=== PATIENT | female | born 2005 | race Caucasian/White ===

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

== ENCOUNTER 2023-05-18 21:26 | Emergency (ER) | payer MEDICAID, SELFPAY ==
[2023-05-18 21:27] VITALS: BP 134/110; PULSE 95; RESP 15; TEMP 36.6; O2SAT 97; BMI 48.1
--- NOTE | 2023-05-18 22:07 | EX.ED.VIS.EY ---
HPI History of Present Illness Chief Complaint: Eye Problem Narrative Narrative: 18-year-old female who denies significant past medical history states that she was playing with her friends dog who has a very long nails, sustained a scratch to her right eye yesterday evening, over 24 hours ago. She is now having problems opening her right eye secondary to pain. She denies loss of vision but states when she does open her eye, her vision is mildly blurred. She does not wear contact lenses or corrective lenses. She states that she thought it was just a superficial scratch, but it is worsened over time. She had to stay up until 9:00 this morning, 12 hours ago. She states that bright lights hurt her eye, and she has to force her eyelid open. [facility] Medical History Chronic pain Home Medications acetaminophen 500 mg tablet 1,000 mg PO Q6H PRN Pain 12/23/21 [History Last Taken Unknown] naproxen 500 mg tablet (Naprosyn) 500 mg PO BID pain 12/23/21 [History Last Taken Unknown] erythromycin 5 mg/gram (0.5 %) eye ointment 1 applic RIGHT EYE Q6H #3.5 grams 05/18/23 [Rx Last Taken Unknown] Allergy/AdvReac Type Severity Reaction Status Date / Time acetaminophen [From [place]] AdvReac Nausea/Vom/ Verified 05/18/23 21:30 Diarrhea hydrocodone [From [place]] AdvReac Nausea/Vom/ Verified 05/18/23 21:30 Diarrhea Social History Smoking Status: Current every day smoker tobacco type: cigarettes alcohol intake: current substance use type: marijuana ROS ROS ED ROS Narrative Constitutional: No fever, no chills. HEENT: No sore throat. No neck pain. No loss of vision. No rhinorrhea. Right eye pain, photophobia right eye. Cardiovascular: No chest pain. No palpitations. No pedal edema. Respiratory: No cough, no shortness of breath. Abdominal: No abdominal pain. No nausea. No vomiting. Genitourinary: No dysuria. No hematuria. Musculoskeletal: No myalgias. No arthralgias. Neurologic: Right-sided headaches. No dizziness. No lightheadedness. Skin: No rash. No change in color. Psychiatric: No depression. No anxiety. EXAM Physical Exam Narrative Exam Narrative: Afebrile. Vital signs noted. HEENT: Normocephalic. Atraumatic. PERRL, EOMI. Neck soft and supple. No point tenderness or step off. Patient having difficulty opening right eye. Extraocular muscles intact on right with mild conjunctival injection, no noted exudate. Cardiovascular: Regular rate and rhythm. No murmurs, rubs, or gallops appreciated. Respiratory: No tachypnea. Lungs clear to auscultation bilaterally. Gastrointestinal: Abdomen soft, nontender, with normoactive bowel sounds. No rebound or guarding. Neurological: Awake. Alert. Nonfocal, nonlateralizing. Skin: No rash. Normal color. No pallor. Musculoskeletal: No pedal edema. Full range of motion extremities. Const Vital Signs: 05/18/23 21:27 Temperature 97.8 F Temperature Source Temporal Pulse Rate 95 Respiratory Rate 15 Blood Pressure 134/110 H Blood Pressure Mean 118 Pulse Ox 97 Oxygen Delivery Method Room Air MDM MDM MDM Narrative Medical decision making narrative: Suspicion is for corneal ulceration versus deep laceration. However, upon initial examination her pupil appears round on the right, but examination is limited. Tetracaine will be instilled in the right eye as well as fluorescein to get a better examination. After tetracaine, she was able to open her right eye independently. It was stained with fluorescein. There is evidence of a corneal abrasion in the mid pupil/center. There is no streaming of fluorescein noted. Visual acuity obtained and noted per chart. Patient states she cannot use eyedrops so she was given erythromycin ophthalmic ointment. I did discuss the patient with Dr. Oneill with ophthalmology. Although this could be more of a corneal ulcer, as the patient is intolerant to eyedrops, he states that erythromycin would be acceptable to put in her right eye 4 times a day, and follow-up with ophthalmology on Saturday. She can use cool compresses and take [id number] nonsteroidal anti-inflammatories for analgesia. I feel she can be discharged safely home with follow-up. Return instructions to the emergency department were reviewed. Disposition is discharged home in stable condition. History & Record Review Discussion w/independent historian: Patient Additional record(s) reviewed:: Prior ED visit (Noncontributory to current chief complaint) Discharge Plan Triage Chief Complaint: Eye Problem ED Provider: Nolberto Mccormick Dx/Rx/DC Orders Clinical Impression: Corneal abrasion, right, Acute right eye pain Instructions: ED Corneal Abrasion, ED Corneal Ulcer Prescriptions: New erythromycin 5 mg/gram (0.5 %) ointment 1 applic RIGHT EYE Q6H Qty: 3.5 0RF No Action acetaminophen [Tylenol Ex Str Arthritis Pain] 500 mg Tablet 1,000 mg PO Q6H PRN (Reason: Pain) naproxen [Naprosyn] 500 mg Tablet 500 mg PO BID Primary Care Provider: Care Physician,No Primary Referrals: Parmjit Oneill MD [Med Staff - Active Staff] - 05/20/23 Care Physician,No Primary [Primary Care Provider] - Activity Restrictions/Additional Instructions: Call Dr. Oneill's office on Saturday morning to be seen later that day. You may use cool compresses. Use the erythromycin ointment 4 times a day to your right eye. [id number] analgesics as needed for pain. Disposition Disposition: Home, Self Care Discharge Date/Time: 05/18/23 23:32
[2023-05-18] MEDS: Erythromycin Ophthalmic (NSY) 1 GM OPTH.TUBE 1 APPLIC RIGHT EYE (23:27)
[2023-05-18] MEDS: Tetracaine 0.5% Ophthalmic Bottle 1 DRP OPHTHALMIC (23:27)
[2023-05-18] MEDS: Fluorescein 1 MG STRIP 1 STRIP OPHTHALMIC (23:28)
[2023-05-18 23:31] VITALS: PULSE 95; RESP 15; O2SAT 97
== END 2023-05-18 23:32 | disposition home or self-care (01) ==
PROVIDERS: Emergency Provider Emergency Medicine; Visit Provider Emergency Medicine
DX: S05.01XA Injury of conjunctiva and corneal abrasion without foreign body, right eye, initial encounter (principal); H57.11 Ocular pain, right eye; F17.210 Nicotine dependence, cigarettes, uncomplicated; F12.90 Cannabis use, unspecified, uncomplicated; X58.XXXA Exposure to other specified factors, initial encounter
CPT/HCPCS: 99283

== ENCOUNTER 2023-06-12 21:29 | Emergency (ER) | payer MEDICAID, SELFPAY ==
[2023-06-12 21:30] VITALS: BP 131/73; PULSE 117; RESP 15; TEMP 36.7; O2SAT 95; BMI 46.4
--- NOTE | 2023-06-12 21:51 | EX.ED.DYSGE1 ---
HPI History of Present Illness Chief Complaint: Other, Pain/Inj Detail of Chief Complaint: Dental pain Informant: patient Onset/Context/Timing Onset: Weeks Context: Gradual Onset Current Severity: Severe Maximum Severity: Severe Narrative Narrative: Patient presents secondary to left-sided dental pain. She states her tooth broke off about 5 weeks ago. 3 weeks ago she started getting increased pain. She was placed on a week of Levaquin with no improvement in her symptoms. She was then placed on amoxicillin and is currently on day 7. She continues to note no significant improvement in her symptoms. She has been taking Tylenol and ibuprofen as well as Aleve [id number]. She states she knows she is taking too much of it. She was able to schedule a dentist appointment but it is more than 1 month out. [facility] Medical History Chronic pain Home Medications acetaminophen 500 mg tablet 1,000 mg PO Q6H PRN Pain 12/23/21 [History Last Taken Unknown] naproxen 500 mg tablet (Naprosyn) 500 mg PO BID pain 12/23/21 [History Last Taken Unknown] erythromycin 5 mg/gram (0.5 %) eye ointment 1 applic RIGHT EYE Q6H #3.5 grams 05/18/23 [Rx Last Taken Unknown] clindamycin HCl 150 mg capsule 300 mg (2 x 150 mg) PO 4X/DAY #80 CAPSULES 06/12/23 [Rx Last Taken Unknown] naproxen 500 mg tablet (Naprosyn) 500 mg PO BID PRN pain #20 tabs 06/12/23 [Rx Last Taken Unknown] ondansetron 4 mg disintegrating tablet 4 mg PO Q8H PRN PRN Nausea #10 tabs 06/12/23 [Rx Last Taken Unknown] oxycodone-acetaminophen 5 mg-325 mg tablet (Percocet) 1 tab PO Q6H PRN pain 3 days #12 tabs 06/12/23 [Rx Last Taken Unknown] Allergy/AdvReac Type Severity Reaction Status Date / Time acetaminophen [From [place]] AdvReac Nausea/Vom/ Verified 06/12/23 21:36 Diarrhea hydrocodone [From [place]] AdvReac Nausea/Vom/ Verified 06/12/23 21:36 Diarrhea Social History Smoking Status: Current every day smoker tobacco type: cigarettes alcohol intake: current substance use type: marijuana ROS ROS ED Constitutional Constitutional ED: Denies chills or fever(s) Eyes Eyes: Denies change in vision or discharge from eye(s) ENT ENT ED: Reports other Details: Left-sided dental pain ; Denies discharge from eye(s), rhinorrhea or sore throat Cardiovascular Cardiovascular: Denies chest pain or palpitations Respiratory/Chest Respiratory/Chest: Denies cough or dyspnea Gastrointestinal Gastrointestinal: Reports nausea and vomiting; Denies abdominal pain Genitourinary Genitourinary ED: Denies dysuria Musculoskeletal Musculoskeletal: Denies back pain or extremity pain Integumentary Denies Abrasions or rash Neurologic Neurologic: Denies headache(s) or weakness Psychiatric Psychiatric: Denies anxiety or depression Allergic/Immunologic Allergic/Immunologic ED: Denies lip swelling or urticaria EXAM Physical Exam Const Vital Signs: 06/12/23 21:30 Temperature 98.1 F Temperature Source Temporal Pulse Rate 117 H Respiratory Rate 15 Blood Pressure 131/73 H Blood Pressure Mean 92 Pulse Ox 95 Oxygen Delivery Method Room Air Positive well nourished and well developed General Appearance ED: well developed HEENT Reports normocephalic and head/scalp atraumatic HEENT Narrative: Left mandibular second premolar is broken with minimal surrounding gum edema. No trismus. No evidence of Reymundo's angina. Patient speaks with a strong voice and is tolerating secretions well. Eyes PERRL and EOMs intact bilaterally Neck supple Chest Wall inspection of chest normal and palpation of chest normal Resp normal respiratory effort and clear to auscultation bilaterally Cardio regular rate and regular rhythm GI normal to inspection, nondistended, normoactive bowel sounds Palpation: soft Back/Spine no CVA tenderness Extremity normal to inspection Neuro oriented x3 and no sensory deficits noted Sensorium / Orientation: alert Motor Exam: strength 5/5 throughout Psych mental status grossly normal Skin no rashes or lesions noted MDM MDM MDM Narrative Medical decision making narrative: Patient will have her antibiotic switched to clindamycin. I did do an [facility] report prescriptions. She will be given oxycodone. I will also write her prescription for naproxen and Tylenol. She will take this as directed with not taking any additional [id number] medication to ensure she is taking an adequate amount. A dental referral list has been given. Return instructions were provided. At this time I see no evidence of deep abscess or severe infection that require imaging studies. Discharge Plan Triage Chief Complaint: Other, Pain/Inj ED Provider: Yolie Dewitt Dx/Rx/DC Orders Clinical Impression: Dental infection Instructions: ED Dental Abscess Prescriptions: New naproxen [Naprosyn] 500 mg tablet 500 mg PO BID PRN (Reason: pain) Qty: 20 0RF clindamycin HCl 150 mg capsule 300 mg PO 4X/DAY Qty: 80 0RF ondansetron 4 mg tablet,disintegrating 4 mg PO Q8H PRN PRN (Reason: Nausea) Qty: 10 0RF oxycodone-acetaminophen [Percocet] 5-325 mg tablet 1 tab PO Q6H PRN (Reason: pain) 3 Days Qty: 12 0RF No Action acetaminophen [Tylenol Ex Str Arthritis Pain] 500 mg Tablet 1,000 mg PO Q6H PRN (Reason: Pain) naproxen [Naprosyn] 500 mg Tablet 500 mg PO BID erythromycin 5 mg/gram (0.5 %) ointment 1 applic RIGHT EYE Q6H Qty: 3.5 0RF Primary Care Provider: Care Physician,No Primary Referrals: Care Physician,No Primary [Primary Care Provider] - Activity Restrictions/Additional Instructions: Dental referral list provided. Disposition Disposition: Home, Self Care
[2023-06-12] MEDS: Ondansetron ODT 4 MG Tablet PO (21:56)
[2023-06-12] MEDS: oxyCODONE 5 MG Tablet PO (21:56)
[2023-06-12] MEDS: Clindamycin HCl 150 MG Capsule 300 MG PO (21:56)
== END 2023-06-12 22:55 | disposition home or self-care (01) ==
PROVIDERS: Emergency Provider Emergency Medicine; Visit Provider Emergency Medicine
DX: K04.7 Periapical abscess without sinus (principal); F17.210 Nicotine dependence, cigarettes, uncomplicated
CPT/HCPCS: 99283

== ENCOUNTER 2024-01-17 14:33 | Emergency (ER) | payer MEDICAID, SELFPAY ==
[2024-01-17 14:34] VITALS: BP 154/103; PULSE 106; RESP 18; TEMP 36.6; O2SAT 97; BMI 48.6
--- NOTE | 2024-01-17 15:58 | EKG12_ITS ---
Test Reason : Blood Pressure : / mmHG Vent. Rate : 084 BPM Atrial Rate : 084 BPM P-R Int : 106 ms QRS Dur : 092 ms QT Int : 342 ms P-R-T Axes : 068 021 031 degrees QTc Int : 404 ms Sinus rhythm with sinus arrhythmia with short OK Otherwise normal ECG Confirmed by Arden Angulo ([id number]), editorial writer KARLY OLIVA ([id number]) on 01/20/2024 9:56:20 AM Referred By: Confirmed By:Arden Angulo
[2024-01-17 16:06] LABS: Absolute Lymphocyte Count 2.74 X10^3/uL (0.83-4.51); Absolute Neutrophil Count 6.8 X10^3/uL (2.0-7.7); Basophil# 0.05 X10^3/uL; Basophil% 0.5 % (0-1); Eosinophil# 0.27 X10^3/uL; Eosinophils% 2.5 % (0-5); Hematocrit 42.1 % (37-47); Hemoglobin 13.1 g/dL (12.0-15.0); Lymphocyte # 2.74 X10^3/ul (0.83-4.51); Lymphocyte % 25.7 % (19-41); Mean Corp Hgb Conc 31.1 g/dL (32-36); Mean Corpuscular Hgb 25.7 pg (27.0-32.0); Mean Corpuscular Volume 82.5 fL (81-99); Mean Platelet Vol. 9.9 fl (6.2-12.0); Monocyte# 0.75 X10^3/uL; NRBC Flagged by Analyzer 0 % (0-5); Neutrophil % 63.9 % (47-70); Platelet Count 374 K/mm3 (150-450); RBC Distribution Width CV 13.7 % (11.6-14.6); RBC Distribution Width SD 40.8 fl (35.1-43.9); White Blood Count 10.7 K/mm3 (4.4-11.0)
[2024-01-17 16:22] LABS: Internal QC Validated? YES +Cl - CLEAR BKGD; Pregnancy, Serum, hCG Quali. NEGATIVE Negative
[2024-01-17 16:25] LABS: Alcohol, Blood (Medical)-Serum < 3.0 mg/dL
[2024-01-17 16:28] LABS: ALB/GLOB Ratio 0.9 RATIO (0.9-2.4); AST(SGOT) 14 U/L (15-37); Alanine Aminotransfer ALT/SGPT 22 U/L (13-56); Albumin, Serum 3.6 g/dL (3.2-5.0); Alkaline Phosphatase 87 U/L (45-117); Anion Gap 4 (5-15); BUN 16 mg/dL (7-18); BUN/Creat Ratio 23.3 RATIO (10-20); Calcium,Total 9.7 mg/dL (8.5-10.1); Chloride 109 mmol/L (98-107); Creatinine, Serum 0.69 mg/dL (0.55-1.02); EST Glomerular Filtration Rate 115 mL/min (>60); Est Glom Filt Rate - Afr Amer 139 mL/min (>60); Estimated Creatinine Clearance 160.81 ml/min; Globulin 3.9 g/dL (2.2-4.2); Glucose 97 mg/dL (74-106); Potassium 3.5 mmol/L (3.5-5.1); Protein, Total 7.5 g/dL (6.4-8.2); Sodium Level 141 mmol/L (136-145)
[2024-01-17 16:38] VITALS: RESP 18
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
--- NOTE | 2024-01-17 16:50 | RAD_ITS ---
INDICATION: concern for FB- razor blade EXAMINATION/TECHNIQUE: X-RAY - XR Abdomen 1 View COMPARISON: None FINDINGS: AREAS OF INTEREST: 1. No radiopaque foreign bodies identified within the visualized lower chest abdomen and pelvis. REMAINING EXAMINATION: BOWEL GAS PATTERN: Non-obstructive. No bowel or stomach distention. FREE AIR: Not assessed on a single supine view. ORGANOMEGALY: Not seen. CALCIFICATIONS: No abnormal calcifications observed. LOWER CHEST: No acute pathology. BONES AND SOFT TISSUES: No acute pathology. RAD/Abdomen Single View (Portable) IMPRESSION: 1. Non-obstructive bowel gas pattern. 2. No radiopaque foreign bodies identified. Electronically Signed: Yan Romero MD at 18:34 EST ,
--- NOTE | 2024-01-17 16:50 | RAD_ITS ---
INDICATION: concern for FB- razor blade EXAMINATION/TECHNIQUE: X-RAY - XR Chest 1 View COMPARISON: 06/23/2016 FINDINGS: LIFE-SUPPORT AND LINES: 1. None. 2. No foreign bodies identified visualized neck chest and upper abdomen. HEART AND VESSELS: The cardiac silhouette, pulmonary vasculature have normal appearance. No evidence of congestive failure. LUNGS AND PLEURAL SPACES: Lungs are clear. No focal infiltrate, consolidation or effusions. No evidence of pneumothorax. No pulmonary mass is noted. MEDIASTINUM AND HILAR REGIONS: No masses adenopathy noted. No areas of calcification. Visualized upper airway is normal in position. BONY ELEMENTS: No acute bony changes noted. RAD/Chest 1 View (Portable) IMPRESSION: 1. No evidence of acute cardiopulmonary process 2. No foreign bodies identified. Electronically Signed: Yan Romero MD at 18:32 EST ,
[2024-01-17 17:12] LABS: Amphetamine Urine VISTA NEGATIVE (<1000 ng/mL); Barbiturate Urine VISTA NEGATIVE (< 200 ng/mL); Benzodiazepine Urine VISTA NEGATIVE (< 200 ng/mL); Cocaine Urine VISTA NEGATIVE (< 300 ng/mL); Ecstacy Urine VISTA NEGATIVE (< 500 ng/mL); Methadone Urine VISTA NEGATIVE (< 300 ng/mL); PCP Urine VISTA NEGATIVE (< 25 ng/mL); THC Urine VISTA POSITIVE (< 50 ng/mL); Vista UDS pH Range 5
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
--- OUTSIDE RECORDS SUMMARY | 2024-01-17 17:29 | XMS RPT_ITS | CCD ---
Author Name Unknown Address [address] [place] [address] Organization [facility] Care Team Providers Care Mall Plant Caretaker Name Role Phone Chelly Cantu MD Primary Care Provider [phone] RAHEL BAIRES MD Attending Unavailable PHYSICIAN, NONE Primary Care Unavailable UCRTIS BRIGHT MD Attending Unavailable PHYSICIAN, NONE Primary Care Unavailable PHYSICIAN, NONE Primary Care Unavailable SINDY NOLEN PA-C Attending Unavailable Chelly Cantu MD Primary Care Provider CHELLY CANTU Primary Care Unavailable CHELLY CANTU Primary Care Unavailable MARGAUX RAMOS Attending Unavailable CHELLY CANTU Primary Care Unavailable CARMEL RODRIGUEZ Attending Unavailable AMISHA CHELLY Primary Care Unavailable BECKY LEONG Attending Unavailable Allergies Allergy Classification Reported Allergen(s) Allergy Type Date of Onset Reaction(s) Facility (2 sources) HYDROcodone; Translations: [HYDROCODONE] Drug Allergy 07-24-2023 Anaphylaxis [facility] Medications Current Medications Medication Drug Class(es) Dates Sig (Normalized) Sig (Original) amoxicillin 875 mg oral tablet (2 sources) Penicillin-class Antibacterial Start: 02-19-2023 End: 03-01-2023 take 1 tablet by mouth twice daily amoxicillin (AMOXIL) 875 mg tablet Indications: Dental infection Take 1 tablet by mouth twice daily for 10 days. 20 tablet 0 02/19/2023 03/01/2023 Active Completed/Discontinued Medications Medication Drug Class(es) Dates Sig (Normalized) Sig (Original) acetaminophen 500 mg oral tablet (2 sources) Start: 12-23-2021 acetaminophen (TYLENOL) 500 mg tablet Take by mouth. 0 12/23/2021 Active Problems Active Problems Problem Classification Problem Date Documented Date Episodic/Chronic Attention-deficit, conduct, and disruptive behavior disorders (3 sources) Attention deficit hyperactivity disorder; Translations: [Attention-deficit hyperactivity disorder, unspecified type] Onset: 01-16-2011 01-16-2011 Chronic Disorders of teeth and jaw (4 sources) Toothache; Translations: [Other specified disorders of teeth and supporting structures] Onset: 02-19-2023 Episodic Intestinal infection (1 source) Viral intestinal infection, unspecified; Translations: [Viral gastroenteritis] Onset: 11-29-2023 Episodic Other infections; including parasitic (1 source) Infestation by Sarcoptes scabiei margaret hominis; Translations: [Scabies] Episodic Past or Other Problems Problem Classification Problem Date Documented Da te Episodic/Chronic Genitourinary symptoms and ill-defined conditions (2 sources) Dysuria; Translations: [Dysuria] Onset: 07-24-2023 07-24-2023 Episodic Other nutritional; endocrine; and metabolic disorders (3 sources) Childhood obesity; Translations: [Body mass index (BMI) pediatric, greater than or equal to 95th percentile for age] Onset: 07-05-2015 07-05-2015 Episodic Urinary tract infections (2 sources) Acute cystitis; Translations: [Acute cystitis with hematuria] Onset: 07-24-2023 07-24-2023 Episodic Results Test Name Value Interpretation Reference Range Facil ity Vital Signs Date Time Vital Sign Value Performing Clinician Laverne porras 07-24-2023 10:42-0400 Body temperature 98.01 [degF] Margaux Ramos DO Work Phone: [facility] 07-24-2023 10:42-0400 Diastolic blood pressure 82 mm[Hg] Margaux Ramos DO Work Phone: [facility] 07-24-2023 10:42-0400 Heart rate 92 /min Margaux Ramos DO Work Phone: [facility] 07-24-2023 10:42-0400 Respiratory rate 18 /min Margaux Ramos DO Work Phone: [facility] 07-24-2023 10:42-0400 SaO2% (BldA) [Mass fraction] 98 % Margaux Ramos DO Work Phone: [facility] 07-24-2023 10:42-0400 Systolic blood pressure 125 mm[Hg] Margaux Ramos DO Work Phone: [facility] 02-19-2023 19:25-0400 Body temperature 97.59 [degF] Becky Leong MD Work Phone: [facility] 02-19-2023 19:25-0400 Diastolic blood pressure 85 mm[Hg] Becky Leong MD Work Phone: [facility] 02-19-2023 19:25-0400 Heart rate 102 /min Becky Leong MD Work Phone: [facility] 02-19-2023 19:25-0400 Respiratory rate 20 /min Becky Leong MD Work Phone: [facility] 02-19-2023 19:25-0400 SaO2% (BldA) [Mass fraction] 97 % Becky Leong MD Work Phone: [facility] 02-19-2023 19:25-0400 Systolic blood pressure 140 mm[Hg] Becky Leong MD Work Phone: [facility] 09-01-2022 12:45-0400 Body weight 131.54 kg Margaux Ramos DO Work Phone: [facility] 09-01-2022 12:45-0400 Diastolic blood pressure 101 mm[Hg] Margaux Ramos DO Work Phone: [facility] 09-01-2022 12:45-0400 Heart rate 86 /min Margaux Ramos DO Work Phone: [facility] 09-01-2022 12:45-0400 SaO2% (BldA) [Mass fraction] 97 % Margaux Ramos DO Work Phone: [facility] 09-01-2022 12:45-0400 Systolic blood pressure 185 mm[Hg] Margaux Richard DO Work Phone: [facility] Encounters Encounter Date Encounter Type Care Provider Facility Start: 11-29-2023 End: 11-29-2023 ambulatory CHELLY CANTU Facility:[id number] Start: 11-13-2023 End: 11-13-2023 ambulatory CHELLY CANTU Facility:[id number] Start: 07-24-2023 End: 07-24-2023 ambulatory CHELLY CANTU Facility:[id number] Start: 07-24-2023 End: 07-24-2023 Patient encounter procedure Margaux Annamaria Ramos DO Work Phone: [facility] Procedures Date Procedure Procedure Detail Performing Clinician Start: 07-24-2023 Urnls dip stick/tabl et rgnt auto w/o microscopy Margaux Annamaria Ramos DO Work Phone: Plan of Treatment Date Care Activity Detail Author Start: 06-28-2025 Urine microalbumin profile DTA P,TDAP,TD (7 - Td or Tdap) [facility] Start: 08-02-2023 Influenza vaccination INFLUENZA (#1) [facility] Start: 12-02-2022 [facility] Start: 08-02-2022 Influenza vaccination INFLUENZA (#1) [facility] Start: 12-02-2021 DEPRESSION ASSESSMENT [facility] Start: 2021 CHLAMYDIA SCREENING (18-24) CHLAMYDIA SCREENING (18-24) [facility] Start: 2021 GC (GONORRHEA) SCREE DAVID (18-24) GC (GONORRHEA) SCREENING (18-24) [facility] Start: 2021 HEPATITIS C SCREENING HEPATITIS C SC REENING [facility] Start: 2021 HIV SCREENING HIV SCREENING [facility] Start: 2019 MENINGOCOCCAL B: Con finger buffs assembler based on risk (1 of 2 - Patient Seeks Protection) MENINGOCOCCAL B: Consider based on risk (1 of 2 - Patient Seeks Protection) [facility] Start: 2017 PEDS TO ADULT TRANSI TION ANNUAL ASSESSMENT PEDS TO ADULT TRANSITION ANNUAL ASSESSMENT [facility] Start: 2015 PEDS TO ADULT TRANSI TION INITIAL DISCUSSION PEDS TO ADULT TRANSITION INITIAL DISCUSSION [facility] Start: 2014 HPV VACCINE (1 - 2-d ose series) HPV VACCINE (1 - 2-dose series) [facility] Start: 2013 MENINGOCOCCAL B: Con finger buffs assembler based on risk (1 of 2 - Risk Bexsero 2-dose series) MENINGOCOCCAL B: Consider based on risk (1 of 2 - Risk Bexsero 2-dose series) [facility] Start: 2012 HPV VACCINE (1 - 2-d ose series) HPV VACCINE (1 - 2-dose series) [facility] Start: 2009 PNEUMOCOCCAL (1 - PCV) PNEUMOCOCCAL (1 - PCV) [facility] Start: 2003 COVID-19 VACCINE (#1) COVID-19 VACCI NE (#1) [facility] Immunizations Immunization Date Immunization Notes Care Provider Fa cili 06-28-2015 meningococcal polysaccharide (groups A, C, Y and W-135) diphtheria toxoid conjugate vaccine (MCV4P) Margaux Ramos DO Work Phone: [facility] 06-28-2015 tetanus toxoid, redu shree diphtheria toxoid, and acellular pertussis vaccine, adsorbed Margaux Ramos DO Work Phone: [facility] 12-08-2012 influenza virus vacc ine, live, attenuated, for intranasal use Margaux Ramos DO Work Phone: [facility] 10-05-2008 diphtheria, tetanus toxoids and acellular pertussis vaccine Margaux Richard DO Work Phone: [facility] Work Phone: 10-05-2008 measles, mumps and rubella virus vaccine Margaux Ramos DO Work Phone: [facility] Work Phone: 10-05-2008 poliovirus vaccine, inactivated Margaux Ramos DO Work Phone: [facility] Work Phone: 10-05-2008 varicella virus vaccine Margaux Richard DO Work Phone: [facility] Work Phone: 07-24-2006 diphtheria, tetanus toxoids and acellular pertussis vaccine Margaux Ramos DO Work Phone: [facility] Work Phone: 07-24-2006 pneumococcal conjuga te vaccine, 7 valent Margaux Ramos DO Work Phone: [facility] Work Phone: 07-24-2006 poliovirus vaccine, inactivated Margaux Ramos DO Work Phone: [facility] Work Phone: 09-13-2004 influenza virus vacc ine, whole virus Margaux Ramos DO Work Phone: [facility] 09-01-2004 influenza virus vacc ine, unspecified formulation Margaux Ramos DO Work Phone: [facility] Work Phone: 03-13-2004 DTaP-hepatitis B and poliovirus vaccine Margaux Ramos DO Work Phone: [facility] Work Phone: 03-13-2004 haemophilus influenz ae type b vaccine, HbOC conjugate Margaux Ramos DO Work Phone: [facility] Work Phone: 03-13-2004 measles, mumps and rubella virus vaccine Margaux Ramos DO Work Phone: [facility] Work Phone: 2003 diphtheria, tetanus toxoids and acellular pertussis vaccine Margaux Ramos DO Work Phone: [facility] Work Phone: 2003 haemophilus influenz ae type b vaccine, HbOC conjugate Margaux Ramos DO Work Phone: [facility] Work Phone: 2003 pneumococcal conjuga te vaccine, 7 valent Margaux Ramos DO Work Phone: [facility] Work Phone: 2003 poliovirus vaccine, inactivated Margaux Ramos DO Work Phone: [facility] Work Phone: 2003 diphtheria, tetanus toxoids and acellular pertussis vaccine Margaux Ramos DO Work Phone: [facility] Work Phone: 2003 haemophilus influenz ae type b vaccine, HbOC conjugate Margaux Ramos DO Work Phone: [facility] Work Phone: 2003 pneumococcal conjuga te vaccine, 7 valent Margaux Ramos DO Work Phone: [facility] Work Phone: 2003 poliovirus vaccine, inactivated Margaux Ramos DO Work Phone: [facility] Work Phone: 2003 hepatitis B vaccine, pediatric or pediatric/adolescent dosage Margaux Ramos DO Work Phone: [facility] Work Phone: 2003 hepatitis B vaccine, pediatric or pediatric/adolescent dosage Margaux Ramos DO Work Phone: [facility] Work Phone: Payers Date Payer Category Payer Unknown [id number] 2003 Medicaid [id number] 1972 Unknown [id number] 1972 Unknown [id number] 1972 Unknown [id number] Social History Date Type Detail Facility Start: 09-01-2022 Tobacco smoking stat us NHIS Smokes tobacco daily [facility] History of tobacco use Cigarette Smoker C [facility] Start: 09-01-2022 Tobacco use and exposure Smoke less tobacco non-user [facility] Start: 09-01-2022 Alcohol intake Current non-dr rn radiology of alcohol (finding) [facility] Start: 2003 Sex Assigned At Not on file C [facility] Start: 08-22-2022 End: 09-01-2022 Exposure to SARS-CoV-2 (event) Not sure [facility] Start: 02-19-2023 End: 07-24-2023 Alcohol intake Current drinker of alcohol (finding) [facility] Start: 11-09-2020 End: 07-24-2023 History of Social function [facility] Start: 11-09-2020 End: 07-24-2023 Tobacco use panel [facility] Adult Depression Scr eening Assessment 0 [facility] Clinical Notes 09-01-2022 to 11-29-2023 Margaux Ramos DO - 07/24/2023 11:47 AM EDTPatient InstructionsPrachrissie Leong MD - 02/19/2023 7:28 PM EDTLdiane Ramos DO - 09/01/2022 1:12 PM EDT Note Date & Type Note Facility 11-29-2023 Note HNO ID: [id number] Author: Carmel Rodriguez APRN.[employer] Service: ? Author Type: Nurse Practitioner Type: Progress Notes Filed: 11/29/2023 5:42 PM Note Text: Raven Dewey is a 18 year old female who presents with Abdominal Pain (Diarrhea, nausea all x 3 days) Onset: 3 days How many loose stools today: 4 How many loose stools yesterday: 5, 3 diarrhea episodes the day before yesterday Blood in stool: No Black stool: No Nausea: Yes Vomiting: Yes How many times today: 3 How many times yesterday: 0 and 0 the day before yesterday Abdominal pain: Yes Location: Epigastric Radiation: Radiates Describe the pain (sharp, dull, achy, crampy): Cramping taking fluids well: Yes Urine output good: Yes Ill contacts: Yes Travel outside the country: No Well water: No Cough / cold symptoms: No Runny nose: No Sore throat : No Cough: No PAST MEDICAL HISTORY Diagnosis Date ADHD (attention deficit hyperactivity disorder) Exercise-induced asthma NEGATIVE MEDICAL HISTORY 11/03/09 normal color vision RSV (acute bronchiolitis due to respiratory syncytial virus) as a baby ACTIVE PROBLEM LIST Adhd (Attention Deficit Hyperactivity Disorder) Body Mass Index Equal to Or Greater Than 95th Percentile for Age in Pediatric Patient Current Outpatient Medications Medication Sig Dispense Refill MELATONIN ORAL Take by mouth once daily. acetaminophen (TYLENOL) 500 mg tablet Take by mouth. naproxen (NAPROSYN) 500 mg tablet Take by mouth. No current facility-administered medications for this visit. Social History Tobacco Use Smoking status: Every Day Packs/day: .25 Types: Cigarettes Passive exposure: Current Smokeless tobacco: Never Vaping Use Vaping Use: current everyday user Substances: Nicotine, THC, Flavoring Devices: Disposable, Pre-filled pod Substance Use Topics Alcohol use: Yes Alcohol/week: 1.0 standard drink of alcohol Types: 1 Shots of liquor per week Drug use: Yes Types: Marijuana Alcohol Use: Approximately 0.6 oz/week [which includes 1 Shots of liquor per week] Tobacco Use: 0.25 packs/day Types: Cigarettes FAMILY HISTORY Problem Relation Age of Onset None Other other (sids [Other]) Sister Review of Systems Constitutional: Positive for chills and malaise/fatigue. Negative for fever and weight loss. Respiratory: Negative for shortness of breath. Cardiovascular: Negative for chest pain. Gastrointestinal: Positive for abdominal pain, diarrhea and vomiting. Negative for blood in stool, constipation, heartburn, melena and nausea. Genitourinary: Negative for dysuria, flank pain, frequency, hematuria and urgency. Musculoskeletal: Negative for back pain. Neurological: Negative for dizziness and headaches. BP 121/78 Pulse 80 Temp 97.4 Resp 20 Wt 273 lb 6.4 oz (124.0kg) SpO2 97% LMP 10/28/2023 Physical Exam Vitals and nursing note reviewed. Constitutional: Appearance: Normal appearance. HENT: Head: Normocephalic and atraumatic. Mouth/Throat: Mouth: Mucous membranes are moist. Pharynx: Oropharynx is clear. Eyes: Conjunctiva/sclera: Conjunctivae normal. Cardiovascular: Rate and Rhythm: Normal rate and regular rhythm. Pulses: Normal pulses. Heart sounds: Normal heart sounds. Pulmonary: Effort: Pulmonary effort is normal. Breath sounds: Normal breath sounds. Abdominal: General: Abdomen is flat. Bowel sounds are normal. Tenderness: There is abdominal tenderness in the epigastric area. There is no right CVA tenderness, left CVA tenderness, guarding or rebound. Negative signs include Harris's sign, Rovsing's sign, McBurney's sign, psoas sign and obturator sign. Hernia: No hernia is present. Musculoskeletal: General: Normal range of motion. Cervical back: Neck supple. Skin: General: Skin is warm and dry. Capillary Refill: Capillary refill takes less than 2 seconds. Coloration: Skin is not jaundiced. Neurological: General: No focal deficit present. Mental Status: She is alert. Mental status is at baseline. Psychiatric: Mood and Affect: Mood normal. Behavior: Behavior normal. ASSESSMENT/PLAN: 1. Viral gastroenteritis - ICD9: 008.8, ICD10: A08.4 - ONDANSETRON 4 MG DISINTEGRATING TABLET - OMEPRAZOLE 20 MG CAPSULE,DELAYED RELEASE - signs and symptoms consistent with viral gastroenteritis. No evidence of acute abdomen pain or evidence of dehydration. Treatment is supportive measures and hydration. Patient is advised to return to clinic or present to ED if symptoms change, worsen, or do not begin to improve within 24-48 hours. Otherwise follow with PCP in 2-5 days. Carmel Rodriguez APRN.[facility] 11-13-2023 Note HNO ID: [id number] Author: Margaux Ramos, DO Service: ? Author Type: Physician Type: Progress Notes Filed: 11/13/2023 4:14 PM Note Text: Raven Dewey is a 18 year old FEMALE who presents with Sinus Problem (Congestion //Started 2 days ago /), Abdominal Pain (Started 2 days ago //Middle ABD area /), and Jaw pain (Left side /Started off and on for the past 3 months /) HPI PAST MEDICAL HISTORY Diagnosis Date ADHD (attention deficit hyperactivity disorder) Exercise-induced asthma NEGATIVE MEDICAL HISTORY 11/03/09 normal color vision RSV (acute bronchiolitis due to respiratory syncytial virus) as a baby ACTIVE PROBLEM LIST Adhd (Attention Deficit Hyperactivity Disorder) Body Mass Index Equal to Or Greater Than 95th Percentile for Age in Pediatric Patient Current Outpatient Medications Medication Sig Dispense Refill XULANE 150-35 mcg/24 hr patch APPLY PATCH TO SKIN FOR 3 WEEKS AND CHANGE PATCH WEEKLY MELATONIN ORAL Take by mouth once daily. amoxicillin (AMOXIL) 875 mg tablet Take 1 tablet by mouth two times a day for 10 days. 20 tablet 0 oxyCODONE-acetaminophen (PERCOCET) 5-325 mg tablet Take 1 tablet by mouth every 8 hours as needed for pain for up to 5 days. 15 tablet 0 acetaminophen (TYLENOL) 500 mg tablet Take by mouth. (Patient not taking: Reported on 11/13/2023) naproxen (NAPROSYN) 500 mg tablet Take by mouth. (Patient not taking: Reported on 11/13/2023) No current facility-administered medications for this visit. Social History Tobacco Use Smoking status: Every Day Packs/day: .25 Types: Cigarettes Passive exposure: Current Smokeless tobacco: Never Vaping Use Vaping Use: current everyday user Substances: Nicotine, THC, Flavoring Devices: Disposable, Pre-filled pod Substance Use Topics Alcohol use: Yes Alcohol/week: 1.0 standard drink of alcohol Types: 1 Shots of liquor per week Drug use: Yes Types: Marijuana Alcohol Use: Approximately 0.6 oz/week [which includes 1 Shots of liquor per week] Tobacco Use: 0.25 packs/day Types: Cigarettes FAMILY HISTORY Problem Relation Age of Onset None Other other (sids [Other]) Sister Review of Systems Constitutional: Positive for malaise/fatigue. HENT: Positive for congestion, sinus pain and sore throat. Mouth pain All other systems reviewed and are negative. BP 126/84 Pulse 75 Temp (Src) 97.8 (Temporal) Resp 18 Wt 261 lb (118.4kg) SpO2 100% LMP 10/28/2023 Physical Exam Vitals and nursing note reviewed. Constitutional: Appearance: Normal appearance. HENT: Head: Normocephalic. Right Ear: Tympanic membrane normal. Left Ear: Tympanic membrane normal. Nose: Congestion and rhinorrhea present. Mouth/Throat: Pharynx: Posterior oropharyngeal erythema present. Comments: Patient has multiple fractured and carious teeth no doubt they do hurt. It appears that tooth #7 9 and 11 are fractured and carious. Eyes: Extraocular Movements: Extraocular movements intact. Pupils: Pupils are equal, round, and reactive to light. Cardiovascular: Rate and Rhythm: Normal rate and regular rhythm. Pulses: Normal pulses. Heart sounds: Normal heart sounds. Pulmonary: Effort: Pulmonary effort is normal. Breath sounds: Normal breath sounds. Lymphadenopathy: Cervical: Cervical adenopathy present. Skin: General: Skin is warm. Capillary Refill: Capillary refill takes 2 to 3 seconds. Neurological: General: No focal deficit present. Mental Status: She is alert. Psychiatric: Comments: Patient was extremely dramatic. Asked the nurse if she could sit on the floor because her back hurt too badly. Was crying and could hardly talk every time she tried to tell me about how bad her teeth hurt. But if I got her distracted she stopped crying immediately. Patient was really disingenuous. ASSESSMENT/PLAN: 1. Odontalgia - ICD9: 525.9, ICD10: K08.89 - AMOXICILLIN 875 MG TABLET - OXYCODONE-ACETAMINOPHEN 5 MG-325 MG TABLET Margaux Ramos [facility] 11-13-2023 Note HNO ID: [id number] Author: Tabitha Huerta LPN Service: ? Author Type: LICENSED NURSE Type: Progress Notes Filed: 11/13/2023 4:14 PM Note Text: Patient requested to sit on the floor due to back pain. This nurse offered patient a different chair or to sit on the bed patient refused. Tabitha Huerta WEDGER [facility] 07-24-2023 Note HNO ID: [id number] Author: Margaux Ramos DO Service: ? Author Type: Physician Type: Progress Notes Filed: 07/24/2023 11:49 AM Note Text: Raven Dewey is a 18 year old FEMALE who presents with UTI (Pain with urination, discomfort x 10 days) HPI PAST MEDICAL HISTORY Diagnosis Date ADHD (attention deficit hyperactivity disorder) Exercise-induced asthma NEGATIVE MEDICAL HISTORY 11/03/09 normal color vision RSV (acute bronchiolitis due to respiratory syncytial virus) as a baby ACTIVE PROBLEM LIST Adhd (Attention Deficit Hyperactivity Disorder) Body Mass Index Equal to Or Greater Than 95th Percentile for Age in Pediatric Patient Current Outpatient Medications Medication Sig Dispense Refill acetaminophen (TYLENOL) 500 mg tablet Take by mouth. naproxen (NAPROSYN) 500 mg tablet Take by mouth. nitrofurantoin monohydrate and macrocrystal (MACROBID) 100 mg capsule Take 1 capsule by mouth twice daily for 7 days. 14 capsule 0 phenazopyridine (PYRIDIUM) 200 mg tablet Take 1 tablet by mouth three times daily as needed for pain for up to 2 days. 6 tablet 0 fluconazole (DIFLUCAN) 150 mg tablet Take 1 pill on days 1, 4 and 7. Take with food. 3 tablet 0 No current facility-administered medications for this visit. Social History Tobacco Use Smoking status: Every Day Types: Cigarettes Smokeless tobacco: Never Vaping Use Vaping Use: Former Substance Use Topics Alcohol use: Yes Drug use: Yes Types: Marijuana Alcohol Use: Yes Tobacco Use: Types: Cigarettes FAMILY HISTORY Problem Relation Age of Onset None Other other (sids [Other]) Sister Review of Systems Genitourinary: Positive for dysuria, frequency, hematuria and urgency. All other systems reviewed and are negative. BP 125/82 Pulse 92 Temp 98 Resp 18 SpO2 98% Physical Exam Vitals and nursing note reviewed. Constitutional: Appearance: Normal appearance. HENT: Head: Normocephalic. Cardiovascular: Rate and Rhythm: Regular rhythm. Pulses: Normal pulses. Heart sounds: Normal heart sounds. Pulmonary: Breath sounds: Normal breath sounds. Abdominal: Tenderness: There is abdominal tenderness. Skin: General: Skin is warm. Capillary Refill: Capillary refill takes 2 to 3 seconds. Neurological: General: No focal deficit present. Mental Status: She is alert. Psychiatric: Mood and Affect: Mood normal. ASSESSMENT/PLAN: 1. Acute cystitis with hematuria - ICD9: 595.0, ICD10: N30.01 (primary diagnosis) - NITROFURANTOIN MONOHYDRATE AND MACROCRYSTAL 100 MG ORAL CAP - PHENAZOPYRIDINE 200 MG TABLET - FLUCONAZOLE 150 MG TABLET 2. Dysuria - ICD9: 788.1, ICD10: R30.0 - URINALYSIS, DIPSTICK ONLY Margaux Burger [facility] 07-24-2023 History of Presen t illness Narrative Raven Dewey is a 18 year old FEMALE who presents with UTI (Pain with urination, discomfort x 10 days) HPI PAST MEDICAL HISTORY Diagnosis Date ADHD (attention deficit hyperactivity disorder) Exercise-induced asthma NEGATIVE MEDICAL HISTORY 11/03/09 normal color vision RSV (acute bronchiolitis due to respiratory syncytial virus) as a baby ACTIVE PROBLEM LIST Adhd (Attention Deficit Hyperactivity Disorder) Body Mass Index Equal to Or Greater Than 95th Percentile for Age in Pediatric Patient Current Outpatient Medications Medication Sig Dispense Refill acetaminophen (TYLENOL) 500 mg tablet Take by mouth. naproxen (NAPROSYN) 500 mg tablet Take by mouth. nitrofurantoin monohydrate and macrocrystal (MACROBID) 100 mg capsule Take 1 capsule by mouth twice daily for 7 days. 14 capsule 0 phenazopyridine (PYRIDIUM) 200 mg tablet Take 1 tablet by mouth three times daily as needed for pain for up to 2 days. 6 tablet 0 fluconazole (DIFLUCAN) 150 mg tablet Take 1 pill on days 1, 4 and 7. Take with food. 3 tablet 0 No current facility-administered medications for this visit. Social History Tobacco Use Smoking status: Every Day Types: Cigarettes Smokeless tobacco: Never Vaping Use Vaping Use: Former Substance Use Topics Alcohol use: Yes Drug use: Yes Types: Marijuana Alcohol Use: Yes Tobacco Use: Types: Cigarettes FAMILY HISTORY Problem Relation Age of Onset None Other other (sids [Other]) Sister Review of Systems Genitourinary: Positive for dysuria, frequency, hematuria and urgency. All other systems reviewed and are negative. BP 125/82 Pulse 92 Temp 98 Resp 18 SpO2 98% Physical Exam Vitals and nursing note reviewed. Constitutional: Appearance: Normal appearance. HENT: Head: Normocephalic. Cardiovascular: Rate and Rhythm: Regular rhythm. Pulses: Normal pulses. Heart sounds: Normal heart sounds. Pulmonary: Breath sounds: Normal breath sounds. Abdominal: Tenderness: There is abdominal tenderness. Skin: General: Skin is warm. Capillary Refill: Capillary refill takes 2 to 3 seconds. Neurological: General: No focal deficit present. Mental Status: She is alert. Psychiatric: Mood and Affect: Mood normal. ASSESSMENT/PLAN: 1. Acute cystitis with hematuria - ICD9: 595.0, ICD10: N30.01 (primary diagnosis) - NITROFURANTOIN MONOHYDRATE & MACROCRYSTAL 100 MG ORAL CAP - PHENAZOPYRIDINE 200 MG TABLET - FLUCONAZOLE 150 MG TABLET 2. Dysuria - ICD9: 788.1, ICD10: R30.0 - URINALYSIS, DIPSTICK ONLY Margaux Ramos documented in this encounter [facility] 02-19-2023 Note HNO ID: [id number] Author: Becky Leong MD Service: ? Author Type: Physician Type: Progress Notes Filed: 02/19/2023 7:35 PM Note Text: Raven Dewey is a 18 year old FEMALE who presents with Headache (Jaw pain, dizzy x 1 week) 18 years old female who asked the longstanding dental problem There is a decayed tooth on the right lower jaw last molar But recently she cracked another tooth on the same right lower jaw Now her right lower jaw is painful No facial swelling She could not get into her dentist yet PAST MEDICAL HISTORY Diagnosis Date ADHD (attention deficit hyperactivity disorder) Exercise-induced asthma NEGATIVE MEDICAL HISTORY 11/03/09 normal color vision RSV (acute bronchiolitis due to respiratory syncytial virus) as a baby ACTIVE PROBLEM LIST Adhd (Attention Deficit Hyperactivity Disorder) Body Mass Index Equal to Or Greater Than 95th Percentile for Age in Pediatric Patient Current Outpatient Medications Medication Sig Dispense Refill acetaminophen (TYLENOL) 500 mg tablet Take by mouth. naproxen (NAPROSYN) 500 mg tablet Take by mouth. clotrimazole (LOTRIMIN, CLOTRIM) 1 % cream 1 application twice daily to facial lesions. Use 3 days past resolution of rash. 45 g 0 albuterol HFA (PROAIR HFA) 90 mcg/actuation inhaler Inhale 2 Puffs as instructed every 6 hours as needed. 1 Inhaler 0 Ethinyl Estradiol-Norelgestrom (XULANE) 150-35 mcg/24 hr Apply 1 Patch as directed once each week. 3 Patch 3 VALERIAN ROOT ORAL Take by mouth. No current facility-administered medications for this visit. Social History Tobacco Use Smoking status: Every Day Types: Cigarettes Smokeless tobacco: Never Vaping Use Vaping Use: current everyday user Substance Use Topics Alcohol use: Yes Drug use: Yes Types: Marijuana Alcohol Use: Yes Tobacco Use: Types: Cigarettes FAMILY HISTORY Problem Relation Age of Onset None Other other (sids [Other]) Sister Review of Systems HENT: Dental pain All other systems reviewed and are negative. BP 140/85 Pulse 102 Temp 97.6 Resp 20 SpO2 97% LMP 02/12/2023 Physical Exam Vitals reviewed. Constitutional: Appearance: Normal appearance. HENT: Mouth/Throat: Mouth: Mucous membranes are moist. Pharynx: Oropharynx is clear. Comments: There is obvious decayed tooth of last molar on the right lower jaw and 1 partially broken premolar of the right lower jaw as well. Mild swelling and tenderness and redness of the gum. No abscess was seen Cardiovascular: Rate and Rhythm: Normal rate and regular rhythm. Heart sounds: Normal heart sounds. Pulmonary: Effort: Pulmonary effort is normal. Breath sounds: Normal breath sounds. Neurological: Mental Status: She is alert. ASSESSMENT/PLAN: 1. Dental infection - ICD9: 522.4, ICD10: K04.7 - AMOXICILLIN 875 MG TABLET Mouth wash, See Dentist LILY for further treatment Explained details OTC pain meds as needed Becky Leong MD [facility] 02-19-2023 Instructions Becky Leong MD - 02/19/2023 7:34 PM EDT Mouth wash, See Dentist LILY for further treatment Explained details OTC pain meds as needed documented in this encounter [facility] 02-19-2023 History of Presen t illness Narrative Raven Dewey is a 18 year old FEMALE who presents with Headache (Jaw pain, dizzy x 1 week) 18 years old female who asked the longstanding dental problem There is a decayed tooth on the right lower jaw last molar But recently she cracked another tooth on the same right lower jaw Now her right lower jaw is painful No facial swelling She could not get into her dentist yet PAST MEDICAL HISTORY Diagnosis Date ADHD (attention deficit hyperactivity disorder) Exercise-induced asthma NEGATIVE MEDICAL HISTORY 11/03/09 normal color vision RSV (acute bronchiolitis due to respiratory syncytial virus) as a baby ACTIVE PROBLEM LIST Adhd (Attention Deficit Hyperactivity Disorder) Body Mass Index Equal to Or Greater Than 95th Percentile for Age in Pediatric Patient Current Outpatient Medications Medication Sig Dispense Refill acetaminophen (TYLENOL) 500 mg tablet Take by mouth. naproxen (NAPROSYN) 500 mg tablet Take by mouth. clotrimazole (LOTRIMIN, CLOTRIM) 1 % cream 1 application twice daily to facial lesions. Use 3 days past resolution of rash. 45 g 0 albuterol HFA (PROAIR HFA) 90 mcg/actuation inhaler Inhale 2 Puffs as instructed every 6 hours as needed. 1 Inhaler 0 Ethinyl Estradiol-Norelgestrom (XULANE) 150-35 mcg/24 hr Apply 1 Patch as directed once each week. 3 Patch 3 VALERIAN ROOT ORAL Take by mouth. No current facility-administered medications for this visit. Social History Tobacco Use Smoking status: Every Day Types: Cigarettes Smokeless tobacco: Never Vaping Use Vaping Use: current everyday user Substance Use Topics Alcohol use: Yes Drug use: Yes Types: Marijuana Alcohol Use: Yes Tobacco Use: Types: Cigarettes FAMILY HISTORY Problem Relation Age of Onset None Other other (sids [Other]) Sister Review of Systems HENT: Dental pain All other systems reviewed and are negative. BP 140/85 Pulse 102 Temp 97.6 Resp 20 SpO2 97% LMP 02/12/2023 Physical Exam Vitals reviewed. Constitutional: Appearance: Normal appearance. HENT: Mouth/Throat: Mouth: Mucous membranes are moist. Pharynx: Oropharynx is clear. Comments: There is obvious decayed tooth of last molar on the right lower jaw and 1 partially broken premolar of the right lower jaw as well. Mild swelling and tenderness and redness of the gum. No abscess was seen Cardiovascular: Rate and Rhythm: Normal rate and regular rhythm. Heart sounds: Normal heart sounds. Pulmonary: Effort: Pulmonary effort is normal. Breath sounds: Normal breath sounds. Neurological: Mental Status: She is alert. ASSESSMENT/PLAN: 1. Dental infection - ICD9: 522.4, ICD10: K04.7 - AMOXICILLIN 875 MG TABLET Mouth wash, See Dentist LILY for further treatment Explained details OTC pain meds as needed Becky Leong MD documented in this encounter [facility] 09-01-2022 History of Presen t illness Narrative Raven Dewey is a 17 year old FEMALE who presents with Rash (Itchy rash--2 months right side jaw pain, bad tooth) HPI PAST MEDICAL HISTORY Diagnosis Date ADHD (attention deficit hyperactivity disorder) Exercise-induced asthma NEGATIVE MEDICAL HISTORY 11/03/09 normal color vision RSV (acute bronchiolitis due to respiratory syncytial virus) as a baby ACTIVE PROBLEM LIST Adhd (Attention Deficit Hyperactivity Disorder) Body Mass Index Equal to Or Greater Than 95th Percentile for Age in Pediatric Patient Current Outpatient Medications Medication Sig Dispense Refill amoxicillin (AMOXIL) 875 mg tablet Take 1 tablet by mouth twice daily for 10 days. 20 tablet 0 naproxen (NAPROSYN) 500 mg tablet Take 1 tablet by mouth twice daily with meals for 10 days. FOR PAIN. TAKE WITH FOOD. 20 tablet 0 loratadine (CLARITIN) 10 mg tablet Take 1 tablet by mouth once daily for 10 days. 10 tablet 0 dexAMETHasone (DECADRON) 4 mg tablet Take 1 tablet by mouth once daily. 4 tablet 0 permethrin (ELIMITE) 5 % cream Apply to affected area one time only for 1 dose. Repeat in 7 days. Leave on for 8-12 hours. 60 g 1 clotrimazole (LOTRIMIN, CLOTRIM) 1 % cream 1 application twice daily to facial lesions. Use 3 days past resolution of rash. 45 g 0 guaiFENesin (MUCINEX) 600 mg 12 hr tablet Take 2 tablets by mouth twice daily. (Patient not taking: No sig reported) 30 tablet 0 albuterol HFA (PROAIR HFA) 90 mcg/actuation inhaler Inhale 2 Puffs as instructed every 6 hours as needed. 1 Inhaler 0 benzonatate (TESSALON PERLE) 100 mg capsule Take 2 capsules by mouth three times daily as needed. (Patient not taking: No sig reported) 30 capsule 0 Ethinyl Estradiol-Norelgestrom (XULANE) 150-35 mcg/24 hr Apply 1 Patch as directed once each week. 3 Patch 3 VALERIAN ROOT ORAL Take by mouth. No current facility-administered medications for this visit. Social History Tobacco Use Smoking status: Every Day Types: Cigarettes Smokeless tobacco: Never Substance Use Topics Alcohol use: No Drug use: No Alcohol Use: No Tobacco Use: Types: Cigarettes FAMILY HISTORY Problem Relation Age of Onset None Other other (sids [Other]) Sister Review of Systems HENT: Tooth pain tooth #31 and 30 Skin: Positive for itching and rash. Patient's family all have scabies she is here for treatment. BP 185/101 Pulse 86 Wt 290 lb (131.5kg) SpO2 97% LMP 03/16/2019 Physical Exam Vitals and nursing note reviewed. Constitutional: Appearance: Normal appearance. HENT: Head: Normocephalic. Mouth/Throat: Comments: Tooth #30 and 31 are infected and painful Skin: Capillary Refill: Capillary refill takes less than 2 seconds. Findings: Lesion and rash present. Comments: Diffuse scabiform rashes noted. Neurological: General: No focal deficit present. Mental Status: She is alert. Psychiatric: Mood and Affect: Mood normal. ASSESSMENT/PLAN: 1. Odontalgia - ICD9: 525.9, ICD10: K08.89 (primary diagnosis) - AMOXICILLIN 875 MG TABLET - NAPROXEN 500 MG TABLET 2. Scabies - ICD9: 133.0, ICD10: B86 - Apply Elimite neck down after shower over night. Wash off in a.m. Repeat in 1 week times one. - Itching and bumps may continue for some weeks even though the mite has been removed. Patient can use to itchy areas. - Wash all clothes and put shoes and items that can not be washed in a sealed bag for 3 days. - Follow up with PCP if no improvement in 3-4 weeks after treatment. - LORATADINE 10 MG TABLET - DEXAMETHASONE 4 MG TABLET - PERMETHRIN 5 % TOPICAL CREAM Margaux Ramos documented in this encounter [facility] Dental infection- Primary Acute apical periodontitis of pulpal origin [facility] Diagnosis Acute cystitis with hematuria- Primary Acute cystitis Dysuria documented in this encounter [facility] Summary Purpose Family History No Family History Records FoundNo Family History Records FoundNo Family History Records FoundNo Family History Records Found Advance Directives No Advanced Directives Records FoundNo Advanced Directives Records FoundNo Advanced Directives Records FoundNo Advanced Directives Records Found Additional Source Comments INFORMATION SOURCE (unrecogn ized section and content) DATE CREATED AUTHOR AUTHOR'S ORGANIZ ATION 06/24/2020 [facility] DATE CREATED AUTHOR AUTHOR'S ORGANIZ ATION 06/18/2023 [facility] ([place]) DATE CREATED AUTHOR AUTHOR'S ORGANIZ ATION 12/01/2023 [facility] Source Comments (unrecognize d section and content) In the event this informatio n is protected by the Federal Confidentiality of Alcohol and Drug Abuse Patient Records regulations: The Federal rules restrict any use of the information to criminally investigate or prosecute any alcohol or drug abuse patient.[facility] the event this information is protected by the Federal Confidentiality of Alcohol and Drug Abuse Patient Records regulations: The Federal rules restrict any use of the information to criminally investigate or prosecute any alcohol or drug abuse patient.[facility] the event this information is protected by the Federal Confidentiality of Alcohol and Drug Abuse Patient Records regulations: The Federal rules restrict any use of the information to criminally investigate or prosecute any alcohol or drug abuse patient.[facility] Reason for Visit (unrecogniz ed section and content) Reason Comments Headache Jaw pain, dizzy x 1 week Reason Comments UTI Pain with urination, discomfort x 10 days Care Teams (unrecognized sec tion and content) [employer] Caretaker Relationship Specialty Start Date End Date Chelly Cantu MD [address] [place] [address] PCP - General Pediatrics 09/20/19 [employer] Relationship Specialty Start Date End Date Chelly Cantu MD [address] [place] [address] PCP - General Pediatrics 09/20/19 FOR RECORDS PERTAINING TO PATIENTS WHO ARE OR HAVE BEEN ENROLLED IN A CHEMICAL DEPENDENCY/SUBSTANCEABUSE PROGRAM, SOME INFORMATION MAY BE OMITTED. This clinical summary was aggregated from multiple sources. Caution should be exercised in using it in the provision of clinical care. This summary normalizes information from multiple sources, and as a consequence, information in this document may materially change the coding, format and clinical context of patient data. In addition, data may be omitted in some cases. CLINICAL DECISIONS SHOULD BE BASED ON THE PRIMARY CLINICAL RECORDS. [employer] provides no warranty or guarantee of the accuracy or completeness of information in this document.
--- NOTE | 2024-01-17 19:02 | CM.ED ---
Social Work Pt accepted to [facility] by Dr. Brown. Pt can arrive at 8am or later due to staffing. [place] slip made out to [facility] and faxed. Nursing notified. Shira Wakefield TOOL COORDINATOR, PC SUPPORT SPECIALIST
[2024-01-17] MEDS: Acetaminophen 500 MG Tablet 1000 MG PO (19:09)
[2024-01-17] MEDS: Ondansetron ODT 4 MG Tablet PO (19:09)
[2024-01-17 23:00] VITALS: BP 128/74; PULSE 78; RESP 16; O2SAT 98
[2024-01-18] VITALS (8 sets, daily range): BP systolic 127–128; BP diastolic 68–78; PULSE 75–81; RESP 16–18; TEMP 36.2; O2SAT 98–99
--- NOTE | 2024-01-18 07:16 | ED.RN ---
ATTEMPTED TO CALL REPORT X2. NO ANSWER AT FACILITY.
== END 2024-01-18 08:15 ==
PROVIDERS: Emergency Provider Emergency Medicine; Visit Provider Emergency Medicine
DX: R45.851 Suicidal ideations (principal); F41.9 Anxiety disorder, unspecified; F17.210 Nicotine dependence, cigarettes, uncomplicated; F32.A Depression, unspecified; E66.9 Obesity, unspecified
CPT/HCPCS: 71045; 74018; 80053; 80307; 80320; 84703; 85025; 93005; 99284; G0480

== ENCOUNTER 2025-05-19 03:03 | Emergency (ER) | payer MEDICAID, SELFPAY ==
[2025-05-19 03:04] VITALS: BP 127/79; PULSE 77; RESP 16; TEMP 36.9; O2SAT 100; BMI 59.2
--- NOTE | 2025-05-19 03:44 | RAD_ITS ---
PROCEDURE: FOOT MIN 3 VIEWS 05/19/2025 REASON FOR EXAM: INJURY/PAIN TECHNIQUE: FOOT MIN 3 VIEWS COMPARISON: None. FINDINGS: Soft tissue edema and swelling. Normal talus, calcaneus, and tarsal bones. Normal visualized subtalar, talonavicular, calcaneocuboid, tarsal and tarsometatarsal articulations. Normal metatarsi. Normal metatarsophalangeal joint of the great toe. Normal tibial and fibular sesamoid bones. Normal interphalangeal joint of the great toe. Normal phalanges of the great toe. Normal second through fifth metatarsophalangeal joints. Normal interphalangeal joints of the lesser toes. Normal phalanges of the lesser toes. RAD/Foot min 3 Views IMPRESSION: Soft tissue edema and swelling. Reading [facility]
[2025-05-19] MEDS: Ibuprofen 600 MG Tablet PO (03:53)
--- NOTE | 2025-05-19 04:05 | RAD_ITS ---
PROCEDURE: ANKLE MIN 3 VIEWS 05/19/2025 REASON FOR EXAM: INJURY/PAIN TECHNIQUE: ANKLE MIN 3 VIEWS COMPARISON: None. FINDINGS: Normal visualized distal tibia and medial malleolus. Normal visualized distal fibula and lateral malleolus. Normal tibiotalar articulation and ankle mortise. Normal visualized talus. Normal visualized calcaneus. The visualized subtalar, talonavicular, calcaneocuboid and tarsal articulations are normal. RAD/Ankle min 3 Views IMPRESSION: No evidence for acute abnormality. Reading [facility]
--- OUTSIDE RECORDS SUMMARY | 2025-05-19 04:22 | XMS RPT_ITS | CCD ---
Author Organization [facility] Care Team Providers Care Bricklayer Name Role Phone Karly Cantu MD Primary Care Provider SEJIMBO KARLY Primary Care Unavailable AMISHA, KARLY Primary Care Unavailable MARGAUX MARTINS Attending Unavailable SEIFRIED, KARLY Primary Care Unavailable CARMEL RODRIGUEZ Attending Unavailable SEIFRIED, KARLY Primary Care Unavailable BECKY BURCIAGA Attending Unavailable Karly Cantu MD Primary Care Provider PHYSICIAN, NONE Primary Care Physician Unavailab Vanessa Sena Attending Unavailable Care Physician, No Primary Primary Care Unava ilable DR ELIZABETH STOKES DO Attending Unavailable PHYSICIAN, NONE Primary Care Unavailable VLADIMIR VORA MD Attending Unavailable PHYSICIAN, NONE Primary Care Unavailable JERAMY BECKHAM MD Attending Unavailable PHYSICIAN, NONE Primary Care Unavailable DIVYA PAK, DR ELIZABETH Woodard Attending Unavailable PHYSICIAN, NONE Primary Care Unavailable DR ELIZABETH STOKES DO Attending Unavailable PHYSICIAN, NONE Primary Care Unavailable Unavailable Primary Care Provider UnavailMEJIA Rizvi Attending Unavailable SEIFRIED, KARLY Primary Care Unavailable [facility] Primary Care Provider IVAN BLANC Referring Unavailable KENYETTA VELARDE Attending Unavailable IVAN BLANC Attending Unavailable BAM LOZADA Attending Unavailable LEOLA SINGH Attending Unavailable SARAH BRAR Attending Unavailable KYLE CARR Attending Unavailable KYLE CARR Referring Unavailable Unavailable Primary Care Provider UnavailTEDDY Silva Attending Unavailable Allergies Allergy Classification Reported Allergen(s) Allergy Type Date of Onset Reaction(s) Facility (4 sources) Acetaminophen Drug Allergy 2 Nausea/Vom/Diar [facility] (20 sources) HYDROcodone; Translations: [HYDROCODONE] Drug Allergy 2 Anaphylaxis [facility] (1 source) Acetaminophen Drug Allergy 4 [facility] (1 source) HYDROcodone Drug Allergy 4 [facility] (4 sources) Acetaminophen Drug Allergy 2 [facility] Medications Current Medications Medication Drug Class(es) Dates Sig (Normalized) Sig (Original) ARIPiprazole 20 mg oral tablet (16 sources) Atypical Antipsychotic take 5 tablets by mouth once daily ARIPiprazole (Abilify) 20 MG tablet Take 100 mg by mouth daily. Active benzonatate 200 mg oral capsule (6 sources) Non-narcotic Antitussive Start: 09-01-2024 End: 09-08-2024 take 1 capsule by mouth three times daily as needed for cough benzonatate (Tessalon) 200 MG capsule Take 1 capsule (200 mg) by mouth 3 times daily as needed for cough for up to 7 days. Do not crush or chew. 20 capsule 09/01/2024 09/08/2024 Active Start: 12-24-2019 End: 02-19-2023 take 2 capsules by mouth every eight hours as needed benzonatate (TESSALON PERLE) 100 mg capsule Take 2 capsules by mouth three times daily as needed. 30 capsule 0 12/24/2019 02/19/2023 Discontinued Comment on above: Take 2 capsules by m outh three times daily as needed. busPIRone hydrochloride 10 mg oral tablet (16 sources) take 1 tablet by mouth three times daily busPIRone (Buspar) 10 MG tablet Take 10 mg by mouth 3 times daily. Active dicyclomine hydrochloride 20 mg oral tablet (4 sources) Anticholinergic Start: 02-13-20 End: 02-23-20 take 1 tablet by mouth twice daily dicyclomine (Bentyl) 20 MG tablet Take 1 tablet (20 mg) by mouth 2 times daily for 10 days. 20 tablet 02/12/2025 02/22/2025 Active Start: 02-12-2025 End: 02-12-2025 take 10 mg by mouth once 10 mg, Oral, Once, On Sat at 0935, For 1 dose docusate sodium 100 mg oral capsule (2 sources) Start: 02-12-2025 End: 03-14-2025 take 1 capsule by mouth every twelve hours docusate sodium (Colace) 100 MG capsule Take 1 capsule (100 mg) by mouth every 12 hours. 60 capsule 02/12/2025 03/14/2025 Active fluconazole 150 mg oral tablet (1 source) Azole Antifungal Start: 07-24-2023 End: 07-26-2023 fluconazole (DIFLUCAN) 150 mg tablet Indications: Acute cystitis with hematuria Take 1 pill on days 1, 4 and 7. Take with food. 3 tablet 0 07/24/2023 07/26/2023 Active Comment on above: Take 1 pill on days 1, 4 and 7. Take with food. ibuprofen 800 mg oral tablet (4 sources) Nonsteroidal Anti-inflammatory Drug Start: 09-01-2024 End: 09-08-2024 take 1 tablet by mouth three times daily ibuprofen 800 MG tablet Take 1 tablet (800 mg) by mouth 3 times daily for 7 days. 21 tablet 09/01/2024 09/08/2024 Active lamoTRIgine 150 mg oral tablet (16 sources) Mood Stabilizer, Anti-epileptic Agent lamoTRIgine (LaMICtal) 150 MG tablet Take by mouth. Active loratadine 10 mg oral tablet (1 source) Start: 09-01-2022 End: 09-11-2022 take 1 tablet by mouth once daily loratadine (CLARITIN) 10 mg tablet Indications: Scabies Take 1 tablet by mouth once daily for 10 days. 10 tablet 0 09/01/2022 09/11/2022 Active Comment on above: Take 1 tablet by geo th once daily for 10 days. Melatonin (2 sources) MELATONIN ORAL Take by mouth once daily. Active MELATONIN ORAL T fred by mouth once daily. 0 Active Comment on above: Take by mouth once d aily. naproxen 500 mg oral tablet (11 sources) Nonsteroidal Anti-inflammatory Drug Start: 022 End: naproxen (NAPROSYN) 500 mg tablet Take by mouth. 12/23/2021 Active Comment on above: Take 1 tablet by geo th twice daily with meals for 10 days. FOR PAIN. TAKE WITH FOOD. Take by mouth. nitrofurantoin, macrocrystals 25 mg / nitrofurantoin, monohydrate 75 mg oral capsule (1 source) Nitrofuran Antibacterial Start: 023 End: take 1 capsule by mouth twice daily nitrofurantoin monohydrate and macrocrystal (MACROBID) 100 mg capsule Indications: Acute cystitis with hematuria Take 1 capsule by mouth twice daily for 7 days. 14 capsule 0 07/24/2023 07/31/2023 Active Comment on above: Take [address] [facility] twice daily for 7 days. omeprazole 20 mg delayed release oral capsule (14 sources) Proton Pump Inhibitor Start: take 1 capsule by mouth once daily omeprazole (PRILOSEC) 20 mg capsule Indications: Viral gastroenteritis Take 1 capsule by mouth once daily. 30 capsule 11/29/2023 Active Comment on above: Take 1 capsule by [facility] once daily. ondansetron 4 mg disintegrating oral tablet (8 sources) Serotonin-3 Receptor Antagonist Start: End: take 1 tablet by mouth every eight hours as needed for nausea and vomiting ondansetron ODT (Zofran-ODT) 4 MG disintegrating tablet Take 1 tablet (4 mg) by mouth every 8 hours as needed for nausea or vomiting for up to 7 days. 20 tablet 02/12/2025 02/19/2025 Active Start: 02-12-2025 End: 02-12-2025 4 mg, IntraVENous, Once, On Sat02/12/25 at 0935, For 1 dose Start: 02-10-2025 End: 02-10-2025 4 mg, IntraVENous, Once, On Sat02/10/25 at 0025, For 1 dose Start: 06-12-2023 End: 01-17-2024 take 4 mg by mouth every eight hours as needed Ondansetron Discontinued 4 MG PO EVERY 8 HOURS NEEDED June 11, 2023 11:00pm January 17, 2024 2:48pm permethrin 50 mg/ml topical cream (1 source) Pyrethroid Start: 09-01-2022 End: 09-01-2022 permethrin (ELIMITE) 5 % cream Indications: Scabies Apply to affected area one time only for 1 dose. Repeat in 7 days. Leave on for 8-12 hours. 60 g 1 09/01/2022 09/01/2022 Active Comment on above: Apply to affected ar ea one time only for 1 dose. Repeat in 7 days. Leave on for 8-12 hours. phenazopyridine hydrochloride 200 mg oral tablet (1 source) Start: 07-24-2023 End: 07-26-2023 take 1 tablet by mouth three times daily as needed for pain phenazopyridine (PYRIDIUM) 200 mg tablet Indications: Acute cystitis with hematuria Take 1 tablet by mouth three times daily as needed for pain for up to 2 days. 6 tablet 0 07/24/2023 07/26/2023 Active Comment on above: Take 1 tablet by [facility] three times daily as needed for pain for up to 2 days. prazosin 5 mg oral capsule (16 sources) alpha-Adrenergic Víctor take 1 capsule by mouth once daily prazosin (Minipress) 5 MG capsule Take 5 mg by mouth Nightly. Active propranolol hydrochloride 10 mg oral tablet (6 sources) beta-Adrenergic Víctor take 1 tablet by mouth once daily propranolol (Inderal) 10 MG tablet Take 10 mg by mouth daily. Active traZODone hydrochloride 50 mg oral tablet (6 sources) Serotonin Reuptake Inhibitor take 1 tablet by mouth once daily traZODone (Desyrel) 50 MG tablet Take 50 mg by mouth Nightly. Active Completed/Discontinued Medications Medication Drug Class(es) Dates Sig (Normalized) Sig (Original) acetaminophen 500 mg oral tablet (10 sources) Start: 08-31-2024 End: 08-31-2024 1,000 mg, Oral, Once, On 08/31/24 at 2330, For 1 dose, Maximum dose of acetaminophen is 4000 mg from all sources in 24 hours. Start: 12-23-2021 acetaminophen (TYLENOL) 500 mg tablet Take by mouth. 12/23/2021 Active Start: 12-23-2021 End: 01-17-2024 Acetaminophen (Tylenol Ex [facility] Arthritis Pain) 500 mg Tablet Discontinued 1000 MG PO EVERY 6 HOURS December 23, 2021 12:00am January 17, 2024 2:48pm Comment on above: Take by mouth. acetaminophen 325 mg / oxyCODONE hydrochloride 5 mg oral tablet (2 sources) Opioid Agonist Start: 023 End: 024 take 1 tablet by mouth every six hours Oxycodone-Acetamino phen (Percocet) 5-325 mg tablet Discontinued 1 TABLET PO EVERY 6 HOURS 12 3 June 12, 2023 January 17, 2024 2:48pm [id number] 200 actuat albuterol 0.09 mg/actuat metered dose inhaler (3 sources) beta2-Adrenergic Agonist Start: End: take 2 puff(s) by inhalation every six hours as needed albuterol HFA (PROAIR HFA) 90 mcg/actuation inhaler Inhale 2 Puffs as instructed every 6 hours as needed. 1 Inhaler 0 12/24/2019 07/24/2023 Discontinued Comment on above: Inhale 2 Puffs as in structed every 6 hours as needed. amoxicillin 500 mg oral capsule (8 sources) Penicillin-class Antibacterial Start: End: take 1000 mg by mouth once 1,000 mg, Oral, Once, On Sat10/20/24 at 1520, For 1 dose, Suspected Indication (Select all that apply): Head and Neck Infection Start: 10-20-2024 End: 10-27-2024 take 2 capsules by mouth twice daily amoxicillin (Amoxil) 500 MG capsule Take 2 capsules (1,000 mg) by mouth 2 times daily for 7 days. 28 capsule 10/20/2024 10/27/2024 Active Start: 02-19-2023 End: 03-01-2023 take 1 tablet by mouth twice daily amoxicillin (AMOXIL) 875 mg tablet Indications: Dental infection Take 1 tablet by mouth twice daily for 10 days. 20 tablet 0 02/19/2023 03/01/2023 Active Start: 09-01-2022 End: 09-11-2022 take 1 tablet by mouth twice daily amoxicillin (AMOXIL) 875 mg tablet Indications: Odontalgia Take 1 tablet by mouth twice daily for 10 days. 20 tablet 0 09/01/2022 09/11/2022 Active Comment on above: Take 1 tablet by geo twice daily for 10 days. cetirizine hydrochloride 10 mg oral tablet (1 source) Histamine-1 Receptor Antagonist Start: 2019 End: 2021 take 1 tablet by mouth once daily cetirizine (ZYRTEC) 10 mg tablet TAKE 1 TABLET BY MOUTH EVERY DAY 30 tablet 0 01/14/2020 09/01/2022 Discontinued (Course of therapy completed) Comment on above: TAKE 1 TABLET BY GEO TH EVERY DAY clindamycin 150 mg oral capsule (2 sources) Lincosamide Antibacterial Start: 2022 End: 2023 take 300 mg by mouth four times daily Clindamycin Hcl Discontinued 300 MG PO 4 TIMES DAILY 80 June 11, 2023 11:00pm January 17, 2024 2:48pm clotrimazole 10 mg/ml topical cream (3 sources) Azole Antifungal Start: 2019 End: 2022 clotrimazole (LOTRIMIN, CLOTRIM) 1 % cream Indications: Tinea faciale 1 application twice daily to facial lesions. Use 3 days past resolution of rash. 45 g 0 02/17/2020 07/24/2023 Discontinued Comment on above: 1 application twice daily to facial lesions. Use 3 days past resolution of rash. dexamethasone 4 mg oral tablet (2 sources) Corticosteroid Start: 2021 End: 2022 take 1 tablet by mouth once daily dexAMETHasone (DECADRON) 4 mg tablet Indications: Scabies Take 1 tablet by mouth once daily. 4 tablet 0 09/01/2022 02/19/2023 Discontinued Comment on above: Take 1 tablet by geo once daily. erythromycin 0.005 mg/mg ophthalmic ointment (3 sources) Macrolide, Macrolide Antimicrobial Start: 2022 End: 2023 Erythromycin Discontinued 1 APPLIC RIGHT EYE EVERY 6 HOURS 3.5 May 17, 2023 11:00pm January 17, 2024 2:48pm 168 hr ethinyl estradiol 0.32971 mg/hr / norelgestromin 0.87662 mg/hr transdermal system (3 sources) Progestin, Estrogen Start: 2018 End: 2022 apply 1 dose transdermal route every week Ethinyl Estradiol-Norelgest rom (XULANE) 150-35 mcg/24 hr Apply 1 Patch as directed once each week. 3 Patch 3 05/15/2019 07/24/2023 Discontinued Comment on above: Apply 1 Patch as dir ected once each week. 12 hr guaiFENesin 600 mg extended release oral tablet (2 sources) Start: 2019 End: 2022 take 2 tablets by mouth twice daily guaiFENesin (MUCINEX) 600 mg 12 hr tablet Indications: Pneumonia of right lower lobe due to infectious organism Take 2 tablets by mouth twice daily. 30 tablet 0 01/08/2020 02/19/2023 Discontinued Comment on above: Take [address] [facility] twice daily. iopamidol (Isovue-370) 76 % injection 75 mL (4 sources) Start: 2024 End: 2024 take 75 mL intravenously once as needed 75 mL, IntraVENous, IMG once PRN, contrast, Starting on Sat02/12/25 at 0948, For 1 dose Start: 02-10-2025 End: 02-10-2025 take 75 mL intravenously once as needed 75 mL, IntraVENous, IMG once PRN, contrast, Starting on Sat02/10/25 at 0216, For 1 dose 1 ml ketorolac tromethamine 30 mg/ml cartridge (4 sources) Nonsteroidal Anti-inflammatory Drug, Cyclooxygenase Inhibitor Start: 02-10-2025 End: 02-10-2025 30 mg, IntraVENous, Once, On Sat02/10/25 at 0025, For 1 dose Start: 10-20-2024 End: 10-20-2024 inject 30 mg by intramuscular injection once 30 mg, IntraMUSCular, Once, On Sat10/20/24 at 1520, For 1 dose 50 ml sodium chloride 9 mg/m l injection (2 sources) Start: 02-10-2025 End: 02-10-2025 1,000 mL, IntraVENous, at 1, 000 mL/hr, Administer over 1 Hours, Once, On Sat02/10/25 at 0025, For 1 dose valerian root extract (3 sources) End: 07-24-2023 VALERIAN ROOT ORAL Take by m outh. 0 07/24/2023 Discontinued VALERIAN ROOT OR AL Take by mouth. 0 Active Comment on above: Take by mouth. Problems Active Problems Problem Classification Problem Date Documented Da te Episodic/Chronic Attention-deficit, conduct, and disruptive behavior disorders (5 sources) Attention deficit hyperactivity disorder; Translations: [Attention-deficit hyperactivity disorder, unspecified type] Onset: 01-16-2011 01-16-2011 Chronic Disorders of teeth and jaw (12 sources) Toothache; Translations: [Other specified disorders of teeth and supporting structures] Onset: 02-19-2023 Episodic Headache; including migraine (1 source) Headache; including migraine; Translations: [Nonintractable headache, unspecified chronicity pattern, unspecified headache type] Onset: 01-28-2025 Immunizations and screening for infectious disease (1 source) Exposure to sexually transmissible disorder; Translations: [Contact with and (suspected) exposure to infections with a predominantly sexual mode of transmission] Episodic Intestinal infection (1 source) Viral intestinal infection, unspecified; Translations: [Viral gastroenteritis] Onset: 11-29-2023 Episodic Menstrual disorders (4 sources) Irregular periods; Translations: [Irregular menstruation, unspecified] Onset: 03-15-2025 03-15-2025 Chronic Mood disorders (2 sources) Depressive disorder; Translations: [Depression with suicidal ideation] 01-17-2024 Chronic Nausea and vomiting (5 sources) Nausea; Translations: [Nausea, vomiting and diarrhea] Onset: 01-28-2025 02-10-2025 Episodic Open wounds of extremities (4 sources) Laceration of foot with foreign body; Translations: [Laceration with foreign body, unspecified foot, initial encounter] 06-23-2015 Episodic Other connective tissue disease (1 source) Pain in right lower leg; Translations: [Right calf pain] Onset: 03-22-2025 Episodic Other ear and sense organ disorders (4 sources) Otitis externa; Translations: [Unspecified otitis externa, right ear] 07-15-2018 Chronic Other eye disorders (3 sources) Pain in eye; Translations: [Ocular pain, right eye] 05-18-2023 Episodic Other gastrointestinal disorders (2 sources) Bowel spasm; Translations: [Irritable bowel syndrome without diarrhea] 02-12-2025 Chronic Other gastrointestinal disorders (2 sources) Irritable bowel syndrome without diarrhea; Translations: [Irritable bowel syndrome, unspecified] Onset: 02-12-2025 Chronic Other gastrointestinal disorders (2 sources) Diarrhea, unspecified; Translations: [Diarrhea, unspecified] Onset: 02-10-2025 Episodic Other infections; including parasitic (1 source) Infestation by Sarcoptes scabiei manuel hominis; Translations: [Scabies] Episodic Other nutritional; endocrine; and metabolic disorders (1 source) Morbid (severe) obesity due to excess calories; Translations: [Morbid obesity (HCC)] Onset: 03-22-2025 Chronic Residual codes; unclassified (1 source) High risk heterosexual behavior; Translations: [High risk heterosexual behavior] Episodic Sprains and strains (4 sources) Strain of flexor muscle of hip; Translations: [Strain of muscle, fascia and tendon of left hip, initial encounter] 12-24-2021 Episodic Superficial injury; contusion (3 sources) Abrasion of cornea of right eye; Translations: [Injury of conjunctiva and corneal abrasion without foreign body, right eye, initial encounter] 05-18-2023 Episodic Past or Other Problems Problem Classification Problem Date Documented Da te Episodic/Chronic Genitourinary symptoms and ill-defined conditions (2 sources) Dysuria; Translations: [Dysuria] Onset: 07-24-2023 07-24-2023 Episodic Open wounds of head; neck; and trunk (4 sources) Laceration of vagina; Translations: [Laceration without foreign body of vagina and vulva, initial encounter] Onset: 11-05-2024 11-05-2024 Episodic Other nutritional; endocrine; and metabolic disorders (5 sources) Childhood obesity; Translations: [Body mass index (BMI) pediatric, greater than or equal to 95th percentile for age] Onset: 07-05-2015 07-05-2015 Episodic Other upper respiratory infections (4 sources) Viral upper respiratory tract infection; Translations: [Acute upper respiratory infection, unspecified] Onset: 08-31-2024 09-01-2024 Episodic Otitis media and related conditions (4 sources) Acute suppurative otitis media without spontaneous rupture of ear drum; Translations: [Acute suppurative otitis media without spontaneous rupture of ear drum, left ear] Onset: 10-20-2024 10-20-2024 Episodic Suicide and intentional self-inflicted injury (1 source) Suicidal ideations; Translations: [Suicidal ideations] Onset: 01-24-2024 Episodic Urinary tract infections (2 sources) Acute cystitis; Translations: [Acute cystitis with hematuria] Onset: 07-24-2023 07-24-2023 Episodic Results Test Name Value Interpretation Reference Range Facility [facility] 05-10-2025 [facility] Telephone ([facility]) SABINO DEWEY ([id number]) 1 F Date Time Provider Department 05/10/25 ASH AL During your visit today, we recorded the following information about you: Chioma Weaver 05/10/2025 10:32 AM Signed No Show Documentation Sabino Dewey no showed for an appointment on 05/07/2025 with Ash Al APRN.CNP at 1:20 pm. She was scheduled for establishing care and physical. I called and left message on patients voicemail regarding her missed appointment. Resources discussed/offered to patient: N/A No show determined to be fault of patient: Yes This is the patients first no show in the last 12 months. Patient was rescheduled for N/A. Letter mailed : Yes Is this the Third or Fourth No Show? No Chioma Weaver May 10, 2025 10:30 AM Allergies As of Date: 05/10/2025 Noted Allergy Reaction HYDROCODONE 07/24/2023 10 - Anaphylaxis Date Reviewed: 03/22/2025 Reviewed by: Vanessa Stacy, DEJA - Fully Assessed Reason for Visit: Missed Appointment [1304] Cmt: 05/07/2025 at 1:20 pm for establishing care and physical 1ST NO SHOW Prescriptions as of 05/10/2025 - omeprazole (PRILOSEC) 20 mg capsule Take 1 capsule by mouth once daily. - MELATONIN ORAL Take by mouth once daily. - acetaminophen (TYLENOL) 500 mg tablet Take by mouth. - naproxen (NAPROSYN) 500 mg tablet Take by mouth. Problem List As Of Date 05/10/2025 Noted Resolved ADHD (attention deficit hyperactivity disorder)*01/16/2011 Body mass index equal to or greater than 95th p*07/05/2015 Letter Text Encounter Status:Closed by CHIOMA WEAVER on 05/10/25 [facility] ED NOTEon 03-22-2025 ED NOTE HNO ID: [id number] Author: ISADORA MADDOX, DEJA Service: Nursing Author Type: Registered Nurse Type: ED Notes Filed: 03/22/2025 02:56 Note Text: US notified Normal [facility] ED NOTE HNO ID: [id number] Author: YUSEF ABURTO, DEJA Service: ? Author Type: Registered Nurse Type: ED Notes Filed: 03/22/2025 02:21 Note Text: Bed: 26-ED Expected date: Expected time: Means of arrival: Comments: Triage Normal [facility] ED PROV NOTEon 03-22-2025 ED PROV NOTE HNO ID: [id number] Author: TEDDY GALLARDO MD Service: Hospital Medicine Author Type: Resident Type: ED Provider Notes Filed: 04/19/2025 04:46 Note Text: Attestation signed by Teddy Gallardo MD at 04/19/2025 4:46 AM Attending Note I evaluated the patient and personally participated in the farfan components. I supervised the resident and was present for farfan portions of any procedures. I agree with the resident's findings and plan as documented and have discussed the case and management of the patient's care with the resident. Signature: Teddy Gallardo MD ED Provider Note Patient Name: Sabino Dewey : 2005 SERVICE DATE: 03/22/25 History Patient presents with: Leg Pain: Right lower extremity pain stated was laying in bed and crossed legs and got instant pain,09/10, states has had cramps in legs before HPI Sabino Dewey is a 20 year old female with PMHx: Tobacco use Morbid obesity Muscle cramps Who presents to the [facility] ED on March 22, 2025 for evaluation of right calf pain. Right calf pain: Patient states their symptoms first began @ ~ 0130 after crossing her legs in bed. Symptoms: Sharp, stabbing pain localized to the right gastroc, medial aspect > lateral Intermittent, occurring in bursts every 2-3 minutes 8-10/10 Exacerbated by plantar/dorsiflexion and weight bearing Improved with rest Of note, patient reports a history of leg cramps, and notes this feels very similar, but pain usually subsides within 30 minutes. Admits she drinks no more than 1 cup of water per day. Denies OCP use. Denies recent injury or trauma. PAST MEDICAL HISTORY Diagnosis Date - ADHD (attention deficit hyperactivity disorder) - Exercise-induced asthma - NEGATIVE MEDICAL HISTORY 11/03/09 normal color vision - RSV (acute bronchiolitis due to respiratory syncytial virus) as a baby PAST SURGICAL HISTORY Procedure Laterality Date - NONE FAMILY HISTORY Problem Relation Age of Onset - None Other - other (sids [Other]) Sister Social History Tobacco Use - Smoking status: Every Day Current packs/day: 0.25 Types: Cigarettes Passive exposure: Current - Smokeless tobacco: Never Vaping Use - Vaping status: current everyday user - Substances: Nicotine, THC, Flavoring - Devices: Disposable, Pre-filled pod Substance and Sexual Activity - Alcohol use: Yes Alcohol/week: 1.0 standard drink of alcohol Types: 1 Shots of liquor per week - Drug use: Yes Types: Marijuana - Sexual activity: Yes Comment: patch ALLERGIES Allergen Reactions - Hydrocodone Anaphylaxis Review of Systems Constitutional: Negative for chills, fatigue and fever. Respiratory: Negative for cough, chest tightness and shortness of breath. Cardiovascular: Negative for chest pain and palpitations. Gastrointestinal: Negative for abdominal pain. Musculoskeletal: Positive for myalgias. Negative for arthralgias. Skin: Negative for rash and wound. Neurological: Negative for weakness. Psychiatric/Behavioral: The patient is nervous/anxious. Physical Exam Vitals [03/22/25 0208] BP Pulse Temp Temp src Resp SpO2 Weight Height 127/79 73 36.5 ?C (97.7 ?F) Oral 18 100 % (!) 142.9 kg (315 lb) 1.575 m (5' 2) Physical Exam Constitutional: General: She is not in acute distress. Appearance: She is obese. She is not ill-appearing. HENT: Head: Normocephalic and atraumatic. Eyes: General: No scleral icterus. Extraocular Movements: Extraocular movements intact. Cardiovascular: Rate and Rhythm: Normal rate and regular rhythm. Pulses: Normal pulses. Heart sounds: Normal heart sounds. No murmur heard. Pulmonary: Effort: Pulmonary effort is normal. No respiratory distress. Breath sounds: Normal breath sounds. No wheezing. Musculoskeletal: General: Tenderness present. No swelling or deformity. Right lower leg: No edema. Left lower leg: No edema. Comments: Severe tenderness to minimal palpation/pressure, right medial calf > lateral. 2+ DP/PT pulses. Skin: General: Skin is warm and dry. Capillary Refill: Capillary refill takes less than 2 seconds. Coloration: Skin is not jaundiced. Findings: No erythema. Neurological: General: No focal deficit present. Mental Status: She is alert and oriented to person, place, and time. Sensory: No sensory deficit. Motor: No weakness. Psychiatric: Mood and Affect: Mood normal. Behavior: Behavior normal. Thought Content: Thought content normal. Judgment: Judgment normal. Diagnostic Testing ED Labs Ordered and Reviewed - No data to display Procedures ED Course / Clinical Impression Clinical Impressions as of 03/22/25 0305 Right calf pain Morbid obesity (HCC) MDM / Disposition / Plan Sabino Dewey is a 20 year old female w (more content not included)... Normal [facility] US DVT LOWER RTon 03-22-2025 US DVT LOWER RT * * *Final Report* * * DATE OF EXAM: Mar 22 2025 3:50AM [facility]7 - US DVT LOWER RT / PROCEDURE REASON: Leg pain or tenderness * * * * Physician Interpretation * * * * EXAMINATION: RIGHT LOWER EXTREMITY DEEP VENOUS ULTRASOUND WITH DOPPLER IMAGING CLINICAL HISTORY: Leg pain tenderness TECHNIQUE: Grayscale with compression maneuvers, color Doppler and spectral Doppler imaging of the right proximal deep veins was performed. Grayscale with compression maneuvers of the peroneal and posterior tibial veins was performed. The right great and small saphenous veins were evaluated at their insertion to the deep system. The contralateral common femoral vein was imaged for comparison. Images were obtained and stored in a permanent archive. MQ: [email or web address] COMPARISON: None RESULT: RIGHT LOWER EXTREMITY PROXIMAL DEEP VEINS Distal External Iliac, Common Femoral and proximal Profunda Veins: Compression: Normal Doppler: Normal, spontaneous respirophasic flow. Normal response to augmentation. Femoral vein: Compression: Normal Doppler: Normal, spontaneous flow. Normal response to augmentation. Popliteal vein: Compression: Normal Doppler: Normal, spontaneous flow. Normal response to augmentation. CALF DEEP VEINS Peroneal veins: Normal compression. Posterior tibial veins: Normal compression. Gastrocnemius and Soleal veins: Not imaged. SUPERFICIAL VEINS Great saphenous: Patent and compressible at insertion into common femoral vein; not otherwise assessed. Small Saphenous: Patent and compressible in the proximal calf, not otherwise assessed. LEFT LOWER EXTREMITY (FOR COMPARISON) Common Femoral Vein: Compression: Normal Doppler: Normal, spontaneous respirophasic flow. Normal response to augmentation. IMPRESSION: Negative study for proximal DVT in the right lower extremity. Negative study for calf DVT in the right lower extremity. Negative study for superficial thrombophlebitis in the imaged segments of the right lower extremity. Mold Bunch Trimmer: JAVIER Transcribe Date/Time: Mar 22 2025 4:02A Dictated by : FABIANO ROMANO MD This examination was interpreted and the report reviewed and electronically signed by: FABIANO ROMANO MD on Mar 22 2025 4:02AM EST [id number] Normal [facility] Office Visiton 03-15-2025 Follow-up visit [id number] Nieves Dewey 2005 F Date Provider Department Center 03/15/2025 [id number] VELARDE [facility] Offi Family History Family Status - Relation Status Age at Father Alive Mother Alive Level of Service:67606 [place] INITIAL PREVENTIVE MEDICINE NEW PT AGE 18-39YRS (25) Reason for Visit and Comments: New Patient [542] - Annual exam Normal [facility] Progress Noteon 03-15-2025 Progress Note Sabino Dewey 03/15/2027 20 y.o. Primary Care Physician: [facility] Chief Complaint Patient presents with New Patient Annual exam HPI : Sabino Dewey is a 20 y.o. female here for annual exam Gynecologic History: Patient's last menstrual period was 01/29/2025 (exact date). She was diagnosed with PCOS in 2023 due to irregular menses. She was then placed on CHELI. She describes her menses as short and light lasting about 2 days. She discontinued OCPs and prefers to avoid them for now. LMP 01/29/25 Sexually Active: Yes STD History: Yes trichomonas, CT Reversible Control: No HPV vaccination completed: Yes PAP: n/a OB History Para Term AB Living 1 0 0 0 1 0 SAB IAB Ectopic Multiple Live Births 1 0 0 0 0 # Outcome Date GA Lbr Matthew/2nd Weight Sex Type Anes PTL Lv 1 SAB Past Medical History: Diagnosis Date Night terrors History reviewed. No pertinent surgical history. No family history on file. Social History Socioeconomic History Marital status: Single Spouse name: Not on file Number of children: Not on file Years of education: Not on file Highest education level: Not on file Occupational History Not on file Tobacco Use Smoking status: Every Day Current packs/day: 0.50 Types: Cigarettes Smokeless tobacco: Never Vaping Use Vaping status: Every Day Substance and Sexual Activity Alcohol use: Yes Comment: occasional Drug use: Yes Types: Marijuana Sexual activity: Yes Partners: Male control/protection: None Other Topics Concern Not on file Social History Narrative Not on file Social Drivers of Health Financial Resource Strain: Not on file Food Insecurity: Not on file Transportation Needs: Not on file Physical Activity: Not on file Stress: Not on file Social Connections: Not on file Intimate Partner Violence: Not on file Housing Stability: Not on file MEDICATIONS: Current Outpatient Medications Medication Sig Dispense Refill ARIPiprazole (Abilify) 20 MG tablet Take 100 mg by mouth daily. busPIRone (Buspar) 10 MG tablet Take 10 mg by mouth 3 times daily. lamoTRIgine (LaMICtal) 150 MG tablet Take by mouth. omeprazole (PriLOSEC) [address] capsule Take 20 mg by mouth daily. prazosin (Minipress) 5 MG capsule Take 5 mg by mouth Nightly. propranolol (Inderal) 10 MG tablet Take 10 mg by mouth daily. traZODone (Desyrel) 50 MG tablet Take 50 mg by mouth Nightly. No current facility-administered medications for this visit. ALLERGIES: Allergies as of 03/15/2025 - Reviewed 03/15/2025 Allergen Reaction Noted Hydrocodone Anaphylaxis 07/24/2023 Acetaminophen 12/23/2021 REVIEW OF SYSTEMS: CONSTIUTIONAL: No fever, chills or malaise; No weight change or fatigue CV: No Chest Pain with Exertion, Palpitations, Syncope, Edema, Arrhythmia RESPIRATORY: No SOB, Pneumoniae,Cough, BREAST: No breast abnormalities or lumps GI: No Indigestion, Heartburn, Nausea, vomiting, Diarrhea, Constipation,Bloating or Bowel Changes; No Bloody Stools or melena : No Dysuria, Hematuria or Nocturia. No Urinary Incontinence or Vaginal Discharge,vaginal bleeding, or dysparuenia. NEURO: No CVA, Migraines, Epilepsy, Seizure Hx, or Limb Weakness DERM: No Rash, Itching, Hives, Mole Changes or Cancer PSYCH: No Depression, Homicidal thoughts,suicidal thoughts, or anxiety MUSCULOSKELETAL: No Arthralgia, Arthritis,Gout,Osteoporosis or Rheumatism HEME and LYMPH :No Lymphoma, Von Willebrand's, Hemophillia or Bleeding History PHYSICAL EXAM: Vitals: 03/15/25 0941 BP: 126/84 Pulse: 87 Weight: (!) 315 lb (143 kg) Height: 5' 2 (1.575 m) Body mass index is 57.61 kg/m?. HEAD OF MARKETING EXAM: Breasts: no masses no skin changes, no nipple retraction or discharge. EXTERNAL GENITALIA: normal female structures VAGINA: normal ruggae, no lesions, normal discharge CERVIX: no lesions, no cervical motion tenderness, normal appearance. VAGINA VAULT: normal. Minimal relaxation UTERUS: normal mobility, nontender, normal size, shape and consistency. ADNEXA: normal, non tender no masses URETHRA: normal. nontender BLADDER: non tender. ANUS/PERINEUM: no hemorrhoids, masses or warts noted. GENERAL EXAM CONSTITUTIONAL: Well developed, well nourished, well groomed. no acute distress NECK: no thyromegaly, supple. CARDIOVASCULAR: normal rate and rhythm, no edema RESPIRATORY: Normal effort, normal lung sounds ABDOMEN:soft, non-tender, non-distended, no hepatospleenomegaly SKIN: intact, dry NEUROLOGICAL: no gross motor or sensory deficits noted. . MUSCULOSKETAL: normal gait, no cyanosis. PSYCHIATRIC Normal mood and affect, A&O x3. ASSESSMENT/PLAN: There are no diagnoses linked to this encounter. No follow-ups on file. control and barrier recommendations discussed. STD counseling and prevention reviewed. Gardisil counseling completed for all patien (more content not included)... Normal [facility] CBC W Auto Differential pane l (Bld)on 02-12-2025 Basophils (Bld) [#/Vol] 0.1 10*3/uL 0.0 - 0.2 10*3/uL [facility] Basophils/100 WBC (Bld) 0.4 % 0.0 - 2.0 % [facility] Eosinophils (Bld) [#/Vol] 0.5 10*3/uL 0.0 - 0.5 10*3/uL [facility] Eosinophils/100 WBC (Bld) 4.6 % 0.0 - 6.0 % [facility] Erythrocyte distribution width (RBC) [Ratio] 13.5 % 11.5 - 15.0 % [facility] Hematocrit (Bld) [Volume fraction] 39.8 % 35.0 - 47.0 % [facility] Hemoglobin (Bld) [Mass/Vol] 13 g/dL 11.7 - 16.0 g/dL [facility] Immature granulocytes (Bld) [#/Vol] 0 10*3/uL NINF - 0.1 10*3/uL [facility] Immature granulocytes/100 WBC (Bld) 0.4 % 0.0 - 2.0 % [facility] Interpretation and review of laboratory results Abnormal [facility] Lymphocytes (Bld) [#/Vol] 3.7 10*3/uL 1.0 - 4.3 10*3/uL [facility] Lymphocytes/100 WBC (Bld) 32.7 % 15.0 - 45.0 % [facility] MCH (RBC) [Entitic mass] 26.3 pg 26.0 - 34.0 pg [facility] MCHC (RBC) [Mass/Vol] 32.7 % 30.5 - 36.0 % [facility] MCV (RBC) [Entitic vol] 80.6 fL 77.0 - 99.0 fL [facility] Monocytes (Bld) [#/Vol] 0.9 10*3/uL 0.0 - 0.9 10*3/uL [facility] Monocytes/100 WBC (Bld) 7.9 % 5.0 - 13.0 % [facility] Neutrophils (Bld) [#/Vol] 6.1 10*3/uL 1.8 - 7.5 10*3/uL [facility] Neutrophils/100 WBC (Bld) 54 % 38.0 - 82.0 % [facility] Nucleated RBC/100 WBC (Bld) [Ratio] 0 % [facility] Platelet mean volume (Bld) [Entitic vol] 9 fL 9.0 - 12.7 fL [facility] Comment on above: MPV is a calculated measurement using platelet volume ratio Platelets (Bld) [#/Vol] 335 10*3/uL 140 - 440 10*3/uL [facility] RBC (Bld) [#/Vol] 4.94 10*6/uL 3.80 - 5.20 10*6/uL [facility] WBC (Bld) [#/Vol] 11.2 10*3/uL High 3.6 - 10.7 10*3/uL [facility] CBC WITH AUTO DIFFERENTIALon 02-12-2025 Basophils (Bld) [#/Vol] 0.1 10*3/uL Normal 0.0-0.2 [facility] Comment on above: Performed By: #### L [id number] ####Medical Technician: RYAN ALVA ([id number])[facility] ([facility])[address] [place] [address] Basophils/100 WBC (Bld) 0.4 % Normal 0.0-2.0 [facility] Comment on above: Performed By: #### L [id number] ####Medical Technician: RYAN ALVA ([id number])[facility] [employer] (RLAB)[address] [place] [address] Eosinophils (Bld) [#/Vol] 0.5 10*3/uL Normal 0.0-0.5 [facility] Comment on above: Performed By: #### L [id number] ####Medical Technician: RYAN ALVA ([id number])[facility] (SWRLAB)[address] [place] [address] [place] Eosinophils/100 WBC (Bld) 4.6 % Normal 0.0-6.0 [facility] Comment on above: Performed By: #### L [id number] ####Medical Technician: RYAN ALVA ([id number])[facility]ENTER[facility]ie [facility] (SWRLAB)[address] [place] [address] Erythrocyte distribution width (RBC) [Ratio] 13.5 % Normal 11.5-15.0 [facility] Comment on above: Performed By: #### L [id number] ####Medical Technician: RYAN ALVA ([id number])[facility]ENTERShellie [facility] (SWRLAB)[address] [place] [address] Hematocrit (Bld) [Volume fraction] 39.8 % Normal 35.0-47.0 [facility] Comment on above: Performed By: #### L [id number] ####Medical Technician: RYAN ALVA ([id number])[facility]ENTERShellie [facility] (SWRLAB)[address] [place] [address] Hemoglobin (Bld) [Mass/Vol] 13.0 g/dL Normal 11.7-16.0 [facility] Comment on above: Performed By: #### L [id number] ####Medical Technician: RYAN ALVA ([id number])[facility]ENTERShellie [facility] (SWRLAB)[address] [place] [address] IMMATURE GRANS % 0.4 % Normal 0.0-2.0 [facility] Comment on above: Performed By: #### L [id number] ####Medical Technician: RYAN ALVA ([id number])[facility]ENTERShellie [facility] (SWRLAB)[address] [place] [address] IMMATURE GRANS ABSOLUTE 0.0 10*3/uL Normal <0.1 [facility] Comment on above: Performed By: #### L [id number] ####Medical Technician: RYAN ALVA ([id number])[facility]ENTERShellie [facility] (SWRLAB)[address] [place] [address] Lymphocytes (Bld) [#/Vol] 3.7 10*3/uL Normal 1.0-4.3 [facility] Comment on above: Performed By: #### L [id number] ####Medical Technician: YRAN ALVA ([id number])[facility]ENTERShellie [facility] (SWRLAB)[address] [place] [address] Lymphocytes/100 WBC (Bld) 32.7 % Normal 15.0-45.0 [facility] Comment on above: Performed By: #### L [id number] ####Medical Technician: RYAN ALVA ([id number])[facility]ENTERShellie [facility] (SWRLAB)[address] [place] [address] MCH (RBC) [Entitic mass] 26.3 pg Normal 26.0-34.0 [facility] Comment on above: Performed By: #### L [id number] ####Medical Technician: RYAN ALVA ([id number])[facility]ENTERShellie [facility] (SWRLAB)[address] [place] [address] MCHC 32.7 % Normal 30.5-36.0 [facility] Comment on above: Performed By: #### L [id number] ####Medical Technician: RYAN ALVA ([id number])[facility]ENTERShellie [facility] (SWRLAB)[address] [place] [address] MCV (RBC) [Entitic vol] 80.6 fL Normal 77.0-99.0 [facility] Comment on above: Performed By: #### L [id number] ####Medical Technician: RYAN ALVA ([id number])[facility]ENTERShellie [facility] (SWRLAB)[address] [place] [address] Monocytes (Bld) [#/Vol] 0.9 10*3/uL Normal 0.0-0.9 [facility] Comment on above: Performed By: #### L [id number] ####Medical Technician: RYAN ALVA ([id number])[facility] (SWRLAB)[address] [place] [address] [place] Monocytes/100 WBC (Bld) 7.9 % Normal 5.0-13.0 [facility] Comment on above: Performed By: #### L [id number] ####Medical Technician: RYAN ALVA ([id number])[facility]ENTERShellie [facility] (SWRLAB)[address] [place] [address] [place] NEUTROPHILS ABSOLUTE 6.1 10*3/uL Normal 1.8-7.5 [facility] Comment on above: Performed By: #### L [id number] ####Medical Technician: RYAN ALVA ([id number])[facility]ENTERhSellie [facility]ITTMAN (SWRLAB)[address] [place] [address] [place] Neutrophils/100 WBC (Bld) 54.0 % Normal 38.0-82.0 [facility] Comment on above: Performed By: #### L [id number] ####Medical Technician: RYAN ALVA ([id number])[facility]ENTERShellie [facility] (SWRLAB)[address] [place] [address] [place] NRBC 0.0 /100 WBCs Normal 0.0-2.0 [facility] Comment on above: Performed By: #### L [id number] ####Medical Technician: RYAN ALVA ([id number])[facility]ENTERShellie [facility] (SWRLAB)[address] Platelet mean volume (Bld) [Entitic vol] 9.0 fL Normal 9.0-12.7 [facility] Comment on above: Result Comment: MPV is a calculated measurement using platelet volume ratio Performed By: #### L [id number] ####Medical Technician: RYAN ALVA ([id number])[facility] (SWRLAB)[address] Platelets (Bld) [#/Vol] 335 10*3/uL Normal 140-440 [facility] Comment on above: Performed By: #### L [id number] ####Medical Technician: RYAN ALVA ([id number])[facility]ENTERShellie [facility] (SWRLAB)[address] RBC (Bld) [#/Vol] 4.94 10*6/uL Normal 3.80-5.20 [facility] Comment on above: Performed By: #### L [id number] ####Medical Technician: RYAN ALVA ([phone])[facility]ENTERShellie [facility] (SWRLAB)[address] WBC (Bld) [#/Vol] 11.2 10*3/uL High 3.6-10.7 [facility] Comment on above: Performed By: #### L [id number] ####Medical Technician: RYAN ALVA ([id number])[facility]ENTERShellie [facility] (SWRLAB)[address] [place] [address] COMPLETE URINALYSISon 2024 BACTERIA (#/HPF) IN URINE Few Abnormal Negative [facility] Comment on above: Performed By: #### L [id number] ####Medical Technician: RYAN ALVA ([id number])[facility]ENTERShellie [facility] (SWRLAB)[address] [place] [address] BILIRUBIN, TOTAL PRESENCE IN URINE Negative Normal Negative [facility] Comment on above: Performed By: #### L [id number] ####Medical Technician: RYAN ALVA ([id number])[facility]ENTERShellie [facility] (SWRLAB)[address] [place] [address] Clarity (U) Clear Normal Clear [facility] Comment on above: Performed By: #### L [id number] ####Medical Technician: RYAN ALVA ([id number])[facility]ENTERShellie [facility] (SWRLAB)[address] [place] [address] [place] Color (U) Light Yellow Normal Lt. Yellow [facility] Comment on above: Performed By: #### L [id number] ####Medical Technician: RYAN ALVA ([id number])[facility]ENTERShellie [facility] (SWRLAB)[address] [place] [address] [place] GLUCOSE (MG/DL) IN URINE Normal Normal Normal (<70) [facility] Comment on above: Performed By: #### L [id number] ####Medical Technician: RYAN ALVA ([id number])[facility]ENTERShellie [facility] (SWRLAB)[address] [place] [address] HEMOGLOBIN PRESENCE IN URINE 0.03 mg/dL Abnormal Negative [facility] Comment on above: Performed By: #### L [id number] ####Medical Technician: RYAN ALVA ([id number])[facility]ENTERShellie [facility] (SWRLAB)[address] [place] [address] [place] Ketones Ql (U) Negative Normal Negative [facility] Comment on above: Performed By: #### L [id number] ####Medical Technician: RYAN ALVA ([id number])[facility]ENTERShellie [facility] (SWRLAB)[address] [place] [address] LEUKOCYTE ESTERASE PRESENCE IN URINE BY TEST STRIP Negative Normal Negative [facility] Comment on above: Performed By: #### L [id number] ####Medical Technician: RYAN ALVA ([id number])[facility]ENTERShellie [facility] (SWRLAB)[address] [place] [address] [place] NITRITE PRESENCE IN URINE Negative Normal Negative [facility] Comment on above: Performed By: #### L [id number] ####Medical Technician: RYAN ALVA ([id number])[facility]ENTERShellie [facility] (SWRLAB)[address] [place] [address] [place] pH (U) 6.0 [pH] Normal 5.0-8.0 [facility] Comment on above: Performed By: #### L [id number] ####Medical Technician: RYAN ALVA ([id number])[facility]ENTERShell[facility] (SWRLAB)[address] [place] [address] Protein (U) [Mass/Vol] Negative Normal Negative [facility] Comment on above: Performed By: #### L [id number] ####Medical Technician: RYAN ALVA ([id number])[facility]ENTERShellie [facility] (SWRLAB)[address] [place] [address] [place] RBC (#/HPF) IN URINE SEDIMENT 0-2 Normal 0-2 [facility] Comment on above: Performed By: #### L [id number] ####Medical Technician: RYAN ALVA ([id number])[facility]ENTERShellie [facility] (SWRLAB)[address] [place] [address] Specific gravity (U) [Rel density] 1.025 Normal 1.005-1.03 0 [facility] Comment on above: Performed By: #### L [id number] ####Medical Technician: RYAN ALVA ([id number])[facility]ENTERShellie [facility] (SWRLAB)[address] [place] [address] Specimen volume (U) 12 mL Normal [facility] Comment on above: Performed By: #### L [id number] ####Medical Technician: RYAN ALVA ([id number])[facility]ENTERShellie [facility] (SWRLAB)[address] [place] [address] [place] SQUAMOUS EPITHELIAL CELLS (#/HPF) IN URINE SEDIMENT 3-5 Normal 3-5 [facility] Comment on above: Performed By: #### L [id number] ####Medical Technician: RYAN ALVA ([id number])[facility]ENTERShellie [facility] (SWRLAB)[address] [place] [address] [place] UROBILINOGEN (MG/DL) IN URINE Normal Normal Normal (0-1) [facility] Comment on above: Performed By: #### L [id number] ####Medical Technician: RYAN ALVA ([id number])[facility] (SWRLAB)[address] [place] [address] [place] WBC (LEUKOCYTE) (#/HPF) IN URINE SEDIMENT 0-2 Normal 0-5 [facility] Comment on above: Performed By: #### L [id number] ####Medical Technician: RYAN ALVA ([id number])[facility]ENTERShellie [facility] (SWRLAB)[address] COMPREHENSIVE METABOLIC PANE Osbaldo 02-12-2025 Albumin [Mass/Vol] 3.5 g/dL Normal 3.5-5.0 [facility] Comment on above: Performed By: #### L [id number] ####Medical Technician: RYAN ALVA ([id number])[facility]ENTERShellie [facility] (SWRL[facility])[address] ALP [Catalytic activity/Vol] 77 U/L Normal 40-150 [facility] Comment on above: Performed By: #### L [id number] ####Medical Technician: RYAN ALVA ([id number])[facility]ENTERShellie [facility] (SWRLAB)[address] [place] [address] [place] ALT [Catalytic activity/Vol] 27 U/L Normal <30 [facility] Comment on above: Performed By: #### L [id number] ####Medical Technician: RYAN ALVA ([id number])[facility]ENTERShellie [facility] (SWRLAB)[address] Anion gap [Moles/Vol] 5 mmol/L Normal 3-13 [facility] Comment on above: Performed By: #### L [id number] ####Medical Technician: RYAN ALVA ([id number])[facility]ENTERShellie [facility] (SWRLAB)[address] [place] [address] [place] AST [Catalytic activity/Vol] 20 U/L Normal <34 [facility] Comment on above: Performed By: #### L [id number] ####Medical Technician: RYAN ALVA ([id number])[facility] CENTERA HEATHER RITTMAN (SWRLAB)[address] [place] [address] [place] Bilirubin [Mass/Vol] 0.2 mg/dL Normal <1.2 [facility] Comment on above: Performed By: #### L [id number] ####Medical Technician: RYAN ALVA ([id number])[facility]ENTERShellie [facility] (SWRLAB)[address] [place] [address] [place] Calcium [Mass/Vol] 8.8 mg/dL Normal 8.4-10.2 [facility] Comment on above: Performed By: #### L [id number] ####Medical Technician: RYAN ALVA ([id number])[facility]ENTERShellie [facility] (SWRLAB)[address] [place] [address] [place] Chloride [Moles/Vol] 111 mmol/L High 98-107 [facility] Comment on above: Performed By: #### L [id number] ####Medical Technician: RYAN ALVA ([id number])[facility]ENTER[facility]ie ROMERO RITTMAN (SWRLAB)[address] [place] [address] [place] CO2 [Moles/Vol] 25 mmol/L Normal 22-29 [facility] Comment on above: Performed By: #### L [id number] ####Medical Technician: RYAN ALVA ([id number])[facility]ENTERShellie ROMERO RITTMAN (SWRLAB)[address] [place] [address] [place] Creatinine [Mass/Vol] 0.65 mg/dL Normal 0.57-1.11 [facility] Comment on above: Performed By: #### L [id number] ####Medical Technician: RYAN ALVA ([id number])[facility]ENTERShellie ROMERO RITTMAN (SWRLAB)[address] GLOMERULAR FILTRATION RATE ML/MIN/1.73 SQ M.PREDICTED >90.0 Normal >60.0 [facility] Comment on above: Result Comment: Calc ulation based on the Chronic Kidney Disease Epidemiology Collaboration (CKD-EPI) equation refit without adjustment for race Performed By: #### L [id number] ####Medical Technician: RYAN ALVA ([id number])[facility]ENTER[facility]ie ROMERO RITTMAN (SWRLAB)[address] [place] [address] [place] Glucose [Mass/Vol] 99 mg/dL Normal 74-100 [facility] Comment on above: Performed By: #### L [id number] ####Medical Technician: RYAN ALVA ([id number])[facility]ENTER[facility] ROMERO RITTMAN (SWRLAB)[address] [place] [address] [place] Potassium [Moles/Vol] 3.7 mmol/L Normal 3.5-5.1 [facility] Comment on above: Result Comment: Plas ma potassium values may be up to 0.5 mmol/L lower than serum values. Performed By: #### L [id number] ####Medical Technician: RYAN ALVA ([phone])[facility]ENTERShellie ROMERO RITTMAN (SWRLAB)[address] [place] [address] [place] Protein [Mass/Vol] 6.5 g/dL Normal 6.4-8.3 [facility] Comment on above: Performed By: #### L [id number] ####Medical Technician: RYAN ALVA ([phone])[facility]ENTERShellie ROMERO RITTMAN (SWRLAB)[address] [place] [address] [place] Sodium [Moles/Vol] 141 mmol/L Normal 136-145 [facility] Comment on above: Performed By: #### L [id number] ####Medical Technician: RYAN ALAV ([phone])[facility]ie ROMERO RITTMAN (SWRLAB)[address] [place] [address] [place] Urea nitrogen [Mass/Vol] 14 mg/dL Normal 8-21 [facility] Comment on above: Performed By: #### L [id number] ####Medical Technician: RYAN ALVA ([id number])[facility]ENTERShellie ROMERO RITTMAN (SWRLAB)[address] [place] [address] ABDOMEN PELVIS W CONTRAST on 02-12-2025 CT ABDOMEN PELVIS W CONTRAST Patient Name: [facility]ABINO [facility]WEY : 2005 [id number] Exam Date/Time: 02/12/2025 09:48 Procedure: CT ABDOMEN PELVIS W CONTRAST Ordering Provider: LOZADA AUSTIN Reason For Exam: RLQ pain, worse since visit a few days ago HISTORY: Abdominal pain, nausea. CT scans of the abdomen and pelvis were performed following intravenous contrast administration, with images from the lung bases through the pubic symphysis. Dose reduction was employed with automated exposure control. Comparison study from 02/10/2025 The lung bases are clear. There are no pleural effusions. The liver is normal in size, shape, and mildly fatty in attenuation. There are no focal liver masses. The gallbladder is normal. The biliary tree is decompressed. The pancreas and spleen are normal. The stomach, duodenum are unremarkable. There is no evidence of bowel obstruction, and the small bowel, large bowel, and mesentery are unremarkable. There is no free air. There is no free fluid. The right kidney is normal. The left kidney is normal. The adrenal glands are normal. There are no mass lesions nor evidence of obstruction. No calculi are seen. Scans through the pelvis demonstrate the rectosigmoid to be unremarkable. The bladder is unremarkable. The remainder of the pelvic contents are unremarkable with top normal size ovaries bilaterally (limited detail here due to patient obesity). The lumbar spine shows no degenerative changes.. IMPRESSION: 1. No evidence of abdominal or pelvic mass lesion or other significant abnormality (normal appendix with no free fluid or free air or fluid collections or other acute finding). Report Dictated on Electronically Signed By: Merlin Rdz MD Electronically Signed Date/Time: 02/12/2025 10:19 AM EDT lower right abd pain that she was seen for a couple days ago and had a full work up. Pt states that the pain is position dependent and has seemed to get worse. Also N/V/D Hcg neg 02/10/25 not being redone by ER DR Lozada Normal [facility] CT Abdomen and Pelvis W cont rast Karine 02-12-2025 1. No evidence of abdominal or pelvic mass lesion or other significant abnormality (normal appendix with no free fluid or free air or fluid collections or other acute finding). Report Dictated on Electronically Signed By: Merlin Rdz MD Electronically Signed Date/Time: 02/12/2025 10:19 AM EDT [facility] Patient Name: SABINO DEWEY : 2005 Exam Date/Time: 02/12/2025 09:48 Procedure: CT ABDOMEN PELVIS W CONTRAST Ordering Provider: LOZADA AUSTIN Reason For Exam: RLQ pain, worse since visit a few days ago HISTORY: Abdominal pain, nausea. CT scans of the abdomen and pelvis were performed following intravenous contrast administration, with images from the lung bases through the pubic symphysis. Dose reduction was employed with automated exposure control. Comparison study from 02/10/2025 The lung bases are clear. There are no pleural effusions. The liver is normal in size, shape, and mildly fatty in attenuation. There are no focal liver masses. The gallbladder is normal. The biliary tree is decompressed. The pancreas and spleen are normal. The stomach, duodenum are unremarkable. There is no evidence of bowel obstruction, and the small bowel, large bowel, and mesentery are unremarkable. There is no free air. There is no free fluid. The right kidney is normal. The left kidney is normal. The adrenal glands are normal. There are no mass lesions nor evidence of obstruction. No calculi are seen. Scans through the pelvis demonstrate the rectosigmoid to be unremarkable. The bladder is unremarkable. The remainder of the pelvic contents are unremarkable with top normal size ovaries bilaterally (limited detail here due to patient obesity). The lumbar spine shows no degenerative changes.. [facility] Merlin Rdz MD - 02/12/2025 Patient Name: SABINO DEWEY : 2005 Exam Date/Time: 02/12/2025 09:48 Procedure: CT ABDOMEN PELVIS W CONTRAST Ordering Provider: LOZADA AUSTIN Reason For Exam: RLQ pain, worse since visit a few days ago HISTORY: Abdominal pain, nausea. CT scans of the abdomen and pelvis were performed following intravenous contrast administration, with images from the lung bases through the pubic symphysis. Dose reduction was employed with automated exposure control. Comparison study from 02/10/2025 The lung bases are clear. There are no pleural effusions. The liver is normal in size, shape, and mildly fatty in attenuation. There are no focal liver masses. The gallbladder is normal. The biliary tree is decompressed. The pancreas and spleen are normal. The stomach, duodenum are unremarkable. There is no evidence of bowel obstruction, and the small bowel, large bowel, and mesentery are unremarkable. There is no free air. There is no free fluid. The right kidney is normal. The left kidney is normal. The adrenal glands are normal. There are no mass lesions nor evidence of obstruction. No calculi are seen. Scans through the pelvis demonstrate the rectosigmoid to be unremarkable. The bladder is unremarkable. The remainder of the pelvic contents are unremarkable with top normal size ovaries bilaterally (limited detail here due to patient obesity). The lumbar spine shows no degenerative changes.. IMPRESSION: 1. No evidence of abdominal or pelvic mass lesion or other significant abnormality (normal appendix with no free fluid or free air or fluid collections or other acute finding). Report Dictated on Electronically Signed By: Merlin Rdz MD Electronically Signed Date/Time: 02/12/2025 10:19 AM EDT [facility] Study observation (narrative) [facility] CT Abdomen and Pelvis W cont rast IVOrdered By: Merlin Rdz on 02-12-2025 [facility] Work Phone: Comprehensive metabolic 1998 panelon 02-12-2025 Albumin [Mass/Vol] 3.5 g/dL 3.5 - 5.0 g/dL [facility] ALP [Catalytic activity/Vol] 77 U/L 40 - 150 U/L [facility] ALT [Catalytic activity/Vol] 27 U/L NINF - 30 U/L [facility] Anion gap [Moles/Vol] 5 mmol/L 3 - 13 mmol/L [facility] AST [Catalytic activity/Vol] 20 U/L NINF - 34 U/L [facility] Bilirubin [Mass/Vol] 0.2 mg/dL NINF - 1.2 mg/dL [facility] Calcium [Mass/Vol] 8.8 mg/dL 8.4 - 10. 2 mg/dL [facility] Chloride [Moles/Vol] 111 mmol/L High 98 - 107 mmol/L [facility] CO2 [Moles/Vol] 25 mmol/L 22 - 29 mmol/L [facility] Creatinine [Mass/Vol] 0.65 mg/dL 0.57 - 1.11 mg/dL [facility] GFR/1.73 sq M.predicted (S/P/Bld) [Vol rate/Area] - PINF [facility] Comment on above: Calculation based on the Chronic Kidney Disease Epidemiology Collaboration (CKD-EPI) equation refit without adjustment for race Glucose [Mass/Vol] 99 mg/dL 74 - 100 mg/dL [facility] Interpretation and review of laboratory results Abnormal [facility] Potassium [Moles/Vol] 3.7 mmol/L 3.5 - 5.1 mmol/L [facility] Comment on above: Plasma potassium lilli ues may be up to 0.5 mmol/L lower than serum values. Protein [Mass/Vol] 6.5 g/dL 6.4 - 8.3 g/dL [facility] Sodium [Moles/Vol] 141 mmol/L 136 - 145 mmol/L [facility] Urea nitrogen [Mass/Vol] 14 mg/dL 8 - 21 mg/dL [facility] ED Nursing Noteon 02-12-2025 ED Nursing Note Pt to ED for lower r ight abd pain that she was seen for a couple days ago and had a full work up. Pt states that the pain is position dependent and has seemed to get worse. Also N/V/D Normal [facility] ED Provider Noteon ED Provider Note EMERGENCY DEPARTMENT ENCOUNTER Pt Name: Sabino Dewey Birthdate 2005 Date of evaluation: 02/12/2025 ED Provider: Bam Lozada MD CHIEF COMPLAINT Chief Complaint Patient presents with Abdominal Pain Vomiting Diarrhea HISTORY OF PRESENT ILLNESS (Location/Symptom, Timing/Onset, Context/Setting, Quality, Duration, Modifying Factors, Severity) Note limiting factors. I wore appropriate PPE for the entirety of this encounter. HPI Sabino Dewey is a 20 y.o. who presents to the emergency department with right lower quadrant abdominal pain, was seen here at 3 days ago for the same complaint had a negative CT at that time but feels like the pain has gotten worse, she said was a 5 3 days ago analysis 7, no fevers, some nausea without vomiting. She says she has pain when she tries to have a bowel movement in her abdomen mostly in the right lower quadrant Nursing Notes were reviewed. Limitations to history: None Outside historians: Significant other REVIEW OF SYSTEMS Review of Systems Pertinent positives and negatives as per HPI PAST MEDICAL HISTORY Past Medical History: Diagnosis Date Night terrors SURGICAL HISTORY History reviewed. No pertinent surgical history. CURRENT MEDICATIONS Previous Medications ARIPIPRAZOLE (ABILIFY) 20 MG TABLET Take 100 mg by mouth daily. BUSPIRONE (BUSPAR) 10 MG TABLET Take 10 mg by mouth 3 times daily. LAMOTRIGINE (LAMICTAL) 150 MG TABLET Take by mouth. OMEPRAZOLE (PRILOSEC) [address] CAPSULE Take 20 mg by mouth daily. PRAZOSIN (MINIPRESS) 5 MG CAPSULE Take 5 mg by mouth Nightly. PROPRANOLOL (INDERAL) 10 MG TABLET Take 10 mg by mouth daily. TRAZODONE (DESYREL) 50 MG TABLET Take 50 mg by mouth Nightly. ALLERGIES Hydrocodone and Acetaminophen FAMILY HISTORY No family history on file. SOCIAL HISTORY Social History Socioeconomic History Marital status: Single Tobacco Use Smoking status: Every Day Current packs/day: 0.50 Types: Cigarettes Smokeless tobacco: Never Vaping Use Vaping status: Every Day Substance and Sexual Activity Alcohol use: Yes Comment: occasional Drug use: Yes Types: Marijuana Sexual activity: Yes control/protection: None PHYSICAL EXAM ED Triage Vitals [02/12/25 0921] Temp Heart Rate Resp BP 36.7 ?C (98.1 ?F) 102 20 130/79 SpO2 Temp Source Heart Rate Source Patient Position 97 % Oral -- -- BP Location FiO2 (%) -- -- Physical Exam Tenderness in right lower quadrant without any peritoneal signs DIAGNOSTIC RESULTS RADIOLOGY (Per Emergency Physician): Interpretation per the Radiologist below, if available at the time of this note: CT abdomen pelvis w contrast Final Result 1. No evidence of abdominal or pelvic mass lesion or other significant abnormality (normal appendix with no free fluid or free air or fluid collections or other acute finding). Report Dictated on Electronically Signed By: Merlin Rdz MD Electronically Signed Date/Time: 02/12/2025 10:19 AM EDT LABS: Labs Reviewed CBC WITH AUTO DIFFERENTIAL - Abnormal Result Value Auto WBC 11.2 (*) RBC 4.94 Hemoglobin 13.0 Hematocrit 39.8 MCV 80.6 MCH 26.3 MCHC 32.7 RDW 13.5 Platelets 335 MPV 9.0 nRBC 0.0 Neutrophils Relative 54.0 Lymphocytes Relative 32.7 Monocytes Relative 7.9 Eosinophils Relative 4.6 Basophils Relative 0.4 Immature Grans % 0.4 Neutrophils Absolute 6.1 Lymphocytes Absolute 3.7 Monocytes Absolute 0.9 Eosinophils Absolute 0.5 Basophils Absolute 0.1 Immature Grans Absolute 0.0 COMPREHENSIVE METABOLIC PANEL - Abnormal SODIUM 141 POTASSIUM 3.7 CHLORIDE 111 (*) CARBON DIOXIDE 25 ANION GAP 5 UREA NITROGEN 14 CREATININE 0.65 GLUCOSE 99 CALCIUM 8.8 AST (SGOT) 20 ALT 27 ALKALINE PHOSPHATASE 77 ALBUMIN 3.5 BILIRUBIN, TOTAL 0.2 TOTAL PROTEIN 6.5 eGFR >90.0 COMPLETE URINALYSIS - Abnormal Color, Urine Light Yellow Clarity, Urine Clear pH, Urine 6.0 Leukocytes, Urine Negative Nitrite, Urine Negative Protein, Urine Negative Glucose, Urine Normal Bilirubin, Urine Negative Ketones, Urine Negative Urobilinogen, Urine Normal Blood, Urine 0.03 (*) Volume, Urine 12 mL RBC, Urine 0-2 WBC, Urine 0-2 Squamous Epithelial, Urine 3-5 Bacteria, Urine Few (*) SPECIFIC GRAVITY OF URINE (NUMERIC) 1.025 COMPLETE URINALYSIS WITH REFLEX TO CULTURE Narrative: The following orders were created for panel order Urinalysis Complete with reflex to Culture. Procedure Abnormality Status --------- ------ Complete Urinalysis[[id number]] Abnormal Final result Please view results for these tests on the individual orders. All other labs were within normal range or not returned as of this dictation. EMERGENCY DEPARTMENT COURSE and DIFFERENTIAL DIAGNOSIS/MDM: Vitals: Vitals: 02/12/25 0921 BP: 130/79 Pulse: 102 Resp: 20 Temp: 36.7 ?C (98.1 ?F) TempSrc: Oral SpO2: (more content not included)... Normal [facility] Urinalysis complete panel (U )Ordered By: Vicky Barnes on 02-12-2025 Bacteria LM.HPF (Urine sed) [#/Area] Few Abnormal Negative /HPF [facility] Bilirubin Ql (U) Negative Negative mg/dL [facility] Clarity (U) Clear Clear [facility] Color (U) Light Yellow Lt. Yellow [facility] Epithelial cells.squamous LM.HPF (Urine sed) [#/Area] 3-5 [facility] Glucose Ql (U) Normal Normal (<70) mg/dL [facility] Hemoglobin Ql (U) 0.03 mg/dL Abnormal Negative [facility] Interpretation and review of laboratory results Abnormal [facility] Ketones (U) [Mass/Vol] Negative Negative mg/dL [facility] Leukocyte esterase Test strip Ql (U) Negative Negative Hannah/uL [facility] Nitrite Ql (U) Negative Negative [facility] pH (U) 6.0 [pH] 5.0 - 8.0 pH [facility] Protein (U) [Mass/Vol] Negative Negative mg/dL [facility] RBC LM.HPF (Urine sed) [#/Area] 0-2 [facility] Specific gravity (U) [Rel density] 1.025 1.005 - 1.030 [facility] Urobilinogen (U) [Mass/Vol] Normal Normal (0-1) mg/dL [facility] Volume, Urine 12 mL [facility] WBC LM.HPF (Urine sed) [#/Area] 0-2 [facility] CBC W Auto Differential pane l (Bld)on 02-10-2025 Basophils (Bld) [#/Vol] 0.1 10*3/uL 0.0 - 0.2 10*3/uL [facility] Basophils/100 WBC (Bld) 0.4 % 0.0 - 2.0 % [facility] Eosinophils (Bld) [#/Vol] 0.4 10*3/uL 0.0 - 0.5 10*3/uL [facility] Eosinophils/100 WBC (Bld) 3.2 % 0.0 - 6.0 % [facility] Erythrocyte distribution width (RBC) [Ratio] 13.2 % 11.5 - 15.0 % [facility] Hematocrit (Bld) [Volume fraction] 40.8 % 35.0 - 47.0 % [facility] Hemoglobin (Bld) [Mass/Vol] 13.4 g/dL 11.7 - 16.0 g/dL [facility] Immature granulocytes (Bld) [#/Vol] 0 10*3/uL NINF - 0.1 10*3/uL [facility] Immature granulocytes/100 WBC (Bld) 0.3 % 0.0 - 2.0 % [facility] Interpretation and review of laboratory results Abnormal [facility] Lymphocytes (Bld) [#/Vol] 3.8 10*3/uL 1.0 - 4.3 10*3/uL [facility] Lymphocytes/100 WBC (Bld) 32.7 % 15.0 - 45.0 % [facility] MCH (RBC) [Entitic mass] 26.2 pg 26.0 - 34.0 pg [facility] MCHC (RBC) [Mass/Vol] 32.8 % 30.5 - 36.0 % [facility] MCV (RBC) [Entitic vol] 79.8 fL 77.0 - 99.0 fL [facility] Monocytes (Bld) [#/Vol] 0.7 10*3/uL 0.0 - 0.9 10*3/uL [facility] Monocytes/100 WBC (Bld) 5.9 % 5.0 - 13.0 % [facility] Neutrophils (Bld) [#/Vol] 6.7 10*3/uL 1.8 - 7.5 10*3/uL [facility] Neutrophils/100 WBC (Bld) 57.5 % 38.0 - 82.0 % [facility] Nucleated RBC/100 WBC (Bld) [Ratio] 0 % [facility] Platelet mean volume (Bld) [Entitic vol] 9 fL 9.0 - 12.7 fL [facility] Comment on above: MPV is a calculated measurement using platelet volume ratio Platelets (Bld) [#/Vol] 356 10*3/uL 140 - 440 10*3/uL [facility] RBC (Bld) [#/Vol] 5.11 10*6/uL 3.80 - 5.20 10*6/uL [facility] WBC (Bld) [#/Vol] 11.7 10*3/uL High 3.6 - 10.7 10*3/uL [facility] CBC WITH AUTO DIFFERENTIALon 02-10-2025 Basophils (Bld) [#/Vol] 0.1 10*3/uL Normal 0.0-0.2 [facility] Comment on above: Performed By: #### L [id number] ####Medical Technician: RYAN ALVA ([id number])AISLINN ROMERO RITTMAN (SWRLAB)[address] [place] [address] [place] Basophils/100 WBC (Bld) 0.4 % Normal 0.0-2.0 [facility] Comment on above: Performed By: #### L [id number] ####Medical Technician: RYAN ALVA ([id number])[facility]ISLINN ROMERO RITTMAN (SWRLAB)[address] [place] [address] Eosinophils (Bld) [#/Vol] 0.4 10*3/uL Normal 0.0-0.5 [facility] Comment on above: Performed By: #### L [id number] ####Medical Technician: RYAN ALVA ([id number])[facility]ISLINN ROMERO RITTMAN (SWRLAB)[address] [place] [address] [place] Eosinophils/100 WBC (Bld) 3.2 % Normal 0.0-6.0 [facility] Comment on above: Performed By: #### L [id number] ####Medical Technician: RYAN ALVA ([id number])AISLINN ROMERO RITTMAN (SWRLAB)[address] [place] [address] Erythrocyte distribution width (RBC) [Ratio] 13.2 % Normal 11.5-15.0 [facility] Comment on above: Performed By: #### L [id number] ####Medical Technician: RYAN ALVA ([id number])[facility]ISLIN[facility] ROMERO RITTMAN (SWRLAB)[address] [place] [address] Hematocrit (Bld) [Volume fraction] 40.8 % Normal 35.0-47.0 [facility] Comment on above: Performed By: #### L [id number] ####Medical Technician: RYAN ALVA ([phone])[facility]ISLINN ROMERO RITTMAN (SWRLAB)[address] [place] [address] Hemoglobin (Bld) [Mass/Vol] 13.4 g/dL Normal 11.7-16.0 [facility] Comment on above: Performed By: #### L [id number] ####Medical Technician: RYAN ALVA ([id number])AISLINN ROMERO RITTMAN (SWRLAB)[address] [place] [address] IMMATURE GRANS % 0.3 % Normal 0.0-2.0 [facility] Comment on above: Performed By: #### L [id number] ####Medical Technician: RYAN ALVA ([id number])[facility] ROMERO RITTMAN (SWRLAB)[address] [place] [address] IMMATURE GRANS ABSOLUTE 0.0 10*3/uL Normal <0.1 [facility] Comment on above: Performed By: #### L [id number] ####Medical Technician: RYAN ALVA ([id number])[facility] ROMERO RITTMAN (SWRLAB)[address] [place] [address] Lymphocytes (Bld) [#/Vol] 3.8 10*3/uL Normal 1.0-4.3 [facility] Comment on above: Performed By: #### L [id number] ####Medical Technician: RYAN ALVA ([id number])[facility] ROMERO RITTMAN (SWRLAB)[address] [place] [address] Lymphocytes/100 WBC (Bld) 32.7 % Normal 15.0-45.0 [facility] Comment on above: Performed By: #### L [id number] ####Medical Technician: RYAN ALVA ([id number])[facility]ENTER[facility] ROMERO RITTMAN (SWRLAB)[address] [place] [address] MCH (RBC) [Entitic mass] 26.2 pg Normal 26.0-34.0 [facility] Comment on above: Performed By: #### L [id number] ####Medical Technician: RYAN ALVA ([id number])[facility] ROMERO RITTMAN (SWRLAB)[address] [place] [address] MCHC 32.8 % Normal 30.5-36.0 [facility] Comment on above: Performed By: #### L [id number] ####Medical Technician: RYAN ALVA ([id number])AISLINN ROMERO RITTMAN (SWRLAB)[address] [place] [address] MCV (RBC) [Entitic vol] 79.8 fL Normal 77.0-99.0 [facility] Comment on above: Performed By: #### L [id number] ####Medical Technician: RYAN ALVA ([id number])[facility] ROMERO RITTMAN (SWRLAB)[address] [place] [address] Monocytes (Bld) [#/Vol] 0.7 10*3/uL Normal 0.0-0.9 [facility] Comment on above: Performed By: #### L [id number] ####Medical Technician: RYAN ALVA ([id number])AISLINN ROMERO RITTMAN (SWRLAB)[address] [place] [address] [place] Monocytes/100 WBC (Bld) 5.9 % Normal 5.0-13.0 [facility] Comment on above: Performed By: #### L [id number] ####Medical Technician: RYAN ALVA ([id number])AISLINN ROMERO RITTMAN (SWRLAB)[address] [place] [address] [place] NEUTROPHILS ABSOLUTE 6.7 10*3/uL Normal 1.8-7.5 [facility] Comment on above: Performed By: #### L [id number] ####Medical Technician: RYAN ALVA ([id number])AISLINN ROMERO RITTMAN (SWRLAB)[address] [place] [address] [place] Neutrophils/100 WBC (Bld) 57.5 % Normal 38.0-82.0 [facility] Comment on above: Performed By: #### L [id number] ####Medical Technician: RYAN ALVA ([phone])AISLINN ROMERO RITTMAN (SWRLAB)[address] [place] [address] [place] NRBC 0.0 /100 WBCs Normal 0.0-2.0 [facility] Comment on above: Performed By: #### L [id number] ####Medical Technician: RYAN ALVA ([id number])[facility]ENTERShellie DEWITTTMAN (SWRLAB)[address] [place] [address] Platelet mean volume (Bld) [Entitic vol] 9.0 fL Normal 9.0-12.7 [facility] Comment on above: Result Comment: MPV is a calculated measurement using platelet volume ratio Performed By: #### L [id number] ####Medical Technician: RYAN ALVA ([id number])[facility]ENTER[facility]ie DEWITTTMAN (SWRLAB)[address] [place] [address] Platelets (Bld) [#/Vol] 356 10*3/uL Normal 140-440 [facility] Comment on above: Performed By: #### L [id number] ####Medical Technician: RYAN ALVA ([id number])[facility]ENTER[facility] DEWITTTMAN (SWRLAB)[address] [place] [address] RBC (Bld) [#/Vol] 5.11 10*6/uL Normal 3.80-5.20 [facility] Comment on above: Performed By: #### L [id number] ####Medical Technician: RYAN ALVA ([id number])[facility]ENTER[facility] ROMERO RITTMAN (SWRLAB)[address] [place] [address] WBC (Bld) [#/Vol] 11.7 10*3/uL High 3.6-10.7 [facility] Comment on above: Performed By: #### L [id number] ####Medical Technician: RYAN ALVA ([id number])[facility]ENTER[facility] ROMERO RITTMAN (SWRL[place])[address] [place] [address] COMPREHENSIVE METABOLIC PANE Osbaldo 02-10-2025 Albumin [Mass/Vol] 3.9 g/dL Normal 3.5-5.0 [facility] Comment on above: Performed By: #### L AB99, LAB17, [id number] #### Medical Technician: RYAN ALVA ([id number]) [facility] [address] [place] [address] [place] ALP [Catalytic activity/Vol] 85 U/L Normal 40-150 [facility] Comment on above: Performed By: #### Matt AB99, LAB17, [id number] #### Medical Technician: RYAN ALVA ([phone]) [facility]) [address] [place] [address] ALT [Catalytic activity/Vol] 32 U/L High <30 [facility] Comment on above: Performed By: #### Matt HERR, LAB17, [id number] #### Medical Technician: RYAN ALVA ([id number]) [facility] ([facility]) [address] [place] [address] Anion gap [Moles/Vol] 9 mmol/L Normal 3-13 [facility] Comment on above: Performed By: #### Matt HERR, LAB17, [id number] #### Medical Technician: RYAN ALVA ([phone]) [facility] ROMERO RITTMAN (SWRLAB) [address] [place] [address] AST [Catalytic activity/Vol] 27 U/L Normal <34 [facility] Comment on above: Performed By: #### Matt HERR, LAB17, [id number] #### Medical Technician: RYAN ALVA ([id number]) [facility] ROMERO [facility]IT[facility] (SWRLAB) [address] [place] [address] [place] Bilirubin [Mass/Vol] 0.2 mg/dL Normal <1.2 [facility] Comment on above: Performed By: #### Matt HERR, LAB17, [id number] #### Medical Technician: RYAN ALVA ([phone]) [facility] ([facility]) [address] [place] [address] Calcium [Mass/Vol] 9.1 mg/dL Normal 8.4-10.2 [facility] Comment on above: Performed By: #### L AB99, LAB17, [id number] #### Medical Technician: RYAN ALVA ([id number]) [facility] ROM[facility] (SWRLAB) [address] [place] [address] [place] Chloride [Moles/Vol] 108 mmol/L High 98-107 [facility] Comment on above: Performed By: #### L AB99, LAB17, [id number] #### Medical Technician: RYAN ALVA ([phone]) [facility] (SWRLAB) [address] [place] [address] [place] CO2 [Moles/Vol] 26 mmol/L Normal 22-29 [facility] Comment on above: Performed By: #### Matt [id number], LAB17, [id number] #### Medical Technician: RYAN ALVA ([phone]) [facility] (SWRLAB) [address] [place] [address] [place] Creatinine [Mass/Vol] 0.81 mg/dL Normal 0.57-1.11 [facility] Comment on above: Performed By: #### Matt HERR, LAB17, [id number] #### Medical Technician: RYAN ALVA ([phone]) [facility] DEWITTTMAN (SWRLAB) [address] [place] [address] GLOMERULAR FILTRATION RATE ML/MIN/1.73 SQ M.PREDICTED >90.0 Normal >60.0 [facility] Comment on above: Result Comment: Calc ulation based on the Chronic Kidney Disease Epidemiology Collaboration (CKD-EPI) equation refit without adjustment for race Performed By: #### L AB99, LAB17, [id number] #### Medical Technician: RYAN ALVA ([id number]) [facility] ROM[facility] (SWRLAB) [address] [place] [address] [place] Glucose [Mass/Vol] 97 mg/dL Normal 74-100 [facility] Comment on above: Performed By: #### L AB99, LAB17, [id number] #### Medical Technician: RYAN ALVA ([id number]) [facility] ([facility]) [address] [place] [address] [place] Potassium [Moles/Vol] 3.4 mmol/L Low 3.5-5.1 [facility] Comment on above: Result Comment: Plas ma potassium values may be up to 0.5 mmol/L lower than serum values. Performed By: #### L AB99, LAB17, [id number] #### Medical Technician: RYAN ALVA ([phone]) [facility] ([facility]RL[facility]) [address] [place] [address] Protein [Mass/Vol] 7.0 g/dL Normal 6.4-8.3 [facility] Comment on above: Performed By: #### Matt AB99, LAB17, [id number] #### Medical Technician: RYAN ALVA ([id number]) [facility] ROM[facility]IT[facility] (SWRLAB) [address] [place] [address] Sodium [Moles/Vol] 143 mmol/L Normal 136-145 [facility] Comment on above: Performed By: #### L AB99, LAB17, [id number] #### Medical Technician: RYAN ALVA ([id number]) [facility] GARCESHEATHER RITTMAN (SWRLAB) [address] [place] [address] Urea nitrogen [Mass/Vol] 15 mg/dL Normal 8-21 [facility] Comment on above: Performed By: #### L AB99, LAB17, [id number] #### Medical Technician: RYAN ALVA ([id number]) [facility] ROMERO RIT[facility] (SWRLAB) [address] [place] [address] CT ABDOMEN PELVIS W CONTRAST on 02-10-2025 CT ABDOMEN PELVIS W CONTRAST Patient Name: SABINO DEWEY : 2005 Exam Date/Time: 02/10/2025 02:05 Procedure: CT ABDOMEN PELVIS W CONTRAST Ordering Provider: SINGH YASMIN Reason For Exam: Abdominal pain, acute, nonlocalized CT ABDOMEN AND PELVIS WITH CONTRAST CLINICAL INDICATION: Abdominal pain, acute, nonlocalized. TECHNIQUE: Transaxial sequence through the abdomen and pelvis with 3 mm reconstruction with dynamic intravenous infusion of contrast media. No oral contrast was administered. Coronal and sagittal reconstructions included. Dose reduction was employed with automated exposure control. COMPARISON: None FINDINGS: Exam quality: Examination is suboptimal for evaluation of the gastrointestinal tract due to lack of oral contrast there is also limitation due to the patient's body habitus. Chest base: Normal. Liver: Normal size and contour. No focal lesion. Biliary tree: Normal caliber. Spleen: Normal. Adrenals: Normal. Pancreas: Normal. Kidneys: Symmetric contrast enhancement without hydronephrosis. No focal lesion. Free fluid: None. Retroperitoneal/mesenteric lymphadenopathy: None. Aorta: Normal caliber. Bowel: Normal caliber. Normal appendix identified Abdominal wall: Normal. Pelvic organs/viscera: No mass identified. Pelvic lymphadenopathy: None. Osseous structures: Normal. IMPRESSION: Normal CT Abdomen and Pelvis. Report Dictated on Electronically Signed By: Rah Walsh MD Electronically Signed Date/Time: 02/10/2025 2:27 AM EDT [facility] CT Abdomen and Pelvis W cont rast Karine 02-10-[address] Abdomen an d Pelvis. Report Dictated on Electronically Signed By: Rah Walsh MD Electronically Signed Date/Time: 02/10/2025 2:27 AM T [facility] Patient Name: SABINO [facility]WEY : 2005 [id number] Exam Date/Time: 02/10/2025 02:05 Procedure: CT ABDOMEN PELVIS W CONTRAST Ordering Provider: SINGH YASMIN Reason For Exam: Abdominal pain, acute, nonlocalized CT ABDOMEN AND PELVIS WITH CONTRAST CLINICAL INDICATION: Abdominal pain, acute, nonlocalized. TECHNIQUE: Transaxial sequence through the abdomen and pelvis with 3 mm reconstruction with dynamic intravenous infusion of contrast media. No oral contrast was administered. Coronal and sagittal reconstructions included. Dose reduction was employed with automated exposure control. COMPARISON: None FINDINGS: Exam quality: Examination is suboptimal for evaluation of the gastrointestinal tract due to lack of oral contrast there is also limitation due to the patient's body habitus. Chest base: Normal. Liver: Normal size and contour. No focal lesion. Biliary tree: Normal caliber. Spleen: Normal. Adrenals: Normal. Pancreas: Normal. Kidneys: Symmetric contrast enhancement without hydronephrosis. No focal lesion. Free fluid: None. Retroperitoneal/mesenteric lymphadenopathy: None. Aorta: Normal caliber. Bowel: Normal caliber. Normal appendix identified Abdominal wall: Normal. Pelvic organs/viscera: No mass identified. Pelvic lymphadenopathy: None. Osseous structures: Normal. [facility] Rah Walsh MD - 02/10/2025 Patient Name: SABINO DEWEY : 2005 [id number] Exam Date/Time: 02/10/2025 02:05 Procedure: CT ABDOMEN PELVIS W CONTRAST Ordering Provider: SINGH YASMIN Reason For Exam: Abdominal pain, acute, nonlocalized CT ABDOMEN AND PELVIS WITH CONTRAST CLINICAL INDICATION: Abdominal pain, acute, nonlocalized. TECHNIQUE: Transaxial sequence through the abdomen and pelvis with 3 mm reconstruction with dynamic intravenous infusion of contrast media. No oral contrast was administered. Coronal and sagittal reconstructions included. Dose reduction was employed with automated exposure control. COMPARISON: None FINDINGS: Exam quality: Examination is suboptimal for evaluation of the gastrointestinal tract due to lack of oral contrast there is also limitation due to the patient's body habitus. Chest base: Normal. Liver: Normal size and contour. No focal lesion. Biliary tree: Normal caliber. Spleen: Normal. Adrenals: Normal. Pancreas: Normal. Kidneys: Symmetric contrast enhancement without hydronephrosis. No focal lesion. Free fluid: None. Retroperitoneal/mesenteric lymphadenopathy: None. Aorta: Normal caliber. Bowel: Normal caliber. Normal appendix identified Abdominal wall: Normal. Pelvic organs/viscera: No mass identified. Pelvic lymphadenopathy: None. Osseous structures: Normal. IMPRESSION: Normal CT Abdomen and Pelvis. Report Dictated on Electronically Signed By: Rah Walsh MD Electronically Signed Date/Time: 02/10/2025 2:27 AM EDT [facility] Study observation (narrative) [facility] CT Abdomen and Pelvis W cont rast IVOrdered By: Rha Walsh on 02-10-2025 [facility] Work Phone: Comprehensive metabolic 1998 panelon 02-10-2025 Albumin [Mass/Vol] 3.9 g/dL 3.5 - 5.0 g/dL [facility] ALP [Catalytic activity/Vol] 85 U/L 40 - 150 U/L [facility] ALT [Catalytic activity/Vol] 32 U/L High NINF - 30 U/L [facility] Anion gap [Moles/Vol] 9 mmol/L 3 - 13 mmol/L [facility] AST [Catalytic activity/Vol] 27 U/L NINF - 34 U/L [facility] Bilirubin [Mass/Vol] 0.2 mg/dL NINF - 1.2 mg/dL [facility] Calcium [Mass/Vol] 9.1 mg/dL 8.4 - 10. 2 mg/dL [facility] Chloride [Moles/Vol] 108 mmol/L High 98 - 107 mmol/L [facility] CO2 [Moles/Vol] 26 mmol/L 22 - 29 mmol/L [facility] Creatinine [Mass/Vol] 0.81 mg/dL 0.57 - 1.11 mg/dL [facility] GFR/1.73 sq M.predicted (S/P/Bld) [Vol rate/Area] - PINF [facility] Comment on above: Calculation based on the Chronic Kidney Disease Epidemiology Collaboration (CKD-EPI) equation refit without adjustment for race Glucose [Mass/Vol] 97 mg/dL 74 - 100 mg/dL [facility] Interpretation and review of laboratory results Abnormal [facility] Potassium [Moles/Vol] 3.4 mmol/L Low 3.5 - 5.1 mmol/L [facility] Comment on above: Plasma potassium lilli ues may be up to 0.5 mmol/L lower than serum values. Protein [Mass/Vol] 7 g/dL 6.4 - 8.3 g/dL [facility] Sodium [Moles/Vol] 143 mmol/L 136 - 145 mmol/L [facility] Urea nitrogen [Mass/Vol] 15 mg/dL 8 - 21 mg/dL [facility] ED Nursing Noteon 02-10-2025 ED Nursing Note The patient ambulate d to room 6 accompanied by significant other. She stated she is having abdominal pain, loose stools and nausea. She stated it started over the last 2 days. Stool reported mucousy and dark brown then turned a white/yellow slimy. Normal [facility] ED Provider Noteon ED Provider Note EMERGENCY DEPARTMENT ENCOUNTER Pt Name: Sabino Dewey Birthdate 2005 Date of evaluation: 02/10/2025 ED Provider: Leola Singh MD CHIEF COMPLAINT Chief Complaint Patient presents with Abdominal Pain Nausea Diarrhea HISTORY OF PRESENT ILLNESS (Location/Symptom, Timing/Onset, Context/Setting, Quality, Duration, Modifying Factors, Severity) Note limiting factors. HPI Sabino Dewey is a 20 y.o. female who presents to the emergency department For abdominal pain. Patient states that yesterday she is been having pain mostly in the center of her abdomen. She is noticed that she has had some sticky mucousy stools with nausea and vomiting. Feeling just generally unwell. Has never had symptoms like this in the past. No known sick contacts. Subjective fevers and chills at home. Nursing Notes were reviewed. REVIEW OF SYSTEMS Review of Systems Pertinent positives and negatives per HPI PAST MEDICAL HISTORY Past Medical History: Diagnosis Date Night terrors SURGICAL HISTORY History reviewed. No pertinent surgical history. CURRENT MEDICATIONS Previous Medications ARIPIPRAZOLE (ABILIFY) 20 MG TABLET Take 100 mg by mouth daily. BUSPIRONE (BUSPAR) 10 MG TABLET Take 10 mg by mouth 3 times daily. LAMOTRIGINE (LAMICTAL) 150 MG TABLET Take by mouth. OMEPRAZOLE (PRILOSEC) [address] CAPSULE Take 20 mg by mouth daily. PRAZOSIN (MINIPRESS) 5 MG CAPSULE Take 5 mg by mouth Nightly. PROPRANOLOL (INDERAL) 10 MG TABLET Take 10 mg by mouth daily. TRAZODONE (DESYREL) 50 MG TABLET Take 50 mg by mouth Nightly. ALLERGIES Hydrocodone FAMILY HISTORY No family history on file. SOCIAL HISTORY Social History Socioeconomic History Marital status: Single Tobacco Use Smoking status: Every Day Current packs/day: 0.50 Types: Cigarettes Smokeless tobacco: Never Vaping Use Vaping status: Every Day Substance and Sexual Activity Alcohol use: Yes Comment: occasional Drug use: Yes Types: Marijuana Sexual activity: Yes control/protection: None SCREENINGS PHYSICAL EXAM ED Triage Vitals [02/10/25 0010] Temp Heart Rate Resp BP 37 ?C (98.6 ?F) 109 18 126/77 SpO2 Temp Source Heart Rate Source Patient Position 100 % Oral Monitor Sitting BP Location FiO2 (%) Right arm -- Physical Exam Rundown, tired appearing female in no acute distress. Vital signs reviewed and notable for tachycardia. Lung clear to auscultation bilaterally. No increased work of breathing. Abdomen is soft with diffuse tenderness worse in the epigastric and periumbilical region. No rebound or guarding. DIAGNOSTIC RESULTS RADIOLOGY (Per Emergency Physician): Interpretation per the Radiologist below, if available at the time of this note: CT abdomen pelvis w contrast Final Result Normal CT Abdomen and Pelvis. Report Dictated on Electronically Signed By: Rah Walsh MD Electronically Signed Date/Time: 02/10/2025 2:27 AM EDT LABS: Labs Reviewed CBC WITH AUTO DIFFERENTIAL - Abnormal Result Value Auto WBC 11.7 (*) RBC 5.11 Hemoglobin 13.4 Hematocrit 40.8 MCV 79.8 MCH 26.2 MCHC 32.8 RDW 13.2 Platelets 356 MPV 9.0 nRBC 0.0 Neutrophils Relative 57.5 Lymphocytes Relative 32.7 Monocytes Relative 5.9 Eosinophils Relative 3.2 Basophils Relative 0.4 Immature Grans % 0.3 Neutrophils Absolute 6.7 Lymphocytes Absolute 3.8 Monocytes Absolute 0.7 Eosinophils Absolute 0.4 Basophils Absolute 0.1 Immature Grans Absolute 0.0 COMPREHENSIVE METABOLIC PANEL - Abnormal SODIUM 143 POTASSIUM 3.4 (*) CHLORIDE 108 (*) CARBON DIOXIDE 26 ANION GAP 9 UREA NITROGEN 15 CREATININE 0.81 GLUCOSE 97 CALCIUM 9.1 AST (SGOT) 27 ALT 32 (*) ALKALINE PHOSPHATASE 85 ALBUMIN 3.9 BILIRUBIN, TOTAL 0.2 TOTAL PROTEIN 7.0 eGFR >90.0 SARS-COV-2, FLU A/B, AND RSV COMBO - Normal SARS-CoV-2 Not Detected Respiratory Syncytial Virus Not Detected Influenza A Not Detected Influenza B Not Detected Narrative: Methodology: real-time, RT-PCR The SARS-CoV-2, Flu A/B, and RSV Combo assay is intended for in vitro diagnostic use under the FDA Emergency Use Authorization (EUA). This test has not been FDA cleared or approved. In compliance with this authorization, please visit www.fda.gov/media/092250/downl oad or www.fda.gov/media/201741/downl oad to access the applicable information sheets. LIPASE - Normal LIPASE 35 HCG QUANTITATIVE BLOOD HCG QUANTITATIVE <2.5 Narrative: Values in should double every 2 to 3 days for the first 6 weeks. Elevated concentrations of human chorionic gonadotropin (hCG) measured in the first trimester of are observed in normal , but may serve as an indication of chorionic carcinoma, hydatiform mole, or multiple . Decreasing hCG concentrations indicate threatened or missed , recent termination of , ectopic , gestosis or intraut (more content not included)... Normal [facility] HCG QUANTITATIVE BLOODon HCG QUANTITATIVE <2.5 Normal Females <5 [facility] Comment on above: Result Comment: GALILEA Castellano COMMENTS: Values in should double every 2 to 3 days for the first 6 weeks. Elevated concentrations of human chorionic gonadotropin (hCG) measured in the first trimester of are observed in normal , but may serve as an indication of chorionic carcinoma, hydatiform mole, or multiple . Decreasing hCG concentrations indicate threatened or missed , recent termination of , ectopic , gestosis or intrauterine . Julianne- and postmenopausal females may have detectable hCG concentrations (< or = to 14 mIU/mL) due to pituitary production of hCG. Serum follicle-stimulating hormone measurement may aid in ruling-out in this population. Cutoffs of greater than 20 to 45 mIU/mL have been suggested and are method dependent. False-elevations (called phantom human chorionic gonadotropin: hCG) may occur with patients who have human antianimal or heterophilic antibodies. Some specimens may not dilute linearly due to abnormal forms of hCG. Elevated hCG concentrations not associated with are found in patients with other diseases such as tumors of the germ cells, ovaries, bladder, pancreas, stomach, lungs, and liver. This test is not intended to detect or monitor tumors or gestational trophoblastic disease. Performed By: #### L AB99, LAB17, [id number] ####Medical Technician: RYAN ALVA ([id number])[facility])[address] [place] [address] LIPASEon 02-10-2025 Lipase [Catalytic activity/Vol] 35 U/L Normal <55 [facility] Comment on above: Performed By: #### L AB99, LAB17, [id number] #### Medical Technician: RYAN ALVA ([id number]) [facility] ([facility]) [address] [place] [address] Laboratory - Chemistry and C hemistry - challengeon 02-10-2025 HCG.beta subunit Qn Females <5 mIU/mL [facility] Lipase [Catalytic activity/Vol] 35 U/L NINF - 55 U/L [facility] Laboratory - Microbiology an d Antimicrobial susceptibilityon 02-10-2025 FLUAV RNA FLORENCIA+probe Ql (Resp) Not detected Not Detected [facility] FLUBV RNA FLORENCIA+probe Ql (Resp) Not detected Not Detected [facility] RSV RNA FLORENCIA+probe Ql (Resp) Not detected Not Detected [facility] SARS-CoV-2 (COVID-19) RNA FLORENCIA+probe Ql (Resp) Not detected Not Detected [facility] SARS-CoV-2 (COVID-19) RNA FLORENCIA+probe Ql (Unsp spec) Methodology: real-time, RT-PCR The SARS-CoV-2, Flu A/B, and RSV Combo assay is intended for in vitro diagnostic use under the FDA Emergency Use Authorization (EUA). This test has not been FDA cleared or approved. In compliance with this authorization, please visit www.fda.gov/media/584267/downl oad or www.fda.gov/media/569199/downl oad to access the applicable information sheets. [facility] Lipase [Catalytic activity/V ol]on 02-10-2025 Interpretation and review of laboratory results Normal [facility] No Panel Informationon 02-10 Values in should double every 2 to 3 days for the first 6 weeks. Elevated concentrations of human chorionic gonadotropin (hCG) measured in the first trimester of are observed in normal , but may serve as an indication of chorionic carcinoma, hydatiform mole, or multiple . Decreasing hCG concentrations indicate threatened or missed , recent termination of , ectopic , gestosis or intrauterine . Julianne- and postmenopausal females may have detectable hCG concentrations (< or = to 14 mIU/mL) due to pituitary production of hCG. Serum follicle-stimulating hormone measurement may aid in ruling-out in this population. Cutoffs of greater than 20 to 45 mIU/mL have been suggested and are method dependent. False-elevations (called phantom human chorionic gonadotropin: hCG) may occur with patients who have human antianimal or heterophilic antibodies. Some specimens may not dilute linearly due to abnormal forms of hCG. Elevated hCG concentrations not associated with are found in patients with other diseases such as tumors of the germ cells, ovaries, bladder, pancreas, stomach, lungs, and liver. This test is not intended to detect or monitor tumors or gestational trophoblastic disease. [facility] SARS-COV-2, FLU A/B, AND RSV COMBOon 02-10-2025 SARS-CoV-2 (COVID-19) RNA FLORENCIA+probe Ql (Unsp spec) SARS-COV-2 Reference Not Detected Not Detected RESPIRATORY SYNCYTIAL VIRUS Reference Not Detected Not Detected INFLUENZA A (CEPHEID) Reference Not Detected Not Detected INFLUENZA B (CEPHEID) Reference Not Detected Not Detected ORDER COMMENTS: Methodology: real-time, RT-PCR The SARS-CoV-2, Flu A/B, and RSV Combo assay is intended for in vitro diagnostic use under the FDA Emergency Use Authorization (EUA). This test has not been FDA cleared or approved. In compliance with this authorization, please visit www.fda.gov/media/570730/downl oad or www.fda.gov/media/234034/downl oad to access the applicable information sheets. [facility] Comment on above: Performed By: #### L [id number] ####Medical Technician: RYAN ALVA ([id number])[facility] ([address] SARS-CoV-2, Flu A/B, and RSV Comboon 02-10-2025 Interpretation and review of laboratory results [facility] ED NOTEon 01-29-2025 ED NOTE HNO ID: [id number] Author: MENDY COLLINS RN Service: ? Author Type: Registered Nurse Type: ED Notes Filed: 01/29/2025 00:08 Note Text: Discharge instructions reviewed, verbalized understanding. Patient discharged with all belongings. [facility] ALLIED HEALTHon 01-28-2025 ALLIED HEALTH HNO ID: [id number] Author: KARLENE JAUREGUI CT Service: Radiology Author Type: Technologist Type: Allied Health Filed: 01/28/2025 22:39 Note Text: Radiology Service Progress Note PATIENT NAME: Sabino Dewey DATE OF SERVICE: January 28, 2025 TIME: 10:39 PM PATIENT IDENTITY VERIFICATION COMPLETED USING TWO (2) IDENTIFIERS: Name and Date of confirmed by patient verbally and Name and Date of confirmed by identification band. FALL SCREENING: Has the patient had 2 falls in the last year or 1 fall with injury or currently using an Ambulatory Assistive Device (Walker, Cane, Wheelchair, Crutches, etc.)? Emergency Room Patient: Screened in ED PATIENT GENDER DATA: Assigned female at . status: : No status: NO. PATIENT RELEVANT IMPLANT DATA REVIEWED: Not Applicable PATIENT PRESENTS WITH AN IMPLANTABLE OR ATTACHED PLATING MACHINE OPERATOR: No RADIOLOGY DEPARTMENT: CT; Exam(s) Completed: Brain PERIPHERAL IV DATA: Not applicable SIGNED BY: REYNALDO Corrigan January 28, 2025 10:39 PM [facility] CBC W Auto Differential pane l (Bld)on 01-28-2025 Basophils (Bld) [#/Vol] 0.05 10*3/uL Normal <0.11 [facility] Comment on above: Order Comment: Speci men Type: BLOOD SPECIMEN Ordering Facility: [facility] Address: [address] [place] [address] Performed By: #### 5 7021-8 #### [facility] CLIA [id number] [address] [place] Basophils/100 WBC (Bld) 0.4 % Normal [facility] Comment on above: Order Comment: Speci men Type: BLOOD SPECIMEN Ordering Facility: [facility] Address: [address] [place] [address] Performed By: #### 5 7021-8 #### [facility] CLIA [id number] [address] [place] Differential cell count method Nom (Bld) Auto [facility] Comment on above: Order Comment: Speci men Type: BLOOD SPECIMEN Ordering Facility: [facility] Address: [address] [place] [address] Performed By: #### 5 7021-8 #### [facility] CLIA [id number] [address] [place] [address] [place] Eosinophils (Bld) [#/Vol] 0.38 10*3/uL Normal <0.46 [facility] Comment on above: Order Comment: Speci men Type: BLOOD SPECIMEN Ordering Facility: [facility] Address: [address] [place] [address] Performed By: #### 5 7021-8 #### [facility] CLIA [id number] [address] [place] Eosinophils/100 WBC (Bld) 3.4 % Normal [facility] Comment on above: Order Comment: Speci men Type: BLOOD SPECIMEN Ordering Facility: [facility] Address: [address] [place] [address] Performed By: #### 5 7021-8 #### [facility] CLIA [id number] [address] Erythrocyte distribution width (RBC) [Ratio] 13.2 % Normal 11.5-15.0 [facility] Comment on above: Order Comment: Speci men Type: BLOOD SPECIMEN Ordering Facility: [facility] Address: [address] [place] [address] Performed By: #### 5 7021-8 #### [facility] CLIA [id number] [address] Hematocrit (Bld) [Volume fraction] 40.0 % Normal 36.0-46.0 [facility] Comment on above: Order Comment: Speci men Type: BLOOD SPECIMEN Ordering Facility: [facility] Address: [address] [place] [address] Performed By: #### 5 7021-8 #### [facility] CLIA [id number] [address] Hemoglobin (Bld) [Mass/Vol] 12.8 g/dL Normal 11.5-15.5 [facility] Comment on above: Order Comment: Speci men Type: BLOOD SPECIMEN Ordering Facility: [facility] Address: [address] [place] [address] Performed By: #### 5 7021-8 #### [facility] CLIA [id number] [address] Immature granulocytes (Bld) [#/Vol] 0.04 10*3/uL Normal <0.10 [facility] Comment on above: Order Comment: Speci men Type: BLOOD SPECIMEN Ordering Facility: [facility] Address: [address] [place] [address] Performed By: #### 5 7021-8 #### [facility] CLIA [id number] [address] Immature granulocytes/100 WBC (Bld) 0.4 % Normal [facility] Comment on above: Order Comment: Speci men Type: BLOOD SPECIMEN Ordering Facility: [facility] Address: [address] [place] [address] Performed By: #### 5 7021-8 #### [facility] CLIA [id number] [address] [place] Lymphocytes (Bld) [#/Vol] 4.00 10*3/uL Normal 1.00-4.00 [facility] Comment on above: Order Comment: Speci men Type: BLOOD SPECIMEN Ordering Facility: [facility] Address: [address] [place] [address] Performed By: #### 5 7021-8 #### [facility] CLIA [id number] [address] Lymphocytes/100 WBC (Bld) 35.6 % Normal [facility] Comment on above: Order Comment: Speci men Type: BLOOD SPECIMEN Ordering Facility: [facility] Address: [address] [place] [address] Performed By: #### 5 7021-8 #### [facility] CLIA [id number] [address] [place] MCH (RBC) [Entitic mass] 25.9 pg Low 26.0-34.0 [facility] Comment on above: Order Comment: Speci men Type: BLOOD SPECIMEN Ordering Facility: [facility] Address: [address] [place] [address] Performed By: #### 5 7021-8 #### [facility] CLIA [id number] [address] MCHC (RBC) [Mass/Vol] 32.0 g/dL Normal 30.5-36.0 [facility] Comment on above: Order Comment: Speci men Type: BLOOD SPECIMEN Ordering Facility: [facility] Address: [address] [place] [address] Performed By: #### 5 7021-8 #### [facility] CLIA [id number] [address] MCV (RBC) [Entitic vol] 81.0 fL Normal 80.0-100.0 [facility] Comment on above: Order Comment: Speci men Type: BLOOD SPECIMEN Ordering Facility: [facility] Address: [address] [place] [address] Performed By: #### 5 7021-8 #### [facility] CLIA [id number] [address] STATES OF [facility] Monocytes (Bld) [#/Vol] 0.75 10*3/uL Normal <0.87 [facility] Comment on above: Order Comment: Speci men Type: BLOOD SPECIMEN Ordering Facility: [facility] Address: [address] [place] [address] Performed By: #### 5 7021-8 #### [facility] CLIA [id number] [address] Monocytes/100 WBC (Bld) 6.7 % Normal [facility] Comment on above: Order Comment: Speci men Type: BLOOD SPECIMEN Ordering Facility: [facility] Address: [address] [place] [address] Performed By: #### 5 7021-8 #### [facility] CLIA [id number] [address] [place] Neutrophils (Bld) [#/Vol] 6.01 10*3/uL Normal 1.45-7.50 [facility] Comment on above: Order Comment: Speci men Type: BLOOD SPECIMEN Ordering Facility: [facility] Address: [address] [place] [address] Performed By: #### 5 7021-8 #### [facility] CLIA [id number] [address] [place] [address] [place] Neutrophils/100 WBC (Bld) 53.5 % Normal [facility] Comment on above: Order Comment: Speci men Type: BLOOD SPECIMEN Ordering Facility: [facility] Address: [address] [place] [address] Performed By: #### 5 7021-8 #### [facility] CLIA [id number] [address] [place] [address] [place] Nucleated RBC (Bld) [#/Vol] 10*3/uL Normal <0.01 [facility] Comment on above: Order Comment: Speci men Type: BLOOD SPECIMEN Ordering Facility: [facility] Address: [address] [place] [place] [address] Performed By: #### 5 7021-8 #### [facility] CLIA [id number] 1000 [place] [address] [place] Nucleated RBC/100 WBC (Bld) [Ratio] 0.0 /100 WBC Normal [facility] Comment on above: Order Comment: Speci men Type: BLOOD SPECIMEN Ordering Facility: [facility] Address: [address] [place] [address] Performed By: #### 5 7021-8 #### [facility] CLIA [id number] [address] [place] [address] [place] Platelet mean volume (Bld) [Entitic vol] 9.4 fL Normal 9.0-12.7 [facility] Comment on above: Order Comment: Speci men Type: BLOOD SPECIMEN Ordering Facility: [facility] Address: [address] [place] [address] Performed By: #### 5 7021-8 #### [facility] CLIA [id number] 1000 [place] [address] [place] Platelets (Bld) [#/Vol] 334 10*3/uL Normal 150-400 [facility] Comment on above: Order Comment: Speci men Type: BLOOD SPECIMEN Ordering Facility: [facility] Address: [address] [place] [address] Performed By: #### 5 7021-8 #### [facility] CLIA [id number] [address] [place] RBC (Bld) [#/Vol] 4.94 10*6/uL Normal 3.90-5.20 [facility] Comment on above: Order Comment: Speci men Type: BLOOD SPECIMEN Ordering Facility: [facility] Address: [address] [place] [address] Performed By: #### 5 7021-8 #### [facility] CLIA [id number] [address] [place] WBC (Bld) [#/Vol] 11.23 10*3/uL High 3.70-11.00 [facility] Comment on above: Order Comment: Speci men Type: BLOOD SPECIMEN Ordering Facility: [facility] Address: [address] [address] Performed By: #### 5 7021-8 #### [facility] CLIA [id number] [address] OF [facility] CT BRAIN WO IVCONon 01-28-20 CT BRAIN WO IVCON * * *Final Report* * * DATE OF EXAM: Jan 28 2025 10:51PM [facility] 0504 - CT BRAIN WO IVCON / PROCEDURE REASON: Headache, sudden, severe * * * * Physician Interpretation * * * * EXAMINATION: CT BRAIN WO IVCON CLINICAL HISTORY: Headache, sudden, severe. TECHNIQUE: Routine CT of the brain without IV contrast. CT Dose-Length Product (DLP): 935 mGy*cm CT Dose Reduction Employed: Automated exposure control(AEC) and iterative recon; COMPARISON: None available. RESULT: Mild segmental motion and beam hardening artifact limitation, despite repeat scanning. Post-operative change: None. Acute change: No evidence of a sizable/large acute territorial brain infarct/parenchymal edema. MRI may be considered as a more sensitive modality if continued clinical concern/warranted. Hemorrhage: No evidence of acute intracranial hemorrhage. Mass Lesion / Mass Effect: There is no evidence of a sizable brain mass. No significant mass effect or extra-axial fluid collection. Chronic changes, including parenchymal: Hyperostosis frontalis interna incidentally noted. The cerebellar tonsils incidentally lie at the lower level of foramen magnum. There is no significant generalized brain volume loss for age. The brain parenchyma appears to be within normal limits for age (in this modality, and within constraints of some artifact). Ventricles: Commensurate with sulcal sizes. No hydrocephalus. Visualized paranasal sinuses: Partially imaged. Essentially clear. Other: No depressed skull fracture is seen. Dynamics Ax Consultant (topogram) images: Non-diagnostic. IMPRESSION: Brain CT shows no evidence of an acute intracranial abnormality. Other details above. Mold Bunch Trimmer: PSCB Transcribe Date/Time: Jan 28 2025 11:36P Dictated by : KEREN SALDANA MD This examination was interpreted and the report reviewed and electronically signed by: KEREN SALDANA MD on Jan 28 2025 11:38PM EST [id number] Normal [facility] Comprehensive metabolic 2000 panelon 01-28-2025 Albumin [Mass/Vol] 4.2 g/dL Normal 3.9-4.9 [facility] Comment on above: Order Comment: Theo steen Type: BLOOD SPECIMEN Ordering Facility: [facility] Address: [address] [place] [address] Performed By: #### 2 4323-8 #### [facility] CLIA [id number] [address] [place] ALP [Catalytic activity/Vol] 100 U/L Normal 34-123 [facility] Comment on above: Order Comment: Theo steen Type: BLOOD SPECIMEN Ordering Facility: [facility] Address: [address] [place] [address] Performed By: #### 2 4323-8 #### [facility] CLIA [id number] [address] [place] ALT [Catalytic activity/Vol] Normal [facility] Comment on above: Order Comment: Theo steen Type: BLOOD SPECIMEN Ordering Facility: [facility] Address: [address] [place] [address] Result Comment: Unab le to assay due to interference from hemolysis. Suggest reorder as clinically indicated. Performed By: #### 2 4323-8 #### [facility] CLIA [id number] [address] [place] [address] [place] Anion gap [Moles/Vol] 12 mmol/L Normal 8-15 [facility] Comment on above: Order Comment: Speci men Type: BLOOD SPECIMEN Ordering Facility: [facility] Address: [address] [place] [address] Performed By: #### 2 4323-8 #### [facility] CLIA [id number] 1000 [place] [address] [place] AST [Catalytic activity/Vol] Normal [facility] Comment on above: Order Comment: Speci men Type: BLOOD SPECIMEN Ordering Facility: [facility] Address: [address] [place] [address] Result Comment: Unab le to assay due to interference from hemolysis. Suggest reorder as clinically indicated. Performed By: #### 2 4323-8 #### [facility] CLIA [id number] [address] [place] [address] [place] Bilirubin [Mass/Vol] mg/dL Low 0.2-1.3 [facility] Comment on above: Order Comment: Speci men Type: BLOOD SPECIMEN Ordering Facility: [facility] Address: [address] [place] [place] [address] Performed By: #### 2 4323-8 #### [facility] CLIA [id number] [address] STATES [facility] Calcium [Mass/Vol] 9.4 mg/dL Normal 8.5-10.2 [facility] Comment on above: Order Comment: Speci men Type: BLOOD SPECIMEN Ordering Facility: [facility] Address: [address] [place] [address] Performed By: #### 2 4323-8 #### [facility] CLIA [id number] [address] [place] Chloride [Moles/Vol] 103 mmol/L Normal 98-107 [facility] Comment on above: Order Comment: Speci men Type: BLOOD SPECIMEN Ordering Facility: [facility] Address: [address] [place] [address] Performed By: #### 2 4323-8 #### [facility] CLIA [id number] [address] CO2 [Moles/Vol] 25 mmol/L Normal 22-30 [facility] Comment on above: Order Comment: Theo steen Type: BLOOD SPECIMEN Ordering Facility: [facility] Address: [address] [place] [address] Performed By: #### 2 4323-8 #### [facility] CLIA [id number] [address] OF [facility] Creatinine [Mass/Vol] 0.65 mg/dL Normal 0.58-0.96 [facility] Comment on above: Order Comment: Theo steen Type: BLOOD SPECIMEN Ordering Facility: [facility] Address: [address] [place] [address] Performed By: #### 2 4323-8 #### [facility] CLIA [id number] [address] Creatinine and Glomerular filtration rate.predicted panel (S/P/Bld) 128 mL/min/1.73m??? Normal >=60 [facility] Comment on above: Order Comment: Theo steen Type: BLOOD SPECIMEN Ordering Facility: [facility] Address: [address] [place] [address] Result Comment: Bita mated Glomerular Filtration Rate (eGFR) is calculated using the 2020 CKD-EPI creatinine equation. This equation utilizes serum creatinine, sex, and age as parameters. The creatinine assay has traceable calibration to isotope dilution-mass spectrometry. Refer to KDIGO guidelines for clinical interpretation. In patients with unstable renal function, e.g. those with acute kidney injury, the eGFR may not accurately reflect actual GFR. Performed By: #### 2 4323-8 #### [facility] CLIA [id number] [address] Glucose [Mass/Vol] 99 mg/dL Normal 74-99 [facility] Comment on above: Order Comment: Theo steen Type: BLOOD SPECIMEN Ordering Facility: [facility] Address: [address] [place] [address] Result Comment: The [place] [employer] (ADA) provides guidance for cutoff values for fasting glucose and random glucose. The ADA defines fasting as no caloric intake for at least 8 hours. Fasting plasma glucose results between 100 to 125 mg/dL indicate increased risk for diabetes (prediabetes). Fasting plasma glucose results greater than or equal to 126 mg/dL meet the criteria for diagnosis of diabetes. In the absence of unequivocal hyperglycemia, results should be confirmed by repeat testing. In a patient with classic symptoms of hyperglycemia or hyperglycemic crisis, random plasma glucose results greater than or equal to 200 mg/dL meet the criteria for diagnosis of diabetes. Reference: Standards of Medical Care in Diabetes 2016, [place] [employer]. Diabetes Care. 2016.39(Suppl 1). Performed By: #### 2 4323-8 #### [facility] CLIA [id number] [address] [place] [address] [place] Potassium [Moles/Vol] 4.1 mmol/L Normal 3.7-5.1 [facility] Comment on above: Order Comment: Theo steen Type: BLOOD SPECIMEN Ordering Facility: [facility] Address: [address] [place] [address] Performed By: #### 2 4323-8 #### [facility] CLIA [id number] [address] [place] [address] [place] Protein [Mass/Vol] 7.0 g/dL Normal 6.3-8.0 [facility] Comment on above: Order Comment: Theo steen Type: BLOOD SPECIMEN Ordering Facility: [facility] Address: [address] [place] [address] Performed By: #### 2 4323-8 #### [facility] CLIA [id number] [address] [place] [address] [place] Sodium [Moles/Vol] 140 mmol/L Normal 136-144 [facility] Comment on above: Order Comment: Theo steen Type: BLOOD SPECIMEN Ordering Facility: [facility] Address: [address] [place] [address] Performed By: #### 2 4323-8 #### [facility] CLIA [id number] [address] [place] [address] [place] Urea nitrogen [Mass/Vol] 12 mg/dL Normal 7-21 [facility] Comment on above: Order Comment: Theo steen Type: BLOOD SPECIMEN Ordering Facility: [facility] Address: [address] [place] [address] Performed By: #### 2 4323-8 #### [facility] CLIA [id number] [address] [place] [address] [facility] ED PROV NOTEon 01-28-2025 ED PROV NOTE HNO ID: [id number] Author: MEJIA GOSS MD Service: Emergency Medicine Author Type: Physician Type: ED Provider Notes Filed: 01/29/2025 01:18 Note Text: ED Provider Note Patient Name: Sabino Dewey : 2005 SERVICE DATE: 01/28/25 History Patient presents with: Nausea AND Vomiting Headache 20-year-old female. Comes in today for nausea vomiting and headache. Symptoms began this evening. Portion reports that she went out for smoke break at work when she began to feel little nauseous and then developed a frontal headache. She is not a normal migraine or headache suffer. Denies any visual changes. Denies any focal neurologic symptoms. Says she had a negative test couple of days ago. PAST MEDICAL HISTORY Diagnosis Date ADHD (attention deficit hyperactivity disorder) Exercise-induced asthma NEGATIVE MEDICAL HISTORY 11/03/09 normal color vision RSV (acute bronchiolitis due to respiratory syncytial virus) as a baby PAST SURGICAL HISTORY Procedure Laterality Date NONE FAMILY HISTORY Problem Relation Age of Onset None Other other (sids [Other]) Sister Social History Tobacco Use Smoking status: Every Day Current packs/day: 0.25 Types: Cigarettes Passive exposure: Current Smokeless tobacco: Never Vaping Use Vaping status: current everyday user Substances: Nicotine, THC, Flavoring Devices: Disposable, Pre-filled pod Substance and Sexual Activity Alcohol use: Yes Alcohol/week: 1.0 standard drink of alcohol Types: 1 Shots of liquor per week Drug use: Yes Types: Marijuana Sexual activity: Yes Comment: patch ALLERGIES Allergen Reactions Hydrocodone Anaphylaxis Review of Systems Constitutional: Negative for chills, diaphoresis, fatigue and fever. HENT: Negative for congestion, ear pain, sinus pain and sore throat. Eyes: Negative for photophobia, pain, redness and visual disturbance. Respiratory: Negative for cough, chest tightness and shortness of breath. Cardiovascular: Negative for chest pain, palpitations and leg swelling. Gastrointestinal: Positive for nausea. Negative for abdominal distention, abdominal pain, constipation, diarrhea and vomiting. Genitourinary: Negative for difficulty urinating, dysuria, flank pain, frequency and urgency. Musculoskeletal: Negative for back pain, neck pain and neck stiffness. Skin: Negative for color change, rash and wound. Neurological: Positive for headaches. Negative for dizziness, syncope and light-headedness. Psychiatric/Behavioral: Negative for agitation, behavioral problems and confusion. Physical Exam Vitals [01/28/252121] BP Pulse Temp Temp src Resp SpO2 Weight Height 140/95 (!) 107 36.8 ?C (98.2 ?F) Oral 18 99 % (!) 142.9 kg (315 lb 0.6 oz) -- Physical Exam Vitals and nursing note reviewed. Constitutional: Appearance: She is well-developed. She is not diaphoretic. HENT: Head: Normocephalic and atraumatic. Right Ear: External ear normal. Left Ear: External ear normal. Eyes: General: No scleral icterus. Right eye: No discharge. Left eye: No discharge. Conjunctiva/sclera: Conjunctivae normal. Pupils: Pupils are equal, round, and reactive to light. Neck: Vascular: No JVD. Trachea: No tracheal deviation. Cardiovascular: Rate and Rhythm: Normal rate and regular rhythm. Heart sounds: Normal heart sounds. No murmur heard. No friction rub. No gallop. Pulmonary: Effort: Pulmonary effort is normal. No respiratory distress. Breath sounds: Normal breath sounds. No stridor. No wheezing or rales. Chest: Chest wall: No tenderness. Abdominal: General: Bowel sounds are normal. There is no distension. Palpations: Abdomen is soft. There is no mass. Tenderness: There is no abdominal tenderness. There is no guarding or rebound. Musculoskeletal: General: No tenderness or deformity. Normal range of motion. Cervical back: Normal range of motion and neck supple. Skin: General: Skin is warm. Capillary Refill: Capillary refill takes less than 2 seconds. Coloration: Skin is not pale. Findings: No rash. Neurological: Mental Status: She is alert and oriented to person, place, and time. Sensory: No sensory deficit. Motor: No abnormal muscle tone. Comments: Patient alert and oriented to person, place, time, and situation. Cranial nerves 2-12 Normal, CN I not tested. Strength 5/5 thoughout. Sensation intact throughout. Finger to nose normal, no ataxia. Heel to tafoya normal, no ataxia. Gait normal. Balance and proprioception intact. Psychiatric: Behavior: Behavior normal. Thought Content: Thought content normal. Judgment: Judgment normal. Diagnostic Testing ED Labs Ordered and Reviewed - No data to display Procedures ED Course / Clinical Impression Clinical Impressions as of 01/29/25 0051 Nausea Nonintractable headache, unspecified chronicity pattern, unspecified headache type MDM / Disposition / Plan (more content not included)... Normal [facility] HCG Preg Ur Qlon 01-28-2025 HCG ( test) Ql (U) Negative Normal Negative [facility] Comment on above: Order Comment: Speci men Type: URINE SPECIMEN Ordering Facility: [facility] Address: [address] [place] [address] Result Comment: This test is intended to aid in the early detection of . Very dilute urine samples, as indicated by a low specific gravity, may not contain ict sales representative levels of hCG. This test detects intact hCG only. This test does not reliably detect hCG degradation products, including free-beta subunit and beta-core fragment. Therefore, this test may show reduced reactivity in urine after 8 weeks gestation. A number of conditions other than , including trophoblastic disease and certain non-trophoblastic neoplasms cause elevated levels of hCG. As with any assay employing mouse antibodies, the possibility exists for interference by human anti-mouse antibodies (HAMA) in the specimen. The test provides a presumptive diagnosis for . Performed By: #### 2 106-3 #### [facility] CLIA [id number] [address] [place] [address] [place] Urinalysis complete panel (U )on 01-28-2025 Bilirubin Ql (U) Negative Normal Negative [facility] Comment on above: Order Comment: Speci men Type: URINE SPECIMEN Ordering Facility: [facility] Address: [address] [place] [id number] Performed By: #### 2 4356-8 #### [facility] CLIA [id number] [address] [place] [address] [place] Clarity (Unsp spec) Slightly Cloudy Abnormal Clear [facility] Comment on above: Order Comment: Speci men Type: URINE SPECIMEN Ordering Facility: [facility] Address: [address] [place], [place] [address] Performed By: #### 2 4356-8 #### [facility] CLIA [id number] [address] OF [facility] Color (U) Yellow Normal Yellow [facility] Comment on above: Order Comment: Speci men Type: URINE SPECIMEN Ordering Facility: [facility] Address: [address] [place] [address] Performed By: #### 2 4356-8 #### [facility] CLIA [id number] [address] [place] Epithelial cells LM.HPF (Urine sed) [#/Area] Few Normal [facility] Comment on above: Order Comment: Speci men Type: URINE SPECIMEN Ordering Facility: [facility] Address: [address] [place] [address] Performed By: #### 2 4356-8 #### [facility] CLIA [id number] [address] Glucose Test strip (U) [Mass/Vol] Negative Normal Negative [facility] Comment on above: Order Comment: Speci men Type: URINE SPECIMEN Ordering Facility: [facility] Address: [address] [place] [address] Performed By: #### 2 4356-8 #### [facility] CLIA [id number] [address] [place] Hemoglobin Ql (U) Trace Abnormal Negative [facility] Comment on above: Order Comment: Speci men Type: URINE SPECIMEN Ordering Facility: [facility] Address: [address] [place] [address] Performed By: #### 2 4356-8 #### [facility] CLIA [id number] [address] [place] Ketones Ql (U) Trace Abnormal Negative [facility] Comment on above: Order Comment: Speci men Type: URINE SPECIMEN Ordering Facility: [facility] Address: [address] [place] [address] Performed By: #### 2 4356-8 #### [facility] CLIA [id number] [address] [place] Leukocyte esterase Test strip Ql (U) Negative Normal Negative [facility] Comment on above: Order Comment: Speci men Type: URINE SPECIMEN Ordering Facility: [facility] Address: [address] [place] [address] Performed By: #### 2 4356-8 #### [facility] CLIA [id number] [address] [place] Nitrite Ql (U) Negative Normal Negative [facility] Comment on above: Order Comment: Speci men Type: URINE SPECIMEN Ordering Facility: [facility] Address: [address] [place] [address] Performed By: #### 2 4356-8 #### [facility] CLIA [id number] [address] [place] pH (U) 6.0 [pH] Normal 5.0-8.0 [facility] Comment on above: Order Comment: Speci men Type: URINE SPECIMEN Ordering Facility: [facility] Address: [address] [place] [address] Performed By: #### 2 4356-8 #### [facility] CLIA [id number] [address] [place] [address] [place] Protein (U) [Mass/Vol] 1+ Abnormal Negative [facility] Comment on above: Order Comment: Speci men Type: URINE SPECIMEN Ordering Facility: [facility] Address: [address] [place] [address] Performed By: #### 2 4356-8 #### [facility] CLIA [id number] 1000 [place] [address] [place] RBC LM.HPF (Urine sed) [#/Area] 3-5 /HPF Abnormal 0-3 /HPF [facility] Comment on above: Order Comment: Speci men Type: URINE SPECIMEN Ordering Facility: [facility] Address: [address] [place] [address] Performed By: #### 2 4356-8 #### [facility] CLIA [id number] [address] [place] [address] [place] Specific gravity (U) [Rel density] >=1.030 High 1.005-1.03 0 [facility] Comment on above: Order Comment: Speci men Type: URINE SPECIMEN Ordering Facility: [facility] Address: [address] [place] [address] Performed By: #### 2 4356-8 #### [facility] CLIA [id number] [address] Urobilinogen Ql (U) 0.2 EU/dL Normal 0.2-1.0 EU/dL [facility] Comment on above: Order Comment: Speci men Type: URINE SPECIMEN Ordering Facility: [facility] Address: [address] [place] [address] Performed By: #### 2 4356-8 #### [facility] CLIA [id number] [address] [place] WBC LM.HPF (Urine sed) [#/Area] 0-5 /HPF Normal 0-5 /HPF [facility] Comment on above: Order Comment: Speci men Type: URINE SPECIMEN Ordering Facility: [facility] Address: [address] [place] [address] Performed By: #### 2 4356-8 #### [facility] CLIA [id number] [address] [place] ED Nursing Noteon 11-05-2024 ED Nursing Note This nurse accompani ed physician during assessment. Normal [facility] ED Nursing Note The patient ambulate d to room 12 accompanied boyfriend. She stated her and her significant other were having inter coarse and was cut with fingernail internal. She stated she is having significant pain and bleeding and would like to have it checked. Normal [facility] ED Provider Noteon ED Provider Note [facility] ED EMERGENCY DEPARTMENT ENCOUNTER Pt Name: Sabino Dewey Birthdate 2005 Date of evaluation: 11/05/2024 Provider: Sarah Brar MD CHIEF COMPLAINT Chief Complaint Patient presents with Vaginal Bleeding Bleeding from wound Wound Check HISTORY OF PRESENT ILLNESS (Location/Symptom, Timing/Onset,Context/Setting, Quality, Duration, Modifying Factors, Severity) Note limiting factors. Sabino Dewye is a 19 y.o. female who presents to the emergency department with concerns for vaginal bleeding from wound. She had digital manipulation by her significant other with his fingernail and felt like her vaginal area was cut. She did have bleeding. No bleeding now but she says it woods. Happened twins prior to arrival. HPI Historian is the patient Nurse's notes for past medical history, surgical history, social history were reviewed. Medications and allergies reviewed. PAST MEDICAL HISTORY History reviewed. No pertinent past medical history. SURGICALHISTORY History reviewed. No pertinent surgical history. CURRENT MEDICATIONS Previous Medications ARIPIPRAZOLE (ABILIFY) 20 MG TABLET Take 100 mg by mouth daily. BUSPIRONE (BUSPAR) 10 MG TABLET Take 10 mg by mouth 3 times daily. LAMOTRIGINE (LAMICTAL) 150 MG TABLET Take by mouth. OMEPRAZOLE (PRILOSEC) [address] CAPSULE Take 20 mg by mouth daily. PRAZOSIN (MINIPRESS) 5 MG CAPSULE Take 5 mg by mouth Nightly. Hydrocodone FAMILY HISTORY No family history on file. SOCIAL HISTORY Social History Socioeconomic History Marital status: Single Tobacco Use Smoking status: Every Day Current packs/day: 0.50 Types: Cigarettes Smokeless tobacco: Never Vaping Use Vaping status: Every Day Substance and Sexual Activity Alcohol use: Yes Comment: occasional Drug use: Yes Types: Marijuana Sexual activity: Yes control/protection: None SCREENINGS PHYSICAL EXAM (up to 7 for level 4, 8 or more for level 5) @EDTRIAGEVSS@ Appropriate PPE including n 95, gown, gloves, goggles where worn when appropriate with this patient. Physical Exam With female meat scrubber vaginal area was visualized the external genitalia was intact no masses no signs of abscess labia and then the introitus and vaginal area was visualized and there is no active bleeding. Secondary to discomfort I did not do a digital exam or speculum exam. She has no discharge externally. Or from the introitus. DIAGNOSTIC RESULTS RADIOLOGY: Interpretation per the Radiologist below, if availableat the time of this note: No orders to display ED BEDSIDE ULTRASOUND: Performed by ED Physician - none LABS: Labs Reviewed - No data to display All other labs were within normal range or not returned as of thisdictation. EMERGENCYDEPARTMENT COURSE and DIFFERENTIAL DIAGNOSIS/MDM: Vitals: Vitals: 11/05/24 2315 BP: 134/88 BP Location: Right arm Patient Position: Sitting Pulse: 107 Resp: 17 Temp: 37.2 ?C (98.9 ?F) TempSrc: Oral SpO2: 98% Weight: 120 kg (265 lb) Height: 1.575 m (5' 2) Medical Decision Making EMERGENCY DEPARTMENT COURSE and DIFFERENTIAL DIAGNOSIS/MDM: Vitals: Vitals: 11/05/24 2315 BP: 134/88 BP Location: Right arm Patient Position: Sitting Pulse: 107 Resp: 17 Temp: 37.2 ?C (98.9 ?F) TempSrc: Oral SpO2: 98% Weight: 120 kg (265 lb) Height: 1.575 m (5' 2) The patient presented with a chief complaint of vaginal pain. The differential diagnosis associated with this patient's presentation includes vaginal laceration abrasion abscess infection. Our workup consisted of ordering/reviewing none. Patient is not actively bleeding I did not do a digital exam or speculum examination but did look at the introitus and in open the labial area with female meat scrubber and did not see any active bleeding. Based on the description being from the fingernail I do not believe there is anything that would be suturing or require surgery as she does not have bleeding extensively that can visualize. I advised her about pelvic rest for 10 days no tampons no douching no intercourse no digital manipulation certainly return here if any problems or concerns. Diagnoses as of 11/05/24 2335 Vaginal laceration, initial encounter Diagnostics considered but not indicated based on history, physical, testing: None External records reviewed: Patient seen 10/20/2024 for ear infection and seen 08/31/2024 for URI Radiologic diagnostics interpreted by me: film images such as CT, Ultrasound and MRI are read by the radiologist. Plain radiographic images are visualized and preliminarily interpreted by the emergency physician with the below findings: none Discussions with other clinicians: none Chronic conditions impacting care: Depression Social determinants of health affecting care: none Shared decision making: Patient agrees to treatment plan ED Medications managed: Medications - No data to disp (more content not included)... [facility] ED Provider Noteon ED Provider Note EMERGENCY DEPARTMENT ENCOUNTER Pt Name: Sabino Dewey Birthdate 2005 Date of evaluation: 10/20/2024 ED Provider: Kyle Carr DO CHIEF COMPLAINT Chief Complaint Patient presents with Nasal Congestion Cough HISTORY OF PRESENT ILLNESS (Location/Symptom, Timing/Onset, Context/Setting, Quality, Duration, Modifying Factors, Severity) Note limiting factors. I wore appropriate PPE for the entirety of this encounter. HPI Sabino Dewey is a 19 y.o. female who presents to the emergency department 2 days of cough congestion earache sore throat sinus pain. No fevers or chills. No abdominal pain nausea vomit diarrhea. States she is not sure if she could be . Nursing Notes were reviewed. REVIEW OF SYSTEMS 14 systems reviewed and otherwise acutely negative except as in the [place]. PAST MEDICAL HISTORY No past medical history on file. SURGICAL HISTORY No past surgical history on file. CURRENT MEDICATIONS Discharge Medication List as of 10/20/2024 3:20 PM CONTINUE these medications which have NOT CHANGED Details omeprazole (PriLOSEC) [address] capsule Take 20 mg by mouth daily., Starting Sat11/29/2023, Historical Med ARIPiprazole (Abilify) 20 MG tablet Take 100 mg by mouth daily., Historical Med busPIRone (Buspar) 10 MG tablet Take 10 mg by mouth 3 times daily., Historical Med lamoTRIgine (LaMICtal) 150 MG tablet Take by mouth., Historical Med prazosin (Minipress) 5 MG capsule Take 5 mg by mouth Nightly., Historical Med ALLERGIES Hydrocodone FAMILY HISTORY No family history on file. SOCIAL HISTORY Social History Socioeconomic History Marital status: Single Tobacco Use Smoking status: Every Day Current packs/day: 0.50 Types: Cigarettes Smokeless tobacco: Never Vaping Use Vaping status: Every Day Substance and Sexual Activity Alcohol use: Yes Comment: occasional Drug use: Yes Types: Marijuana SCREENINGS PHYSICAL EXAM ED Triage Vitals [10/20/24 1412] Temp Heart Rate Resp BP 36.3 ?C (97.3 ?F) 98 16 137/73 SpO2 Temp Source Heart Rate Source Patient Position 96 % Temporal Monitor Sitting BP Location FiO2 (%) Right arm -- CONSTITUTIONAL: AOx4, no apparent distress, appears stated age HEAD: normocephalic, atraumatic EYES: PERRL, EOMI ENT: moist mucous membranes, uvula midline, right TM normal, left TM is bulging with surrounding erythema, posterior oropharynx minimally erythematous with no exudate NECK: supple, symmetric BACK: symmetric LUNGS: clear to auscultation bilaterally CARDIOVASCULAR: regular rate and rhythm ABDOMEN: soft, non-tender, non-distended with normal active bowel sounds : deferred NEUROLOGIC: MAEx4, no focal sensory or motor deficits MUSCULOSKELETAL: no clubbing, cyanosis or edema SKIN: no exposed rash DIAGNOSTIC RESULTS Procedures/EKG: EKG was reviewed by myself. Physician EKG interpretation can be found in [facility] RADIOLOGY (Per Emergency Physician): Interpretation per the Radiologist below, if available at the time of this note: XR chest 1 view Final Result 1. Lines/Tubes/Devices/Hardware: None. Please confirm position and function of any catheters or attempted catheters clinically. 2. Lungs: No convincing acute process.. Limited due to portable technique. Consider follow-up with PA and lateral chest for persistent symptoms. 3. Pleura: No significant effusion. No significant pneumothorax. 4. Heart and mediastinum: Limited due to technique. 5. Upper abdomen: No acute process seen. 6. Thorax:No acute bony process Report Dictated on Electronically Signed By: Vincent Landon MD Electronically Signed Date/Time: 10/20/2024 3:07 PM EST ED BEDSIDE ULTRASOUND: Performed by ED Physician - none LABS: Labs Reviewed HCG QUALITATIVE URINE Result Value HCG,URINE QUAL Negative Narrative: is the most common reason for HCG in urine, although choriocarcinoma, hydatidiform mole, and certain nontrophoblastic malignancies also result in detectable urinary HCG levels. Sensitivity = 20mIU/mL. All other labs were within normal range or not returned as of this dictation. EMERGENCY DEPARTMENT COURSE and DIFFERENTIAL DIAGNOSIS/MDM: Vitals: Vitals: 10/20/24 1412 BP: 137/73 BP Location: Right arm Patient Position: Sitting Pulse: 98 Resp: 16 Temp: 36.3 ?C (97.3 ?F) TempSrc: Temporal SpO2: 96% Weight: 120 kg (265 lb) Height: 1.575 m (5' 2) EMERGENCY DEPARTMENT COURSE and DIFFERENTIAL DIAGNOSIS/MDM: Vitals: Vitals: 10/20/24 1412 BP: 137/73 BP Location: Right arm Patient Position: Sitting Pulse: 98 Resp: 16 Temp: 36.3 ?C (97.3 ?F) TempSrc: Temporal SpO2: 96% Weight: 120 kg (265 lb) Height: 1.575 m (5' 2) The patient presented with a chief complaint of 2 days of cough congestion earache sore throat. The differential diagnosis associated with this patient's presentation includes otitis media, (more content not included)... Normal [facility] HCG QUALITATIVE URINEon 10-02 Beta HCG ( test) Ql (U) Negative Normal Negative [facility] Comment on above: Result Comment: Plea se note: Very dilute urine specimens, as indicated by a low specific gravity, may not contain ict sales representative levels of hCG. If is still suspected, a first morning urine specimen should be collected 48 hours later and tested. ORDER COMMENTS: is the most common reason for HCG in urine, although choriocarcinoma, hydatidiform mole, and certain nontrophoblastic malignancies also result in detectable urinary HCG levels. Sensitivity = 20mIU/mL. Performed By: #### L [id number] ####Medical Technician: RYAN ALVA ([id number])[facility] [place] [address] Laboratory - Chemistry and C hemistry - challengeOrdered By: Jesika Lal on 10-20-2024 Beta HCG ( test) Ql Negative Negative [facility] Comment on above: Please note: Very di lute urine specimens, as indicated by a low specific gravity, may not contain ict sales representative levels of hCG. If is still suspected, a first morning urine specimen should be collected 48 hours later and tested. Beta HCG ( test) Ql (U) is the most common reason for HCG in urine, although choriocarcinoma, hydatidiform mole, and certain nontrophoblastic malignancies also result in detectable urinary HCG levels. Sensitivity = 20mIU/mL. [facility] [employer] No Panel InformationOrdered By: Jesika Lal on 10-20-2024 [facility] Chest Single viewon 10-20 1. Lines/Tubes/Devices/Hardware: None. Please confirm position and function of any catheters or attempted catheters clinically. 2. Lungs: No convincing acute process.. Limited due to portable technique. Consider follow-up with PA and lateral chest for persistent symptoms. 3. Pleura: No significant effusion. No significant pneumothorax. 4. Heart and mediastinum: Limited due to technique. 5. Upper abdomen: No acute process seen. 6. Thorax:No acute bony process Report Dictated on Electronically Signed By: Vincent Landon MD Electronically Signed Date/Time: 10/20/2024 3:07 PM EST [facility] Patient Name: SABINO DEWEY : 2005 Exam Date/Time: 10/20/2024 14:50 Procedure: XR CHEST 1 VIEW Ordering Provider: CARR TYLER Reason For Exam: cough, eval for pneumonia EXAM TYPE: RADIOLOGIC EXAMINATION, CHEST, SINGLE VIEW FRONTAL (CXR SINGLE VIEW) EXAM DATE AND TIME: 10/20/2024 2:50 PM EST INDICATION: Respiratory distress COMPARISON: 08/31/2024 TECHNIQUE: A single frontal view of the thorax was obtained and reviewed. Special views: None. [facility] Vincent Landon MD - 10/20/2024 Patient Name: SABINO DEWEY : 2005 Exam Date/Time: 10/20/2024 14:50 Procedure: XR CHEST 1 VIEW Ordering Provider: CARR TYLER Reason For Exam: cough, eval for pneumonia EXAM TYPE: RADIOLOGIC EXAMINATION, CHEST, SINGLE VIEW FRONTAL (CXR SINGLE VIEW) EXAM DATE AND TIME: 10/20/2024 2:50 PM EST INDICATION: Respiratory distress COMPARISON: 08/31/2024 TECHNIQUE: A single frontal view of the thorax was obtained and reviewed. Special views: None. IMPRESSION: 1. Lines/Tubes/Devices/Hardware: None. Please confirm position and function of any catheters or attempted catheters clinically. 2. Lungs: No convincing acute process.. Limited due to portable technique. Consider follow-up with PA and lateral chest for persistent symptoms. 3. Pleura: No significant effusion. No significant pneumothorax. 4. Heart and mediastinum: Limited due to technique. 5. Upper abdomen: No acute process seen. 6. Thorax:No acute bony process Report Dictated on Electronically Signed By: Vincent Landon MD Electronically Signed Date/Time: 10/20/2024 3:07 PM EST [facility] Radiology Study observation (narrative) [facility] XR Chest Single viewOrdered By: Vincent Landon on 10-20-2024 [facility] Work Phone: COVID-19, Flu A/B, and RSV C omboon 09-01-2024 Interpretation and review of laboratory results Normal [facility] Laboratory - Microbiology an d Antimicrobial susceptibilityon 09-01-2024 FLUAV RNA FLORENCIA+probe Ql (Resp) Not detected Not Detected [facility] FLUBV RNA FLORENCIA+probe Ql (Resp) Not detected Not Detected [facility] RSV RNA FLORENCIA+probe Ql (Resp) Not detected Not Detected [facility] SARS-CoV-2 (COVID-19) RNA FLORENCIA+probe Ql (Resp) Not detected Not Detected [facility] SARS-CoV-2 (COVID-19) RNA FLORENCIA+probe Ql (Unsp spec) Methodology: real-time, RT-PCR The SARS-CoV-2, Flu A/B, and RSV Combo assay is intended for in vitro diagnostic use under the FDA Emergency Use Authorization (EUA). This test has not been FDA cleared or approved. In compliance with this authorization, please visit www.fda.gov/media/932627/downl oad or www.fda.gov/media/202792/downl oad to access the applicable information sheets. [facility] XR Chest Single viewon 09-01 1. No evidence of an acute cardiopulmonary process. Report Dictated on Electronically Signed By: Rah Choi MD Electronically Signed Date/Time: 09/01/2024 12:05 AM EDT [employer] Patient Name: SABINO DEWEY : 2005 Exam Date/Time: 08/31/2024 23:56 Procedure: XR CHEST 1 VIEW Ordering Provider: BLANC KEVIN Reason For Exam: COUGH CLINICAL INFORMATION: Cough. Portable view of the chest at 2340 hours is provided without comparison. FINDINGS: The cardiac silhouette and mediastinum are within normal limits. The lungs are free of infiltrate or pleural effusion. The visualized bones and soft tissues are grossly unremarkable. [facility] Rah Choi MD - 09/01/2024 Patient Name: SABINO DEWEY : 2005 [id number] Exam Date/Time: 08/31/2024 23:56 Procedure: XR CHEST 1 VIEW Ordering Provider: BLANC KEVIN Reason For Exam: COUGH CLINICAL INFORMATION: Cough. Portable view of the chest at 2340 hours is provided without comparison. FINDINGS: The cardiac silhouette and mediastinum are within normal limits. The lungs are free of infiltrate or pleural effusion. The visualized bones and soft tissues are grossly unremarkable. IMPRESSION: 1. No evidence of an acute cardiopulmonary process. Report Dictated on Electronically Signed By: Rah Choi MD Electronically Signed Date/Time: 09/01/2024 12:05 AM EDT [employer] XR Chest Single viewOrdered By: Rah Choi on 09-01-2024 [employer] Work Phone: ED Nursing Noteon 08-31-2024 ED Nursing Note The patient ambulate d to room 2. She is complaining of covid exposure with symptoms. She stated symptoms started on day prior. She stated she has not taken anything for pain the headache. Normal [facility] [employer] [facility] ED Provider Noteon ED Provider Note EMERGENCY DEPARTMENT ENCOUNTER Pt Name: Sabino Dewey Birthdate 2005 Date of evaluation: 08/31/2024 ED Provider: Ivan Blanc MD CHIEF COMPLAINT Chief Complaint Patient presents with Flu Symptoms Stated recently around someone with covid HISTORY OF PRESENT ILLNESS (Location/Symptom, Timing/Onset, Context/Setting, Quality, Duration, Modifying Factors, Severity) Note limiting factors. I wore appropriate PPE for the entirety of this encounter. HPI Sabino Dewey is a 19 y.o. female who presents to the emergency department with chief complaint of cough, congestion, fatigue, body aches, headache. States her boyfriend was diagnosed with COVID today and she believes she has COVID. Nursing Notes were reviewed. Limitations to history: None Outside historians: None REVIEW OF SYSTEMS Review of Systems: Pertinent positives as above per history of present illness. Other systems reviewed and found to be negative to a total of 10 systems reviewed. PAST MEDICAL HISTORY History reviewed. No pertinent past medical history. SURGICAL HISTORY History reviewed. No pertinent surgical history. CURRENT MEDICATIONS Previous Medications ARIPIPRAZOLE (ABILIFY) 20 MG TABLET Take 100 mg by mouth daily. BUSPIRONE (BUSPAR) 10 MG TABLET Take 10 mg by mouth 3 times daily. LAMOTRIGINE (LAMICTAL) 150 MG TABLET Take by mouth. PRAZOSIN (MINIPRESS) 5 MG CAPSULE Take 5 mg by mouth Nightly. ALLERGIES Patient has no known allergies. FAMILY HISTORY No family history on file. SOCIAL HISTORY Social History Socioeconomic History Marital status: Single Tobacco Use Smoking status: Every Day Current packs/day: 0.50 Types: Cigarettes Smokeless tobacco: Never Vaping Use Vaping status: Every Day Substance and Sexual Activity Alcohol use: Yes Comment: occasional Drug use: Yes Types: Marijuana SCREENINGS PHYSICAL EXAM ED Triage Vitals Temp Heart Rate Resp BP 08/31/24231808/31/24231808/31/24231808/31/242319 36.8 ?C (98.2 ?F) 82 17 113/75 SpO2 Temp Source Heart Rate Source Patient Position 08/31/24231808/31/24231808/31/24231808/31/242318 98 % Oral Monitor Sitting BP Location FiO2 (%) 08/31/242318 -- Right arm Physical Exam: Vital signs reviewed in nurse's notes. Patient is nontoxic in appearance. No respiratory distress. Head: Normocephalic, atraumatic Eyes: Pupils are equal, round and reactive to light. EOMI. Conjunctiva clear. Sclera anicteric ENT: Mucous membranes moist. Throat shows no erythema exudates or edema. Neck: No anterior adenopathy. No tenderness or stiffness. Chest: Nontender. No obvious flail segments. Lungs: Clear to auscultation bilaterally. No wheezing rales or rhonchi. Heart: Regular rate and rhythm. No audible murmur or gallop. Abdomen: Soft, nondistended, nontender. No rebound or guarding. No signs of peritonitis. Back: No midline tenderness. No flank area tenderness. Extremities: No gross deformity. No obvious tenderness. No obvious joint swelling. No calf tenderness. Negative Homans sign. Good distal pulses in all 4 extremities. Neurologic: Alert and fully oriented. No focal motor, sensory deficits in all 4 extremities. DIAGNOSTIC RESULTS RADIOLOGY (Per Emergency Physician): Chest x-ray: No acute infiltrate. No effusion. Interpreted by this examiner. Interpretation per the Radiologist below, if available at the time of this note: XR chest 1 view Final Result 1. No evidence of an acute cardiopulmonary process. Report Dictated on Electronically Signed By: Rah Choi MD Electronically Signed Date/Time: 09/01/2024 12:05 AM EDT LABS: Labs Reviewed SARS-COV-2, FLU A/B, AND RSV COMBO - Normal Result Value SARS-CoV-2 Not Detected Respiratory Syncytial Virus Not Detected Influenza A Not Detected Influenza B Not Detected Narrative: Methodology: real-time, RT-PCR The SARS-CoV-2, Flu A/B, and RSV Combo assay is intended for in vitro diagnostic use under the FDA Emergency Use Authorization (EUA). This test has not been FDA cleared or approved. In compliance with this authorization, please visit www.fda.gov/media/240598/downl oad or www.fda.gov/media/341705/downl oad to access the applicable information sheets. Current COVID testing is negative.. EMERGENCY DEPARTMENT COURSE and DIFFERENTIAL DIAGNOSIS/MDM: Vitals: Vitals: 08/31/24 2319 08/31/24 2320 BP: 113/75 BP Location: Right arm Patient Position: Sitting Pulse: 82 Resp: 17 Temp: 36.8 ?C (98.2 ?F) TempSrc: Oral SpO2: 98% Weight: 120 kg (265 lb) Height: 1.575 m (5' 2) Although patient is had a COVID exposure, she currently has tested negative. She does not have pneumonia. She does have a respiratory infection symptoms most likely viral etiology. I do feel she can be followed up as an outpatient. Return if worse or new symptoms or problems. The patient presented with chief c (more content not included)... Normal [facility] SARS-COV-2, FLU A/B, AND RSV COMBOon 08-31-2024 SARS-CoV-2 (COVID-19) RNA FLORENCIA+probe Ql (Unsp spec) SARS-COV-2 Reference Not Detected Not Detected RESPIRATORY SYNCYTIAL VIRUS Reference Not Detected Not Detected INFLUENZA A (CEPHEID) Reference Not Detected Not Detected INFLUENZA B (CEPHEID) Reference Not Detected Not Detected ORDER COMMENTS: Methodology: real-time, RT-PCR The SARS-CoV-2, Flu A/B, and RSV Combo assay is intended for in vitro diagnostic use under the FDA Emergency Use Authorization (EUA). This test has not been FDA cleared or approved. In compliance with this authorization, please visit www.fda.gov/media/238832/downl oad or www.fda.gov/media/207793/downl oad to access the applicable information sheets. Normal [facility] Comment on above: Performed By: #### L [id number] #### Medical Technician: RYAN ALVA ([phone]) [facility] ([facility]) [address] [place] [address] XR Chest Single viewon 08-31 Radiology Study observation (narrative) [facility] .Auto Diffon 07-07-2024 Basophil, Absolute 0.0 10 3/mcL Normal 0.0-0.3 [facility] ([place]) Comment on above: Performed By: #### M DW, GFR, ANEU, ADIFF, CMP, CBC ####Elmo [address] [place], [place] [address] Basophils/100 WBC (Bld) 0.3 % Normal 0.0-2.5 [facility] ([place]) Comment on above: Performed By: #### M DW, GFR, ANEU, ADIFF, CMP, CBC ####Elmo [address] [place], [place] [address] Eosinophil, Absolute 0.0 10 3/mcL Normal 0.0-0.7 [facility] ([place]) Comment on above: Performed By: #### M DW, GFR, ANEU, ADIFF, CMP, CBC ####Eugene Cefrckekx[address] [place], [place] [address] Eosinophils/100 WBC (Bld) 0.2 % Normal 0.0-6.0 [facility] ([place]) Comment on above: Performed By: #### M DW, GFR, ANEU, ADIFF, CMP, CBC ####Elmo ArrietaPcoqijskw7254 [place], [place] [address] Lymphocyte, Absolute 1.3 10 3/mcL Normal 0.9-4.3 [facility] ([place]) Comment on above: Performed By: #### M DW, GFR, ANEU, ADIFF, CMP, CBC ####Elmo ArrietaXirshjjiu[address] [place], [place] [address] Lymphocytes/100 WBC (Bld) 8.0 % Low 20.0-40.0 [facility] ([place]) Comment on above: Performed By: #### M DW, GFR, ANEU, ADIFF, CMP, CBC ####Elmo Jim[address] [place], [place] [address] Monocyte, Absolute 0.7 10 3/mcL Normal 0.1-1.4 [facility] ([place]) Comment on above: Performed By: #### M DW, GFR, ANEU, ADIFF, CMP, CBC ####Elmo [address] [place], [place] [address] Monocytes/100 WBC (Bld) 4.2 % Normal 2.0-13.0 [facility] ([place]) Comment on above: Performed By: #### M DW, GFR, ANEU, ADIFF, CMP, CBC ####Elmo ArrietaUpslznjdd1039 [place], [place] [address] Neutrophils/100 WBC (Bld) 87.3 % High 50.0-75.0 [facility] ([place]) Comment on above: Performed By: #### M DW, GFR, ANEU, ADIFF, CMP, CBC ####Elmo Ckmzeynxl[address] [place], [place] [address] .GFRon 07-07-2024 GFR Non- 86 ml/min/1.73sqm Normal [facility] ([place]) Comment on above: Result Comment: GFR Population mean for , Non- Americans Ages 20-29 = 116 mL/min/1.73 sq.m. Ages 30-39 = 107 mL/min/1.73 sq.m. Ages 40-49 = 99 mL/min/1.73 sq.m. Ages 50-59 = 93 mL/min/1.73 sq.m. Ages 60-69 = 85 mL/min/1.73 sq.m. Ages 70+ = 75 mL/min/1.73 sq.m. Chronic Kidney Disease: Less than 60 mL/min/1.73 square meters End Stage Renal Disease: Less than 15 mL/min/1.73 square meters Performed By: #### M DW, GFR, ANEU, ADIFF, CMP, CBC ####Elmo ArrietaVcsoxrgmt[address] [place], [place] [address] GFR 104 ml/min/1.73sqm Normal [facility] ([place]) Comment on above: Result Comment: GFR Population mean for , Non- Americans Ages 20-29 = 116 mL/min/1.73 sq.m. Ages 30-39 = 107 mL/min/1.73 sq.m. Ages 40-49 = 99 mL/min/1.73 sq.m. Ages 50-59 = 93 mL/min/1.73 sq.m. Ages 60-69 = 85 mL/min/1.73 sq.m. Ages 70+ = 75 mL/min/1.73 sq.m. Chronic Kidney Disease: Less than 60 mL/min/1.73 square meters End Stage Renal Disease: Less than 15 mL/min/1.73 square meters Performed By: #### M DW, GFR, ANEU, ADIFF, CMP, CBC ####Elmogregg ArrietaKiagvdtdw7669 [place], [place] [address] .MDWon 07-07-2024 Monocyte Distribution Width 20.08 High 0.00-20.00 [facility] ([place]) Comment on above: Result Comment: For adults in ED, MDW>20.0 may be associated with a higher risk of sepsis during the first 12hrs of hospital admission Performed By: #### M DW, GFR, ANEU, ADIFF, CMP, CBC ####Elmo ArrietaMxisbymbm[address] [place], [place] [address] .NEUABSon 07-07-2024 Neutrophil, Absolute 14.5 10 3/mcL High 2.3-8.1 [facility] ([place]) Comment on above: Performed By: #### M DW, GFR, ANEU, ADIFF, CMP, CBC ####Elmo [address] [place], [place] [address] CBCon 07-07-2024 Erythrocyte distribution width (RBC) [Ratio] 16.1 % High 11.5-15.5 [facility] ([place]) Comment on above: Performed By: #### M DW, GFR, ANEU, ADIFF, CMP, CBC ####Elom [address] [place] [phone] Hematocrit (Bld) [Volume fraction] 38.8 % Normal 34.0-46.0 [facility] ([place]) Comment on above: Performed By: #### M DW, GFR, ANEU, ADIFF, CMP, CBC ####Elomgregg JimenezApsrpjxxg9431 [place] [phone] Hgb 12.4 G/dL Normal 12.0-16.0 [facility] ([place]) Comment on above: Performed By: #### M DW, GFR, ANEU, ADIFF, CMP, CBC ####Elmogregg JimenezIsndjrxln5634 [place] [phone] MCH (RBC) [Entitic mass] 25.8 pg Low 27.0-33.0 [facility] ([place] Comment on above: Performed By: #### M DW, GFR, ANEU, ADIFF, CMP, CBC ####Elmo [address] [place] [phone] MCHC 32.0 G/dL Normal 32.0-36.0 [facility] ([place]) Comment on above: Performed By: #### M DW, GFR, ANEU, ADIFF, CMP, CBC ####Elmogregg JimenezRzmdvycod4844 [place] [phone] MCV (RBC) [Entitic vol] 80.4 fL Normal 80.0-99.0 [facility] ([place] Comment on above: Performed By: #### M DW, GFR, ANEU, ADIFF, CMP, CBC ####Elmogregg JimenezYbcvyjmjf8[address] [place], [place] [address] Platelet 281 10 3/mcL Normal 150-450 [facility] ([place]) Comment on above: Performed By: #### M DW, GFR, ANEU, ADIFF, CMP, CBC ####Elmo [address] [place], [place] [address] Platelet mean volume (Bld) [Entitic vol] 7.7 fL Normal 6.6-10.5 [facility] ([place]) Comment on above: Performed By: #### M DW, GFR, ANEU, ADIFF, CMP, CBC ####Elmo [address] [place] [address] RBC 4.82 10 6/mcL Normal 4.10-5.30 [facility] ([place]) Comment on above: Performed By: #### M DW, GFR, ANEU, ADIFF, CMP, CBC ####Elmo [address] [place], [place] [address] WBC 16.6 10 3/mcL High 4.5-10.8 [facility] ([place]) Comment on above: Performed By: #### M DW, GFR, ANEU, ADIFF, CMP, CBC ####Elmo [address] [place], [place] [address] CMPon 07-07-2024 Albumin Level 3.4 G/dL Low 3.5-5.0 [facility] ([place] Comment on above: Performed By: #### M DW, GFR, ANEU, ADIFF, CMP, CBC ####Elmo [address] [place], [place] [address] Albumin/Globulin [Mass ratio] 1.0 {ratio} Low 1.1-2.5 [facility] ([place] Comment on above: Performed By: #### M DW, GFR, ANEU, ADIFF, CMP, CBC ####Elmo [address] [place], [place] [address] ALP [Catalytic activity/Vol] 90 U/L Normal 40-135 [facility] ([place]) Comment on above: Performed By: #### M DW, GFR, ANEU, ADIFF, CMP, CBC ####Elmo ArrietaMohtsudbx4781 [place], [place] [address] ALT [Catalytic activity/Vol] 18 U/L Normal 14-59 [facility] ([place]) Comment on above: Performed By: #### M DW, GFR, ANEU, ADIFF, CMP, CBC ####Elmo ArrietaAhfbjrjbu8584 [place], [place] [address] AST [Catalytic activity/Vol] 9 U/L Low 10-40 [facility] ([place]) Comment on above: Performed By: #### M DW, GFR, ANEU, ADIFF, CMP, CBC ####Elmo ArrietaNjfewqlmw6914 [place], [place] [address] Bili Total 0.4 mg/dL Normal 0.2-1.0 [facility] ([place]) Comment on above: Result Comment: Use of this assay is not recommended for patients undergoing treatment with eltrombopag due to the potential for falsely elevated results. Performed By: #### M DW, GFR, ANEU, ADIFF, CMP, CBC ####Elmo ArrietaGkhjbwdkw7[address] [place], [place] [address] BUN/Creatinine Ratio 13 ratio Normal 7-27 [facility] ([place]) Comment on above: Performed By: #### M DW, GFR, ANEU, ADIFF, CMP, CBC ####Elmo [address] [place], [place] [address] Calcium [Mass/Vol] 9.3 mg/dL Normal 8.4-10.2 [facility] ([place]) Comment on above: Performed By: #### M DW, GFR, ANEU, ADIFF, CMP, CBC ####Elmo ArrietaIxpozlbve8501 [place], [place] [address] Chloride [Moles/Vol] 101 mmol/L Normal 98-107 [facility] ([place]) Comment on above: Performed By: #### M DW, GFR, ANEU, ADIFF, CMP, CBC ####Elmo ArrietaWrxjuybnk6082 [place], [place] [address] CO2 [Moles/Vol] 25 mmol/L Normal 22-29 [facility] ([place]) Comment on above: Performed By: #### M DW, GFR, ANEU, ADIFF, CMP, CBC ####Elmogregg JimenezLqikxfhci2336 [place], [place] [address] Creatinine [Mass/Vol] 0.84 mg/dL Normal 0.55-1.02 [facility] ([place]) Comment on above: Performed By: #### M DW, GFR, ANEU, ADIFF, CMP, CBC ####Elmogregg ArrietaMhemhjvlt2270 [place], [place] [address] Electrolyte Balance 11.0 mEq/L Normal 4.0-15.0 [facility] ([place]) Comment on above: Performed By: #### M DW, GFR, ANEU, ADIFF, CMP, CBC ####Elmo [address] [place], [place] [address] Globulin 3.3 G/dL Normal [facility] ([place] Comment on above: Performed By: #### M DW, GFR, ANEU, ADIFF, CMP, CBC ####Elmogregg JimenezVoqyjetiw9099 [place], [place] [address] Glucose [Mass/Vol] 95 mg/dL Normal 70-105 [facility] ([place]) Comment on above: Performed By: #### M DW, GFR, ANEU, ADIFF, CMP, CBC ####Elmogregg JimenezEsamtotof0776 [place], [place] [address] Potassium [Moles/Vol] 3.7 mmol/L Normal 3.5-5.1 [facility] ([place]) Comment on above: Performed By: #### M DW, GFR, ANEU, ADIFF, CMP, CBC ####Elmo ArrietaGwzlqyitm3036 [place], [place] [address] Sodium [Moles/Vol] 137 mmol/L Normal 136-145 [facility] ([place]) Comment on above: Performed By: #### M DW, GFR, ANEU, ADIFF, CMP, CBC ####Elmogregg ArrietaTipintrqr2917 [place], [place] [address] Total Protein 6.7 G/dL Normal 6.4-8.2 [facility] ([place]) Comment on above: Performed By: #### M DW, GFR, ANEU, ADIFF, CMP, CBC ####Eugene Qjdsexlcd6658 [place], [place] [address] Urea nitrogen [Mass/Vol] 11 mg/dL Normal 7-18 [facility] ([place]) Comment on above: Performed By: #### M DW, GFR, ANEU, ADIFF, CMP, CBC ####Elmogregg ArrietaXqncgfduj6713 [place], [place] [address] CT ABDOMEN/PELVIS W/CONTRAST on 07-07-2024 CT ABDOMEN/PELVIS W/CONTRAST ORIGINAL EXAMINATION: CT OF THE ABDOMEN AND PELVIS WITH CONTRAST07/07/2024 5:29 am TECHNIQUE: CT of the abdomen and pelvis was performed with the administration of intravenous contrast. Multiplanar reformatted images are provided for review. Automated exposure control, iterative reconstruction, and/or weight based adjustment of the mA/kV was utilized to reduce the radiation dose to as low as reasonably achievable. COMPARISON: CT abdomen pelvis 06/06/2024 HISTORY: ORDERING SYSTEM PROVIDED HISTORY: Reason for Exam: PT STATES LUQ PAIN, BODY ACHES, N/V/D Similar episode JUNE. CT w/o (-). This episode worse, N/V/D FINDINGS: No acute osseous abnormalities. No significant degenerative changes. Partially visualized 0.4 cm nodule in the lateral right middle lobe additional (4; 1). 0.3 cm nodule in the anterior right middle lobe (4; 7). The remainder of the visualized lung bases are predominantly clear. No pleural or pericardial effusion. The liver, spleen, pancreas, and adrenal glands are unremarkable. The gallbladder is incompletely distended. The kidneys enhance symmetrically. No evidence of hydronephrosis or urolithiasis. The bladder is under distended, however appears otherwise unremarkable. Right ovarian follicle/cyst measuring up to 2.9 cm, which does not meet criteria for follow-up imaging. The stomach and small bowel are unremarkable. Under distended proximal small bowel. Air-fluid level in the colon, which can be seen in a state of diarrhea. The appendix is unremarkable. Nonaneurysmal aorta. No pathologically enlarged lymph nodes are identified. Prominent right mesenteric lymph nodes measuring up to 0.9 cm appear mildly increased in size from prior and may be hyperplastic/reactive in nature. No free intraperitoneal air or fluid. Small fat containing umbilical hernia. IMPRESSION: No acute inflammatory abnormality. Air-fluid level in the colon, which can be seen in a state of diarrhea. Prominent adjacent mesenteric lymph nodes may be hyperplastic/reactive in nature. Additional chronic and incidental findings as above. Preliminary Report was Dictated by a Resident Interpreted by: Umer Sanderson MD Preliminary Report By: Carlos Robledo Electronically signed By Umer Sanderson MD Dictated Date: 07/07/2024 5:31:50 AM Prelim Date: 07/07/2024 5:41:05 AM Sign Date: 07/07/2024 7:20:37 AM Ordering Provider: VLADIMIR VORA Normal [facility] ([place]) PREGUon 07-07-2024 HCG ( test) Ql (U) Negative Normal [facility] ([place]) Comment on above: Performed By: #### U AMIC, UA, PREGU #### [facility] [address] [place], [place] [address] test (u) int Invalid Interpretation Code [facility] ([place]) Comment on above: Result Comment: HCG not detected. Very dilute urine specimens, as indicated by a low specific gravity, may not contain ict sales representative levels of hCG. If is still suspected, a first morning urine specimen should be collected 48 hours later and tested. Performed By: #### U AMIC, UA, PREGU #### [address]mo [place] [address] [place], [place] [address] UAon 07-07-2024 Color (U) Yellow Normal [facility] ([place]) Comment on above: Performed By: #### U AMIC, UA, PREGU #### Elmo [place] [address] [place], [place] [address] Glucose (U) [Mass/Vol] Negative Normal Negative [facility] ([place] Comment on above: Performed By: #### U AMIC, UA, PREGU #### Elmo [place] [address] [place], [place] [address] Ketones Ql (U) Negative Normal Neg-Trace [facility] ([place]) Comment on above: Performed By: #### U AMIC, UA, PREGU #### Elmo [place] [address] [place] [phone] UA Appear Clear Normal [facility] ([place] Comment on above: Performed By: #### U AMIC, UA, PREGU #### [place] [address] [place] [phone] UA Blood Moderate Abnormal Neg-Trace [facility] ([place] Comment on above: Performed By: #### U AMIC, UA, PREGU #### [place] [place] [address] [place] [phone] UA Leuk Est Negative Normal Negative [facility] ([place] Comment on above: Performed By: #### U AMIC, UA, PREGU #### Elmo Ar[address]eta[address] [place] [phone] UA Nitrite Negative Normal Negative [facility] ([place] Comment on above: Performed By: #### U AMIC, UA, PREGU #### Elmogre[address] [place] [address] UA pH 6.0 Normal 5.0 - 8.0 [facility] ([place]) Comment on above: Performed By: #### U AMIC, UA, PREGU #### Elmo [address]etaillon [address] [place] [address] UA Protein Negative Normal Negative [facility] ([place] Comment on above: Performed By: #### U AMIC, UA, PREGU #### [address] [place] [address] UA Spec Grav 1.025 Normal [facility] ([place]) Comment on above: Performed By: #### U AMIC, UA, PREGU #### [place] [place] [address] [place] [phone] UA Specimen Type Not Given [facility] ([place]) Comment on above: Performed By: #### U AMIC, UA, PREGU #### [place] [address] [place] [phone] UA Urobilinogen 0.2 E.U./dL Normal [facility] ([place]) Comment on above: Performed By: #### U AMIC, UA, PREGU #### [address] [place] [address] [place], [place] [address] Urobilinogen (U) [Mass/Vol] Negative Normal Neg-Trace [facility] ([place]) Comment on above: Performed By: #### U AMIC, UA, PREGU #### [address] [place] [address] [place], [place] [address] UAMICon 07-07-2024 UA Bacteria 2+ /hpf Abnormal Negative [facility] ([place]) Comment on above: Performed By: #### U AMIC, UA, PREGU #### [place] [address] [place] [phone] UA Mucous 1+ /hpf Normal [facility] ([place] Comment on above: Performed By: #### U AMIC, UA, PREGU #### [place] [place] [address] [place] [phone] UA RBC 0-2 Normal 0-2 [facility] ([place] Comment on above: Performed By: #### U AMIC, UA, PREGU #### [place] [place] [address] [place] [phone] UA Squam Epithelial 0-2 Normal 0-20 [facility] ([place]) Comment on above: Performed By: #### U AMIC, UA, PREGU #### [place] [address] [place] [address] UA WBC 3-5 Normal 0-5 [facility] ([place] Comment on above: Performed By: #### U AMIC, UA, PREGU #### [place] [address] [place] [phone] CT ABDOMEN/PELVIS W/O CONTRA STon 06-06-2024 CT ABDOMEN/PELVIS W/O CONTRAST ORIGINAL EXAMINATION: CT OF THE ABDOMEN AND PELVIS WITHOUT CONTRAST06/06/2024 1:[address] ABDOMEN/PELVIS WITHOUT CONTRAST TECHNIQUE: CT of the abdomen and pelvis was performed without the administration of intravenous contrast. Multiplanar reformatted images are provided for review. Automated exposure control, iterative reconstruction, and/or weight based adjustment of the mA/kV was utilized to reduce the radiation dose to as low as reasonably achievable. COMPARISON: None HISTORY: ORDERING SYSTEM PROVIDED HISTORY: Reason for Exam: LOWER ABD PAIN/CRAMPING W NAUSEA, VOMITING X1DAY pain FINDINGS: The visualized lower thoracic structures are unremarkable. No acute osseous or soft tissue abnormality. Small fat containing umbilical hernia is present. The liver is unremarkable in size and contour. The gallbladder, pancreas, spleen, adrenal glands are unremarkable. The nonenhanced kidneys are without evidence of hydronephrosis. The ureters are normal course and caliber. There is no evidence of urolithiasis. The visualized esophagus, stomach, and duodenum are unremarkable. The visualized aorta is nonaneurysmal. The GI tract exhibits no acute abnormalities. Unremarkable appendix. No pathologically enlarged retroperitoneal, mesenteric, or pelvic lymph nodes are identified. There is no free intraperitoneal air or fluid. The urinary bladder is well-distended without wall thickening or focal mass. The uterus is within normal limits. IMPRESSION: No acute process. I have personally reviewed the images of this examination and agree with the resident's findings and interpretation. Interpreted by: Suleman Jim DO Preliminary Report By: Yusef Alejandro Electronically signed By Suleman Jim DO Dictated Date: 06/06/2024 1:14:12 PM Prelim Date: 06/06/2024 1:20:05 PM Sign Date: 06/06/2024 1:23:33 PM Ordering Provider: JERAMY BECKHAM Normal [facility] ([place]) HSVABon 06-06-2024 HSV IgG 1 Qualitative Positive Abnormal Negative [facility] ([place]) Comment on above: Result Comment: Perf ormed By: [place] [address] Banquet Food Server: Antony Granger III, M.D. CLIA#: [id number] Performed By: #### 1 [address], HIV, HSVAB #### [place] [address] HSV IgG 2 Qualitative Negative Normal Negative [facility] ([place]) Comment on above: Result Comment: Perf ormed By: [employer] [place] [address] Banquet Food Server: Antony Granger III, M.D. CLIA#: [id number] Performed By: #### 1 [address], HIV, HSVAB #### [place] [address] HSV IgM Qualitative Positive Abnormal Negative [facility] ([place]) Comment on above: Result Comment: Perf ormed By: [place] [address] Banquet Food Server: Antony Granger III, M.D. CLIA#: [id number] Performed By: #### 1 [address], HIV, HSVAB #### [place] [address] HSV Serological Interpretation See Below Normal [facility] ([place] Comment on above: Result Comment: In t he presence of typical herpes simplex lesion(s), these results suggest one of the following: recent primary HSV-1 or HSV-2 infection, or HSV-1 reinfection, or HSV-1 reactivation. False positive HSV IgM results are common. HSV PCR is strongly recommended, if feasible. Otherwise, repeat serology using both HSV-1 IgG and HSV-2 IgG after 4-6 weeks is recommended to look for HSV-2 IgG seroconversion. Performed By: [place] [id number] Banquet Food Server: Antony Granger III, M.D. CLIA#: [id number] Performed By: #### 1 [address], HIV, HSVAB #### [place] [address] PREGUon 06-06-2024 HCG ( test) Ql (U) Negative Normal [facility] ([place] Comment on above: Performed By: #### U AMIC, UA, PREGU #### [address] [place] [address] [place], [place] [address] test (u) int Invalid Interpretation Code [facility] ([place] Comment on above: Result Comment: HCG not detected. Very dilute urine specimens, as indicated by a low specific gravity, may not contain ict sales representative levels of hCG. If is still suspected, a first morning urine specimen should be collected 48 hours later and tested. Performed By: #### U AMIC, UA, PREGU #### [address] [place] [address] [place], [place] [address] UAon 06-06-2024 Color (U) Dark yellow Normal [facility] ([place] Comment on above: Performed By: #### P REGU, UA, UAMIC ####Elmo [address] [place] [address] Glucose (U) [Mass/Vol] Negative Normal Negative [facility] ([place] Comment on above: Performed By: #### P REGU, UA, UAMIC ####Elmogregg ArrietaQbtdfonhv8090 [place] [address] Ketones Ql (U) 15 mg/dL Abnormal Neg-Trace [facility] ([place]) Comment on above: Performed By: #### P REGU, UA, UAMIC ####Elmo [address] [place] [address] UA Appear Cloudy Abnormal [facility] ([place] Comment on above: Performed By: #### P REGU, UA, UAMIC ####Elmogregg JimenezRczpyzknv[address] [place] [address] UA Bili Moderate Abnormal Neg-Trace [facility] ([place] Comment on above: Performed By: #### P REGU, UA, UAMIC ####Elmo [address] [place] [address] UA Blood Small Abnormal Neg-Trace [facility] ([place] Comment on above: Performed By: #### P REGU, UA, UAMIC ####Elmogregg JimenezVyzduhijg8445 [place] [address] UA Leuk Est Moderate Abnormal Negative [facility] ([place] Comment on above: Performed By: #### P REGU, UA, UAMIC ####Elmo [address] [place] [address] UA Nitrite Negative Normal Negative [facility] ([place] Comment on above: Performed By: #### P REGU, UA, UAMIC ####Elmo [address] [place] [phone] UA pH 6.5 Normal 5.0 - 8.0 [facility] ([place] Comment on above: Performed By: #### P REGU, UA, UAMIC ####Elmo [address] [place], [place] [address] UA Protein 100 mg/dL Abnormal Negative [facility] ([place] Comment on above: Performed By: #### P REGU, UA, UAMIC ####Elmo ArrietaPqwrohdah9917 [place], [place] [address] UA Spec Grav 1.025 Normal [facility] ([place]) Comment on above: Performed By: #### P REGU, UA, UAMIC ####Elmo ArrietaRvphynbil9005 [place] [phone] UA Specimen Type Clean Catch Normal [facility] ([place]) Comment on above: Performed By: #### P REGU, UA, UAMIC ####Elmo ArrietaRslnbztfm5371 [place] [phone] UA Urobilinogen 0.2 E.U./dL Normal [facility] ([place] Comment on above: Performed By: #### P REGU, UA, UAMIC ####Elmo [address] [place] [address] UAMICon 06-06-2024 UA Bacteria 3+ /hpf Abnormal Negative [facility] ([place] Comment on above: Performed By: #### U AMIC, UA, PREGU #### [address]eta[address] [place], [place] [address] UA Mucous Trace Normal [facility] ([place]) Comment on above: Performed By: #### U AMIC, UA, PREGU #### [place] [address] [place] [id number] UA RBC 3-5 Abnormal 0-2 [facility] ([place]) Comment on above: Performed By: #### U AMIC, UA, PREGU #### [place] [address] [id number] UA Squam Epithelial 0-2 Normal 0-20 [facility] ([place]) Comment on above: Performed By: #### U AMIC, UA, PREGU #### [place] [place] [address] [place], [place] [address] UA WBC LOADED Abnormal 0-5 [facility] ([place]) Comment on above: Performed By: #### U AMIC, UA, PREGU #### [place] [address] [place], [place] [address] [id number] 06-04-2024 HSV 1 IgG Type Spec 9.46 Index High 0.00-0.90 [facility] ([place]) Comment on above: Result Comment: Nega tive <0.91 Equivocal 0.91 - 1.09 Positive >1.09 Note: Negative indicates no antibodies detected to HSV-1. Equivocal may suggest early infection. If clinically appropriate, retest at later date. Positive indicates antibodies detected to HSV-1. Performed By: #### 1 [address], HIV, HSVAB #### [address] [address] HSV 2 IgG Type Spec <0.91 Normal 0.00-0.90 [facility] ([place]) Comment on above: Result Comment: Nega tive <0.91 Equivocal 0.91 - 1.09 Positive >1.09 HSV-2 Antibody Interpretation: Current guidelines and recommendations do not recommend routine screening for HSV-2 in asymptomatic individuals, including those that are . A negative antibody result indicates no detectable antibodies to HSV-2 were found. If recent exposure is suspected, retest in 4 to 6 weeks. Equivocal samples should be retested in 4 to 6 weeks. A positive result indicates the presence of detectable IgG antibody to HSV-2. FALSE POSITIVE RESULTS MAY OCCUR. Repeat testing, or testing by a different method, may be indicated in some settings (e.g. patients with low likelihood of HSV infection). If clinically appropriate, retest 4 to 6 weeks later. HSV-2 IgG antibody testing results should be clinically correlated. Performed At: [facility] [address] [place], [place] [id number] Marcia Jefferson PhD Ph:[phone] Performed By: #### 1 [address]82, HIV, HSVAB #### [address] [address] RPRon 06-04-2024 Reagin Ab RPR Ql (S) Non-Reactive Normal Non-Reacti ve [facility] ([place]) Comment on above: Result Comment: The RPR test is a non-treponemal assay useful as an aid in the diagnosis of primary and secondary syphilis. It converts to positive generally within 2 weeks after the appearance of a lesion. This test is also useful for monitoring response to antibiotic therapy. A positive RPR screening test will be followed by the FTA ABS test. False positive RPR tests may occur in 1) patients with underlying autoimmune disorders, 2) elderly patients, 3) , and 4) other conditions with abnormal serum globulins. Performed By: #### R KS #### [place] [address] HIVon 06-03-2024 HIV 1/2 Ab Non-Reactive Normal Non-Reacti ve [facility] ([place]) Comment on above: Result Comment: Spec imen is negative for anti-HIV-1 and anti-HIV-2. Performed By: #### 1 [address], HIV, HSVAB #### [place] [id number] LABORATORYOrdered By: Kaajl Verduzco on 06-03-2024 HIV 1+2 Ab IA Ql Negative Invalid Interpretation Code Chemistry S HIV 1/2 Ab Non-Reactive (06/03/24 11:47 AM) Normal Non-Reacti ve ADM SS LABORATORYOrdered By: LABCOR Cha CONTRIBUTOR_SYSTEM on 06-03-2024 HSV 1 IgG Type Spec (LC) 9.46 % index High 0.00-0.90 [facility] Comment on above: Result Comment: Nega tive <0.91 Equivocal 0.91 - 1.09 Positive >1.09 Note: Negative indicates no antibodies detected to HSV-1. Equivocal may suggest early infection. If clinically appropriate, retest at later date. Positive indicates antibodies detected to HSV-1. HSV 2 IgG Type Spec (LC) % index Invalid Interpretation Code 0.00-0.90 [facility] Comment on above: Result Comment: Nega tive <0.91 Equivocal 0.91 - 1.09 Positive >1.09 HSV-2 Antibody Interpretation: Current guidelines and recommendations do not recommend routine screening for HSV-2 in asymptomatic individuals, including those that are . A negative antibody result indicates no detectable antibodies to HSV-2 were found. If recent exposure is suspected, retest in 4 to 6 weeks. Equivocal samples should be retested in 4 to 6 weeks. A positive result indicates the presence of detectable IgG antibody to HSV-2. FALSE POSITIVE RESULTS MAY OCCUR. Repeat testing, or testing by a different method, may be indicated in some settings (e.g. patients with low likelihood of HSV infection). If clinically appropriate, retest 4 to 6 weeks later. HSV-2 IgG antibody testing results should be clinically correlated. Performed At: [address] [id number] Marcia Jefferson PhD Ph:[phone] DHEAUon 02-15-2024 DHEA. 596 ng/dL Normal 31-701 [facility] ([place]) Comment on above: Result Comment: This test was developed and its performance characteristics determined by [facility]. It has not been cleared or approved by the Food and Drug Administration. Performed At: [address] [id number] Reggie Thomas MD Ph:[phone] Performed By: #### T ESTO, INSLN, 923214, ADIFF, FSH, TSH, CBC, FT4, ANEU, LH, CMP, GFR, E2 ####[address] [address] .Auto Diffon 02-08-2024 Basophil, Absolute 0.1 10 3/mcL Normal 0.0-0.3 [facility] ([place]) Comment on above: Performed By: #### T ESTO, INSLN, 401599, ADIFF, FSH, TSH, CBC, FT4, ANEU, LH, CMP, GFR, E2 ####[address] [address] Basophils/100 WBC (Bld) 0.6 % Normal 0.0-2.5 [facility] ([place]) Comment on above: Performed By: #### T ESTO, INSLN, 234328, ADIFF, FSH, TSH, CBC, FT4, ANEU, LH, CMP, GFR, E2 ####[address] [address] Eosinophil, Absolute 0.2 10 3/mcL Normal 0.0-0.7 [facility] ([place]) Comment on above: Performed By: #### T ESTO, INSLN, 045268, ADIFF, FSH, TSH, CBC, FT4, ANEU, LH, CMP, GFR, E2 ####[address] [address] Eosinophils/100 WBC (Bld) 2.0 % Normal 0.0-6.0 [facility] ([place]) Comment on above: Performed By: #### T ESTO, INSLN, 103663, ADIFF, FSH, TSH, CBC, FT4, ANEU, LH, CMP, GFR, E2 ####[address] [address] Lymphocyte, Absolute 2.8 10 3/mcL Normal 0.9-4.3 [facility] ([place]) Comment on above: Performed By: #### T ESTO, INSLN, 323476, ADIFF, FSH, TSH, CBC, FT4, ANEU, LH, CMP, GFR, E2 ####[address] [address] Lymphocytes/100 WBC (Bld) 24.0 % Normal 20.0-40.0 [facility] ([place]) Comment on above: Performed By: #### T ESTO, INSLN, 293210, ADIFF, FSH, TSH, CBC, FT4, ANEU, LH, CMP, GFR, E2 ####[address] [address] Monocyte, Absolute 0.6 10 3/mcL Normal 0.1-1.4 [facility] ([place]) Comment on above: Performed By: #### T ESTO, INSLN, 863440, ADIFF, FSH, TSH, CBC, FT4, ANEU, LH, CMP, GFR, E2 ####[address] [address] Monocytes/100 WBC (Bld) 5.2 % Normal 2.0-13.0 [facility] ([place]) Comment on above: Performed By: #### T ESTO, INSLN, 815246, ADIFF, FSH, TSH, CBC, FT4, ANEU, LH, CMP, GFR, E2 ####[address] [address] Neutrophils/100 WBC (Bld) 68.2 % Normal 50.0-75.0 [facility] ([place]) Comment on above: Performed By: #### T ESTO, INSLN, 302488, ADIFF, FSH, TSH, CBC, FT4, ANEU, LH, CMP, GFR, E2 ####[address] [address] .GFRon 02-08-2024 GFR >60 Normal [facility] ([place]) Comment on above: Result Comment: GFR Population mean for , Non- Americans Ages 20-29 = 116 mL/min/1.73 sq.m. Ages 30-39 = 107 mL/min/1.73 sq.m. Ages 40-49 = 99 mL/min/1.73 sq.m. Ages 50-59 = 93 mL/min/1.73 sq.m. Ages 60-69 = 85 mL/min/1.73 sq.m. Ages 70+ = 75 mL/min/1.73 sq.m. Chronic Kidney Disease: Less than 60 mL/min/1.73 square meters End Stage Renal Disease: Less than 15 mL/min/1.73 square meters Performed By: #### T ESTO, INSLN, 475479, ADIFF, FSH, TSH, CBC, FT4, ANEU, LH, CMP, GFR, E2 ####[place] [id number] GFR Non- >60 Normal [facility] ([place]) Comment on above: Result Comment: GFR Population mean for , Non- Americans Ages 20-29 = 116 mL/min/1.73 sq.m. Ages 30-39 = 107 mL/min/1.73 sq.m. Ages 40-49 = 99 mL/min/1.73 sq.m. Ages 50-59 = 93 mL/min/1.73 sq.m. Ages 60-69 = 85 mL/min/1.73 sq.m. Ages 70+ = 75 mL/min/1.73 sq.m. Chronic Kidney Disease: Less than 60 mL/min/1.73 square meters End Stage Renal Disease: Less than 15 mL/min/1.73 square meters Performed By: #### T ESTO, INSLN, 426470, ADIFF, FSH, TSH, CBC, FT4, ANEU, LH, CMP, GFR, E2 ####[place] [address] .NEUABSon 02-08-2024 Neutrophil, Absolute 7.9 10 3/mcL Normal 2.3-8.1 [facility] ([place]) Comment on above: Performed By: #### T ESTO, INSLN, 347552, ADIFF, FSH, TSH, CBC, FT4, ANEU, LH, CMP, GFR, E2 ####[place] [address] CBCon 02-08-2024 Erythrocyte distribution width (RBC) [Ratio] 15.3 % Normal 11.5-15.5 [facility] ([place]) Comment on above: Performed By: #### T ESTO, INSLN, 292044, ADIFF, FSH, TSH, CBC, FT4, ANEU, LH, CMP, GFR, E2 ####[place] [address] Hematocrit (Bld) [Volume fraction] 41.0 % Normal 34.0-46.0 [facility] ([place]) Comment on above: Performed By: #### T ESTO, INSLN, 439473, ADIFF, FSH, TSH, CBC, FT4, ANEU, LH, CMP, GFR, E2 ####[place] [address] Hgb 13.5 G/dL Normal 12.0-16.0 [facility] ([place]) Comment on above: Performed By: #### T ESTO, INSLN, 150827, ADIFF, FSH, TSH, CBC, FT4, ANEU, LH, CMP, GFR, E2 ####[place] [address] MCH (RBC) [Entitic mass] 26.4 pg Low 27.0-33.0 [facility] ([place]) Comment on above: Performed By: #### T ESTO, INSLN, 006691, ADIFF, FSH, TSH, CBC, FT4, ANEU, LH, CMP, GFR, E2 ####[place] [address] MCHC 32.8 G/dL Normal 32.0-36.0 [facility] ([place]) Comment on above: Performed By: #### T ESTO, INSLN, 906921, ADIFF, FSH, TSH, CBC, FT4, ANEU, LH, CMP, GFR, E2 ####[place] [address] MCV (RBC) [Entitic vol] 80.3 fL Normal 80.0-99.0 [facility] ([place] Comment on above: Performed By: #### T ESTO, INSLN, 982182, ADIFF, FSH, TSH, CBC, FT4, ANEU, LH, CMP, GFR, E2 ####[place] [address] Platelet 400 10 3/mcL Normal 150-450 [facility] ([place]) Comment on above: Performed By: #### T ESTO, INSLN, 739593, ADIFF, FSH, TSH, CBC, FT4, ANEU, LH, CMP, GFR, E2 ####[place] [address] Platelet mean volume (Bld) [Entitic vol] 8.2 fL Normal 6.6-10.5 [facility] ([place]) Comment on above: Performed By: #### T ESTO, INSLN, 476572, ADIFF, FSH, TSH, CBC, FT4, ANEU, LH, CMP, GFR, E2 ####[place] [address] RBC 5.10 10 6/mcL Normal 4.10-5.30 [facility] ([place] Comment on above: Performed By: #### T ESTO, INSLN, 198220, ADIFF, FSH, TSH, CBC, FT4, ANEU, LH, CMP, GFR, E2 ####[place] [address] WBC 11.6 10 3/mcL High 4.5-10.8 [facility] ([place] Comment on above: Performed By: #### T ESTO, INSLN, 013874, ADIFF, FSH, TSH, CBC, FT4, ANEU, LH, CMP, GFR, E2 ####[place] [address] CMPon 02-08-2024 Albumin Level 3.6 G/dL Normal 3.2-4.8 [facility] ([place]) Comment on above: Performed By: #### T ESTO, INSLN, 200540, ADIFF, FSH, TSH, CBC, FT4, ANEU, LH, CMP, GFR, E2 ####[address] [address] Albumin/Globulin [Mass ratio] 1.1 {ratio} Normal 0.9-1.6 [facility] ([place]) Comment on above: Performed By: #### T ESTO, INSLN, 559289, ADIFF, FSH, TSH, CBC, FT4, ANEU, LH, CMP, GFR, E2 ####[address] [address] ALP [Catalytic activity/Vol] 77 U/L Normal 38-126 [facility] ([place]) Comment on above: Performed By: #### T ESTO, INSLN, 073592, ADIFF, FSH, TSH, CBC, FT4, ANEU, LH, CMP, GFR, E2 ####[address] [address] ALT [Catalytic activity/Vol] 28 U/L Normal 10-49 [facility] ([place]) Comment on above: Performed By: #### T ESTO, INSLN, 526284, ADIFF, FSH, TSH, CBC, FT4, ANEU, LH, CMP, GFR, E2 ####[address] [address] AST [Catalytic activity/Vol] 26 U/L Normal 8-34 [facility] ([place]) Comment on above: Performed By: #### T ESTO, INSLN, 511403, ADIFF, FSH, TSH, CBC, FT4, ANEU, LH, CMP, GFR, E2 ####[address] [address] Bili Total <0.20 Normal 0.20-1.20 [facility] ([place]) Comment on above: Result Comment: Use of this assay is not recommended for patients undergoing treatment with eltrombopag due to the potential for falsely elevated results. Performed By: #### T ESTO, INSLN, 365460, ADIFF, FSH, TSH, CBC, FT4, ANEU, LH, CMP, GFR, E2 ####[place] [address] BUN/Creatinine Ratio 23.8 ratio High 10.0-22.0 [facility] ([place]) Comment on above: Performed By: #### T ESTO, INSLN, 663735, ADIFF, FSH, TSH, CBC, FT4, ANEU, LH, CMP, GFR, E2 ####[place] [address] Calcium [Mass/Vol] 9.9 mg/dL Normal 8.7-10.4 [facility] ([place]) Comment on above: Performed By: #### T ESTO, INSLN, 949607, ADIFF, FSH, TSH, CBC, FT4, ANEU, LH, CMP, GFR, E2 ####[place] [address] Chloride [Moles/Vol] 106 mmol/L Normal 98-110 [facility] ([place] Comment on above: Performed By: #### T ESTO, INSLN, 850584, ADIFF, FSH, TSH, CBC, FT4, ANEU, LH, CMP, GFR, E2 ####[place] [address] CO2 [Moles/Vol] 29 mmol/L Normal 22-32 [facility] ([place] Comment on above: Performed By: #### T ESTO, INSLN, 406178, ADIFF, FSH, TSH, CBC, FT4, ANEU, LH, CMP, GFR, E2 ####[place] [address] Creatinine [Mass/Vol] 0.63 mg/dL Normal 0.50-1.20 [facility] ([place] Comment on above: Performed By: #### T ESTO, INSLN, 714341, ADIFF, FSH, TSH, CBC, FT4, ANEU, LH,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 used. URINE TCA TESTING MUST BE ORDERED SEPARATELY. USE TESTMNEMONIC: [facility] Urine Methadone Screen Negative < 300 ng/mL [facility] ,Serum,hCG Quali.on 01-17-2024 HCG, SERUM QUAL Negative Normal [facility] Comment on above: Performed By: #### L 501.9100, L100.0100, L700.6800, L505.5000 #### [facility] [address] [place], [address] Serum or plasma calcium tania urement (mass/volume)Ordered By: Vanessa Maher on 01-17-2024 Calcium [Mass/Vol] 9.7 mg/dL 8.5-10.1 [facility] Serum or plasma choriogonado tropin detectionOrdered By: Vanessa Maher on 01-17-2024 HCG ( test) Ql Negative [facility] Serum or plasma creatinine m easurement (mass/volume)Ordered By: Vanessa Maher on 01-17-2024 Creatinine [Mass/Vol] 0.69 mg/dL Normal 0.55-1.02 [facility] Comment on above: The validity of the calculated GFR & GFRAA in patients over 70 years has not been determined. Clinical correlation is essential. Result Comment: The validity of the calculated GFR GFRAA in patients over 70 years has not been determined. Clinical correlation is essential. Performed By: #### L 500.4050 #### [facility] [address] [place], [place], [address] Serum or plasma urea nitroge n measurement (mass/volume)Ordered By: Vanessa Maher on 01-17-2024 Urea nitrogen [Mass/Vol] 16 mg/dL Normal 7-18 [facility] Comment on above: Performed By: #### L 500.4050 #### [facility] [address] [place], [address] Thin prep Papanicolaou smear with manual screeningOrdered By: Vanessa Maher on 01-17-2024 Thin prep Papanicolaou smear with manual screening 3.6 g/dL 3.2-5.0 [facility] Thin prep Papanicolaou smear with manual screening 14 U/L 15-37 [facility] Thin prep Papanicolaou smear with manual screening 4 5-15 [facility] Urine Drug Screen ([facility])on 01-17-2024 AMPHETAMINES Negative Normal <1000 ng/mL [facility] Comment on above: Performed By: #### L 501.9100, L100.0100, L700.6800, L505.5000 #### [facility] [address] [place], [address] BARBITIURATES Negative Normal < 200 ng/mL [facility] Comment on above: Performed By: #### L 501.9100, L100.0100, L700.6800, L505.5000 #### [facility] [address] [place], [address] BENZODIAZIPINE Negative Normal < 200 ng/mL [facility] Comment on above: Performed By: #### L 501.9100, L100.0100, L700.6800, L505.5000 #### [facility] [address] [place], [address] COCAINE Negative Normal < 300 ng/mL [facility] Comment on above: Performed By: #### L 501.9100, L100.0100, L700.6800, L505.5000 #### [facility] [address] [place], [address] ECSTACY Negative Normal < 500 ng/mL [facility] Comment on above: Performed By: #### L 501.9100, L100.0100, L700.6800, L505.5000 #### [facility] [address] [place], [address] METHADONE Negative Normal < 300 ng/mL [facility] Comment on above: Performed By: #### L 501.9100, L100.0100, L700.6800, L505.5000 #### [facility] [address] [place], [address] OPIATES Negative Normal < 300 ng/mL [facility] Comment on above: Performed By: #### L 501.9100, L100.0100, L700.6800, L505.5000 #### [facility] [address] [place], [address] PCP Negative Normal < 25 ng/mL [facility] Comment on above: Performed By: #### L 501.9100, L100.0100, L700.6800, L505.5000 #### [facility] [address] [place], [address] THC Positive Abnormal < 50 ng/mL [facility] Comment on above: Performed By: #### L 501.9100, L100.0100, L700.6800, L505.5000 #### [facility] [address] [place], [address] VISTA UDS PH 5 Normal [facility] Comment on above: Performed By: #### L 501.9100, L100.0100, L700.6800, L505.5000 #### [facility] [address] [place], [address] Urine phencyclidine (PCP) de tectionOrdered By: Vanessa Maher on 01-17-2024 Phencyclidine Ql (U) Negative < 25 ng/mL [facility] CNOVon 11-29-2023 CNOV Office Visit ([facility] ) SABINO DEWEY ([id number]) 1 F Date Time Provider Department 11/29/23 10:25 [facility] During your visit today, we recorded the following information about you: Temperature Pulse Respiration Blood pressure 97.4 degrees 80/minute 20/minute 121/78 Weight 124 kg Carmel Rodriguez APRN.CNP 11/29/2023 5:42 PM Signed Sabino Dewey is a 18 year old female [...] with PCP in 2-5 days. Carmel Rodriguez APRN.Ema Doss (more content not included)... [facility] SABINO DEWEY ([id number]) 1 F Date Time Provider Department 11/13/23 12:50 PM MARGAUX MARTINS [facility] During your visit today, we recorded the following information about you: Temperature Pulse Respiration Blood pressure 97.8 degrees 75/minute 18/minute 126/84 Weight Last Period 118.4 kg 10/28/23 Tabitha Huerta LPN 11/13/2023 4:14 PM Signed Patient requested to sit on the floor due to back pain. This nurse offered patient a different chair or to sit on the bed patient refused. PATRICIA Redd Lisa Dawn, DO 11/13/2023 4:14 PM Signed Sabino Tamez Maco is a 18 year old FEMALE who [...] - OXYCODONE-ACETAMINOPHEN 5 MG-325 MG TABLET Margaux Martins Referring Provider: SELF [200] Allergies As of Date: 11/13/2023 Noted Allergy Reaction HYDROCODONE 07/24/2023 10 - Anaphylaxis Date Reviewed: 11/13/2023 Reviewed by: Margaux Martins DO - Fully Assessed Reason for Visit: Sinus Problem [99] Cmt: Congestion Started 2 days ago Abdominal Pain [1] Cmt: Started 2 days ago Middle ABD area Jaw pain [Other] Cmt: Left side Started off and on for the past 3 months P (more content not included)... [facility] ) MACOSABINO Tamez ([id number]) 1 F Date Time Provider Department 07/24/23 10:25 AM MARGAUX MARTINS [facility] During your visit today, we recorded the following information about you: Temperature Pulse Respiration Blood pressure 98 degrees 92/minute 18/minute 125/82 Margaux Martins DO 07/24/2023 11:49 AM Signed Sabino Tamez Maco is a 18 year old FEMALE who [...] ICD10: R30.0 - URINALYSIS, DIPSTICK ONLY Margaux Martins Referring Provider: SELF [200] Allergies As of Date: 07/24/2023 Noted Allergy Reaction HYDROCODONE 07/24/2023 10 - Anaphylaxis Date Reviewed: 07/24/2023 Reviewed by: Margaux Martins, - Fully Assessed Reason for Visit: UTI [116] Cmt: Pain with urination, discomfort x 10 days Primary Visit Diagnosis:Acute cystitis with hematuria [N30.01] Other Visit Diagnosis:Dysuria [R30.0] Order(s):URINALYSIS, DIPSTICK ONLY [SQUA] Order #: [id number] FUTURE URINALYSIS, DIPSTICK ONLY [SQUA] Order #: [id number]. #:[id number] nitrofurantoin monohydrate and macrocrystal (MACROBID) 100 mg capsuleTake 1 capsule by mouth twice daily for 7 days.Disp: 14 capsuleRfl: 0 phenazopyridine (PYRIDIUM) 200 mg tabletTake 1 tablet by mouth three times daily as needed for pain for up to 2 days.Disp: 6 tabletRfl: 0 fluconazole (DIFLUCAN) 150 mg tabletTake 1 pill on days 1, 4 and 7. Take with food.Disp: 3 tabletRfl: 0 Prescriptions as of 07/24/2023 - nitrofurantoin monohydrate and macrocrystal (MACROBID) 100 mg capsule Take 1 capsule by mouth twice daily for 7 days. - phenazopyridine (PYRIDIUM) 200 mg tablet Take 1 tablet by mouth three times daily as needed for pain for up to 2 days. - fluconazole (DIFLUCAN) 150 mg tablet Take 1 pill on days 1, 4 and 7. Take with food. - acetaminophen (TYLENOL) 500 mg tablet Take by mouth. - naproxen (NAPROSYN) 500 mg tablet Take by mouth. Problem List As Of Date 07/24/2023 Noted Resolved ADHD (attention deficit hyperactivity disorder)*01/16/2011 Body mass index equal to or greater than 95th p*07/05/2015 Prescriptions ordered this encounter Disp Refills Start End NITROFURANTOIN MONOHYDRATE AND MACROCR* 14 c* 0 07/24/2023 07/31/2023 Route: ORAL Sig: Take 1 capsule by mouth twice daily for 7 days. PHENAZOPYRIDINE 200 MG TABLET 6 ta* 0 07/24/2023 07/26/2023 Route: ORAL Sig: Take 1 tablet by mouth three times daily as needed for pain for up to 2 days. FLUC (more content not included)... Normal [facility] URINALYSIS, DIPSTICK ONLYon 07-24-2023 Bilirubin Ql (U) Negative Normal Negative [facility] Comment on above: Order Comment: Speci men Type: URINE SPECIMEN Ordering Facility: [facility] Address: [address] [place] [address] Performed By: #### U A #### [facility] CLIA [id number] [address] [place] [address] Clarity (Unsp spec) Cloudy Abnormal Clear [facility] Comment on above: Order Comment: Speci men Type: URINE SPECIMEN Ordering Facility: [facility] Address: [address] [place] [address] Performed By: #### U A #### [facility] CLIA [id number] [address] [place] [address] [place] Color (U) Yellow Normal Yellow [facility] Comment on above: Order Comment: Speci men Type: URINE SPECIMEN Ordering Facility: [facility] Address: [address] [place] [address] Performed By: #### U A #### [facility] CLIA [id number] [address] [place] [address] [place] Glucose Test strip (U) [Mass/Vol] Negative Normal Negative [facility] Comment on above: Order Comment: Speci men Type: URINE SPECIMEN Ordering Facility: [facility] Address: [address] [place] [address] Performed By: #### U A #### [facility] CLIA [id number] [address] [place] [address] [place] Hemoglobin Ql (U) 2+ Abnormal Negative [facility] Comment on above: Order Comment: Speci men Type: URINE SPECIMEN Ordering Facility: [facility] Address: [address] [address] Performed By: #### U A #### [facility] CLIA [id number] [address] [place] [address] Ketones Ql (U) Negative Normal Negative [facility] Comment on above: Order Comment: Speci men Type: URINE SPECIMEN Ordering Facility: [facility] Address: [address] [place] [address] Performed By: #### U A #### [facility] CLIA [id number] [address] [place] [address] Leukocyte esterase Test strip Ql (U) 3+ Abnormal Negative [facility] Comment on above: Order Comment: Speci men Type: URINE SPECIMEN Ordering Facility: [facility] Address: [address] [place] [address] Performed By: #### U A #### [facility] CLIA [id number] [address] [place] [address] Nitrite Ql (U) Negative Normal Negative [facility] Comment on above: Order Comment: Speci men Type: URINE SPECIMEN Ordering Facility: [facility] Address: [address] [place] [address] Performed By: #### U A #### [facility] CLIA [id number] [address] [place] [address] pH (U) 6.0 [pH] Normal 5.0-8.0 [facility] Comment on above: Order Comment: Speci men Type: URINE SPECIMEN Ordering Facility: [facility] Address: [address] [place] [address] Performed By: #### U A #### [facility] CLIA [id number] [address] [place] [address] Protein (U) [Mass/Vol] 1+ Abnormal Negative [facility] Comment on above: Order Comment: Speci men Type: URINE SPECIMEN Ordering Facility: [facility] Address: [address] [address] Performed By: #### U A #### [facility] CLIA [id number] [address] Specific gravity (U) [Rel density] 1.020 Normal 1.005-1.03 0 [facility] Comment on above: Order Comment: Speci men Type: URINE SPECIMEN Ordering Facility: [facility] Address: [address] [address] Performed By: #### U A #### [facility] CLIA [id number] [address] Urobilinogen Ql (U) Negative Normal Negative [facility] Comment on above: Order Comment: Speci men Type: URINE SPECIMEN Ordering Facility: [facility] Address: [address] [place] [address] Performed By: #### U A #### [facility] [place] [id number] [address] Bilirubin Ql (U) Negative Negative [facility] Clarity (Unsp spec) Cloudy Abnormal Clear [facility] Color (U) Yellow Yellow [facility] Glucose Test strip (U) [Mass/Vol] Negative Negative [facility] Hemoglobin Ql (U) 2+ Abnormal Negative [facility] Ketones Ql (U) Negative Negative [facility] Leukocyte esterase Test strip Ql (U) 3+ Abnormal Negative [facility] Nitrite Ql (U) Negative Negative [facility] pH (U) 6.0 [pH] 5.0 - 8.0 [facility] Protein (U) [Mass/Vol] 1+ Abnormal Negative [facility] Specific gravity (U) [Rel density] 1.020 1.005 - 1.030 [facility] Urobilinogen Ql (U) Negative Negative [facility] CNOVon 02-19-2023 CNOV Office Visit (UCMMAS ) SABINO DEWEY ([id number]) 1 F Date Time Provider Department 02/19/23 7:10 PM BECKY BURCIAGA During your visit today, we recorded the following information about you: Temperature Pulse Respiration Blood pressure 97.6 degrees 102/minute 20/minute 140/85 Last Period 02/12/23 Becky Burciaga MD 02/19/2023 7:35 PM Signed Sabino Tamez Maco is a 18 year old FEMALE who [...] Explained details OTC pain meds as needed MD Becky Lyle MD 02/19/2023 7:34 PM Signed Mouth wash, See Dentist LILY for further treatment Explained details OTC pain meds as needed Referring Provider: SELF [200] Allergies As of Date: 02/19/2023 (No Known Allergies) Date Reviewed: 02/19/2023 Reviewed by: Becky Burciaga MD - Fully Assessed Reason for Visit: Headache [52] Cmt: Jaw pain, dizzy x 1 week Primary Visit Diagnosis:Dental infection [K04.7] Order(s):amoxicillin (AMOXIL) 875 mg tabletTake 1 tablet by mouth twice daily for 10 days.Disp: 20 tabletRfl: 0 Prescriptions as of 02/19/2023 - acetaminophen (TYLENOL) 500 mg tablet Take by mouth. - naproxen (NAPROSYN) 500 mg tablet Take by mouth. - amoxicillin (AMOXIL) 875 mg tablet Take 1 tablet by mouth twice daily for 10 days. - clotrimazole (LOTRIMIN, CLOTRIM) 1 % cream 1 application twice daily to facial lesions. Use 3 days past resolution of rash. - albuterol HFA (PROAIR HFA) 90 mcg/actuation inhaler Inhale 2 Puffs as instructed every 6 hours as needed. - Ethinyl Estradiol-Norelgestrom (XULANE) 150-35 mcg/24 hr Apply 1 Patch as directed once each week. - VALERIAN ROOT ORAL Take by mouth. Problem List As Of Date 02/19/2023 Noted Resolved ADHD (attention deficit hyperactivity disorder)*01/16/2011 Body mass index equal to or greater than 95th p*07/05/2015 Other instructions from your clinician: Mouth wash, See Dentist LILY for further treatment Explained details OTC pain meds as needed Prescriptions ordered this encounter Disp Refills Start End AMOXICILLIN 875 MG TABLET 20 t* 0 02/19/2023 03/01/2023 Route: ORAL Sig: Take 1 tablet by mouth twice daily for 10 days. Medications Discontin (more content not included)... [facility] 06-14-2020 [facility] Office Visit ([facility] ) SABINO DEWEY ([id number]) 1 F Date Time Provider Department 06/14/20 11:15 AM SANDOVAL MOSQUEDA) [facility] During your visit today, we recorded the following information about you: Temperature Pulse Respiration Weight 98.1 degrees 91/minute 18/minute 123.8 kg Sandoval Mosqueda PA-C 06/14/2020 12:25 PM Signed This note was created using [employer]. Subjective Nievesyara Dewey is a 15 year old female. HPI Patient presents with a chief complaint of cough, sore throat, nasal congestion over the past 3 days. No shortness of breath or chest pain. No fever. She denies any exposure to known coded. Her sister has a sore throat right now as well. No exposure to tested strep. Her sister was treated for a possible strep with a sore throat. No nausea or vomiting. No diarrhea. She does have a history of asthma but hasn't had a use her inhaler. She is not on an inhaled steroid. No diarrhea or vomiting. Review of Systems Constitutional: Positive for fatigue. Negative for chills and fever. HENT: Positive for congestion, rhinorrhea and sore throat. Negative for ear pain. Eyes: Negative. Respiratory: Positive for cough. Negative for shortness of breath and wheezing. Cardiovascular: Negative. Gastrointestinal: Negative. Endocrine: Negative. Genitourinary: Negative. Musculoskeletal: Negative. All other systems reviewed and are negative. PAST MEDICAL HISTORY Diagnosis Date - ADHD (attention deficit hyperactivity disorder) - Exercise-induced asthma - NEGATIVE MEDICAL HISTORY 11/03/09 normal color vision - RSV (acute bronchiolitis due to respiratory syncytial virus) as a baby Current Outpatient Medications Medication Sig Dispense Refill - clotrimazole (LOTRIMIN, CLOTRIM) 1 % cream 1 application twice daily to facial lesions. Use 3 days past resolution of rash. 45 g 0 - cetirizine (ZYRTEC) 10 mg tablet TAKE 1 TABLET BY MOUTH EVERY DAY 30 tablet 0 - guaiFENesin (MUCINEX) 600 mg 12 hr tablet Take 2 tablets by mouth twice daily. (Patient not taking: Reported on 02/17/2020 ) 30 tablet 0 - albuterol HFA (PROAIR HFA) 90 mcg/actuation inhaler Inhale 2 Puffs as instructed every 6 hours as needed. 1 Inhaler 0 - benzonatate (TESSALON PERLE) 100 mg capsule Take 2 capsules by mouth three times daily as needed. (Patient not taking: Reported on 02/17/2020 ) 30 capsule 0 - Ethinyl Estradiol-Norelgestrom (XULANE) 150-35 mcg/24 hr Apply 1 Patch as directed once each week. 3 Patch 3 - VALERIAN ROOT ORAL Take by mouth. No current facility-administered medications for this visit. PAST SURGICAL HISTORY Procedure Laterality Date - NONE FAMILY HISTORY Problem Relation Age of Onset - None Unknown - other (sids [Other]) Sister Social History Tobacco Use - Smoking status: Never Smoker - Smokeless tobacco: Never Used Substance Use Topics - Alcohol use: No - Drug use: No Objective Pulse 91 Temp 36.7 ?C (98.1 ?F) (Tympanic) Resp 18 Wt 123.8 kg (273 lb) LMP 03/16/2019 SpO2 96% Physical Exam Vitals signs reviewed. Constitutional: Appearance: Normal appearance. HENT: Head: Normocephalic and atraumatic. Right Ear: Tympanic membrane, ear canal and external ear normal. Left Ear: Tympanic membrane, ear canal and external ear normal. Nose: Congestion present. Mouth/Throat: Mouth: Mucous membranes are moist. Pharynx: Oropharynx is clear. No oropharyngeal exudate. Cardiovascular: Rate and Rhythm: Normal rate and regular rhythm. Heart sounds: Normal heart sounds. Pulmonary: Effort: Pulmonary effort is normal. No respiratory distress. Breath sounds: Normal breath sounds. No stridor. No wheezing, rhonchi or rales. Skin: General: Skin is warm and dry. Findings: No rash. Neurological: General: No focal deficit present. Mental Status: She is alert and oriented to person, place, and time. Psychiatric: Mood and Affect: Mood normal. Behavior: Behavior normal. Assessment and Plan ASSESSMENT/PLAN: 1. Suspected 2019 novel coronavirus infection - ICD9: , ICD10: Z20.828 Discussed with patient that she likely has a viral upper respiratory infection, covid19 not excluded. She appears well here. Not in any distress. Discussed quarantine and isolation. Patient was interested in testing. She wanted to be tested at [facility], I did order this for her. Will call on the results. Discussed red flag symptoms. She was here with her mother's fiance and there was a note for permission from mom. Sandoval Mosqueda PA-C Referring Provider: SELF [200] Allergies As of Date: 06/14/2020 (No Known Allergies) Date Reviewed: 02/17/2020 Reviewed by: Shamika Syed - Fully Assessed Reason for Visit: Cough [28] Cmt: and chest congestion x 3 days Sore Throat [200] Cmt: x 3 days Primary Visit Diagnosis:Suspected 2019 novel coronavirus infection [Z20.828] Prescriptions as of 06/14/2020 Sig: CLOTRIMAZOLE 1 % TOPICAL CREAM 1 application twice daily to * CETIRIZINE 10 MG TABLET TAKE 1 TABLET BY MOUTH EVERY * MUCINEX 600 MG TABLET, EXTEND* Take 2 tablets by mouth twice* Patient not taking: Reported on 02/17/2020 ALBUTEROL SULFATE HFA 90 MCG/* Inhale 2 Puffs as instructed * BENZONATATE 100 MG CAPSULE Take 2 capsules by mouth thre* Patient not taking: Reported on 02/17/2020 NORELGESTROMIN 150 MCG-E.ESTR* Apply 1 Patch as directed onc* VALERIAN ROOT ORAL Take by mouth. Problem List As Of Date 06/14/2020 Noted Resolved ADHD (attention deficit hyperactivity disorder)*01/16/2011 Body mass index equal to or greater than 95th p*07/05/2015 Letter Text Letter Text Encounter Status:Closed by SANDOVAL MOSQUEDA PA-C on 06/14/20 Normal [facility] PROGRESSon 06-14-2020 PROGRESS HNO ID: [id number] Author: Sandoval Mosqueda (Pa) Service: ? Author Type: Physician User Interface Artist Type: Progress Notes Filed: 06/14/2020 12:25 PM Note Text: This note was created using [employer]. Subjective Sabino Dewey is a 15 year old female. HPI Patient presents with a chief complaint of cough, sore throat, nasal congestion over the past 3 days. No shortness of breath or chest pain. No fever. She denies any exposure to known coded. Her sister has a sore throat right now as well. No exposure to tested strep. Her sister was treated for a possible strep with a sore throat. No nausea or vomiting. No diarrhea. She does have a history of asthma but hasn't had a use her inhaler. She is not on an inhaled steroid. No diarrhea or vomiting. Review of Systems Constitutional: Positive for fatigue. Negative for chills and fever. HENT: Positive for congestion, rhinorrhea and sore throat. Negative for ear pain. Eyes: Negative. Respiratory: Positive for cough. Negative for shortness of breath and wheezing. Cardiovascular: Negative. Gastrointestinal: Negative. Endocrine: Negative. Genitourinary: Negative. Musculoskeletal: Negative. All other systems reviewed and are negative. PAST MEDICAL HISTORY Diagnosis Date - ADHD (attention deficit hyperactivity disorder) - Exercise-induced asthma - NEGATIVE MEDICAL HISTORY 11/03/09 normal color vision - RSV (acute bronchiolitis due to respiratory syncytial virus) as a baby Current Outpatient Medications Medication Sig Dispense Refill - clotrimazole (LOTRIMIN, CLOTRIM) 1 % cream 1 application twice daily to facial lesions. Use 3 days past resolution of rash. 45 g 0 - cetirizine (ZYRTEC) 10 mg tablet TAKE 1 TABLET BY MOUTH EVERY DAY 30 tablet 0 - guaiFENesin (MUCINEX) 600 mg 12 hr tablet Take 2 tablets by mouth twice daily. (Patient not taking: Reported on 02/17/2020 ) 30 tablet 0 - albuterol HFA (PROAIR HFA) 90 mcg/actuation inhaler Inhale 2 Puffs as instructed every 6 hours as needed. 1 Inhaler 0 - benzonatate (TESSALON PERLE) 100 mg capsule Take 2 capsules by mouth three times daily as needed. (Patient not taking: Reported on 02/17/2020 ) 30 capsule 0 - Ethinyl Estradiol-Norelgestrom (XULANE) 150-35 mcg/24 hr Apply 1 Patch as directed once each week. 3 Patch 3 - VALERIAN ROOT ORAL Take by mouth. No current facility-administered medications for this visit. PAST SURGICAL HISTORY Procedure Laterality Date - NONE FAMILY HISTORY Problem Relation Age of Onset - None Unknown - other (sids [Other]) Sister Social History Tobacco Use - Smoking status: Never Smoker - Smokeless tobacco: Never Used Substance Use Topics - Alcohol use: No - Drug use: No Objective Pulse 91 Temp 36.7 ?C (98.1 ?F) (Tympanic) Resp 18 Wt 123.8 kg (273 lb) LMP 03/16/2019 SpO2 96% Physical Exam Vitals signs reviewed. Constitutional: Appearance: Normal appearance. HENT: Head: Normocephalic and atraumatic. Right Ear: Tympanic membrane, ear canal and external ear normal. Left Ear: Tympanic membrane, ear canal and external ear normal. Nose: Congestion present. Mouth/Throat: Mouth: Mucous membranes are moist. Pharynx: Oropharynx is clear. No oropharyngeal exudate. Cardiovascular: Rate and Rhythm: Normal rate and regular rhythm. Heart sounds: Normal heart sounds. Pulmonary: Effort: Pulmonary effort is normal. No respiratory distress. Breath sounds: Normal breath sounds. No stridor. No wheezing, rhonchi or rales. Skin: General: Skin is warm and dry. Findings: No rash. Neurological: General: No focal deficit present. Mental Status: She is alert and oriented to person, place, and time. Psychiatric: Mood and Affect: Mood normal. Behavior: Behavior normal. Assessment and Plan ASSESSMENT/PLAN: 1. Suspected 2019 novel coronavirus infection - ICD9: , ICD10: Z20.828 Discussed with patient that she likely has a viral upper respiratory infection, covid19 not excluded. She appears well here. Not in any distress. Discussed quarantine and isolation. Patient was interested in testing. She wanted to be tested at [facility], I did order this for her. Will call on the results. Discussed red flag symptoms. She was here with her mother's fiance and there was a note for permission from mom. Sandoval Mosqueda PA-C Normal [facility] CNOVon 02-17-2020 CNOV Office Visit ([facility] ) SABINO DEWEY ([id number]) 1 F Date Time Provider Department 02/17/20 3:45 PM SHAMIKA SYED [facility] During your visit today, we recorded the following information about you: Temperature Pulse Respiration Blood pressure 98.3 degrees 84/minute 16/minute 102/64 Weight 114.8 kg Shamika Syed APRN.MANAGER FACILITY 02/17/2020 4:25 PM Signed Subjective HPI Sabino Dewey is a 15 year old female who presents with her mother for an itchy rash of the face for the last 2 days. Her mother also has similar symptoms. They suspect this is being caused by their cat. She also has 2 lesions of left upper/mid arm that do not resemble facial lesions. She has applied clear nail swazi without relief. She denies fever or cough. Review of Systems Constitutional: Negative for chills and fever. HENT: Negative for congestion. Respiratory: Negative for cough. Skin: Positive for itching and rash. Neurological: Negative for tingling and sensory change. BP 102/64 Pulse 84 Temp 36.8 ?C (98.3 ?F) (Tympanic) Resp 16 Wt 114.8 kg (253 lb) LMP 03/16/2019 SpO2 99% PAST MEDICAL HISTORY Diagnosis Date - ADHD (attention deficit hyperactivity disorder) - Exercise-induced asthma - NEGATIVE MEDICAL HISTORY 11/03/09 normal color vision - RSV (acute bronchiolitis due to respiratory syncytial virus) as a baby PAST SURGICAL HISTORY Procedure Laterality Date - NONE ALLERGIES Patient has no known allergies. MEDICATIONS cetirizine (ZYRTEC) 10 mg tablet TAKE 1 TABLET BY MOUTH EVERY DAY albuterol HFA (PROAIR HFA) 90 mcg/actuation inhaler Inhale 2 Puffs as instructed every 6 hours as needed. Ethinyl Estradiol-Norelgestrom (XULANE) 150-35 mcg/24 hr Apply 1 Patch as directed once each week. VALERIAN ROOT ORAL Take by mouth. guaiFENesin (MUCINEX) 600 mg 12 hr tablet Take 2 tablets by mouth twice daily. benzonatate (TESSALON PERLE) 100 mg capsule Take 2 capsules by mouth three times daily as needed. FAMILY HISTORY Problem Relation Age of Onset - None Unknown - other (sids [Other]) Sister Social History Tobacco Use - Smoking status: Never Smoker - Smokeless tobacco: Never Used Substance Use Topics - Alcohol use: No - Drug use: No Objective Physical Exam Constitutional: She is oriented to person, place, and time and well-developed, well-nourished, and in no distress. HENT: Head: Normocephalic and atraumatic. Eyes: Conjunctivae are normal. Pulmonary/Chest: Effort normal. No respiratory distress. Neurological: She is alert and oriented to person, place, and time. No cranial nerve deficit. Gait normal. Coordination normal. Skin: Rash noted. Psychiatric: Mood, memory, affect and judgment normal. ASSESSMENT/PLAN: 1. Tinea faciale - ICD9: 110.8, ICD10: B35.8 (primary diagnosis) - may continue treatment for 4-6 weeks. instructed to call PCP office if no better in this time. - CLOTRIMAZOLE 1 % TOPICAL CREAM 2. Impetigo - ICD9: 684, ICD10: L01.00 - Skin care and contagious disease precautions discussed - Follow up if symptoms persist or fail to resolve - MUPIROCIN 2 % TOPICAL OINTMENT All of the above discussed with the parent in detail. Parent is in agreement with the above plan. Treatment and plan of care discussed including course of treatment, possible medication side effects, and what to watch for in regards to worsening signs and symptoms. All questions addressed. Shamika Syed APRN.MANAGER FACILITY Referring Provider: SELF [200] Allergies As of Date: 02/17/2020 (No Known Allergies) Date Reviewed: 02/17/2020 Reviewed by: Shamika Syde - Fully Assessed Reason for Visit: Derm Problem [33] Cmt: face x 2 days Primary Visit Diagnosis:Tinea faciale [B35.8] Other Visit Diagnosis:Impetigo [L01.00] Order(s):mupirocin (BACTROBAN) 2 % ointmentApply 1 application to affected area three times daily for 7 days. Left arm.Disp: 22 gRfl: 0 clotrimazole (LOTRIMIN, CLOTRIM) 1 % cream1 application twice daily to facial lesions. Use 3 days past resolution of rash.Disp: 45 gRfl: 0 Prescriptions as of 02/17/2020 Sig: CETIRIZINE 10 MG TABLET TAKE 1 TABLET BY MOUTH EVERY * ALBUTEROL SULFATE HFA 90 MCG/* Inhale 2 Puffs as instructed * NORELGESTROMIN 150 MCG-E.ESTR* Apply 1 Patch as directed onc* VALERIAN ROOT ORAL Take by mouth. MUPIROCIN 2 % TOPICAL OINTMENT Apply 1 application to affect* CLOTRIMAZOLE 1 % TOPICAL CREAM 1 application twice daily to * MUCINEX 600 MG TABLET, EXTEND* Take 2 tablets by mouth twice* Patient not taking: Reported on 02/17/2020 BENZONATATE 100 MG CAPSULE Take 2 capsules by mouth thre* Patient not taking: Reported on 02/17/2020 Problem List As Of Date 02/17/2020 Noted Resolved ADHD (attention deficit hyperactivity disorder)*01/16/2011 Body mass index equal to or greater than 95th p*07/05/2015 Prescriptions ordered this encounter Disp Refills Start End MUPIROCIN 2 % TOPICAL OINTMENT 22 g 0 02/17/2020 02/24/2020 Route: TOPICAL Sig: Apply 1 application to affected area three times daily for 7 days. Left arm. CLOTRIMAZOLE 1 % TOPICAL CREAM 45 g 0 02/17/2020 Si application twice daily to facial lesions. Use 3 days past resolution of rash. Encounter Status:Closed by BILLY DESIR.SHAMIKA ROACH on 02/17/20 Normal [facility] PROGRESSon 02-17-2020 PROGRESS HNO ID: [id number] Author: Shamika Syed Service: ? Author Type: Nurse Practitioner Type: Progress Notes Filed: 02/17/2020 4:25 PM Note Text: Subjective HPI Sabino Dewey is a 15 year old female who presents with her mother for an itchy rash of the face for the last 2 days. Her mother also has similar symptoms. They suspect this is being caused by their cat. She also has 2 lesions of left upper/mid arm that do not resemble facial lesions. She has applied clear nail swazi without relief. She denies fever or cough. Review of Systems Constitutional: Negative for chills and fever. HENT: Negative for congestion. Respiratory: Negative for cough. Skin: Positive for itching and rash. Neurological: Negative for tingling and sensory change. BP 102/64 Pulse 84 Temp 36.8 ?C (98.3 ?F) (Tympanic) Resp 16 Wt 114.8 kg (253 lb) LMP 03/16/2019 SpO2 99% PAST MEDICAL HISTORY Diagnosis Date - ADHD (attention deficit hyperactivity disorder) - Exercise-induced asthma - NEGATIVE MEDICAL HISTORY 11/03/09 normal color vision - RSV (acute bronchiolitis due to respiratory syncytial virus) as a baby PAST SURGICAL HISTORY Procedure Laterality Date - NONE ALLERGIES Patient has no known allergies. MEDICATIONS cetirizine (ZYRTEC) 10 mg tablet TAKE 1 TABLET BY MOUTH EVERY DAY albuterol HFA (PROAIR HFA) 90 mcg/actuation inhaler Inhale 2 Puffs as instructed every 6 hours as needed. Ethinyl Estradiol-Norelgestrom (XULANE) 150-35 mcg/24 hr Apply 1 Patch as directed once each week. VALERIAN ROOT ORAL Take by mouth. guaiFENesin (MUCINEX) 600 mg 12 hr tablet Take 2 tablets by mouth twice daily. benzonatate (TESSALON PERLE) 100 mg capsule Take 2 capsules by mouth three times daily as needed. FAMILY HISTORY Problem Relation Age of Onset - None Unknown - other (sids [Other]) Sister Social History Tobacco Use - Smoking status: Never Smoker - Smokeless tobacco: Never Used Substance Use Topics - Alcohol use: No - Drug use: No Objective Physical Exam Constitutional: She is oriented to person, place, and time and well-developed, well-nourished, and in no distress. HENT: Head: Normocephalic and atraumatic. Eyes: Conjunctivae are normal. Pulmonary/Chest: Effort normal. No respiratory distress. Neurological: She is alert and oriented to person, place, and time. No cranial nerve deficit. Gait normal. Coordination normal. Skin: Rash noted. Psychiatric: Mood, memory, affect and judgment normal. ASSESSMENT/PLAN: 1. Tinea faciale - ICD9: 110.8, ICD10: B35.8 (primary diagnosis) - may continue treatment for 4-6 weeks. instructed to call PCP office if no better in this time. - CLOTRIMAZOLE 1 % TOPICAL CREAM 2. Impetigo - ICD9: 684, ICD10: L01.00 - Skin care and contagious disease precautions discussed - Follow up if symptoms persist or fail to resolve - MUPIROCIN 2 % TOPICAL OINTMENT All of the above discussed with the parent in detail. Parent is in agreement with the above plan. Treatment and plan of care discussed including course of treatment, possible medication side effects, and what to watch for in regards to worsening signs and symptoms. All questions addressed. Shamika Syed APRN.MANAGER FACILITY Normal [facility] OBSOLETEon 01-14-2020 OBSOLETE Refill (UCTR) SABINO DEWEY ([id number]) 1 F Date Time Provider Department 01/14/20 SANDOVAL MOSQUEDA ([place] [facility] During your visit today, we recorded the following information about you: Karly Canut MD 01/14/2020 6:17 PM Signed Patient's request for medication is as follows: Signed Prescriptions Disp Refills cetirizine (ZYRTEC) 10 mg tablet 30 tablet 0 Sig: TAKE 1 TABLET BY MOUTH EVERY DAY BENY: No Authorizing Provider: KARLY CANTU Prescription(s) as above. Please process accordingly. MD Merlyn Ndiaye LPN 01/14/2020 6:21 PM Signed The following approved medication requests have been transmitted electronically. Signed Prescriptions Disp Refills cetirizine (ZYRTEC) 10 mg tablet 30 tablet 0 Sig: TAKE 1 TABLET BY MOUTH EVERY DAY BENY: No Authorizing Provider: KARLY CANTU LPN Allergies As of Date: 01/14/2020 (No Known Allergies) Date Reviewed: 01/08/2020 Reviewed by: Latasha Acevedo LPN - Fully Assessed Reason for Visit: Refill Request [94] Order(s):cetirizine (ZYRTEC) 10 mg tabletTAKE 1 TABLET BY MOUTH EVERY DAYDisp: 30 tabletRfl: 0 Prescriptions as of 01/14/2020 Sig: CETIRIZINE 10 MG TABLET TAKE 1 TABLET BY MOUTH EVERY * MUCINEX 600 MG TABLET, EXTEND* Take 2 tablets by mouth twice* DOXYCYCLINE MONOHYDRATE 100 M* Take 1 capsule by mouth twice* ALBUTEROL SULFATE HFA 90 MCG/* Inhale 2 Puffs as instructed * BENZONATATE 100 MG CAPSULE Take 2 capsules by mouth thre* NORELGESTROMIN 150 MCG-E.ESTR* Apply 1 Patch as directed onc* VALERIAN ROOT ORAL Take by mouth. Problem List As Of Date 01/14/2020 Noted Resolved ADHD (attention deficit hyperactivity disorder)*01/16/2011 Body mass index equal to or greater than 95th p*07/05/2015 Prescriptions ordered this encounter Disp Refills Start End CETIRIZINE 10 MG TABLET 30 t* 0 01/14/2020 Sig: TAKE 1 TABLET BY MOUTH EVERY DAY Medications Discontinued During This Encounter cetirizine (ZYRTEC) 10 mg tablet 30 t* 0 12/24/2019 01/14/2020 Route: ORAL Sig: Take 1 tablet by mouth once daily. Disc: Reason for discontinue is not on file. Encounter Status:Closed by MERLYN FORD LPN on 01/14/20 [facility] CNOVlo 01-08-2020 CNOV Office Visit (UCWSTR ) MACO,ADDELYNNE K ([id number]) 1 F Date Time Provider Department 01/08/20 6:15 PM MIRA BREWER [facility] During your visit today, we recorded the following information about you: Temperature Pulse Respiration Weight 100 degrees 112/minute 18/minute 111.6 kg Mira Brewer APRN.CNP 01/08/2020 7:17 PM Signed [facility] PATIENT INFO PNEUMONIA OVERVIEW Pneumonia is an infection of the lungs. It is a serious illness that can affect people of any age, although it is most serious in the very young, people over the age of 65, and those with underlying medical problems such as congestive heart disease, diabetes, and chronic lung disease. It is most common during the winter months, and occurs more often in smokers and men. This article will focus on community-acquired pneumonia (CAP), which refers to pneumonia that develops in people in the community, rather than in a hospital, half-way, or assisted-living facility. About four million cases of CAP occur each year in the [place], and approximately 20 percent of people require hospitalization. LUNG FUNCTION As we breathe, air is inhaled through the nose and mouth, and travels through the trachea and the bronchi to the bronchioles. At the end of the bronchioles, there are tiny air sacs, called alveoli. Alveoli have thin, porous shaffer that contain capillaries. The mouth and respiratory tract are constantly exposed to microorganisms as air is inhaled through the nose and mouth. However, the body's defenses are usually able prevent microorganisms from entering and infecting the lungs. These defenses include the immune system, the specialized shape of the nose and pharynx, the ability to cough, and fine hair-like structures called cilia located on the bronchi. Pneumonia can develop if your defenses are not adequate or the microorganism is particularly strong. As microorganisms multiply, the alveoli become inflamed and accumulate fluid. These changes lead to the symptoms of pneumonia. HIGH-RISK GROUPS Some groups of adults are at a greater risk of developing pneumonia. These include people who: ? Are greater than 65 years old ? Are cigarette smokers ? Are malnourished due to health conditions or lack of access to food ? Have underlying lung disease, including cystic fibrosis, asthma, or chronic obstructive pulmonary disease (emphysema) ? Have other underlying medical problems, including diabetes or heart disease ? Have a weakened immune system due to HIV, organ transplant, chemotherapy, or chronic steroid use ? Have difficulty coughing due to stroke, sedating drugs or alcohol, or limited mobility ? Have had a recent viral upper respiratory tract infection including influenza PNEUMONIA CAUSES Pneumonia can be caused by a variety of microorganisms, including viruses, bacteria, and less commonly, fungi. The most common cause of pneumonia in the [place] is the bacterium Streptococcus pneumoniae, or pneumococcus. Viruses are estimated to be the cause of adult CAP in at least 20 percent of cases. Fungi rarely cause pneumonia in people who are generally healthy; people with a weakened immune system (those with HIV, organ transplant patients, or those on chemotherapy) are at higher risk of fungal infection. Other organisms, such as Mycoplasma, are a common cause of mild pneumonia but can occasionally cause serious disease. PNEUMONIA SYMPTOMS Common symptoms of pneumonia include shortness of breath, pain with breathing, a rapid heart and breathing rate, nausea, vomiting, diarrhea, and a cough that often produces green or yellow sputum; occasionally the sputum is rust colored. Most people have a fever (temperature greater than 100.5?F or 38?C), although elderly people have fever less often. Shaking chills (called rigors) and a change in mental status (confusion, unclear thinking) can occur. The characteristics of pneumonia are different than those of a more common infection, acute viral bronchitis, which does not usually cause fever and does not require treatment with an antibiotic. PNEUMONIA DIAGNOSIS Pneumonia is usually diagnosed with a medical history and physical examination, and sometimes a chest x-ray. The need for further testing depends upon the severity of the illness and the person's risk of complications. Blood oxygen measurement ? Pneumonia can decrease the amount of oxygen available in the blood. As a result, a blood oxygen level is often measured by attaching a small clip to the finger or ear that uses infrared light. In those who are sicker, the oxygen level may be measured by withdrawing a sample of blood from an artery. PNEUMONIA TREATMENT The goal of treatment for patients with CAP is to treat the infection and prevent complications. Initial treatment of CAP is based upon the organism that is likely to be causing pneumonia (called empiric treatment). Most patients improve with empiric treatment. Hospital versus home care ? Most patients are treated for CAP at home with oral antibiotics. People who are seriously ill or are at increased risk for complications may be hospitalized. Hospital monitoring usually includes measurement of heart and breathing rate, temperature, and oxygen levels. Hospitalized patients are usually given intravenous (IV) antibiotics initially. The number of days spent in the hospital is variable, and depends upon how a person responds to treatment and if there are underlying medical problems. Some patients, including people with previous lung damage or disease, a weakened immune system, or infection in more than one lobe of the lungs (called multilobar pneumonia), may be slow to recover and require a longer hospitalization. Antibiotic choice ? A number of antibiotic treatment regimens exist for treatment of CAP. The choice of which antibiotic to use is based upon several factors, including the person's underlying medical problems and the likelihood of being infected with a bacteria that is resistant to specific drugs. People with certain underlying medical problems and those who have used antibiotics in the past three months have a higher risk of infection with drug resistant bacteria. For all antibiotic regimens, it is important to finish the entire course of medication and take it exactly as directed. EXPECTED RECOVERY FROM PNEUMONIA A person with pneumonia usually begins to improve after three to five days of antibiotic treatment. Improvement may be defined as feeling better or having fewer symptoms, such as cough and fever. Fatigue and a persistent, but milder, cough can last for up to one month, although most people are able to resume their usual activities within seven days. Patients treated in the hospital may require three weeks or more to resume normal activities. All patients, whether treated at home or in the hospital, should take special care of themselves during the recovery period. This includes getting adequate rest at night and taking naps during the day if needed. Patients should drink fluids to avoid becoming dehydrated; there is no specific amount of fluid recommended, but thirst is a good indicator of the need to drink more fluids. Patients should be sure to finish all of their antibiotic medication, even if they feel better after a few days. WHEN TO SEEK HELP Anyone who suspects that they have pneumonia should seek medical care as soon as possible. Pneumonia is a serious illness that can be life-threatening if not treated, especially for people who are older than 65 years, alcoholic, have underlying medical problems, or a weakened immune system. People with the following symptoms should see their healthcare provider promptly: ? Fever and cough with phlegm that does not improve or worsens ? New shortness of breath with normal daily activities ? Chest pain with breathing ? Feeling suddenly worse after a cold or the flu PREVENTION The pneumococcal vaccine is one of the most effective ways to prevent pneumonia. Smoking cessation is another important way to prevent pneumonia. Infection control ? Infection control measures can help to prevent the spread of any type of infection, including pneumonia. Infection control is most commonly practiced in healthcare settings, but is useful in the community as well. Simple practices such as frequent hand washing with soap and water or alcohol-based hand rubs can be effective. Because pneumonia is spread by contact with infected respiratory secretions, people with pneumonia should limit [id number] contact with uninfected family and friends. The mouth and nose should be covered while coughing or sneezing, and tissues should be disposed of immediately. Sneezing/coughing into the sleeve of one's clothing (at the inner elbow) is another means of containing sprays of saliva and secretions and has the advantage of not contaminating the hands. Latasha Acevedo LPN 01/08/2020 7:20 PM Signed Aerosol treatment given per provider orders. Prior to treatment O2 Sat is 96%. Treatment completed. O2 sat is 97%. Tolerated well. Latasha Brewer APRN.[place] 01/08/2020 7:46 PM Signed Subjective HPI Pt accompanied by parents. Pt presents with c/o cough and chest congestion x 7?days. Worsening sore throat and tactile fevers today. Cough is moist, producing yellow drainage. +wheezing. Not using albuterol inhaler that was prescribed at visit here in [facility] on 12/24/19. Was eval Denies increased WOB. Did not receive influenza vaccine this season. Pt taking Aleve for fevers and sore throat. Exposed to sick contacts at school. Review of Systems Constitutional: Positive for fever. Negative for chills. HENT: Positive for sore throat. Negative for congestion, ear pain and sinus pain. Respiratory: Positive for cough, sputum production and wheezing. Negative for hemoptysis and shortness of breath. Cardiovascular: Negative for chest pain. Objective Physical Exam Constitutional: She is oriented to person, place, and time and well-developed, well-nourished, and in no distress. No distress. HENT: Head: Normocephalic. Right Ear: Hearing, tympanic membrane, external ear and ear canal normal. Left Ear: Hearing, tympanic membrane, external ear and ear canal normal. Nose: Nose normal. Right sinus exhibits no maxillary sinus tenderness and no frontal sinus tenderness. Left sinus exhibits no maxillary sinus tenderness and no frontal sinus tenderness. Mouth/Throat: Uvula is midline, oropharynx is clear and moist and mucous membranes are normal. No oropharyngeal exudate. Eyes: Pupils are equal, round, and reactive to light. Conjunctivae are normal. Right eye exhibits no discharge. Left eye exhibits no discharge. Neck: Neck supple. Cardiovascular: Normal rate, regular rhythm and normal heart sounds. Exam reveals no gallop and no friction rub. No murmur heard. Pulmonary/Chest: Effort normal. No accessory muscle usage. No respiratory distress. She has decreased breath sounds (mildy diminished air movement throughout. Pulse ox 96% before duoneb tx, 97% after.). She has wheezes (expiratory). She has rhonchi (bilateral bases). She has no rales. Lymphadenopathy: She has no cervical adenopathy. Neurological: She is alert and oriented to person, place, and time. Skin: Skin is warm and dry. She is not diaphoretic. Pulse 112 Temp 37.8 ?C (100 ?F) Resp 18 Wt 111.6 kg (246 lb) SpO2 97% .Patient presents with: Cough: x 1 week Sore Throat: x 2 days sore throat and headache PAST MEDICAL HISTORY Diagnosis Date - ADHD (attention deficit hyperactivity disorder) - Exercise-induced asthma - NEGATIVE MEDICAL HISTORY 11/03/09 normal color vision - RSV (acute bronchiolitis due to respiratory syncytial virus) as a baby PAST SURGICAL HISTORY Procedure Laterality Date - NONE ALLERGIES Patient has no known allergies. MEDICATIONS albuterol HFA (PROAIR HFA) 90 mcg/actuation inhaler Inhale 2 Puffs as instructed every 6 hours as needed. benzonatate (TESSALON PERLE) 100 mg capsule Take 2 capsules by mouth three times daily as needed. Ethinyl Estradiol-Norelgestrom (XULANE) 150-35 mcg/24 hr Apply 1 Patch as directed once each week. VALERIAN ROOT ORAL Take by mouth. guaiFENesin (MUCINEX) 600 mg 12 hr tablet Take 2 tablets by mouth twice daily. doxycycline monohydrate (MONODOX) 100 mg capsule Take 1 capsule by mouth twice daily for 10 days. cetirizine (ZYRTEC) 10 mg tablet Take 1 tablet by mouth once daily. FAMILY HISTORY Problem Relation Age of Onset - None Unknown - other (sids [Other]) Sister Social History Tobacco Use - Smoking status: Never Smoker - Smokeless tobacco: Never Used Substance Use Topics - Alcohol use: No - Drug use: No ASSESSMENT/PLAN: 1. Pneumonia of right lower lobe due to infectious organism - ICD9: 486, ICD10: J18.9 (primary diagnosis) - MUCINEX 600 MG TABLET, EXTENDED RELEASE - DOXYCYCLINE MONOHYDRATE 100 MG CAPSULE 2. Sore throat - ICD9: 462, ICD10: J02.9 - Rapid Strep negative in the office today and Throat culture pending - RAPID STREP TEST B/O - GROUP A STREPTOCOCCUS BY PCR 3. Persistent cough - ICD9: 786.2, ICD10: R05 - XR CHEST 2V FRONTAL/LAT Impression: RLL infiltrate. - IPRATROPIUM 0.5 MG-ALBUTEROL 3 MG (2.5 MG BASE)/3 ML NEBULIZATION SOLN Instructed to f/u with PCP in 2 weeks. Reviewed and printed pneumonia education and red flag SANDS. The patient/parents is instructed to return or seek emergency treatment if symptoms become worse or with any acute change in condition. The patient/parents verbalizes understanding and is in agreement with plan of care. Mira Brewer CNP Referring Provider: SELF [200] Allergies As of Date: 01/08/2020 (No Known Allergies) Date Reviewed: 01/08/2020 Reviewed by: Latasha Acevedo LPN - Fully Assessed Reason for Visit: Cough [28] Cmt: x 1 week Sore Throat [200] Cmt: x 2 days sore throat and headache Primary Visit Diagnosis:Pneumonia of right lower lobe due to infectious organism [J18.9] Other Visit Diagnoses:Sore throat [J02.9] Persistent cough [R05] Order(s):RAPID STREP TEST B/O [[id number]] Order #: [id number] GROUP A STREPTOCOCCUS BY PCR [SQGASPCR] Order #: [id number] XR CHEST 2V FRONTAL/LAT [[id number]] Order #: [id number] FUTURE [] ipratropium-albuterol 3 mL nebulizer solution (DUONEB)Disp: Rfl: guaiFENesin (MUCINEX) 600 mg 12 hr tabletTake 2 tablets by mouth twice daily.Disp: 30 tabletRfl: 0 doxycycline monohydrate (MONODOX) 100 mg capsuleTake 1 capsule by mouth twice daily for 10 days.Disp: 20 capsuleRfl: 0 Prescriptions as of 01/08/2020 Sig: ALBUTEROL SULFATE HFA 90 MCG/* Inhale 2 Puffs as instructed * BENZONATATE 100 MG CAPSULE Take 2 capsules by mouth thre* NORELGESTROMIN 150 MCG-E.ESTR* Apply 1 Patch as directed onc* VALERIAN ROOT ORAL Take by mouth. MUCINEX 600 MG TABLET, EXTEND* Take 2 tablets by mouth twice* DOXYCYCLINE MONOHYDRATE 100 M* Take 1 capsule by mouth twice* CETIRIZINE 10 MG TABLET Take 1 tablet by mouth once d* Problem List As Of Date 01/08/2020 Noted Resolved ADHD (attention deficit hyperactivity disorder)*01/16/2011 Body mass index equal to or greater than 95th p*07/05/2015 Other instructions from your clinician: [facility] PATIENT INFO PNEUMONIA OVERVIEW Pneumonia is an infection of the lungs. It is a serious illness that can affect people of any age, although it is most serious in the very young, people over the age of 65, and those with underlying medical problems such as congestive heart disease, diabetes, and chronic lung disease. It is most common during the winter months, and occurs more often in smokers and men. This article will focus on community-acquired pneumonia (CAP), which refers to pneumonia that develops in people in the community, rather than in a hospital, half-way, or assisted-living facility. About four million cases of CAP occur each year in the [place], and approximately 20 percent of people require hospitalization. LUNG FUNCTION As we breathe, air is inhaled through the nose and mouth, and travels through the trachea and the bronchi to the bronchioles. At the end of the bronchioles, there are tiny air sacs, called alveoli. Alveoli have thin, porous shaffer that contain capillaries. The mouth and respiratory tract are constantly exposed to microorganisms as air is inhaled through the nose and mouth. However, the body's defenses are usually able prevent microorganisms from entering and infecting the lungs. These defenses include the immune system, the specialized shape of the nose and pharynx, the ability to cough, and fine hair-like structures called cilia located on the bronchi. Pneumonia can develop if your defenses are not adequate or the microorganism is particularly strong. As microorganisms multiply, the alveoli become inflamed and accumulate fluid. These changes lead to the symptoms of pneumonia. HIGH-RISK GROUPS Some groups of adults are at a greater risk of developing pneumonia. These include people who: ? Are greater than 65 years old ? Are cigarette smokers ? Are malnourished due to health conditions or lack of access to food ? Have underlying lung disease, including cystic fibrosis, asthma, or chronic obstructive pulmonary disease (emphysema) ? Have other underlying medical problems, including diabetes or heart disease ? Have a weakened immune system due to HIV, organ transplant, chemotherapy, or chronic steroid use ? Have difficulty coughing due to stroke, sedating drugs or alcohol, or limited mobility ? Have had a recent viral upper respiratory tract infection including influenza PNEUMONIA CAUSES Pneumonia can be caused by a variety of microorganisms, including viruses, bacteria, and less commonly, fungi. The most common cause of pneumonia in the [place] is the bacterium Streptococcus pneumoniae, or pneumococcus. Viruses are estimated to be the cause of adult CAP in at least 20 percent of cases. Fungi rarely cause pneumonia in people who are generally healthy; people with a weakened immune system (those with HIV, organ transplant patients, or those on chemotherapy) are at higher risk of fungal infection. Other organisms, such as Mycoplasma, are a common cause of mild pneumonia but can occasionally cause serious disease. PNEUMONIA SYMPTOMS Common symptoms of pneumonia include shortness of breath, pain with breathing, a rapid heart and breathing rate, nausea, vomiting, diarrhea, and a cough that often produces green or yellow sputum; occasionally the sputum is rust colored. Most people have a fever (temperature greater than 100.5?F or 38?C), although elderly people have fever less often. Shaking chills (called rigors) and a change in mental status (confusion, unclear thinking) can occur. The characteristics of pneumonia are different than those of a more common infection, acute viral bronchitis, which does not usually cause fever and does not require treatment with an antibiotic. PNEUMONIA DIAGNOSIS Pneumonia is usually diagnosed with a medical history and physical examination, and sometimes a chest x-ray. The need for further testing depends upon the severity of the illness and the person's risk of complications. Blood oxygen measurement ? Pneumonia can decrease the amount of oxygen available in the blood. As a result, a blood oxygen level is often measured by attaching a small clip to the finger or ear that uses infrared light. In those who are sicker, the oxygen level may be measured by withdrawing a sample of blood from an artery. PNEUMONIA TREATMENT The goal of treatment for patients with CAP is to treat the infection and prevent complications. Initial treatment of CAP is based upon the organism that is likely to be causing pneumonia (called empiric treatment). Most patients improve with empiric treatment. Hospital versus home care ? Most patients are treated for CAP at home with oral antibiotics. People who are seriously ill or are at increased risk for complications may be hospitalized. Hospital monitoring usually includes measurement of heart and breathing rate, temperature, and oxygen levels. Hospitalized patients are usually given intravenous (IV) antibiotics initially. The number of days spent in the hospital is variable, and depends upon how a person responds to treatment and if there are underlying medical problems. Some patients, including people with previous lung damage or disease, a weakened immune system, or infection in more than one lobe of the lungs (called multilobar pneumonia), may be slow to recover and require a longer hospitalization. Antibiotic choice ? A number of antibiotic treatment regimens exist for treatment of CAP. The choice of which antibiotic to use is based upon several factors, including the person's underlying medical problems and the likelihood of being infected with a bacteria that is resistant to specific drugs. People with certain underlying medical problems and those who have used antibiotics in the past three months have a higher risk of infection with drug resistant bacteria. For all antibiotic regimens, it is important to finish the entire course of medication and take it exactly as directed. EXPECTED RECOVERY FROM PNEUMONIA A person with pneumonia usually begins to improve after three to five days of antibiotic treatment. Improvement may be defined as feeling better or having fewer symptoms, such as cough and fever. Fatigue and a persistent, but milder, cough can last for up to one month, although most people are able to resume their usual activities within seven days. Patients treated in the hospital may require three weeks or more to resume normal activities. All patients, whether treated at home or in the hospital, should take special care of themselves during the recovery period. This includes getting adequate rest at night and taking naps during the day if needed. Patients should drink fluids to avoid becoming dehydrated; there is no specific amount of fluid recommended, but thirst is a good indicator of the need to drink more fluids. Patients should be sure to finish all of their antibiotic medication, even if they feel better after a few days. WHEN TO SEEK HELP Anyone who suspects that they have pneumonia should seek medical care as soon as possible. Pneumonia is a serious illness that can be life-threatening if not treated, especially for people who are older than 65 years, alcoholic, have underlying medical problems, or a weakened immune system. People with the following symptoms should see their healthcare provider promptly: ? Fever and cough with phlegm that does not improve or worsens ? New shortness of breath with normal daily activities ? Chest pain with breathing ? Feeling suddenly worse after a cold or the flu PREVENTION The pneumococcal vaccine is one of the most effective ways to prevent pneumonia. Smoking cessation is another important way to prevent pneumonia. Infection control ? Infection control measures can help to prevent the spread of any type of infection, including pneumonia. Infection control is most commonly practiced in healthcare settings, but is useful in the community as well. Simple practices such as frequent hand washing with soap and water or alcohol-based hand rubs can be effective. Because pneumonia is spread by contact with infected respiratory secretions, people with pneumonia should limit [id number] contact with uninfected family and friends. The mouth and nose should be covered while coughing or sneezing, and tissues should be disposed of immediately. Sneezing/coughing into the sleeve of one's clothing (at the inner elbow) is another means of containing sprays of saliva and secretions and has the advantage of not contaminating the hands. Visit Notes: >> Latasha Acevedo LPN SatJan 08, 2020 7:19 PM Status: Signed Aerosol treatment given per provider orders. Prior to treatment O2 Sat is 96%. Treatment completed. O2 sat is 97%. Tolerated well. Latasha Acevedo LPN Prescriptions ordered this encounter Disp Refills Start End IPRATROPIUM 0.5 MG-ALBUTEROL 3 MG (2* 01/08/2020 01/08/2020 Route: INHALATION MUCINEX 600 MG TABLET, EXTENDED RELE* 30 t* 0 01/08/2020 Route: ORAL Sig: Take 2 tablets by mouth twice daily. DOXYCYCLINE MONOHYDRATE 100 MG CAPSU* 20 c* 0 01/08/2020 01/18/2020 Route: ORAL Sig: Take 1 capsule by mouth twice daily for 10 days. Letter Text Encounter Status:Closed by MIRA BREWER CNP on 01/08/20 Normal [facility] Group A Strep by PCRon 01-08 GAS Specimen Source Throat Swab Normal [facility] Comment on above: Performed By: #### G ASPCR ####[facility] [address] [place], [place] [phone] Group A Strep PCR Negative Normal [facility] Comment on above: Result Comment: This test was developed and its performance characteristics determined by [facility] [place] ([facility]). It has not been cleared or approved by the FDA. [facility] is regulated under CLIA as qualified to perform high complexity testing. This test is used for clinical purposes. It should not be regarded as investigational or for research. Performed By: #### G ASPCR ####[facility] [place], [place] [phone] PROGRESSon 01-08-2020 PROGRESS HNO ID: [id number] Author: Mira Brewer Service: ? Author Type: Nurse Practitioner Type: Progress Notes Filed: 01/08/2020 7:46 PM Note Text: Subjective HPI Pt accompanied by parents. Pt presents with c/o cough and chest congestion x 7?days. Worsening sore throat and tactile fevers today. Cough is moist, producing yellow drainage. +wheezing. Not using albuterol inhaler that was prescribed at visit here in [facility] on 12/24/19. Was eval Denies increased WOB. Did not receive influenza vaccine this season. Pt taking Aleve for fevers and sore throat. Exposed to sick contacts at school. Review of Systems Constitutional: Positive for fever. Negative for chills. HENT: Positive for sore throat. Negative for congestion, ear pain and sinus pain. Respiratory: Positive for cough, sputum production and wheezing. Negative for hemoptysis and shortness of breath. Cardiovascular: Negative for chest pain. Objective Physical Exam Constitutional: She is oriented to person, place, and time and well-developed, well-nourished, and in no distress. No distress. HENT: Head: Normocephalic. Right Ear: Hearing, tympanic membrane, external ear and ear canal normal. Left Ear: Hearing, tympanic membrane, external ear and ear canal normal. Nose: Nose normal. Right sinus exhibits no maxillary sinus tenderness and no frontal sinus tenderness. Left sinus exhibits no maxillary sinus tenderness and no frontal sinus tenderness. Mouth/Throat: Uvula is midline, oropharynx is clear and moist and mucous membranes are normal. No oropharyngeal exudate. Eyes: Pupils are equal, round, and reactive to light. Conjunctivae are normal. Right eye exhibits no discharge. Left eye exhibits no discharge. Neck: Neck supple. Cardiovascular: Normal rate, regular rhythm and normal heart sounds. Exam reveals no gallop and no friction rub. No murmur heard. Pulmonary/Chest: Effort normal. No accessory muscle usage. No respiratory distress. She has decreased breath sounds (mildy diminished air movement throughout. Pulse ox 96% before duoneb tx, 97% after.). She has wheezes (expiratory). She has rhonchi (bilateral bases). She has no rales. Lymphadenopathy: She has no cervical adenopathy. Neurological: She is alert and oriented to person, place, and time. Skin: Skin is warm and dry. She is not diaphoretic. Pulse 112 Temp 37.8 ?C (100 ?F) Resp 18 Wt 111.6 kg (246 lb) SpO2 97% .Patient presents with: Cough: x 1 week Sore Throat: x 2 days sore throat and headache PAST MEDICAL HISTORY Diagnosis Date - ADHD (attention deficit hyperactivity disorder) - Exercise-induced asthma - NEGATIVE MEDICAL HISTORY 11/03/09 normal color vision - RSV (acute bronchiolitis due to respiratory syncytial virus) as a baby PAST SURGICAL HISTORY Procedure Laterality Date - NONE ALLERGIES Patient has no known allergies. MEDICATIONS albuterol HFA (PROAIR HFA) 90 mcg/actuation inhaler Inhale 2 Puffs as instructed every 6 hours as needed. benzonatate (TESSALON PERLE) 100 mg capsule Take 2 capsules by mouth three times daily as needed. Ethinyl Estradiol-Norelgestrom (XULANE) 150-35 mcg/24 hr Apply 1 Patch as directed once each week. VALERIAN ROOT ORAL Take by mouth. guaiFENesin (MUCINEX) 600 mg 12 hr tablet Take 2 tablets by mouth twice daily. doxycycline monohydrate (MONODOX) 100 mg capsule Take 1 capsule by mouth twice daily for 10 days. cetirizine (ZYRTEC) 10 mg tablet Take 1 tablet by mouth once daily. FAMILY HISTORY Problem Relation Age of Onset - None Unknown - other (sids [Other]) Sister Social History Tobacco Use - Smoking status: Never Smoker - Smokeless tobacco: Never Used Substance Use Topics - Alcohol use: No - Drug use: No ASSESSMENT/PLAN: 1. Pneumonia of right lower lobe due to infectious organism - ICD9: 486, ICD10: J18.9 (primary diagnosis) - MUCINEX 600 MG TABLET, EXTENDED RELEASE - DOXYCYCLINE MONOHYDRATE 100 MG CAPSULE 2. Sore throat - ICD9: 462, ICD10: J02.9 - Rapid Strep negative in the office today and Throat culture pending - RAPID STREP TEST B/O - GROUP A STREPTOCOCCUS BY PCR 3. Persistent cough - ICD9: 786.2, ICD10: R05 - XR CHEST 2V FRONTAL/LAT Impression: RLL infiltrate. - IPRATROPIUM 0.5 MG-ALBUTEROL 3 MG (2.5 MG BASE)/3 ML NEBULIZATION SOLN Instructed to f/u with PCP in 2 weeks. Reviewed and printed pneumonia education and red flag SANDS. The patient/parents is instructed to return or seek emergency treatment if symptoms become worse or with any acute change in condition. The patient/parents verbalizes understanding and is in agreement with plan of care. Mira Brewer, MARLEY Normal [facility] PROGRESS HNO ID: [id number] Author: Alexandria Gutierrez (Rt) Vijaya Gusman Service: ? Author Type: Utilization Management Manager Type: Progress Notes Filed: 01/08/2020 6:49 PM Note Text: Radiology Service Progress Note PATIENT NAME: Sabino Dewey DATE OF SERVICE: January 08, 2020 TIME: 6:40 PM PATIENT IDENTITY VERIFICATION COMPLETED USING TWO (2) IDENTIFIERS: Name and Date of confirmed by patient verbally. PATIENT GENDER DATA: Female. status: : No status: NO. PATIENT RELEVANT IMPLANT DATA REVIEWED: Not Applicable RADIOLOGY DEPARTMENT: General X-ray: Exam(s) Completed: Chest X-Ray PERIPHERAL IV DATA: Not applicable SIGNED BY: RT Eleonora January 08, 2020 6:40 PM [facility] XR CHEST 2V FRONTAL/LATon XR CHEST 2V FRONTAL/LAT * * *Final Report* * * DATE OF EXAM: Jan 08 2020 6:48PM WOX [id number] - XR CHEST 2V FRONTAL/LAT / PROCEDURE REASON: Persistent cough * * * * Physician Interpretation * * * * EXAMINATION: CHEST RADIOGRAPH (2 VIEW FRONTAL and LATERAL) CLINICAL HISTORY: Persistent cough MQ: XC2_5 Comparison: 12/24/19 RESULT: Lines, tubes, and devices: None. Lungs and pleura: There is faint airspace opacity in the right lower lobe might relate to pneumonia. Left lung is clear. No pleural effusion or pneumothorax. Cardiomediastinal silhouette: Normal cardiomediastinal silhouette. Other: No bony abnormalities. IMPRESSION: Findings concerning for right lower lobe pneumonia. Mold Bunch Trimmer: JAVIER Transcribe Date/Time: Jan 08 2020 6:49P Dictated by : HENRIETTA WEBBER MD This examination was interpreted and the report reviewed and electronically signed by: HENRIETTA WEBBER MD on Jan 08 2020 6:50PM EST [id number] Normal [facility] CNOVon 12-24-2019 CNOV Office Visit ([facility] ) SABINO DEWEY ([id number]) 1 F Date Time Provider Department 12/24/19 3:00 PM SANDOVAL MOSQUEDA) [facility] During your visit today, we recorded the following information about you: Temperature Pulse Respiration Blood pressure 98 degrees 86/minute 16/minute 122/74 Weight 116.1 kg Sandoval Mosqueda PA-C 12/24/2019 5:11 PM Signed Subjective HPI Patient presents with congestion cough sore throat over the past 2 or 3 days. She states she's actually had a chronic cough however over the past 2 or 3 years since she started smoking. She smokes about 6 cigarettes a day. She has had a productive cough off and on. She has felt nauseated and vomited once. No fever. Mom concerned that she has some seasonal allergies as she tends to be congested in the morning chronically as well. Review of Systems Constitutional: Negative. HENT: Positive for congestion and sore throat. Eyes: Negative. Respiratory: Positive for cough, sputum production and wheezing. Cardiovascular: Negative. Gastrointestinal: Negative. Genitourinary: Negative. Skin: Negative. All other systems reviewed and are negative. PAST MEDICAL HISTORY Diagnosis Date - ADHD (attention deficit hyperactivity disorder) - Exercise-induced asthma - NEGATIVE MEDICAL HISTORY 11/03/09 normal color vision - RSV (acute bronchiolitis due to respiratory syncytial virus) as a baby Current Outpatient Medications Medication Sig Dispense Refill - Ethinyl Estradiol-Norelgestrom (XULANE) 150-35 mcg/24 hr Apply 1 Patch as directed once each week. 3 Patch 3 - VALERIAN ROOT ORAL Take by mouth. - cetirizine (ZYRTEC) 10 mg tablet Take 1 tablet by mouth once daily. 30 tablet 0 - albuterol HFA (PROAIR HFA) 90 mcg/actuation inhaler Inhale 2 Puffs as instructed every 6 hours as needed. 1 Inhaler 0 - benzonatate (TESSALON PERLE) 100 mg capsule Take 2 capsules by mouth three times daily as needed. 30 capsule 0 No current facility-administered medications for this visit. PAST SURGICAL HISTORY Procedure Laterality Date - NONE FAMILY HISTORY Problem Relation Age of Onset - None Unknown - other (sids [Other]) Sister Social History Tobacco Use - Smoking status: Never Smoker - Smokeless tobacco: Never Used Substance Use Topics - Alcohol use: No - Drug use: No BP 122/74 Pulse 86 Temp 36.7 ?C (98 ?F) (Tympanic) Resp 16 Wt 116.1 kg (256 lb) SpO2 97% Objective Physical Exam Constitutional: She is well-developed, well-nourished, and in no distress. HENT: Head: Normocephalic and atraumatic. Right Ear: Tympanic membrane, external ear and ear canal normal. Left Ear: Tympanic membrane, external ear and ear canal normal. Nose: Rhinorrhea present. Mouth/Throat: Uvula is midline, oropharynx is clear and moist and mucous membranes are normal. Neck: Normal range of motion. Cardiovascular: Normal rate, regular rhythm and normal heart sounds. Pulmonary/Chest: Effort normal and breath sounds normal. No respiratory distress. She has no wheezes. She has no rales. Lymphadenopathy: She has no cervical adenopathy. Neurological: She is alert. Skin: Skin is warm and dry. No rash noted. Nursing note and vitals reviewed. ASSESSMENT/PLAN: 1. Cough - ICD9: 786.2, ICD10: R05 (primary diagnosis) - XR CHEST 2V FRONTAL/LAT 2. URI, acute - ICD9: 465.9, ICD10: J06.9 - Discussed viral etiology and rationale for treatment. - Symptomatic treatment with prn analgesia - Supportive care with fluids and rest Chest x-ray here is clear. Patient likely has chronic cough from smoking. Discussed smoking cessation with her and mother here. Given inhaler as needed, Tessalon and Zyrtec for the chronic congestion. Recommend follow-up with PCP. Sandoval Mosqueda PA-C Referring Provider: SELF [200] Allergies As of Date: 12/24/2019 (No Known Allergies) Date Reviewed: 12/24/2019 Reviewed by: Karly Gipson Ma - Fully Assessed Reason for Visit: Sinus Problem [99] Cmt: sinus pressure, drainage, cough and vomiting x 2 days Primary Visit Diagnosis:Cough [R05] Other Visit Diagnosis:URI, acute [J06.9] Order(s):XR CHEST 2V FRONTAL/LAT [8578074] Order #: [id number] FUTURE cetirizine (ZYRTEC) 10 mg tabletTake 1 tablet by mouth once daily.Disp: 30 tabletRfl: 0 albuterol HFA (PROAIR HFA) 90 mcg/actuation inhalerInhale 2 Puffs as instructed every 6 hours as needed.Disp: 1 InhalerRfl: 0 benzonatate (TESSALON PERLE) 100 mg capsuleTake 2 capsules by mouth three times daily as needed.Disp: 30 capsuleRfl: 0 Prescriptions as of 12/24/2019 Sig: NORELGESTROMIN 150 MCG-E.ESTR* Apply 1 Patch as directed onc* VALERIAN ROOT ORAL Take by mouth. CETIRIZINE 10 MG TABLET Take 1 tablet by mouth once d* ALBUTEROL SULFATE HFA 90 MCG/* Inhale 2 Puffs as instructed * BENZONATATE 100 MG CAPSULE Take 2 capsules by mouth thre* Problem List As Of Date 12/24/2019 Noted Resolved ADHD (attention deficit hyperactivity disorder)*01/16/2011 Body mass index equal to or greater than 95th p*07/05/2015 Prescriptions ordered this encounter Disp Refills Start End CETIRIZINE 10 MG TABLET 30 t* 0 12/24/2019 01/23/2020 Route: ORAL Sig: Take 1 tablet by mouth once daily. ALBUTEROL SULFATE HFA 90 MCG/ACTUATI* 1 In* 0 12/24/2019 Cmt: Generic or brand: dispense inhaler preferred by patient/insurance unless BENY flag is selected. Route: INHALATION Sig: Inhale 2 Puffs as instructed every 6 hours as needed. BENZONATATE 100 MG CAPSULE 30 c* 0 12/24/2019 Route: ORAL Sig: Take 2 capsules by mouth three times daily as needed. Encounter Status:Closed by SANDOVAL MOSQUEDA PA-C on 12/24/19 [facility] PROGRESSon 12-24-2019 PROGRESS HNO ID: [id number] Author: Sandoval Mosqueda (Pa) Service: ? Author Type: Physician User Interface Artist Type: Progress Notes Filed: 12/24/2019 5:11 PM Note Text: Subjective HPI Patient presents with congestion cough sore throat over the past 2 or 3 days. She states she's actually had a chronic cough however over the past 2 or 3 years since she started smoking. She smokes about 6 cigarettes a day. She has had a productive cough off and on. She has felt nauseated and vomited once. No fever. Mom concerned that she has some seasonal allergies as she tends to be congested in the morning chronically as well. Review of Systems Constitutional: Negative. HENT: Positive for congestion and sore throat. Eyes: Negative. Respiratory: Positive for cough, sputum production and wheezing. Cardiovascular: Negative. Gastrointestinal: Negative. Genitourinary: Negative. Skin: Negative. All other systems reviewed and are negative. PAST MEDICAL HISTORY Diagnosis Date - ADHD (attention deficit hyperactivity disorder) - Exercise-induced asthma - NEGATIVE MEDICAL HISTORY 11/03/09 normal color vision - RSV (acute bronchiolitis due to respiratory syncytial virus) as a baby Current Outpatient Medications Medication Sig Dispense Refill - Ethinyl Estradiol-Norelgestrom (XULANE) 150-35 mcg/24 hr Apply 1 Patch as directed once each week. 3 Patch 3 - VALERIAN ROOT ORAL Take by mouth. - cetirizine (ZYRTEC) 10 mg tablet Take 1 tablet by mouth once daily. 30 tablet 0 - albuterol HFA (PROAIR HFA) 90 mcg/actuation inhaler Inhale 2 Puffs as instructed every 6 hours as needed. 1 Inhaler 0 - benzonatate (TESSALON PERLE) 100 mg capsule Take 2 capsules by mouth three times daily as needed. 30 capsule 0 No current facility-administered medications for this visit. PAST SURGICAL HISTORY Procedure Laterality Date - NONE FAMILY HISTORY Problem Relation Age of Onset - None Unknown - other (sids [Other]) Sister Social History Tobacco Use - Smoking status: Never Smoker - Smokeless tobacco: Never Used Substance Use Topics - Alcohol use: No - Drug use: No BP 122/74 Pulse 86 Temp 36.7 ?C (98 ?F) (Tympanic) Resp 16 Wt 116.1 kg (256 lb) SpO2 97% Objective Physical Exam Constitutional: She is well-developed, well-nourished, and in no distress. HENT: Head: Normocephalic and atraumatic. Right Ear: Tympanic membrane, external ear and ear canal normal. Left Ear: Tympanic membrane, external ear and ear canal normal. Nose: Rhinorrhea present. Mouth/Throat: Uvula is midline, oropharynx is clear and moist and mucous membranes are normal. Neck: Normal range of motion. Cardiovascular: Normal rate, regular rhythm and normal heart sounds. Pulmonary/Chest: Effort normal and breath sounds normal. No respiratory distress. She has no wheezes. She has no rales. Lymphadenopathy: She has no cervical adenopathy. Neurological: She is alert. Skin: Skin is warm and dry. No rash noted. Nursing note and vitals reviewed. ASSESSMENT/PLAN: 1. Cough - ICD9: 786.2, ICD10: R05 (primary diagnosis) - XR CHEST 2V FRONTAL/LAT 2. URI, acute - ICD9: 465.9, ICD10: J06.9 - Discussed viral etiology and rationale for treatment. - Symptomatic treatment with prn analgesia - Supportive care with fluids and rest Chest x-ray here is clear. Patient likely has chronic cough from smoking. Discussed smoking cessation with her and mother here. Given inhaler as needed, Tessalon and Zyrtec for the chronic congestion. Recommend follow-up with PCP. Sandoval Mosqueda PA-C Normal [facility] PROGRESS HNO ID: [id number] Author: Vijaya Rdz (Tech) Service: ? Author Type: Utilization Management Manager Type: Progress Notes Filed: 12/24/2019 4:04 PM Note Text: Radiology Service Progress Note PATIENT NAME: Sabino Dewey DATE OF SERVICE: December 24, 2019 TIME: 3:57 PM PATIENT IDENTITY VERIFICATION COMPLETED USING TWO (2) IDENTIFIERS: Name and Date of confirmed by patient verbally. PATIENT GENDER DATA: Female. status: : No status: NO. PATIENT RELEVANT IMPLANT DATA REVIEWED: Not Applicable RADIOLOGY DEPARTMENT: General X-ray: Exam(s) Completed: Chest X-Ray PERIPHERAL IV DATA: Not applicable SIGNED BY: Vijaya Rdz December 24, 2019 3:57 PM Normal [facility] XR CHEST 2V FRONTAL/LATon XR CHEST 2V FRONTAL/LAT * * *Final Report* * * DATE OF EXAM: Dec 24 2019 4:04PM WOX [id number] - XR CHEST 2V FRONTAL/LAT / PROCEDURE REASON: Cough * * * * Physician Interpretation * * * * EXAMINATION: CHEST RADIOGRAPH (2 VIEW FRONTAL and LATERAL) CLINICAL HISTORY: Cough MQ: XC2_5 Comparison: None RESULT: Lines, tubes, and devices: None. Lungs and pleura: No consolidation. No pleural effusion. No pneumothorax. Cardiomediastinal silhouette: Normal cardiomediastinal silhouette. Other: No bony abnormalities. IMPRESSION: No acute radiographic abnormality. Mold Bunch Trimmer: JAVIER Transcribe Date/Time: Dec 24 2019 4:07P Dictated by : HENRIETTA WEBBER MD This examination was interpreted and the report reviewed and electronically signed by: HENRIETTA WEBBER MD on Dec 24 2019 4:09PM EST [id number] Normal [facility] CNOVon 09-20-2019 CNOV Office Visit ([facility] ) SABINO DEWEY ([id number]) 1 F Date Time Provider Department 09/20/19 1:15 PM KATYA CORREIA (MANAGER FACILITY) [facility] During your visit today, we recorded the following information about you: Temperature Pulse Respiration Blood pressure 99 degrees 96/minute 16/minute 114/82 Weight 119.6 kg Katya Correia APRN.MARLEY 09/20/2019 1:32 PM Signed Subjective HPI Sabino Dewey is a 14 year old female who presents with right upper tooth pain. She also has right ear pain. A piece of the tooth broke off 4 months ago and it has hurt on and off since. She rates the pain a 6/10. She took naproxen at home. Review of Systems Constitutional: Negative. Negative for fever. HENT: Positive for ear pain. Toothache Skin: Negative. Neurological: Negative for headaches. BP 114/82 Pulse 96 Temp 37.2 ?C (99 ?F) (Left Tympanic) Resp 16 Wt 119.6 kg (263 lb 9.6 oz) PAST MEDICAL HISTORY Diagnosis Date - ADHD (attention deficit hyperactivity disorder) - Exercise-induced asthma - NEGATIVE MEDICAL HISTORY 11/03/09 normal color vision - RSV (acute bronchiolitis due to respiratory syncytial virus) as a baby PAST SURGICAL HISTORY Procedure Laterality Date - NONE ALLERGIES Patient has no known allergies. MEDICATIONS Ethinyl Estradiol-Norelgestrom (XULANE) 150-35 mcg/24 hr Apply 1 Patch as directed once each week. VALERIAN ROOT ORAL Take by mouth. FAMILY HISTORY Problem Relation Age of Onset - None Unknown - other (sids [Other]) Sister Social History Tobacco Use - Smoking status: Never Smoker - Smokeless tobacco: Never Used Substance Use Topics - Alcohol use: No - Drug use: No Objective Physical Exam Constitutional: She is well-developed, well-nourished, and in no distress. HENT: Head: Right Ear: Tympanic membrane, external ear and ear canal normal. Left Ear: Tympanic membrane, external ear and ear canal normal. Mouth/Throat: Neck: Neck supple. Lymphadenopathy: She has no cervical adenopathy. Neurological: She is alert. Skin: Skin is warm and dry. No rash noted. No erythema. Nursing note and vitals reviewed. ASSESSMENT/PLAN: 1. Toothache - ICD9: 525.9, ICD10: K08.89 - AMOXICILLIN 875 MG TABLET - recommend evaluation by dentist LILY - Follow-up with your PCP in 3-5 days if symptoms have not improved or sooner if symptoms worsen - Discussed red flags and need for immediate medical evaluation if any occur. - Discussed supportive care treatment with fluids, rest and analgesia. - Discussed expected course of illness HUSAM Cruz APRN.CNP 09/20/2019 1:27 PM Signed ASSESSMENT/PLAN: 1. Toothache - ICD9: 525.9, ICD10: K08.89 - AMOXICILLIN 875 MG TABLET - recommend evaluation by dentist LILY - Follow-up with your PCP in 3-5 days if symptoms have not improved or sooner if symptoms worsen - Discussed red flags and need for immediate medical evaluation if any occur. - Discussed supportive care treatment with fluids, rest and analgesia. - Discussed expected course of illness Katya Correia APRN.CNP TOOTHACHE: Your exam shows that your toothache is probably due to tooth decay and infection. Poor dental care is the main cause of this problem. Swelling and redness around a painful tooth often means you have a dental abscess. Pain medicine and antibiotics can help reduce symptoms, but you will need to see a dentist within the next few days to have your problem properly treated. Fillings or root canal work may be needed to save your tooth. If the problem is severe, your tooth may need to be pulled. Please return here right away if you have a fever over 101F, can?t swallow, or develop severe swelling. Referring Provider: SELF [[id number]] Allergies As of Date: 09/20/2019 (No Known Allergies) Date Reviewed: 09/20/2019 Reviewed by: Katya (Willem Correia - Fully Assessed Reason for Visit: Toothache [1289] Cmt: x 2 days Primary Visit Diagnosis:Toothache [K08.89] Order(s):amoxicillin (AMOXIL) 875 mg tabletTake 1 tablet by mouth twice daily for 10 days.Disp: 20 tabletRfl: 0 Prescriptions as of 09/20/2019 Sig: NORELGESTROMIN 150 MCG-E.ESTR* Apply 1 Patch as directed onc* AMOXICILLIN 875 MG TABLET Take 1 tablet by mouth twice * VALERIAN ROOT ORAL Take by mouth. Problem List As Of Date 09/20/2019 Noted Resolved ADHD (attention deficit hyperactivity disorder)*INVALID FOR* Body mass index equal to or greater than 95th p*INVALID FOR* Other instructions from your clinician: ASSESSMENT/PLAN: 1. Toothache - ICD9: 525.9, ICD10: K08.89 - AMOXICILLIN 875 MG TABLET - recommend evaluation by dentist LILY - Follow-up with your PCP in 3-5 days if symptoms have not improved or sooner if symptoms worsen - Discussed red flags and need for immediate medical evaluation if any occur. - Discussed supportive care treatment with fluids, rest and analgesia. - Discussed expected course of illness Katya Correia APRN.CNP TOOTHACHE: Your exam shows that your toothache is probably due to tooth decay and infection. Poor dental care is the main cause of this problem. Swelling and redness around a painful tooth often means you have a dental abscess. Pain medicine and antibiotics can help reduce symptoms, but you will need to see a dentist within the next few days to have your problem properly treated. Fillings or root canal work may be needed to save your tooth. If the problem is severe, your tooth may need to be pulled. Please return here right away if you have a fever over 101F, can?t swallow, or develop severe swelling. Prescriptions ordered this encounter Disp Refills Start End AMOXICILLIN 875 MG TABLET 20 t* 0 09/20/2019 09/30/2019 Route: ORAL Sig: Take 1 tablet by mouth twice daily for 10 days. Encounter Status:Closed by KATYA CORREIA on 09/20/19 [facility] PROGRESSon 09-20-2019 PROGRESS HNO ID: [id number] Author: Katya (Willem Correia Service: ? Author Type: Nurse Practitioner Type: Progress Notes Filed: 09/20/2019 1:32 PM Note Text: Subjective HPI Sabino Dewey is a 14 year old female who presents with right upper tooth pain. She also has right ear pain. A piece of the tooth broke off 4 months ago and it has hurt on and off since. She rates the pain a 6/10. She took naproxen at home. Review of Systems Constitutional: Negative. Negative for fever. HENT: Positive for ear pain. Toothache Skin: Negative. Neurological: Negative for headaches. BP 114/82 Pulse 96 Temp 37.2 ?C (99 ?F) (Left Tympanic) Resp 16 Wt 119.6 kg (263 lb 9.6 oz) PAST MEDICAL HISTORY Diagnosis Date - ADHD (attention deficit hyperactivity disorder) - Exercise-induced asthma - NEGATIVE MEDICAL HISTORY 11/03/09 normal color vision - RSV (acute bronchiolitis due to respiratory syncytial virus) as a baby PAST SURGICAL HISTORY Procedure Laterality Date - NONE ALLERGIES Patient has no known allergies. MEDICATIONS Ethinyl Estradiol-Norelgestrom (XULANE) 150-35 mcg/24 hr Apply 1 Patch as directed once each week. VALERIAN ROOT ORAL Take by mouth. FAMILY HISTORY Problem Relation Age of Onset - None Unknown - other (sids [Other]) Sister Social History Tobacco Use - Smoking status: Never Smoker - Smokeless tobacco: Never Used Substance Use Topics - Alcohol use: No - Drug use: No Objective Physical Exam Constitutional: She is well-developed, well-nourished, and in no distress. HENT: Head: Right Ear: Tympanic membrane, external ear and ear canal normal. Left Ear: Tympanic membrane, external ear and ear canal normal. Mouth/Throat: Neck: Neck supple. Lymphadenopathy: She has no cervical adenopathy. Neurological: She is alert. Skin: Skin is warm and dry. No rash noted. No erythema. Nursing note and vitals reviewed. ASSESSMENT/PLAN: 1. Toothache - ICD9: 525.9, ICD10: K08.89 - AMOXICILLIN 875 MG TABLET - recommend evaluation by dentist LILY - Follow-up with your PCP in 3-5 days if symptoms have not improved or sooner if symptoms worsen - Discussed red flags and need for immediate medical evaluation if any occur. - Discussed supportive care treatment with fluids, rest and analgesia. - Discussed expected course of illness Katya Correia APRN.MANAGER FACILITY Normal [facility] MSCon 08-02-2019 [facility] REPORT Normal [facility] DATE OF SERVICE: 12/2018 REASON OF VISIT: Painful broken tooth. HISTORY OF PRESENT ILLNESS: This is a 14-year-old female who broke her tooth while chewing 2 months ago on the last tooth of her right lower jaw. She has been having off-and-on pain, but now, the pain is persistent and increasing, causing her to have pain in the jaw. She has not seen any dentist so far. REVIEW OF SYSTEMS: Review of other systems normal. PAST MEDICAL HISTORY, FAMILY HISTORY, SOCIAL HISTORY: Reviewed. ALLERGIES: NKA. MEDICATIONS: None. PHYSICAL EXAMINATION: On examination, she is awake, alert, not in distress, no dyspnea. Temperature 99.2, blood pressure 98/56, pulse 110, respirations 18, pulse oximetry 97% on room air, pain score 10/10 but does not correlate with her clinical appearance. HEENT exam reveals she has a broken last molar of the right lower jaw with tenderness of the gum with slight swelling of the gum, but no obvious abscess was seen. She also has mild tenderness on the right lower jaw area. Chest: Clear to auscultate. Heart: Regular rate and rhythm. ASSESSMENT: Infected broken tooth with gingivitis. PLAN: Clinical findings were discussed with the patient and her mother in detail. I gave her amoxicillin 500 mg 4 times a day for 10 days with no refill. She should do mouthwash, do cool compress. I explained to them that she needs to see a dentist as soon as possible for further evaluation and care of her dental problem. I gave them the list of dentists as well. They understand and agreed. Their questions were answered to their satisfaction. Becky Burciaga MD PP/[id number] [facility] File#: [id number] Verified/Reviewed by 08/11/19 Ana Rosa [facility] PATIENT NAME: SABINO DEWEY [address] [facility], [place] MEDICAL REC #: [id number] [place] [address] [facility] REPORT [facility]ARE PHYSICIAN Normal [facility] MSCon 10-15-2018 [facility] REPORT [facility] DATE OF SERVICE: REASON FOR VISIT: Vomiting, stomach pain. HISTORY OF PRESENT ILLNESS: This is a 13-year-old female who has been vomiting a few times since yesterday; also has stomach pain. No diarrhea, no cough, congestion, no fever, no dysuria. REVIEW OF OTHER SYSTEMS: Normal. PAST MEDICAL HISTORY/FAMILY HISTORY/SOCIAL HISTORY: Reviewed. ALLERGIES: NKA. MEDICATIONS: Reviewed. PHYSICAL EXAMINATION: General: She is awake, alert, not in distress. No dyspnea. Vital Signs: Temperature 98.7, blood pressure 127/64, pulse 107, respiratory rate 18, pulse oximetry 100% on room air. Pain score 6/10. HEENT: Unremarkable. Chest: Clear to auscultate. Heart: Regular rate and rhythm. Abdomen: Soft, but she has some mild tenderness in the central and epigastric area, but no guarding, no rebound tenderness. Liver, spleen not palpable. Bowel sounds are active. ASSESSMENT: Acute gastroenteritis. PLAN: Clinical findings were discussed with the patient and her mother in detail. I gave her Zofran 4 mg 1 tablet every 6 hours as needed, 10 tablets with no refill, and started her with a BRAT diet. Maintain hydration. Tylenol as needed. If she has diarrhea, she can take Pepto Bismol. She will follow up with primary care physician for continuation of care. She was given slip for todays visit. Becky Burciaga MD PP/[id number] [facility] File#: [id number] Verified/Reviewed by 11/03/18 Jack [facility] PATIENT NAME: PA DEWEY [address] [place] MEDICAL REC #: [id number] [place] [address] [facility] REPORT STATCARE PHYSICIAN Normal [facility] Vital Signs Date Time Vital Sign Value Performing Clinician Facility 03-15-2025 09:41-0400 Body height 157.5 cm Kenyetta Velarde MD Work Phone: [facility] 03-15-2025 09:41-0400 Body mass index (BMI) [Ratio] 57.61 kg/m2 Kenyetta Velarde MD Work Phone: [facility] 03-15-2025 09:41-0400 Body weight 142.88 kg Kenyetta Velarde MD Work Phone: [facility] 03-15-2025 09:41-0400 Diastolic blood pressure 84 mm[Hg] Kenyetta Velarde MD Work Phone: [facility] 03-15-2025 09:41-0400 Heart rate 87 /min Kenyetta Velarde MD Work Phone: [facility] 03-15-2025 09:41-0400 Systolic blood pressure 126 mm[Hg] Kenyetta Velarde MD Work Phone: [facility] 02-12-2025 11:03-0400 Diastolic blood pressure 63 mm[Hg] Bam Lozada MD Work Phone: [facility] 02-12-2025 11:03-0400 Heart rate 86 /min Bam Lozada MD Work Phone: [facility] 02-12-2025 11:03-0400 Respiratory rate 18 /min Bam Lozada MD Work Phone: [facility] 02-12-2025 11:03-0400 SaO2% (BldA) [Mass fraction] 97 % Bam Lozada MD Work Phone: [facility] 02-12-2025 11:03-0400 Systolic blood pressure 106 mm[Hg] Bam Lozada MD Work Phone: [facility] 02-12-2025 09:21-0400 Body height 160 cm Bam Lozada MD Work Phone: [facility] 02-12-2025 09:21-0400 Body mass index (BMI) [Ratio] 48.71 kg/m2 Bam Lozada MD Work Phone: [facility] 02-12-2025 09:21-0400 Body temperature 98.1 [degF] Bam Lozada MD Work Phone: [facility] 02-12-2025 09:21-0400 Body weight 124.74 kg Bam Lozada MD Work Phone: [facility] 02-10-2025 00:10-0400 Body height 160 cm Leola Singh MD Work Phone: [facility] 02-10-2025 00:10-0400 Body mass index (BMI) [Ratio] 48.71 kg/m2 Leola Singh MD Work Phone: [facility] 02-10-2025 00:10-0400 Body temperature 98.6 [degF] Leola Singh MD Work Phone: [facility] 02-10-2025 00:10-0400 Body weight 124.74 kg Leola Singh MD Work Phone: [facility] 02-10-2025 00:10-0400 Diastolic blood pressure 77 mm[Hg] Leola Singh MD Work Phone: [facility] 02-10-2025 00:10-0400 Heart rate 109 /min Leola Singh MD Work Phone: [facility] 02-10-2025 00:10-0400 Respiratory rate 18 /min Leola Singh MD Work Phone: [facility] 02-10-2025 00:10-0400 SaO2% (BldA) [Mass fraction] 100 % Leola Singh MD Work Phone: [facility] 02-10-2025 00:10-0400 Systolic blood pressure 126 mm[Hg] Leola Singh MD Work Phone: [facility] 11-05-2024 23:35-0500 Heart rate 90 /min Sarah Brar MD Work Phone: [facility] 11-05-2024 23:15-0500 Body height 157.5 cm Sarah Brar MD Work Phone: [facility] 11-05-2024 23:15-0500 Body mass index (BMI) [Ratio] 48.47 kg/m2 Sarah Brar MD Work Phone: [facility] 11-05-2024 23:15-0500 Body temperature 98.91 [degF] Sarah Brar MD Work Phone: [facility] 11-05-2024 23:15-0500 Body weight 120.2 kg Sarah Brar MD Work Phone: [facility] 11-05-2024 23:15-0500 Diastolic blood pressure 88 mm[Hg] Sarah Brar MD Work Phone: [facility] 11-05-2024 23:15-0500 Respiratory rate 17 /min Sarah Brar MD Work Phone: [facility] 11-05-2024 23:15-0500 SaO2% (BldA) [Mass fraction] 98 % Sarah Brar MD Work Phone: [facility] 11-05-2024 23:15-0500 Systolic blood pressure 134 mm[Hg] Sarah Brar MD Work Phone: [facility] 10-20-2024 14:12-0500 Body height 157.5 cm Kyle Gombash DO Work Phone: [employer] 10-20-2024 14:12-0500 Body mass index (BMI) [Ratio] 48.47 kg/m2 Kyle Gombash DO Work Phone: [employer] 10-20-2024 14:12-0500 Body temperature 97.3 [degF] Kyle Gombash DO Work Phone: [employer] 10-20-2024 14:12-0500 Body weight 120.2 kg Kyle Gombash DO Work Phone: [employer] 10-20-2024 14:12-0500 Diastolic blood pressure 73 mm[Hg] Kyle Gombash DO Work Phone: [employer] 10-20-2024 14:12-0500 Heart rate 98 /min Kyle Gombash DO Work Phone: [employer] 10-20-2024 14:12-0500 Respiratory rate 16 /min Kyle Gombash DO Work Phone: [employer] 10-20-2024 14:12-0500 SaO2% (BldA) [Mass fraction] 96 % Kyle Gombash DO Work Phone: [employer] 10-20-2024 14:12-0500 Systolic blood pressure 137 mm[Hg] Kyle Gombash DO Work Phone: [employer] 08-31-2024 23:20-0400 Diastolic blood pressure 75 mm[Hg] Ivan Blanc MD Work Phone: [employer] 08-31-2024 23:20-0400 Systolic blood pressure 113 mm[Hg] Ivan Blanc MD Work Phone: [employer] 08-31-2024 23:19-0400 Body height 157.5 cm Ivan Blanc MD Work Phone: [employer] 08-31-2024 23:19-0400 Body mass index (BMI) [Ratio] 48.47 kg/m2 Ivan Blanc MD Work Phone: [employer] 08-31-2024 23:19-0400 Body temperature 98.2 [degF] Ivan Blanc MD Work Phone: [employer] 08-31-2024 23:19-0400 Body weight 120.2 kg Ivan Blanc MD Work Phone: [employer] 08-31-2024 23:19-0400 Heart rate 82 /min Ivan Blanc MD Work Phone: [employer] 08-31-2024 23:19-0400 Respiratory rate 17 /min Ivan Blanc MD Work Phone: [facility] 08-31-2024 23:19-0400 SaO2% (BldA) [Mass fraction] 98 % Ivan Blanc MD Work Phone: [facility] 01-18-2024 08:15-0500 Body temperature 97.1 [degF] [facility] 01-18-2024 08:15-0500 Diastolic blood pressure 68 mm[Hg] [facility] 01-18-2024 08:15-0500 Heart rate 81 /min [facility] 01-18-2024 08:15-0500 Respiratory rate 17 /min [facility] 01-18-2024 08:15-0500 SaO2% (BldA) [Mass fraction] 98 % [facility] 01-18-2024 08:15-0500 Systolic blood pressure 127 mm[Hg] [facility] 01-17-2024 14:34-0500 Body height 157.48 cm [facility] 01-17-2024 14:34-0500 Body mass index (BMI) [Ratio] 48.6 kg/m2 [facility] 01-17-2024 14:34-0500 Body weight 120.65 kg [facility] 07-24-2023 10:42-0400 Body temperature 98.01 [degF] Margaux Martins DO Work Phone: [facility] 07-24-2023 10:42-0400 Diastolic blood pressure 82 mm[Hg] Margaux Martins DO Work Phone: [facility] 07-24-2023 10:42-0400 Heart rate 92 /min Margaux Martins DO Work Phone: [facility] 07-24-2023 10:42-0400 Respiratory rate 18 /min Margaux Martins DO Work Phone: [facility] 07-24-2023 10:42-0400 SaO2% (BldA) [Mass fraction] 98 % Margaux Martins DO Work Phone: [facility] 07-24-2023 10:42-0400 Systolic blood pressure 125 mm[Hg] Margaux Martins DO Work Phone: [facility] 06-12-2023 21:30-0400 Body height 157.48 cm [facility] 06-12-2023 21:30-0400 Body mass index (BMI) [Ratio] 46.4 kg/m2 [facility] 06-12-2023 21:30-0400 Body temperature 98.1 [degF] [facility] 06-12-2023 21:30-0400 Body weight 115.21 kg [facility] 06-12-2023 21:30-0400 Diastolic blood pressure 73 mm[Hg] [facility] 06-12-2023 21:30-0400 Heart rate 117 /min [facility] 06-12-2023 21:30-0400 Respiratory rate 15 /min [facility] 06-12-2023 21:30-0400 SaO2% (BldA) [Mass fraction] 95 % [facility] 06-12-2023 21:30-0400 Systolic blood pressure 131 mm[Hg] [facility] 05-18-2023 23:31-0400 Heart rate 95 /min [facility] 05-18-2023 23:31-0400 Respiratory rate 15 /min [facility] 05-18-2023 23:31-0400 SaO2% (BldA) [Mass fraction] 97 % [facility] 05-18-2023 21:27-0400 Body height 157.48 cm [facility] 05-18-2023 21:27-0400 Body mass index (BMI) [Ratio] 48.1 kg/m2 [facility] 05-18-2023 21:27-0400 Body temperature 97.8 [degF] [facility] 05-18-2023 21:27-0400 Body weight 119.29 kg [facility] 05-18-2023 21:27-0400 Diastolic blood pressure 110 mm[Hg] [facility] 05-18-2023 21:27-0400 Systolic blood pressure 134 mm[Hg] [facility] 02-19-2023 19:25-0400 Body temperature 97.59 [degF] Becky Burciaga MD Work Phone: [facility] 02-19-2023 19:25-0400 Diastolic blood pressure 85 mm[Hg] Becky Burciaga MD Work Phone: [facility] 02-19-2023 19:25-0400 Heart rate 102 /min Becky Burciaga MD Work Phone: [facility] 02-19-2023 19:25-0400 Respiratory rate 20 /min Becky Burciaga MD Work Phone: [facility] 02-19-2023 19:25-0400 SaO2% (BldA) [Mass fraction] 97 % Becky Burciaga MD Work Phone: [facility] 02-19-2023 19:25-0400 Systolic blood pressure 140 mm[Hg] Becky Burciaga MD Work Phone: [facility] 09-01-2022 12:45-0400 Body weight 131.54 kg Margaux Martins DO Work Phone: [facility] 09-01-2022 12:45-0400 Diastolic blood pressure 101 mm[Hg] Margaux Martins DO Work Phone: [facility] 09-01-2022 12:45-0400 Heart rate 86 /min Margaux Martins DO Work Phone: [facility] 09-01-2022 12:45-0400 SaO2% (BldA) [Mass fraction] 97 % Margaux Martisn DO Work Phone: [facility] 09-01-2022 12:45-0400 Systolic blood pressure 185 mm[Hg] Margaux Martins DO Work Phone: [facility] Encounters Encounter Date Encounter Type Care Provider Facility Start: 05-10-2025 End: 05-10-2025 Telephone encounter Ash Al APRN.CNP Work Phone: [facility] Comment on above: Missed Appointment ( 05/07/2025 at 1:20 pm for establishing care and physical 1ST NO SHOW) Start: 03-22-2025 End: 03-22-2025 Emergency department patient visit TEDDY GALLARDO Facility:[facility] Start: 03-17-2025 End: 03-17-2025 Orders Only Kenyetta Velarde MD Work Phone: [facility] Obstetrics and Gynecology [facility] Garcia Comment on above: Irregular menses (Pr imary Dx) Start: 03-15-2025 End: 03-15-2025 Initial preventive medicine new pt age 18-39yrs Kenyetta Velarde MD Work Phone: [facility] Obstetrics [facility] Gynecology [facility] Comment on above: Encounter for well w ama exam with abnormal findings (Primary Dx); Irregular menses Start: 03-15-2025 End: 03-15-2025 Patient encounter procedure Kenyetta Velarde MD Work Phone: [facility] Work Phone: Start: 03-15-2025 End: 03-15-2025 ambulatory [facility] Start: 03-15-2025 End: 03-15-2025 Encounter for gynecological examination (general) (routine) with abnormal findings [facility] Start: 02-12-2025 End: 02-12-2025 Emergency department patient visit Bam Lozada MD Work Phone: [facility] Comment on above: Colon spasm (Primary Dx) Start: 02-10-2025 End: 02-10-2025 Emergency department patient visit Leola Singh MD Work Phone: [facility] Comment on above: Nausea, vomiting and diarrhea (Primary Dx) Start: 01-28-2025 End: 01-29-2025 Emergency department patient visit MEJIA GOSS Facility:[facility] Start: 11-05-2024 End: 11-05-2024 Emergency department patient visit Sarah Brar MD Work Phone: [facility] Comment on above: Vaginal laceration, initial encounter (Primary Dx) Start: 10-20-2024 End: 10-20-2024 Subsequent hospital visit by physician [facility] Radiology Comment on above: Arrived Start: 10-20-2024 End: 10-20-2024 Emergency department patient visit Kyle A Lilly DO Work Phone: [facility] Comment on above: Non-recurrent acute suppurative otitis media of left ear without spontaneous rupture of tympanic membrane (Primary Dx) Start: 08-31-2024 End: 08-31-2024 Subsequent hospital visit by physician [facility] Radiology Comment on above: Arrived Start: 08-31-2024 End: 09-01-2024 Emergency department patient visit Ivan Blanc MD Work Phone: [facility] Comment on above: Viral upper respirat ory tract infection (Primary Dx) Start: 07-06-2024 End: 07-07-2024 Emergency department patient visit VLADIMIR VORA MD Facility:A Start: 06-06-2024 End: 06-06-2024 Emergency department patient visit JERAMY BECKHAM MD Facility:A Start: 06-03-2024 End: 06-03-[address] ELIZABETH STOKES DO Facility:A Start: 06-03-2024 End: 06-03-[address] ELIZABETH STOKES DO [facility] Start: 02-08-2024 End: 02-08-[address] ELIZABETH STOKES DO Facility:A Start: 02-08-2024 End: 02-08-[address] ELIZABETH STOKES DO [facility] Start: 01-17-2024 End: 01-18-2024 Emergency department patient visit [facility] Work Phone: Start: 01-17-2024 ambulatory Karly Moore ed, MD Work Phone: [facility] [place] Comment on above: sucidial; Depression Start: 11-29-2023 End: 11-29-2023 ambulatory KARLY CANTU Facility:[id number] Start: 11-13-2023 End: 11-13-2023 ambulatory KARLY CANTU Facility:[id number] Start: 07-24-2023 End: 07-24-2023 ambulatory KARLY CANTU Facility:[id number] Start: 07-24-2023 End: 07-24-2023 Patient encounter procedure Margaux Martins DO Work Phone: [facility] Comment on above: Acute cystitis with hematuria (Primary Dx); Dysuria Start: 06-12-2023 End: 06-12-2023 [facility] Start: 05-18-2023 End: 05-18-2023 [facility] Start: 02-19-2023 End: 02-19-2023 ambulatory KARLY CANTU Facility:[id number] Start: 02-19-2023 End: 02-19-2023 Office outpatient visit 15 minutes Becky Burciaga MD Work Phone: [facility] Comment on above: Dental infection (Pr imary Dx) Start: 09-01-2022 End: 09-01-2022 Patient encounter procedure Margaux Martins DO Work Phone: [facility] Comment on above: Odontalgia (Primary Dx); Scabies Start: 06-20-2022 End: 06-20-2022 Emergency department patient visit [facility] Procedures Date Procedure Procedure Detail Performing Clinician Start: 02-12-2025 Ct abdomen & pelvis w/contrast material Bam Lozada MD Work Phone: Start: 02-12-2025 Urinalysis complete panel - Urine Bam Lozada MD Work Phone: Start: 02-12-2025 Urnls dip stick/tabl et reagent auto microscopy Bam Lozada MD Work Phone: Start: 02-12-2025 Comprehensive metabo lic panel Bam Lozada MD Work Phone: Start: 02-10-2025 Ct abdomen & pelvis w/contrast material Leola Singh MD Work Phone: Start: 02-10-2025 SARS-COV-2, FLU A/B, AND RSV COMBO Leola Singh MD Work Phone: Start: 02-10-2025 Comprehensive metabo lic panel Leola Singh MD Work Phone: Start: 10-20-2024 Urine test visual color cmprsn meths Kyle A Gombash DO Work Phone: Start: 10-20-2024 Radiologic exam ches t single view Kyle A Gombash DO Work Phone: Start: 08-31-2024 Radiologic exam ches t single view Ivan Blanc MD Work Phone: Start: 08-31-2024 SARS-COV-2, FLU A/B, AND RSV COMBO Ivan Blanc MD Work Phone: Start: 01-17-2024 Plain chest X-ray Start: 01-17-2024 Plain X-ray abdomen Start: 07-24-2023 Urnls dip stick/tabl et rgnt auto w/o microscopy Margauxshellie Holdenkeira Martins DO Work Phone: Plan of Treatment Date Care Activity Detail Author Start: 2078 RSV Immunization for Adults (1 - 1-dose 75+ series) RSV Immunization for Adults (1 - 1-dose 75+ series) [employer] Start: 2063 RSV Immunization age d 60 or older (1 - 1-dose 60+ series) RSV Immunization aged 60 or older (1 - 1-dose 60+ series) [employer] Start: 2053 Zoster Vaccines (1 of 2) Zoste r Vaccines (1 of 2) [employer] Start: 03-15-2028 Screening for malign ant neoplasm of cervix Cervical Cancer Screening [facility] Start: 09-27-2025 End: 09-27-2025 Patient encounter procedure 09/27/2025 9:50 AM EDT Office Visit [facility] [place] [address] [place] [phone] Kimberly Ruggiero MD [address] [place], [place] [id number] [facility] [place] Start: 08-02-2025 Influenza vaccination Influenz a Vaccine (Season Ended) [facility] Start: 06-28-2025 DTaP/Tdap/Td Vaccine s (5 - Td or Tdap) DTaP/Tdap/Td Vaccines (5 - Td or Tdap) [facility] Start: 06-28-2025 DTaP/Tdap/Td Vaccine s (7 - Td or Tdap) DTaP/Tdap/Td Vaccines (7 - Td or Tdap) [facility] Start: 06-28-2025 Urine microalbumin profile [facility] Start: 03-17-2025 End: 03-17-2026 US Pelvis transvaginal US pelvis transvaginal Imaging Routine Irregular menses Expected: 03/17/2025, Expires: 03/17/2026 [facility] Work Phone: Comment on above: Expected: 03/17/2025 , Expires: 03/17/2026 Start: 03-15-2025 End: 03-15-2026 Thyrotropin [Units/volume] in Serum or Plasma TSH Lab Routine Irregular menses Expected: 03/15/2025 (Approximate), Expires: 03/15/2026 [facility] Comment on above: Expected: 03/15/2025 (Approximate), Expires: 03/15/2026 Start: 03-15-2025 End: 03-15-2025 Patient encounter procedure 03/15/2025 9:30 AM EDT Office Visit [facility] - [facility] [address] [place] [address] Kenyetta Velarde MD [address] [facility] [address] [place] [phone] [facility] Start: 12-08-2024 End: 12-08-2024 Patient encounter procedure 12/08/2024 10:00 AM EST Office Visit [facility] [address] [place] [address] Tabby Gaffney MD [address] [facility] [address] [place] [address] [facility] Start: 08-02-2024 COVID-19 Vaccine ( season) COVID-19 Vaccine ( season) [facility] Start: 08-02-2024 COVID-19 Vaccine ( season) COVID-19 Vaccine () [facility] Start: 08-02-2024 Influenza vaccination Influenza Vacc ine (#1) [facility] Start: 2024 Screening for malign ant neoplasm of cervix Pap Smear [facility] Start: 01-17-2024 Suicide precautions [facility] Start: 01-17-2024 Referral to service [facility] Start: 01-17-2024 Suicide precautions [facility] Start: 12-02-2023 Depression Assessment [facility] Start: 08-02-2023 Influenza vaccination [facility] Start: 12-02-2022 DEPRESSION ASSESSMENT DEPRESSION ASS ESSMENT [facility] Start: 08-02-2022 Influenza vaccination INFLUENZA (#1) [facility] Start: 2022 Pneumococcal vaccination Pneum ococcal Vaccine (1 of 2 - PCV) [facility] Start: 2022 Pneumococcal Vaccine : Pediatrics (0 to 5 Years) and At-Risk Patients (6 to 49 Years) (1 of 2 - PCV) Pneumococcal Vaccine: Pediatrics (0 to 5 Years) and At-Risk Patients (6 to 49 Years) (1 of 2 - PCV) [facility] Start: 12-02-2021 DEPRESSION ASSESSMENT DEPRESSION ASS ESSMENT [facility] Start: 2021 Anxiety Screening Anxiety Screening [facility] Start: 2021 CHLAMYDIA SCREENING (18-24) CHLAMYDIA SCREENING (18-24) [facility] Start: 2021 Depression Screening Depression Scre ening [facility] Start: 2021 GC (GONORRHEA) SCREE DAVID () GC (GONORRHEA) SCREENING () [facility] Start: 2021 HEPATITIS C SCREENING HEPATITIS C [facility] Start: 2021 Hepatitis C screening Hepatitis C [facility] Start: 2021 HIV SCREENING HIV SCREENING [facility] Start: 2021 HIV screening HIV Screening [facility] Start: 2021 Screening for Chlamy iqra trachomatis Chlamydia Screening () [facility] Start: 2019 Meningococcal B Vacc ine (1 of 2 - Standard) Meningococcal B Vaccine (1 of 2 - Standard) [facility] Start: 2019 Meningococcal B Vacc ine: Consider Based On Risk (1 of 2 - Patient Seeks Protection) Meningococcal B Vaccine: Consider Based On Risk (1 of 2 - Patient Seeks Protection) [facility] Start: 2019 MENINGOCOCCAL B: Consider based on risk (1 of 2 - Patient Seeks Protection) MENINGOCOCCAL B: Consider based on risk (1 of 2 - Patient Seeks Protection) [facility] Start: 2018 HPV Vaccine (1 - 3-d ose series) HPV Vaccine (1 - 3-dose series) [facility] Start: 2018 HPV Vaccines (1 - 3- dose series) HPV Vaccines (1 - 3-dose series) [facility] Start: 2017 PEDS TO ADULT TRANSI TION ANNUAL ASSESSMENT PEDS TO ADULT TRANSITION ANNUAL ASSESSMENT [facility] Start: 2016 Varicella vaccination Varicell a Vaccines (1 of 2 - 13+ 2-dose series) [facility] Start: 2015 Depression Monitoring Depression Mon itoring [facility] Start: 2015 Depression Screening Depression Scre ening [facility] Start: 2015 PEDS TO ADULT TRANSI TION INITIAL DISCUSSION PEDS TO ADULT TRANSITION INITIAL DISCUSSION [facility] Start: 2014 HPV VACCINE (1 - 2-d ose series) HPV VACCINE (1 - 2-dose series) [facility] Start: 2013 MENINGOCOCCAL B: Consider based on risk (1 of 2 - Risk Bexsero 2-dose series) MENINGOCOCCAL B: Consider based on risk (1 of 2 - Risk Bexsero 2-dose series) [facility] Start: 01-05-2013 Varicella vaccination Varicell a Vaccines (2 of 2 - 2-dose childhood series) [facility] Start: 2012 HPV VACCINE (1 - 2-d ose series) HPV VACCINE (1 - 2-dose series) [facility] Start: 2009 PNEUMOCOCCAL (1 - PCV) PNEUMOCOCCAL (1 - PCV) [facility] Start: 2009 Pneumococcal vaccination Pneum ococcal Vaccine (1 of 2 - PCV) [facility] Start: 2009 Pneumococcal Vaccine : Pediatrics (0 to 5 Years) and At-Risk Patients (6 to 64 Years) (1 of 2 - PCV) Pneumococcal Vaccine: Pediatrics (0 to 5 Years) and At-Risk Patients (6 to 64 Years) (1 of 2 - PCV) [facility] Start: 2007 IPV Vaccines (4 of 4 - 4-dose series) IPV Vaccines (4 of 4 - 4-dose series) [facility] Start: 04-10-2004 Hepatitis B Vaccines (2 of 3 - 3-dose series) Hepatitis B Vaccines (2 of 3 - 3-dose series) [facility] Start: 2003 COVID-19 VACCINE (#1) COVID-19 VACCI NE (#1) [facility] Start: 2003 HIV screening HIV Screening [facility] Start: 2003 Lipid panel Lipid Panel [facility] Start: 2003 Screening for Chlamy iqra trachomatis Chlamydia and Gonorrhea Screening [facility] CHLAMYDIA/N.GONORRHO EAE AND T. VAGINALIS RNA, QL TMA ([facility]) Chlamydia/N.Gonorrhoeae and T. Vaginalis RNA, QL TMA ([facility]) Microbiology Routine Encounter for well woman exam with abnormal findings Ordered: 03/15/2025 [facility] Comment on above: Ordered: 03/15/2025 Cytology Cervical or vaginal smear or scraping study Pap Smear Pathology and Cytology Routine Encounter for well woman exam with abnormal findings Ordered: 03/15/2025 [facility] Work Phone: Comment on above: Ordered: 03/15/2025 DHEA-sulfate DHEA-sulfate Lab Routine Irregular menses Ordered: 03/15/2025 [facility] Comment on above: Ordered: 03/15/2025 Estradiol Estradiol Lab Ro utine Irregular menses Ordered: 03/15/2025 [employer] Comment on above: Ordered: 03/15/2025 Follicle stimulating hormone Follicle stimulating hormone Lab Routine Irregular menses Ordered: 03/15/2025 [employer] Comment on above: Ordered: 03/15/2025 hCG, quantitative hCG, quantitat angelo Lab Routine Irregular menses Ordered: 03/15/2025 [employer] Comment on above: Ordered: 03/15/2025 Luteinizing hormone Luteinizing hormone Lab Routine Irregular menses Ordered: 03/15/2025 [employer] Comment on above: Ordered: 03/15/[address] [facility] Work Phone: Patient referral [facility] Work Phone: Prolactin Prolactin Lab Ro utine Irregular menses Ordered: 03/15/2025 [employer] Comment on above: Ordered: 03/15/2025 Testosterone, Free (Dialysis), Total (MS) and Sex Hormone Binding Globulin Testosterone, Free (Dialysis), Total (MS) and Sex Hormone Binding Globulin Lab Routine Irregular menses Ordered: 03/15/2025 [employer] Comment on above: Ordered: 03/15/2025 Thyroxine (T4) free [Mass/volume] in Serum or Plasma T4, free Lab Routine Irregular menses Ordered: 03/15/2025 [employer] Comment on above: Ordered: 03/15/2025 Immunizations Immunization Date Immunization Notes Care Provider [facility] 06-28-2015 meningococcal polysaccharide (groups A, C, Y and W-135) diphtheria toxoid conjugate vaccine (MCV4P) Margaux Martins DO Work Phone: [facility] 06-28-2015 tetanus toxoid, redu shree diphtheria toxoid, and acellular pertussis vaccine, adsorbed Margaux Martins DO Work Phone: [facility] 12-08-2012 influenza virus vacc ine, live, attenuated, for intranasal use Margaux Martins DO Work Phone: [facility] 12-08-2012 influenza virus vacc ine, unspecified formulation Karly Cantu MD Work Phone: [facility] 10-05-2008 diphtheria, tetanus toxoids and acellular pertussis vaccine Margaux Martins DO Work Phone: [facility] Work Phone: 10-05-2008 measles, mumps and rubella virus vaccine Margaux Martins DO Work Phone: [facility] Work Phone: 10-05-2008 poliovirus vaccine, inactivated Margaux Martins DO Work Phone: [facility] Work Phone: 10-05-2008 varicella virus vaccine Margaux Martins DO Work Phone: [facility] Work Phone: 07-24-2006 diphtheria, tetanus toxoids and acellular pertussis vaccine Margaux Martins DO Work Phone: [facility] Work Phone: 07-24-2006 pneumococcal conjuga te vaccine, 7 valent Margaux Martins DO Work Phone: [facility] Work Phone: 07-24-2006 poliovirus vaccine, inactivated Margaux Martins DO Work Phone: [facility] Work Phone: 09-13-2004 influenza virus vacc ine, whole virus Margaux Bassn DO Work Phone: [facility] 09-01-2004 influenza virus vacc ine, unspecified formulation Margaux Bsasn DO Work Phone: [facility] Work Phone: 03-13-2004 DTaP-hepatitis B and poliovirus vaccine Margaux Martins DO Work Phone: [facility] Work Phone: 03-13-2004 haemophilus influenz ae type b vaccine, HbOC conjugate Margaux Martins DO Work Phone: [facility] Work Phone: 03-13-2004 measles, mumps and rubella virus vaccine Margaux Martins DO Work Phone: [facility] Work Phone: 03-13-2004 poliovirus vaccine, unspecified formulation Ivan Blanc MD Work Phone: [facility] 2003 diphtheria, tetanus toxoids and acellular pertussis vaccine Margaux Martins DO Work Phone: [facility] Work Phone: 2003 haemophilus influenz ae type b vaccine, HbOC conjugate Margaux Martins DO Work Phone: [facility] Work Phone: 2003 pneumococcal conjuga te vaccine, 7 valent Margaux Martins DO Work Phone: [facility] Work Phone: 2003 poliovirus vaccine, inactivated Margaux Martins DO Work Phone: [facility] Work Phone: 2003 diphtheria, tetanus toxoids and acellular pertussis vaccine Margaux Martins DO Work Phone: [facility] Work Phone: 2003 haemophilus influenz ae type b vaccine, HbOC conjugate Margaux Martins DO Work Phone: [facility] Work Phone: 2003 pneumococcal conjuga te vaccine, 7 valent Margaux Martins DO Work Phone: [facility] Work Phone: 2003 poliovirus vaccine, inactivated Margaux Martins DO Work Phone: [facility] Work Phone: 2003 hepatitis B vaccine, pediatric or pediatric/adolescent dosage Margaux Martins DO Work Phone: [facility] Work Phone: 2003 hepatitis B vaccine, pediatric or pediatric/adolescent dosage Margaux Martins DO Work Phone: [facility] Work Phone: Payers Date Payer Category Payer Medicaid HMO [employer]DM [id number] 2024 Self-pay [id number] 2023 Unknown [id number] 2015 Unknown [id number] 2003 Medicaid [id number] 1972 Unknown [id number] 1972 Unknown [id number] 1972 Unknown [id number] 1972 Unknown [id number] 1972 Unknown [id number] Unknown [id number] Social History Date Type Detail Facility Start: 12-23-2021 End: 01-17-2024 Tobacco smoking status NHIS Unknown if ever smoked [facility] Start: 2003 Sex Assigned At Female W [facility] Start: 09-01-2022 End: 11-13-2023 Tobacco smoking status NHIS Smokes tobacco daily [facility] History of tobacco use Cigarette Smoker [facility] Start: 09-01-2022 End: 11-13-2023 Tobacco use and exposure Smokeless tobacco non-user [facility] Start: 09-01-2022 Alcohol intake Current non-dr tractor expert of alcohol (finding) [facility] Start: 2003 Sex Assigned At Not on file C [facility] Start: 08-22-2022 End: 09-01-2022 Exposure to SARS-CoV-2 (event) Not sure [facility] Start: 02-19-2023 End: 11-29-2023 Alcohol intake Current drinker of alcohol (finding) [facility] Start: 07-24-2023 End: 03-23-2025 History of Social function [facility] Start: 07-24-2023 End: 03-23-2025 Tobacco use panel [facility] Start: 03-16-2025 Adult Depression Screening Assessment 0 [facility] History of tobacco use Passive smoker [facility] Start: 07-13-2022 Tobacco smoking status Smoker (finding) [facility] Start: 08-31-2024 Alcohol Comment occasional [facility] How often to you hav e a drink containing alcohol? Monthly or less [facility] How many standard drinks containing alcohol do you have on a typical day? 1 or 2 [facility] How often do you hav e 6 or more drinks on 1 occasion? Never [facility] Start: 08-31-2024 Sex Female (finding) [facility] How often to you hav e a drink containing alcohol? 2-3 time sa week [facility] How often do you hav e 6 or more drinks on 1 occasion? Less than monthly [facility] Start: 03-16-2025 Gender identity Identifies as female gender (finding) [facility] NEGATED: Highlighted row [facility] Functional Status Date Assessment Result Facility 06-28-2015 Are you deaf, or do you have serious difficulty hearing No 06/28/2015 3:37 PM EDT Marlon Allison Cma No [facility] 06-28-2015 Are you blind, or do you have serious difficulty seeing, even when wearing glasses No 06/28/2015 3:37 PM EDT Marlon Allison [facility] No [facility] 06-28-2015 Do you have serious difficulty walking or climbing stairs No 06/28/2015 3:37 PM EDT Marlon Allison Cma No [facility] 06-28-2015 Do you have difficul ty dressing or bathing No 06/28/2015 3:37 PM EDT Maroln Allison Cma No [facility] Mental Status Date Assessment Result Facility 06-12-2023 Cognitive function Level Of Cons ciousness Awake;Alert;Appropriate;Fol lows Commands [facility] Work Phone: 06-28-2015 Because of a physica l, mental, or emotional condition, do you have serious difficulty concentrating, remembering, or making decisions Yes 06/28/2015 3:37 PM EDT Marlon Allison Cma Yes [facility] Clinical Notes 09-01-2022 to 05-10-2025 Telephone Encounter - Chioma Weaver - 05/10/2025 10:30 AM EDTTelephone Encounter - Chioma Weaver - 05/10/2025 10:30 AM Luis Eduardo Velarde MD - 03/15/2025 9:45 AM EDTDischarge Instructions Note Date & Type Note Facility 05-10-2025 Telephone encounter Note Summary: 1ST NO SHOW No Show Documentation Sabino Dewey no showed for an appointment on 05/07/2025 with Ash Al APRN.CNP at 1:20 pm. She was scheduled for establishing care and physical. I called and left message on patients voicemail regarding her missed appointment. Resources discussed/offered to patient: N/A No show determined to be fault of patient: Yes This is the patients first no show in the last 12 months. Patient was rescheduled for N/A. Letter mailed : Yes Is this the Third or Fourth No Show? No Chioma Weaver May 10, 2025 10:30 AM [facility] 05-10-2025 Miscellaneous Notes Summary: 1ST NO SHOW No Show Documentation Sabino Dewey no showed for an appointment on 05/07/2025 with Ash Al APRN.CNP at 1:20 pm. She was scheduled for establishing care and physical. I called and left message on patients voicemail regarding her missed appointment. Resources discussed/offered to patient: N/A No show determined to be fault of patient: Yes This is the patients first no show in the last 12 months. Patient was rescheduled for N/A. Letter mailed : Yes Is this the Third or Fourth No Show? No Chioma Weaver May 10, 2025 10:30 AM documented in this encounter [facility] 03-15-2025 History of Present illness Narrative Sabino Dewey 03/15/2027 20 y.o. Primary Care Physician: [facility] Chief Complaint Patient presents with New Patient Annual exam HPI : Sabino Dewey is a 20 y.o. female here for annual exam Gynecologic History: Patient's last menstrual period was 01/29/2025 (exact date). She was diagnosed with PCOS in 2023 due to irregular menses. She was then placed on CHELI. She describes her menses as short and light lasting about 2 days. She discontinued OCPs and prefers to avoid them for now. LMP 01/29/25 Sexually Active: Yes STD History: Yes trichomonas, CT Reversible Control: No HPV vaccination completed: Yes PAP: n/a OB History Para Term AB Living 1 0 0 0 1 0 SAB IAB Ectopic Multiple Live Births 1 0 0 0 0 # Outcome Date GA Lbr Matthew/2nd Weight Sex Type Anes PTL Lv 1 SAB Past Medical History: Diagnosis Date Night terrors History reviewed. No pertinent surgical history. No family history on file. Social History Socioeconomic History Marital status: Single Spouse name: Not on file Number of children: Not on file Years of education: Not on file Highest education level: Not on file Occupational History Not on file Tobacco Use Smoking status: Every Day Current packs/day: 0.50 Types: Cigarettes Smokeless tobacco: Never Vaping Use Vaping status: Every Day Substance and Sexual Activity Alcohol use: Yes Comment: occasional Drug use: Yes Types: Marijuana Sexual activity: Yes Partners: Male control/protection: None Other Topics Concern Not on file Social History Narrative Not on file Social Drivers of Health Financial Resource Strain: Not on file Food Insecurity: Not on file Transportation Needs: Not on file Physical Activity: Not on file Stress: Not on file Social Connections: Not on file Intimate Partner Violence: Not on file Housing Stability: Not on file MEDICATIONS: Current Outpatient Medications Medication Sig Dispense Refill ARIPiprazole (Abilify) 20 MG tablet Take 100 mg by mouth daily. busPIRone (Buspar) 10 MG tablet Take 10 mg by mouth 3 times daily. lamoTRIgine (LaMICtal) 150 MG tablet Take by mouth. omeprazole (PriLOSEC) [address] capsule Take 20 mg by mouth daily. prazosin (Minipress) 5 MG capsule Take 5 mg by mouth Nightly. propranolol (Inderal) 10 MG tablet Take 10 mg by mouth daily. traZODone (Desyrel) 50 MG tablet Take 50 mg by mouth Nightly. No current facility-administered medications for this visit. ALLERGIES: Allergies as of 03/15/2025 - Reviewed 03/15/2025 Allergen Reaction Noted Hydrocodone Anaphylaxis 07/24/2023 Acetaminophen 12/23/2021 REVIEW OF SYSTEMS: CONSTIUTIONAL: No fever, chills or malaise; No weight change or fatigue CV: No Chest Pain with Exertion, Palpitations, Syncope, Edema, Arrhythmia RESPIRATORY: No SOB, Pneumoniae,Cough, BREAST: No breast abnormalities or lumps GI: No Indigestion, Heartburn, Nausea, vomiting, Diarrhea, Constipation,Bloating or Bowel Changes; No Bloody Stools or melena : No Dysuria, Hematuria or Nocturia. No Urinary Incontinence or Vaginal Discharge,vaginal bleeding, or dysparuenia. NEURO: No CVA, Migraines, Epilepsy, Seizure Hx, or Limb Weakness DERM: No Rash, Itching, Hives, Mole Changes or Cancer PSYCH: No Depression, Homicidal thoughts,suicidal thoughts, or anxiety MUSCULOSKELETAL: No Arthralgia, Arthritis,Gout,Osteoporosis or Rheumatism HEME and LYMPH :No Lymphoma, Von Willebrand's, Hemophillia or Bleeding History PHYSICAL EXAM: Vitals: 03/15/25 0941 BP: 126/84 Pulse: 87 Weight: (!) 315 lb (143 kg) Height: 5' 2 (1.575 m) Body mass index is 57.61 kg/m . HEAD OF MARKETING EXAM: Breasts: no masses no skin changes, no nipple retraction or discharge. EXTERNAL GENITALIA: normal female structures VAGINA: normal ruggae, no lesions, normal discharge CERVIX: no lesions, no cervical motion tenderness, normal appearance. VAGINA VAULT: normal. Minimal relaxation UTERUS: normal mobility, nontender, normal size, shape and consistency. ADNEXA: normal, non tender no masses URETHRA: normal. nontender BLADDER: non tender. ANUS/PERINEUM: no hemorrhoids, masses or warts noted. GENERAL EXAM CONSTITUTIONAL: Well developed, well nourished, well groomed. no acute distress NECK: no thyromegaly, supple. CARDIOVASCULAR: normal rate and rhythm, no edema RESPIRATORY: Normal effort, normal lung sounds ABDOMEN:soft, non-tender, non-distended, no hepatospleenomegaly SKIN: intact, dry NEUROLOGICAL: no gross motor or sensory deficits noted. . MUSCULOSKETAL: normal gait, no cyanosis. PSYCHIATRIC Normal mood and affect, A&O x3. ASSESSMENT/PLAN: There are no diagnoses linked to this encounter. No follow-ups on file. control and barrier recommendations discussed. STD counseling and prevention reviewed. Gardisil counseling completed for all patients 9-26 yo. Routine health maintenance per patients PCP. STI screening PAP We discussed options to treat her irreguar menses with cyclical provera. For now, blood work was ordered and a follow up will be scheduled to review the results. documented in this encounter [facility] 02-12-2025 Emergency department Note Discharge teaching completed. Pt verbalizes understanding of medications, times to return to the ED, and follow up care discussed. Pt is stable and ambulatory upon discharge. Pt is a/o x 4; breathing is even and unlabored on room air. No distress noted. Pt leaves ED with all belongings. [facility] 02-12-2025 Note Discharge teaching c ompleted. Pt verbalizes understanding of medications, times to return to the ED, and follow up care discussed. Pt is stable and ambulatory upon discharge. Pt is a/o x 4; breathing is even and unlabored on room air. No distress noted. Pt leaves ED with all belongings. [facility] 02-12-2025 Emergency department Note Discharge teaching completed. Pt verbalizes understanding of medications, times to return to the ED, and follow up care discussed. Pt is stable and ambulatory upon discharge. Pt is a/o x 4; breathing is even and unlabored on room air. No distress noted. Pt leaves ED with all belongings. EMERGENCY DEPARTMENT ENCOUNTER Pt Name: Sabino Dewey Birthdate 2005 Date of evaluation: 02/12/2025 ED Provider: Bam Lozada MD CHIEF COMPLAINT Chief Complaint Patient presents with Abdominal Pain Vomiting Diarrhea HISTORY OF PRESENT ILLNESS (Location/Symptom, Timing/Onset, Context/Setting, Quality, Duration, Modifying Factors, Severity) Note limiting factors. I wore appropriate PPE for the entirety of this encounter. HPI Sabino Dewey is a 20 y.o. who presents to the emergency department with right lower quadrant abdominal pain, was seen here at 3 days ago for the same complaint had a negative CT at that time but feels like the pain has gotten worse, she said was a 5 3 days ago analysis 7, no fevers, some nausea without vomiting. She says she has pain when she tries to have a bowel movement in her abdomen mostly in the right lower quadrant Nursing Notes were reviewed. Limitations to history: None Outside historians: Significant other REVIEW OF SYSTEMS Review of Systems Pertinent positives and negatives as per HPI PAST MEDICAL HISTORY Past Medical History: Diagnosis Date Night terrors SURGICAL HISTORY History reviewed. No pertinent surgical history. CURRENT MEDICATIONS Previous Medications ARIPIPRAZOLE (ABILIFY) 20 MG TABLET Take 100 mg by mouth daily. BUSPIRONE (BUSPAR) 10 MG TABLET Take 10 mg by mouth 3 times daily. LAMOTRIGINE (LAMICTAL) 150 MG TABLET Take by mouth. OMEPRAZOLE (PRILOSEC) [address] CAPSULE Take 20 mg by mouth daily. PRAZOSIN (MINIPRESS) 5 MG CAPSULE Take 5 mg by mouth Nightly. PROPRANOLOL (INDERAL) 10 MG TABLET Take 10 mg by mouth daily. TRAZODONE (DESYREL) 50 MG TABLET Take 50 mg by mouth Nightly. ALLERGIES Hydrocodone and Acetaminophen FAMILY HISTORY No family history on file. SOCIAL HISTORY Social History Socioeconomic History Marital status: Single Tobacco Use Smoking status: Every Day Current packs/day: 0.50 Types: Cigarettes Smokeless tobacco: Never Vaping Use Vaping status: Every Day Substance and Sexual Activity Alcohol use: Yes Comment: occasional Drug use: Yes Types: Marijuana Sexual activity: Yes control/protection: None PHYSICAL EXAM ED Triage Vitals [02/12/25 0921] Temp Heart Rate Resp BP 36.7 C (98.1 F) 102 20 130/79 SpO2 Temp Source Heart Rate Source Patient Position 97 % Oral -- -- BP Location FiO2 (%) -- -- Physical Exam Tenderness in right lower quadrant without any peritoneal signs DIAGNOSTIC RESULTS RADIOLOGY (Per Emergency Physician): Interpretation per the Radiologist below, if available at the time of this note: CT abdomen pelvis w contrast Final Result 1. No evidence of abdominal or pelvic mass lesion or other significant abnormality (normal appendix with no free fluid or free air or fluid collections or other acute finding). Report Dictated on Electronically Signed By: Merlin Rdz MD Electronically Signed Date/Time: 02/12/2025 10:19 AM EDT LABS: Labs Reviewed CBC WITH AUTO DIFFERENTIAL - Abnormal Result Value Auto WBC 11.2 (*) RBC 4.94 Hemoglobin 13.0 Hematocrit 39.8 MCV 80.6 MCH 26.3 MCHC 32.7 RDW 13.5 Platelets 335 MPV 9.0 nRBC 0.0 Neutrophils Relative 54.0 Lymphocytes Relative 32.7 Monocytes Relative 7.9 Eosinophils Relative 4.6 Basophils Relative 0.4 Immature Grans % 0.4 Neutrophils Absolute 6.1 Lymphocytes Absolute 3.7 Monocytes Absolute 0.9 Eosinophils Absolute 0.5 Basophils Absolute 0.1 Immature Grans Absolute 0.0 COMPREHENSIVE METABOLIC PANEL - Abnormal SODIUM 141 POTASSIUM 3.7 CHLORIDE 111 (*) CARBON DIOXIDE 25 ANION GAP 5 UREA NITROGEN 14 CREATININE 0.65 GLUCOSE 99 CALCIUM 8.8 AST (SGOT) 20 ALT 27 ALKALINE PHOSPHATASE 77 ALBUMIN 3.5 BILIRUBIN, TOTAL 0.2 TOTAL PROTEIN 6.5 eGFR >90.0 COMPLETE URINALYSIS - Abnormal Color, Urine Light Yellow Clarity, Urine Clear pH, Urine 6.0 Leukocytes, Urine Negative Nitrite, Urine Negative Protein, Urine Negative Glucose, Urine Normal Bilirubin, Urine Negative Ketones, Urine Negative Urobilinogen, Urine Normal Blood, Urine 0.03 (*) Volume, Urine 12 mL RBC, Urine 0-2 WBC, Urine 0-2 Squamous Epithelial, Urine 3-5 Bacteria, Urine Few (*) SPECIFIC GRAVITY OF URINE (NUMERIC) 1.025 COMPLETE URINALYSIS WITH REFLEX TO CULTURE Narrative: The following orders were created for panel order Urinalysis Complete with reflex to Culture. Procedure Abnormality Status --------- ------ Complete Urinalysis[[id number]] Abnormal Final result Please view results for these tests on the individual orders. All other labs were within normal range or not returned as of this dictation. EMERGENCY DEPARTMENT COURSE and DIFFERENTIAL DIAGNOSIS/MDM: Vitals: Vitals: 02/12/25 0921 BP: 130/79 Pulse: 102 Resp: 20 Temp: 36.7 C (98.1 F) TempSrc: Oral SpO2: 97% Weight: 125 kg (275 lb) Height: 1.6 m (5' 3) Medications dicyclomine (Bentyl) capsule 10 mg (10 mg Oral Given 02/12/25 0940) ondansetron (Zofran) injection 4 mg (4 mg IntraVENous Given 02/12/25 0940) iopamidol (Isovue-370) 76 % injection 75 mL (75 mL IntraVENous Given 02/12/25 1003) SCREENINGS Thompson Coma Scale Best Eye Response: Spontaneous Best Verbal Response: Oriented Best Motor Response: Follows commands Thompson Coma Scale Score: 15 MDM elements: The patient presented with chief complaint of with right lower quadrant abdominal pain is gotten worse over the past 3 days since she had her last workup, does sound like she may be having some colonic spasms when she tries to have a bowel movement so she was given Bentyl here and Zofran, repeat the CT to make sure that the first CT did not miss an early appendicitis. The differential diagnosis associated with this patient's presentation includes appendicitis, constipation, colonic spasms. Our workup consisted of ordering/reviewing: Labs, CT, Bentyl and Zofran. To aid in management, I performed an independent interpretation of CT scan(s) interpreted by me shows no acute appendicitis. The patient will be Discharged. Patient is in agreement with this plan. Discharged with Colace, Bentyl, Zofran PROCEDURES: Unless otherwise noted below, none Procedures CRITICAL CARE TIME None FINAL IMPRESSION 1. Colon spasm DISPOSITION Discharge 02/12/2025 10:33:00 AM PATIENT [facility]: [facility] [address] [place] [id number] Schedule an appointment as soon as possible for a visit As needed DISCHARGE MEDICATIONS: New Prescriptions DICYCLOMINE (BENTYL) 20 MG TABLET Take 1 tablet (20 mg) by mouth 2 times daily for 10 days. DOCUSATE SODIUM (COLACE) 100 MG CAPSULE Take 1 capsule (100 mg) by mouth every 12 hours. ONDANSETRON ODT (ZOFRAN-ODT) 4 MG DISINTEGRATING TABLET Take 1 tablet (4 mg) by mouth every 8 hours as needed for nausea or vomiting for up to 7 days. (Comment: Please note this report has been produced using speech recognition software and may contain errors related to that system including errors in grammar, punctuation, and spelling, as well as words and phrases that may be inappropriate. If there are any questions or concerns please feel free to contact the dictating provider for clarification.) Bam Lozada MD (electronically signed) Emergency Medicine Provider Bam Lozada MD 02/12/25 1034 Pt to ED for lower right abd pain that she was seen for a couple days ago and had a full work up. Pt states that the pain is position dependent and has seemed to get worse. Also N/V/D documented in this encounter [facility] 02-12-2025 Emergency department Triage note Pt to ED for lower right abd pain that she was seen for a couple days ago and had a full work up. Pt states that the pain is position dependent and has seemed to get worse. Also N/V/D [facility] 02-12-2025 Physician Emergency department Note EMERGENCY DEPARTMENT ENCOUNTER Pt Name: Sabino Dewey Birthdate 2005 Date of evaluation: 02/12/2025 ED Provider: Bam Lozada MD CHIEF COMPLAINT Chief Complaint Patient presents with Abdominal Pain Vomiting Diarrhea HISTORY OF PRESENT ILLNESS (Location/Symptom, Timing/Onset, Context/Setting, Quality, Duration, Modifying Factors, Severity) Note limiting factors. I wore appropriate PPE for the entirety of this encounter. HPI Sabino Dewey is a 20 y.o. who presents to the emergency department with right lower quadrant abdominal pain, was seen here at 3 days ago for the same complaint had a negative CT at that time but feels like the pain has gotten worse, she said was a 5 3 days ago analysis 7, no fevers, some nausea without vomiting. She says she has pain when she tries to have a bowel movement in her abdomen mostly in the right lower quadrant Nursing Notes were reviewed. Limitations to history: None Outside historians: Significant other REVIEW OF SYSTEMS Review of Systems Pertinent positives and negatives as per HPI PAST MEDICAL HISTORY Past Medical History: Diagnosis Date Night terrors SURGICAL HISTORY History reviewed. No pertinent surgical history. CURRENT MEDICATIONS Previous Medications ARIPIPRAZOLE (ABILIFY) 20 MG TABLET Take 100 mg by mouth daily. BUSPIRONE (BUSPAR) 10 MG TABLET Take 10 mg by mouth 3 times daily. LAMOTRIGINE (LAMICTAL) 150 MG TABLET Take by mouth. OMEPRAZOLE (PRILOSEC) [address] CAPSULE Take 20 mg by mouth daily. PRAZOSIN (MINIPRESS) 5 MG CAPSULE Take 5 mg by mouth Nightly. PROPRANOLOL (INDERAL) 10 MG TABLET Take 10 mg by mouth daily. TRAZODONE (DESYREL) 50 MG TABLET Take 50 mg by mouth Nightly. ALLERGIES Hydrocodone and Acetaminophen FAMILY HISTORY No family history on file. SOCIAL HISTORY Social History Socioeconomic History Marital status: Single Tobacco Use Smoking status: Every Day Current packs/day: 0.50 Types: Cigarettes Smokeless tobacco: Never Vaping Use Vaping status: Every Day Substance and Sexual Activity Alcohol use: Yes Comment: occasional Drug use: Yes Types: Marijuana Sexual activity: Yes control/protection: None PHYSICAL EXAM ED Triage Vitals [02/12/25 0921] Temp Heart Rate Resp BP 36.7 C (98.1 F) 102 20 130/79 SpO2 Temp Source Heart Rate Source Patient Position 97 % Oral -- -- BP Location FiO2 (%) -- -- Physical Exam Tenderness in right lower quadrant without any peritoneal signs DIAGNOSTIC RESULTS RADIOLOGY (Per Emergency Physician): Interpretation per the Radiologist below, if available at the time of this note: CT abdomen pelvis w contrast Final Result 1. No evidence of abdominal or pelvic mass lesion or other significant abnormality (normal appendix with no free fluid or free air or fluid collections or other acute finding). Report Dictated on Electronically Signed By: Merlin Rdz MD Electronically Signed Date/Time: 02/12/2025 10:19 AM EDT LABS: Labs Reviewed CBC WITH AUTO DIFFERENTIAL - Abnormal Result Value Auto WBC 11.2 (*) RBC 4.94 Hemoglobin 13.0 Hematocrit 39.8 MCV 80.6 MCH 26.3 MCHC 32.7 RDW 13.5 Platelets 335 MPV 9.0 nRBC 0.0 Neutrophils Relative 54.0 Lymphocytes Relative 32.7 Monocytes Relative 7.9 Eosinophils Relative 4.6 Basophils Relative 0.4 Immature Grans % 0.4 Neutrophils Absolute 6.1 Lymphocytes Absolute 3.7 Monocytes Absolute 0.9 Eosinophils Absolute 0.5 Basophils Absolute 0.1 Immature Grans Absolute 0.0 COMPREHENSIVE METABOLIC PANEL - Abnormal SODIUM 141 POTASSIUM 3.7 CHLORIDE 111 (*) CARBON DIOXIDE 25 ANION GAP 5 UREA NITROGEN 14 CREATININE 0.65 GLUCOSE 99 CALCIUM 8.8 AST (SGOT) 20 ALT 27 ALKALINE PHOSPHATASE 77 ALBUMIN 3.5 BILIRUBIN, TOTAL 0.2 TOTAL PROTEIN 6.5 eGFR >90.0 COMPLETE URINALYSIS - Abnormal Color, Urine Light Yellow Clarity, Urine Clear pH, Urine 6.0 Leukocytes, Urine Negative Nitrite, Urine Negative Protein, Urine Negative Glucose, Urine Normal Bilirubin, Urine Negative Ketones, Urine Negative Urobilinogen, Urine Normal Blood, Urine 0.03 (*) Volume, Urine 12 mL RBC, Urine 0-2 WBC, Urine 0-2 Squamous Epithelial, Urine 3-5 Bacteria, Urine Few (*) SPECIFIC GRAVITY OF URINE (NUMERIC) 1.025 COMPLETE URINALYSIS WITH REFLEX TO CULTURE Narrative: The following orders were created for panel order Urinalysis Complete with reflex to Culture. Procedure Abnormality Status --------- ------ Complete Urinalysis[[id number]] Abnormal Final result Please view results for these tests on the individual orders. All other labs were within normal range or not returned as of this dictation. EMERGENCY DEPARTMENT COURSE and DIFFERENTIAL DIAGNOSIS/MDM: Vitals: Vitals: 02/12/25 0921 BP: 130/79 Pulse: 102 Resp: 20 Temp: 36.7 C (98.1 F) TempSrc: Oral SpO2: 97% Weight: 125 kg (275 lb) Height: 1.6 m (5' 3) Medications dicyclomine (Bentyl) capsule 10 mg (10 mg Oral Given 02/12/25 0940) ondansetron (Zofran) injection 4 mg (4 mg IntraVENous Given 02/12/25 0940) iopamidol (Isovue-370) 76 % injection 75 mL (75 mL IntraVENous Given 02/12/25 1003) SCREENINGS Thompson Coma Scale Best Eye Response: Spontaneous Best Verbal Response: Oriented Best Motor Response: Follows commands Thompson Coma Scale Score: 15 MDM elements: The patient presented with chief complaint of with right lower quadrant abdominal pain is gotten worse over the past 3 days since she had her last workup, does sound like she may be having some colonic spasms when she tries to have a bowel movement so she was given Bentyl here and Zofran, repeat the CT to make sure that the first CT did not miss an early appendicitis. The differential diagnosis associated with this patient's presentation includes appendicitis, constipation, colonic spasms. Our workup consisted of ordering/reviewing: Labs, CT, Bentyl and Zofran. To aid in management, I performed an independent interpretation of CT scan(s) interpreted by me shows no acute appendicitis. The patient will be Discharged. Patient is in agreement with this plan. Discharged with Colace, Bentyl, Zofran PROCEDURES: Unless otherwise noted below, none Procedures CRITICAL CARE TIME None FINAL IMPRESSION 1. Colon spasm DISPOSITION Discharge 02/12/2025 10:33:00 AM PATIENT [facility]ED TO: [facility] [address] [place] [phone] Schedule an appointment as soon as possible for a visit As needed DISCHARGE MEDICATIONS: New Prescriptions DICYCLOMINE (BENTYL) 20 MG TABLET Take 1 tablet (20 mg) by mouth 2 times daily for 10 days. DOCUSATE SODIUM (COLACE) 100 MG CAPSULE Take 1 capsule (100 mg) by mouth every 12 hours. ONDANSETRON ODT (ZOFRAN-ODT) 4 MG DISINTEGRATING TABLET Take 1 tablet (4 mg) by mouth every 8 hours as needed for nausea or vomiting for up to 7 days. (Comment: Please note this report has been produced using speech recognition software and may contain errors related to that system including errors in grammar, punctuation, and spelling, as well as words and phrases that may be inappropriate. If there are any questions or concerns please feel free to contact the dictating provider for clarification.) Bam Lozada MD (electronically signed) Emergency Medicine Provider Bam Lozada MD 02/12/25 1034 [facility] 02-10-2025 Emergency department Note EMERGENCY DEPARTMENT ENCOUNTER Pt Name: Sabino Dewey Birthdate 2005 Date of evaluation: 02/10/2025 ED Provider: Leola Singh MD CHIEF COMPLAINT Chief Complaint Patient presents with Abdominal Pain Nausea Diarrhea HISTORY OF PRESENT ILLNESS (Location/Symptom, Timing/Onset, Context/Setting, Quality, Duration, Modifying Factors, Severity) Note limiting factors. HPI Sabino Dewey is a 20 y.o. female who presents to the emergency department For abdominal pain. Patient states that yesterday she is been having pain mostly in the center of her abdomen. She is noticed that she has had some sticky mucousy stools with nausea and vomiting. Feeling just generally unwell. Has never had symptoms like this in the past. No known sick contacts. Subjective fevers and chills at home. Nursing Notes were reviewed. REVIEW OF SYSTEMS Review of Systems Pertinent positives and negatives per HPI PAST MEDICAL HISTORY Past Medical History: Diagnosis Date Night terrors SURGICAL HISTORY History reviewed. No pertinent surgical history. CURRENT MEDICATIONS Previous Medications ARIPIPRAZOLE (ABILIFY) 20 MG TABLET Take 100 mg by mouth daily. BUSPIRONE (BUSPAR) 10 MG TABLET Take 10 mg by mouth 3 times daily. LAMOTRIGINE (LAMICTAL) 150 MG TABLET Take by mouth. OMEPRAZOLE (PRILOSEC) [address] CAPSULE Take 20 mg by mouth daily. PRAZOSIN (MINIPRESS) 5 MG CAPSULE Take 5 mg by mouth Nightly. PROPRANOLOL (INDERAL) 10 MG TABLET Take 10 mg by mouth daily. TRAZODONE (DESYREL) 50 MG TABLET Take 50 mg by mouth Nightly. ALLERGIES Hydrocodone FAMILY HISTORY No family history on file. SOCIAL HISTORY Social History Socioeconomic History Marital status: Single Tobacco Use Smoking status: Every Day Current packs/day: 0.50 Types: Cigarettes Smokeless tobacco: Never Vaping Use Vaping status: Every Day Substance and Sexual Activity Alcohol use: Yes Comment: occasional Drug use: Yes Types: Marijuana Sexual activity: Yes control/protection: None SCREENINGS PHYSICAL EXAM ED Triage Vitals [02/10/25 0010] Temp Heart Rate Resp BP 37 C (98.6 F) 109 18 126/77 SpO2 Temp Source Heart Rate Source Patient Position 100 % Oral Monitor Sitting BP Location FiO2 (%) Right arm -- Physical Exam Rundown, tired appearing female in no acute distress. Vital signs reviewed and notable for tachycardia. Lung clear to auscultation bilaterally. No increased work of breathing. Abdomen is soft with diffuse tenderness worse in the epigastric and periumbilical region. No rebound or guarding. DIAGNOSTIC RESULTS RADIOLOGY (Per Emergency Physician): Interpretation per the Radiologist below, if available at the time of this note: CT abdomen pelvis w contrast Final Result Normal CT Abdomen and Pelvis. Report Dictated on Electronically Signed By: Rah Walsh MD Electronically Signed Date/Time: 02/10/2025 2:27 AM EDT LABS: Labs Reviewed CBC WITH AUTO DIFFERENTIAL - Abnormal Result Value Auto WBC 11.7 (*) RBC 5.11 Hemoglobin 13.4 Hematocrit 40.8 MCV 79.8 MCH 26.2 MCHC 32.8 RDW 13.2 Platelets 356 MPV 9.0 nRBC 0.0 Neutrophils Relative 57.5 Lymphocytes Relative 32.7 Monocytes Relative 5.9 Eosinophils Relative 3.2 Basophils Relative 0.4 Immature Grans % 0.3 Neutrophils Absolute 6.7 Lymphocytes Absolute 3.8 Monocytes Absolute 0.7 Eosinophils Absolute 0.4 Basophils Absolute 0.1 Immature Grans Absolute 0.0 COMPREHENSIVE METABOLIC PANEL - Abnormal SODIUM 143 POTASSIUM 3.4 (*) CHLORIDE 108 (*) CARBON DIOXIDE 26 ANION GAP 9 UREA NITROGEN 15 CREATININE 0.81 GLUCOSE 97 CALCIUM 9.1 AST (SGOT) 27 ALT 32 (*) ALKALINE PHOSPHATASE 85 ALBUMIN 3.9 BILIRUBIN, TOTAL 0.2 TOTAL PROTEIN 7.0 eGFR >90.0 SARS-COV-2, FLU A/B, AND RSV COMBO - Normal SARS-CoV-2 Not Detected Respiratory Syncytial Virus Not Detected Influenza A Not Detected Influenza B Not Detected Narrative: Methodology: real-time, RT-PCR The SARS-CoV-2, Flu A/B, and RSV Combo assay is intended for in vitro diagnostic use under the FDA Emergency Use Authorization (EUA). This test has not been FDA cleared or approved. In compliance with this authorization, please visit www.fda.gov/media/667999/download or www.fda.gov/media/122990/download to access the applicable information sheets. LIPASE - Normal LIPASE 35 HCG QUANTITATIVE BLOOD HCG QUANTITATIVE <2.5 Narrative: Values in should double every 2 to 3 days for the first 6 weeks. Elevated concentrations of human chorionic gonadotropin (hCG) measured in the first trimester of are observed in normal , but may serve as an indication of chorionic carcinoma, hydatiform mole, or multiple . Decreasing hCG concentrations indicate threatened or missed , recent termination of , ectopic , gestosis or intrauterine . Julianne- and postmenopausal females may have detectable hCG concentrations (< or = to 14 mIU/mL) due to pituitary production of hCG. Serum follicle-stimulating hormone measurement may aid in ruling-out in this population. Cutoffs of greater than 20 to 45 mIU/mL have been suggested and are method dependent. False-elevations (called phantom human chorionic gonadotropin: hCG) may occur with patients who have human antianimal or heterophilic antibodies. Some specimens may not dilute linearly due to abnormal forms of hCG. Elevated hCG concentrations not associated with are found in patients with other diseases such as tumors of the germ cells, ovaries, bladder, pancreas, stomach, lungs, and liver. This test is not intended to detect or monitor tumors or gestational trophoblastic disease. All other labs were within normal range or not returned as of this dictation. EMERGENCY DEPARTMENT COURSE and DIFFERENTIAL DIAGNOSIS/MDM: Vitals: Vitals: 02/10/25 0010 BP: 126/77 BP Location: Right arm Patient Position: Sitting Pulse: 109 Resp: 18 Temp: 37 C (98.6 F) TempSrc: Oral SpO2: 100% Weight: 125 kg (275 lb) Height: 1.6 m (5' 3) Medications sodium chloride 0.9 % bolus 1,000 mL (1,000 mL IntraVENous New Bag 02/10/25 0051) ondansetron (Zofran) injection 4 mg (4 mg IntraVENous Given 02/10/25 0053) ketorolac (Toradol) injection 30 mg (30 mg IntraVENous Given 02/10/25 0052) iopamidol (Isovue-370) 76 % injection 75 mL (75 mL IntraVENous Given 02/10/25 0216) Medical Decision Making Problems Addressed: Nausea, vomiting and diarrhea: complicated acute illness or injury Amount and/or Complexity of Data Reviewed Labs: ordered. Radiology: ordered. Risk Prescription drug management. 20-year-old female presenting emergency room today for abdominal pain nausea vomiting and diarrhea. Tachycardic upon arrival. Appears just generally unwell. Symptoms started yesterday. Does have reproducible pain on examination of her abdomen. Will get CT scan to rule out pancreatitis, cholecystitis, appendicitis and bowel obstruction although she is having bowel movements. Labs ordered for viral testing and to evaluate for infectious process, anemia and electrolyte abnormality. Given fluids, antiemetics and pain medications. Labs and imaging unremarkable. Patient feeling better. Agreeable to discharge. Discharged stable condition. Diagnostic tests considered but not performed: External records reviewed: Diagnostics interpreted by me: Discussions with other clinicians: Chronic conditions impacting care: Social determinants of health affecting care: ED Medications managed: Medications sodium chloride 0.9 % bolus 1,000 mL (1,000 mL IntraVENous New Bag 02/10/25 0051) ondansetron (Zofran) injection 4 mg (4 mg IntraVENous Given 02/10/25 0053) ketorolac (Toradol) injection 30 mg (30 mg IntraVENous Given 02/10/25 0052) iopamidol (Isovue-370) 76 % injection 75 mL (75 mL IntraVENous Given 02/10/25 0216) Prescription drugs considered: I Leola Singh MD am the literacy coach of record. FINAL IMPRESSION 1. Nausea, vomiting and diarrhea DISPOSITION Discharge 02/10/2025 02:33:57 AM PATIENT REFERRED TO: No follow-up provider specified. DISCHARGE MEDICATIONS: New Prescriptions No medications on file (Comment: Please note this report has been produced using speech recognition software and may contain errors related to that system including errors in grammar, punctuation, and spelling, as well as words and phrases that may be inappropriate. If there are any questions or concerns please feel free to contact the dictating provider for clarification.) Leola Singh MD (electronically signed) Emergency Medicine Provider Leola Singh MD 02/10/25235 [facility] patient ambulated to room 6 accompanied by significant other. She stated she is having abdominal pain, loose stools and nausea. She stated it started over the last 2 days. Stool reported mucousy and dark brown then turned a white/yellow slimy. documented in this encounter [facility] 02-10-2025 Emergency department Triage note The patient ambulated to room 6 accompanied by significant other. She stated she is having abdominal pain, loose stools and nausea. She stated it started over the last 2 days. Stool reported mucousy and dark brown then turned a white/yellow slimy. [facility] 02-10-2025 Physician Emergency department Note EMERGENCY DEPARTMENT ENCOUNTER Pt Name: Sabino Dewey Birthdate 2005 Date of evaluation: 02/10/2025 ED Provider: Leola Singh MD CHIEF COMPLAINT Chief Complaint Patient presents with Abdominal Pain Nausea Diarrhea HISTORY OF PRESENT ILLNESS (Location/Symptom, Timing/Onset, Context/Setting, Quality, Duration, Modifying Factors, Severity) Note limiting factors. HPI Sabino Dewey is a 20 y.o. female who presents to the emergency department For abdominal pain. Patient states that yesterday she is been having pain mostly in the center of her abdomen. She is noticed that she has had some sticky mucousy stools with nausea and vomiting. Feeling just generally unwell. Has never had symptoms like this in the past. No known sick contacts. Subjective fevers and chills at home. Nursing Notes were reviewed. REVIEW OF SYSTEMS Review of Systems Pertinent positives and negatives per HPI PAST MEDICAL HISTORY Past Medical History: Diagnosis Date Night terrors SURGICAL HISTORY History reviewed. No pertinent surgical history. CURRENT MEDICATIONS Previous Medications ARIPIPRAZOLE (ABILIFY) 20 MG TABLET Take 100 mg by mouth daily. BUSPIRONE (BUSPAR) 10 MG TABLET Take 10 mg by mouth 3 times daily. LAMOTRIGINE (LAMICTAL) 150 MG TABLET Take by mouth. OMEPRAZOLE (PRILOSEC) [address] CAPSULE Take 20 mg by mouth daily. PRAZOSIN (MINIPRESS) 5 MG CAPSULE Take 5 mg by mouth Nightly. PROPRANOLOL (INDERAL) 10 MG TABLET Take 10 mg by mouth daily. TRAZODONE (DESYREL) 50 MG TABLET Take 50 mg by mouth Nightly. ALLERGIES Hydrocodone FAMILY HISTORY No family history on file. SOCIAL HISTORY Social History Socioeconomic History Marital status: Single Tobacco Use Smoking status: Every Day Current packs/day: 0.50 Types: Cigarettes Smokeless tobacco: Never Vaping Use Vaping status: Every Day Substance and Sexual Activity Alcohol use: Yes Comment: occasional Drug use: Yes Types: Marijuana Sexual activity: Yes control/protection: None SCREENINGS PHYSICAL EXAM ED Triage Vitals [02/10/25 0010] Temp Heart Rate Resp BP 37 C (98.6 F) 109 18 126/77 SpO2 Temp Source Heart Rate Source Patient Position 100 % Oral Monitor Sitting BP Location FiO2 (%) Right arm -- Physical Exam Rundown, tired appearing female in no acute distress. Vital signs reviewed and notable for tachycardia. Lung clear to auscultation bilaterally. No increased work of breathing. Abdomen is soft with diffuse tenderness worse in the epigastric and periumbilical region. No rebound or guarding. DIAGNOSTIC RESULTS RADIOLOGY (Per Emergency Physician): Interpretation per the Radiologist below, if available at the time of this note: CT abdomen pelvis w contrast Final Result Normal CT Abdomen and Pelvis. Report Dictated on Electronically Signed By: Rah Walsh MD Electronically Signed Date/Time: 02/10/2025 2:27 AM EDT LABS: Labs Reviewed CBC WITH AUTO DIFFERENTIAL - Abnormal Result Value Auto WBC 11.7 (*) RBC 5.11 Hemoglobin 13.4 Hematocrit 40.8 MCV 79.8 MCH 26.2 MCHC 32.8 RDW 13.2 Platelets 356 MPV 9.0 nRBC 0.0 Neutrophils Relative 57.5 Lymphocytes Relative 32.7 Monocytes Relative 5.9 Eosinophils Relative 3.2 Basophils Relative 0.4 Immature Grans % 0.3 Neutrophils Absolute 6.7 Lymphocytes Absolute 3.8 Monocytes Absolute 0.7 Eosinophils Absolute 0.4 Basophils Absolute 0.1 Immature Grans Absolute 0.0 COMPREHENSIVE METABOLIC PANEL - Abnormal SODIUM 143 POTASSIUM 3.4 (*) CHLORIDE 108 (*) CARBON DIOXIDE 26 ANION GAP 9 UREA NITROGEN 15 CREATININE 0.81 GLUCOSE 97 CALCIUM 9.1 AST (SGOT) 27 ALT 32 (*) ALKALINE PHOSPHATASE 85 ALBUMIN 3.9 BILIRUBIN, TOTAL 0.2 TOTAL PROTEIN 7.0 eGFR >90.0 SARS-COV-2, FLU A/B, AND RSV COMBO - Normal SARS-CoV-2 Not Detected Respiratory Syncytial Virus Not Detected Influenza A Not Detected Influenza B Not Detected Narrative: Methodology: real-time, RT-PCR The SARS-CoV-2, Flu A/B, and RSV Combo assay is intended for in vitro diagnostic use under the FDA Emergency Use Authorization (EUA). This test has not been FDA cleared or approved. In compliance with this authorization, please visit www.fda.gov/media/641670/download or www.fda.gov/media/023822/download to access the applicable information sheets. LIPASE - Normal LIPASE 35 HCG QUANTITATIVE BLOOD HCG QUANTITATIVE <2.5 Narrative: Values in should double every 2 to 3 days for the first 6 weeks. Elevated concentrations of human chorionic gonadotropin (hCG) measured in the first trimester of are observed in normal , but may serve as an indication of chorionic carcinoma, hydatiform mole, or multiple . Decreasing hCG concentrations indicate threatened or missed , recent termination of , ectopic , gestosis or intrauterine . Julianne- and postmenopausal females may have detectable hCG concentrations (< or = to 14 mIU/mL) due to pituitary production of hCG. Serum follicle-stimulating hormone measurement may aid in ruling-out in this population. Cutoffs of greater than 20 to 45 mIU/mL have been suggested and are method dependent. False-elevations (called phantom human chorionic gonadotropin: hCG) may occur with patients who have human antianimal or heterophilic antibodies. Some specimens may not dilute linearly due to abnormal forms of hCG. Elevated hCG concentrations not associated with are found in patients with other diseases such as tumors of the germ cells, ovaries, bladder, pancreas, stomach, lungs, and liver. This test is not intended to detect or monitor tumors or gestational trophoblastic disease. All other labs were within normal range or not returned as of this dictation. EMERGENCY DEPARTMENT COURSE and DIFFERENTIAL DIAGNOSIS/MDM: Vitals: Vitals: 02/10/25 0010 BP: 126/77 BP Location: Right arm Patient Position: Sitting Pulse: 109 Resp: 18 Temp: 37 C (98.6 F) TempSrc: Oral SpO2: 100% Weight: 125 kg (275 lb) Height: 1.6 m (5' 3) Medications sodium chloride 0.9 % bolus 1,000 mL (1,000 mL IntraVENous New Bag 02/10/25 0051) ondansetron (Zofran) injection 4 mg (4 mg IntraVENous Given 02/10/25 0053) ketorolac (Toradol) injection 30 mg (30 mg IntraVENous Given 02/10/25 0052) iopamidol (Isovue-370) 76 % injection 75 mL (75 mL IntraVENous Given 02/10/25 0216) Medical Decision Making Problems Addressed: Nausea, vomiting and diarrhea: complicated acute illness or injury Amount and/or Complexity of Data Reviewed Labs: ordered. Radiology: ordered. Risk Prescription drug management. 20-year-old female presenting emergency room today for abdominal pain nausea vomiting and diarrhea. Tachycardic upon arrival. Appears just generally unwell. Symptoms started yesterday. Does have reproducible pain on examination of her abdomen. Will get CT scan to rule out pancreatitis, cholecystitis, appendicitis and bowel obstruction although she is having bowel movements. Labs ordered for viral testing and to evaluate for infectious process, anemia and electrolyte abnormality. Given fluids, antiemetics and pain medications. Labs and imaging unremarkable. Patient feeling better. Agreeable to discharge. Discharged stable condition. Diagnostic tests considered but not performed: External records reviewed: Diagnostics interpreted by me: Discussions with other clinicians: Chronic conditions impacting care: Social determinants of health affecting care: ED Medications managed: Medications sodium chloride 0.9 % bolus 1,000 mL (1,000 mL IntraVENous New Bag 02/10/25 0051) ondansetron (Zofran) injection 4 mg (4 mg IntraVENous Given 02/10/25 0053) ketorolac (Toradol) injection 30 mg (30 mg IntraVENous Given 02/10/25 0052) iopamidol (Isovue-370) 76 % injection 75 mL (75 mL IntraVENous Given 02/10/25 0216) Prescription drugs considered: I Leola Singh MD am the literacy coach of record. FINAL IMPRESSION 1. Nausea, vomiting and diarrhea DISPOSITION Discharge 02/10/2025 02:33:57 AM PATIENT REFERRED TO: No follow-up provider specified. DISCHARGE MEDICATIONS: New Prescriptions No medications on file (Comment: Please note this report has been produced using speech recognition software and may contain errors related to that system including errors in grammar, punctuation, and spelling, as well as words and phrases that may be inappropriate. If there are any questions or concerns please feel free to contact the dictating provider for clarification.) Leola Singh MD (electronically signed) Emergency Medicine Provider Leola Singh MD 02/10/25 0236 [facility] 11-05-2024 Hospital Discharge instructions Sarah Brar MD - 11/05/2024 11:35 PM EST As discussed you have a vaginal mucosal abrasion/laceration. There is nothing to suture. I do recommend 10 days of no tampons no intercourse no digital manipulation to allow this to heal. Certainly return here if any problems or concerns. documented in this encounter [facility] 11-05-2024 Emergency department Note This nurse accompanied physician during assessment. [facility] 11-05-2024 Emergency department Note This nurse accompanied physician during assessment. [facility] ED EMERGENCY DEPARTMENT ENCOUNTER Pt Name: Sabino Dewey Birthdate 2005 Date of evaluation: 11/05/2024 Provider: Sarah Brar MD CHIEF COMPLAINT Chief Complaint Patient presents with Vaginal Bleeding Bleeding from wound Wound Check HISTORY OF PRESENT ILLNESS (Location/Symptom, Timing/Onset,Context/Setting, Quality, Duration, Modifying Factors, Severity) Note limiting factors. Sabino Dewey is a 19 y.o. female who presents to the emergency department with concerns for vaginal bleeding from wound. She had digital manipulation by her significant other with his fingernail and felt like her vaginal area was cut. She did have bleeding. No bleeding now but she says it woods. Happened twins prior to arrival. HPI Historian is the patient Nurse's notes for past medical history, surgical history, social history were reviewed. Medications and allergies reviewed. PAST MEDICAL HISTORY History reviewed. No pertinent past medical history. SURGICALHISTORY History reviewed. No pertinent surgical history. CURRENT MEDICATIONS Previous Medications ARIPIPRAZOLE (ABILIFY) 20 MG TABLET Take 100 mg by mouth daily. BUSPIRONE (BUSPAR) 10 MG TABLET Take 10 mg by mouth 3 times daily. LAMOTRIGINE (LAMICTAL) 150 MG TABLET Take by mouth. OMEPRAZOLE (PRILOSEC) [address] CAPSULE Take 20 mg by mouth daily. PRAZOSIN (MINIPRESS) 5 MG CAPSULE Take 5 mg by mouth Nightly. Hydrocodone FAMILY HISTORY No family history on file. SOCIAL HISTORY Social History Socioeconomic History Marital status: Single Tobacco Use Smoking status: Every Day Current packs/day: 0.50 Types: Cigarettes Smokeless tobacco: Never Vaping Use Vaping status: Every Day Substance and Sexual Activity Alcohol use: Yes Comment: occasional Drug use: Yes Types: Marijuana Sexual activity: Yes control/protection: None SCREENINGS PHYSICAL EXAM (up to 7 for level 4, 8 or more for level 5) @EDTRIAGEVSS@ Appropriate PPE including n 95, gown, gloves, goggles where worn when appropriate with this patient. Physical Exam With female meat scrubber vaginal area was visualized the external genitalia was intact no masses no signs of abscess labia and then the introitus and vaginal area was visualized and there is no active bleeding. Secondary to discomfort I did not do a digital exam or speculum exam. She has no discharge externally. Or from the introitus. DIAGNOSTIC RESULTS RADIOLOGY: Interpretation per the Radiologist below, if availableat the time of this note: No orders to display ED BEDSIDE ULTRASOUND: Performed by ED Physician - none LABS: Labs Reviewed - No data to display All other labs were within normal range or not returned as of thisdictation. EMERGENCYDEPARTMENT COURSE and DIFFERENTIAL DIAGNOSIS/MDM: Vitals: Vitals: 11/05/24 2315 BP: 134/88 BP Location: Right arm Patient Position: Sitting Pulse: 107 Resp: 17 Temp: 37.2 C (98.9 F) TempSrc: Oral SpO2: 98% Weight: 120 kg (265 lb) Height: 1.575 m (5' 2) Medical Decision Making EMERGENCY DEPARTMENT COURSE and DIFFERENTIAL DIAGNOSIS/MDM: Vitals: Vitals: 11/05/24 2315 BP: 134/88 BP Location: Right arm Patient Position: Sitting Pulse: 107 Resp: 17 Temp: 37.2 C (98.9 F) TempSrc: Oral SpO2: 98% Weight: 120 kg (265 lb) Height: 1.575 m (5' 2) The patient presented with a chief complaint of vaginal pain. The differential diagnosis associated with this patient's presentation includes vaginal laceration abrasion abscess infection. Our workup consisted of ordering/reviewing none. Patient is not actively bleeding I did not do a digital exam or speculum examination but did look at the introitus and in open the labial area with female meat scrubber and did not see any active bleeding. Based on the description being from the fingernail I do not believe there is anything that would be suturing or require surgery as she does not have bleeding extensively that can visualize. I advised her about pelvic rest for 10 days no tampons no douching no intercourse no digital manipulation certainly return here if any problems or concerns. Diagnoses as of 11/05/24 2335 Vaginal laceration, initial encounter Diagnostics considered but not indicated based on history, physical, testing: None External records reviewed: Patient seen 10/20/2024 for ear infection and seen 08/31/2024 for URI Radiologic diagnostics interpreted by me: film images such as CT, Ultrasound and MRI are read by the radiologist. Plain radiographic images are visualized and preliminarily interpreted by the emergency physician with the below findings: none Discussions with other clinicians: none Chronic conditions impacting care: Depression Social determinants of health affecting care: none Shared decision making: Patient agrees to treatment plan ED Medications managed: Medications - No data to display Prescription drugs prescribed: PROCEDURES: Unless otherwise noted below, none Procedures IMPRESSION 1. Vaginal laceration, initial encounter DISPOSITION/PLAN DISPOSITION Discharge 11/05/2024 11:34:19 PM PATIENT REFERRED TO: [address] [address] In 1 week DISCHARGE MEDICATIONS: New Prescriptions No medications on file @[facility]([id number]:LAST:1)@ (Comment: Please notethis report has been produced using speech recognition software and may contain errors related to that system including errors in grammar, punctuation, and spelling, as well as words and phrases that may be inappropriate.If there is any questions or concerns please feel free to contact the dictating provider for clarification). Sarah Brar MD (electronically signed) Attending Emergency Physician Sarah Brar MD 11/05/24 2335 The patient ambulated to room 12 accompanied boyfriend. She stated her and her significant other were having inter coarse and was cut with fingernail internal. She stated she is having significant pain and bleeding and would like to have it checked. documented in this encounter [facility] 11-05-2024 Emergency department Triage note The patient ambulated to room 12 accompanied boyfriend. She stated her and her significant other were having inter coarse and was cut with fingernail internal. She stated she is having significant pain and bleeding and would like to have it checked. [facility] 11-05-2024 Physician Emergency department Note [facility] ED EMERGENCY DEPARTMENT ENCOUNTER Pt Name: Sabino Dewey Birthdate 2005 Date of evaluation: 11/05/2024 Provider: Sarah Brar MD CHIEF COMPLAINT Chief Complaint Patient presents with Vaginal Bleeding Bleeding from wound Wound Check HISTORY OF PRESENT ILLNESS (Location/Symptom, Timing/Onset,Context/Setting, Quality, Duration, Modifying Factors, Severity) Note limiting factors. Sabino Dewey is a 19 y.o. female who presents to the emergency department with concerns for vaginal bleeding from wound. She had digital manipulation by her significant other with his fingernail and felt like her vaginal area was cut. She did have bleeding. No bleeding now but she says it woods. Happened twins prior to arrival. HPI Historian is the patient Nurse's notes for past medical history, surgical history, social history were reviewed. Medications and allergies reviewed. PAST MEDICAL HISTORY History reviewed. No pertinent past medical history. SURGICALHISTORY History reviewed. No pertinent surgical history. CURRENT MEDICATIONS Previous Medications ARIPIPRAZOLE (ABILIFY) 20 MG TABLET Take 100 mg by mouth daily. BUSPIRONE (BUSPAR) 10 MG TABLET Take 10 mg by mouth 3 times daily. LAMOTRIGINE (LAMICTAL) 150 MG TABLET Take by mouth. OMEPRAZOLE (PRILOSEC) [address] CAPSULE Take 20 mg by mouth daily. PRAZOSIN (MINIPRESS) 5 MG CAPSULE Take 5 mg by mouth Nightly. Hydrocodone FAMILY HISTORY No family history on file. SOCIAL HISTORY Social History Socioeconomic History Marital status: Single Tobacco Use Smoking status: Every Day Current packs/day: 0.50 Types: Cigarettes Smokeless tobacco: Never Vaping Use Vaping status: Every Day Substance and Sexual Activity Alcohol use: Yes Comment: occasional Drug use: Yes Types: Marijuana Sexual activity: Yes control/protection: None SCREENINGS PHYSICAL EXAM (up to 7 for level 4, 8 or more for level 5) @EDTRIAGEVSS@ Appropriate PPE including n 95, gown, gloves, goggles where worn when appropriate with this patient. Physical Exam With female meat scrubber vaginal area was visualized the external genitalia was intact no masses no signs of abscess labia and then the introitus and vaginal area was visualized and there is no active bleeding. Secondary to discomfort I did not do a digital exam or speculum exam. She has no discharge externally. Or from the introitus. DIAGNOSTIC RESULTS RADIOLOGY: Interpretation per the Radiologist below, if availableat the time of this note: No orders to display ED BEDSIDE ULTRASOUND: Performed by ED Physician - none LABS: Labs Reviewed - No data to display All other labs were within normal range or not returned as of thisdictation. EMERGENCYDEPARTMENT COURSE and DIFFERENTIAL DIAGNOSIS/MDM: Vitals: Vitals: 11/05/24 2315 BP: 134/88 BP Location: Right arm Patient Position: Sitting Pulse: 107 Resp: 17 Temp: 37.2 C (98.9 F) TempSrc: Oral SpO2: 98% Weight: 120 kg (265 lb) Height: 1.575 m (5' 2) Medical Decision Making EMERGENCY DEPARTMENT COURSE and DIFFERENTIAL DIAGNOSIS/MDM: Vitals: Vitals: 11/05/24 2315 BP: 134/88 BP Location: Right arm Patient Position: Sitting Pulse: 107 Resp: 17 Temp: 37.2 C (98.9 F) TempSrc: Oral SpO2: 98% Weight: 120 kg (265 lb) Height: 1.575 m (5' 2) The patient presented with a chief complaint of vaginal pain. The differential diagnosis associated with this patient's presentation includes vaginal laceration abrasion abscess infection. Our workup consisted of ordering/reviewing none. Patient is not actively bleeding I did not do a digital exam or speculum examination but did look at the introitus and in open the labial area with female meat scrubber and did not see any active bleeding. Based on the description being from the fingernail I do not believe there is anything that would be suturing or require surgery as she does not have bleeding extensively that can visualize. I advised her about pelvic rest for 10 days no tampons no douching no intercourse no digital manipulation certainly return here if any problems or concerns. Diagnoses as of 11/05/24 2335 Vaginal laceration, initial encounter Diagnostics considered but not indicated based on history, physical, testing: None External records reviewed: Patient seen 10/20/2024 for ear infection and seen 08/31/2024 for URI Radiologic diagnostics interpreted by me: film images such as CT, Ultrasound and MRI are read by the radiologist. Plain radiographic images are visualized and preliminarily interpreted by the emergency physician with the below findings: none Discussions with other clinicians: none Chronic conditions impacting care: Depression Social determinants of health affecting care: none Shared decision making: Patient agrees to treatment plan ED Medications managed: Medications - No data to display Prescription drugs prescribed: PROCEDURES: Unless otherwise noted below, none Procedures IMPRESSION 1. Vaginal laceration, initial encounter DISPOSITION/PLAN DISPOSITION Discharge 11/05/2024 11:34:19 PM PATIENT REFERRED TO: [address] [address] In 1 week DISCHARGE MEDICATIONS: New Prescriptions No medications on file @[facility]([id number]:LAST:1)@ (Comment: Please notethis report has been produced using speech recognition software and may contain errors related to that system including errors in grammar, punctuation, and spelling, as well as words and phrases that may be inappropriate.If there is any questions or concerns please feel free to contact the dictating provider for clarification). Sarah Brar MD (electronically signed) Attending Emergency Physician Sarah Brar MD 11/05/24 7921 [facility] 10-20-2024 Emergency department Note EMERGENCY DEPARTMENT ENCOUNTER Pt Name: Sabino Dewey Birthdate 2005 Date of evaluation: 10/20/2024 ED Provider: Kyle Carr DO CHIEF COMPLAINT Chief Complaint Patient presents with Nasal Congestion Cough HISTORY OF PRESENT ILLNESS (Location/Symptom, Timing/Onset, Context/Setting, Quality, Duration, Modifying Factors, Severity) Note limiting factors. I wore appropriate PPE for the entirety of this encounter. HPI Sabino Dewey is a 19 y.o. female who presents to the emergency department 2 days of cough congestion earache sore throat sinus pain. No fevers or chills. No abdominal pain nausea vomit diarrhea. States she is not sure if she could be . Nursing Notes were reviewed. REVIEW OF SYSTEMS 14 systems reviewed and otherwise acutely negative except as in the [place]. PAST MEDICAL HISTORY No past medical history on file. SURGICAL HISTORY No past surgical history on file. CURRENT MEDICATIONS Discharge Medication List as of 10/20/2024 3:20 PM CONTINUE these medications which have NOT CHANGED Details omeprazole (PriLOSEC) [address] capsule Take 20 mg by mouth daily., Starting Sat11/29/2023, Historical Med ARIPiprazole (Abilify) 20 MG tablet Take 100 mg by mouth daily., Historical Med busPIRone (Buspar) 10 MG tablet Take 10 mg by mouth 3 times daily., Historical Med lamoTRIgine (LaMICtal) 150 MG tablet Take by mouth., Historical Med prazosin (Minipress) 5 MG capsule Take 5 mg by mouth Nightly., Historical Med ALLERGIES Hydrocodone FAMILY HISTORY No family history on file. SOCIAL HISTORY Social History Socioeconomic History Marital status: Single Tobacco Use Smoking status: Every Day Current packs/day: 0.50 Types: Cigarettes Smokeless tobacco: Never Vaping Use Vaping status: Every Day Substance and Sexual Activity Alcohol use: Yes Comment: occasional Drug use: Yes Types: Marijuana SCREENINGS PHYSICAL EXAM ED Triage Vitals [10/20/24 1412] Temp Heart Rate Resp BP 36.3 C (97.3 F) 98 16 137/73 SpO2 Temp Source Heart Rate Source Patient Position 96 % Temporal Monitor Sitting BP Location FiO2 (%) Right arm -- CONSTITUTIONAL: AOx4, no apparent distress, appears stated age HEAD: normocephalic, atraumatic EYES: PERRL, EOMI ENT: moist mucous membranes, uvula midline, right TM normal, left TM is bulging with surrounding erythema, posterior oropharynx minimally erythematous with no exudate NECK: supple, symmetric BACK: symmetric LUNGS: clear to auscultation bilaterally CARDIOVASCULAR: regular rate and rhythm ABDOMEN: soft, non-tender, non-distended with normal active bowel sounds : deferred NEUROLOGIC: MAEx4, no focal sensory or motor deficits MUSCULOSKELETAL: no clubbing, cyanosis or edema SKIN: no exposed rash DIAGNOSTIC RESULTS Procedures/EKG: EKG was reviewed by myself. Physician EKG interpretation can be found in [facility] RADIOLOGY (Per Emergency Physician): Interpretation per the Radiologist below, if available at the time of this note: XR chest 1 view Final Result 1. Lines/Tubes/Devices/Hardware: None. Please confirm position and function of any catheters or attempted catheters clinically. 2. Lungs: No convincing acute process.. Limited due to portable technique. Consider follow-up with PA and lateral chest for persistent symptoms. 3. Pleura: No significant effusion. No significant pneumothorax. 4. Heart and mediastinum: Limited due to technique. 5. Upper abdomen: No acute process seen. 6. Thorax:No acute bony process Report Dictated on Electronically Signed By: Vincent Landon MD Electronically Signed Date/Time: 10/20/2024 3:07 PM EST ED BEDSIDE ULTRASOUND: Performed by ED Physician - none LABS: Labs Reviewed HCG QUALITATIVE URINE Result Value HCG,URINE QUAL Negative Narrative: is the most common reason for HCG in urine, although choriocarcinoma, hydatidiform mole, and certain nontrophoblastic malignancies also result in detectable urinary HCG levels. Sensitivity = 20mIU/mL. All other labs were within normal range or not returned as of this dictation. EMERGENCY DEPARTMENT COURSE and DIFFERENTIAL DIAGNOSIS/MDM: Vitals: Vitals: 10/20/24 1412 BP: 137/73 BP Location: Right arm Patient Position: Sitting Pulse: 98 Resp: 16 Temp: 36.3 C (97.3 F) TempSrc: Temporal SpO2: 96% Weight: 120 kg (265 lb) Height: 1.575 m (5' 2) EMERGENCY DEPARTMENT COURSE and DIFFERENTIAL DIAGNOSIS/MDM: Vitals: Vitals: 10/20/24 1412 BP: 137/73 BP Location: Right arm Patient Position: Sitting Pulse: 98 Resp: 16 Temp: 36.3 C (97.3 F) TempSrc: Temporal SpO2: 96% Weight: 120 kg (265 lb) Height: 1.575 m (5' 2) The patient presented with a chief complaint of 2 days of cough congestion earache sore throat. The differential diagnosis associated with this patient's presentation includes otitis media, physical exam consistent with strep pharyngitis, lungs are clear, check a chest x-ray to evaluate for pneumonia. Chest x-ray showed no signs of pneumonia. was negative so she was given Toradol and amoxicillin Diagnoses as of 10/20/24 1622 Non-recurrent acute suppurative otitis media of left ear without spontaneous rupture of tympanic membrane Diagnostic tests considered but not performed: External records reviewed: Diagnostics interpreted by me: Xray(s) no effusion pneumothorax or consolidation Discussions with other clinicians: Chronic conditions impacting care: Social determinants of health affecting care: ED Medications managed: Medications ketorolac (Toradol) injection 30 mg (30 mg IntraMUSCular Given 10/20/24 1542) amoxicillin (Amoxil) capsule 1,000 mg (1,000 mg Oral Given 10/20/24 154) CONSULTS: None PROCEDURES: Unless otherwise noted below, none Procedures Patients symptoms are consistent with sepsis, severe sepsis, or septic shock (If yes use .sepsiscoremeasure): FINAL IMPRESSION 1. Non-recurrent acute suppurative otitis media of left ear without spontaneous rupture of tympanic membrane DISPOSITION/PLAN dc PATIENT REFERRED TO: Gui Agudelo MD [address] [place] [address], [address] [facility] [address] Schedule an appointment as soon as possible for a visit DISCHARGE MEDICATIONS: Discharge Medication List as of 10/20/2024 3:20 PM START taking these medications Details amoxicillin (Amoxil) 500 MG capsule Take 2 capsules (1,000 mg) by mouth 2 times daily for 7 days., Starting e 10/20/2024, Until Sat10/27/2024, Normal (Comment: Please note this report has been produced using speech recognition software and may contain errors related to that system including errors in grammar, punctuation, and spelling, as well as words and phrases that may be inappropriate. If there are any questions or concerns please feel free to contact the dictating provider for clarification.) Kyle Carr DO (electronically signed) Emergency Medicine Provider Kyle Carr DO 10/20/24 1622 documented in this encounter [facility] 10-20-2024 Physician Emergency department Note EMERGENCY DEPARTMENT ENCOUNTER Pt Name: Sabino Dewey Birthdate 2005 Date of evaluation: 10/20/2024 ED Provider: Kyle Carr DO CHIEF COMPLAINT Chief Complaint Patient presents with Nasal Congestion Cough HISTORY OF PRESENT ILLNESS (Location/Symptom, Timing/Onset, Context/Setting, Quality, Duration, Modifying Factors, Severity) Note limiting factors. I wore appropriate PPE for the entirety of this encounter. HPI Sabino Dewey is a 19 y.o. female who presents to the emergency department 2 days of cough congestion earache sore throat sinus pain. No fevers or chills. No abdominal pain nausea vomit diarrhea. States she is not sure if she could be . Nursing Notes were reviewed. REVIEW OF SYSTEMS 14 systems reviewed and otherwise acutely negative except as in the [place]. PAST MEDICAL HISTORY No past medical history on file. SURGICAL HISTORY No past surgical history on file. CURRENT MEDICATIONS Discharge Medication List as of 10/20/2024 3:20 PM CONTINUE these medications which have NOT CHANGED Details omeprazole (PriLOSEC) [address] capsule Take 20 mg by mouth daily., Starting Sat11/29/2023, Historical Med ARIPiprazole (Abilify) 20 MG tablet Take 100 mg by mouth daily., Historical Med busPIRone (Buspar) 10 MG tablet Take 10 mg by mouth 3 times daily., Historical Med lamoTRIgine (LaMICtal) 150 MG tablet Take by mouth., Historical Med prazosin (Minipress) 5 MG capsule Take 5 mg by mouth Nightly., Historical Med ALLERGIES Hydrocodone FAMILY HISTORY No family history on file. SOCIAL HISTORY Social History Socioeconomic History Marital status: Single Tobacco Use Smoking status: Every Day Current packs/day: 0.50 Types: Cigarettes Smokeless tobacco: Never Vaping Use Vaping status: Every Day Substance and Sexual Activity Alcohol use: Yes Comment: occasional Drug use: Yes Types: Marijuana SCREENINGS PHYSICAL EXAM ED Triage Vitals [10/20/24 1412] Temp Heart Rate Resp BP 36.3 C (97.3 F) 98 16 137/73 SpO2 Temp Source Heart Rate Source Patient Position 96 % Temporal Monitor Sitting BP Location FiO2 (%) Right arm -- CONSTITUTIONAL: AOx4, no apparent distress, appears stated age HEAD: normocephalic, atraumatic EYES: PERRL, EOMI ENT: moist mucous membranes, uvula midline, right TM normal, left TM is bulging with surrounding erythema, posterior oropharynx minimally erythematous with no exudate NECK: supple, symmetric BACK: symmetric LUNGS: clear to auscultation bilaterally CARDIOVASCULAR: regular rate and rhythm ABDOMEN: soft, non-tender, non-distended with normal active bowel sounds : deferred NEUROLOGIC: MAEx4, no focal sensory or motor deficits MUSCULOSKELETAL: no clubbing, cyanosis or edema SKIN: no exposed rash DIAGNOSTIC RESULTS Procedures/EKG: EKG was reviewed by myself. Physician EKG interpretation can be found in [facility] RADIOLOGY (Per Emergency Physician): Interpretation per the Radiologist below, if available at the time of this note: XR chest 1 view Final Result 1. Lines/Tubes/Devices/Hardware: None. Please confirm position and function of any catheters or attempted catheters clinically. 2. Lungs: No convincing acute process.. Limited due to portable technique. Consider follow-up with PA and lateral chest for persistent symptoms. 3. Pleura: No significant effusion. No significant pneumothorax. 4. Heart and mediastinum: Limited due to technique. 5. Upper abdomen: No acute process seen. 6. Thorax:No acute bony process Report Dictated on Electronically Signed By: Vincent Landon MD Electronically Signed Date/Time: 10/20/2024 3:07 PM EST ED BEDSIDE ULTRASOUND: Performed by ED Physician - none LABS: Labs Reviewed HCG QUALITATIVE URINE Result Value HCG,URINE QUAL Negative Narrative: is the most common reason for HCG in urine, although choriocarcinoma, hydatidiform mole, and certain nontrophoblastic malignancies also result in detectable urinary HCG levels. Sensitivity = 20mIU/mL. All other labs were within normal range or not returned as of this dictation. EMERGENCY DEPARTMENT COURSE and DIFFERENTIAL DIAGNOSIS/MDM: Vitals: Vitals: 10/20/24 1412 BP: 137/73 BP Location: Right arm Patient Position: Sitting Pulse: 98 Resp: 16 Temp: 36.3 C (97.3 F) TempSrc: Temporal SpO2: 96% Weight: 120 kg (265 lb) Height: 1.575 m (5' 2) EMERGENCY DEPARTMENT COURSE and DIFFERENTIAL DIAGNOSIS/MDM: Vitals: Vitals: 10/20/24 1412 BP: 137/73 BP Location: Right arm Patient Position: Sitting Pulse: 98 Resp: 16 Temp: 36.3 C (97.3 F) TempSrc: Temporal SpO2: 96% Weight: 120 kg (265 lb) Height: 1.575 m (5' 2) The patient presented with a chief complaint of 2 days of cough congestion earache sore throat. The differential diagnosis associated with this patient's presentation includes otitis media, physical exam consistent with strep pharyngitis, lungs are clear, check a chest x-ray to evaluate for pneumonia. Chest x-ray showed no signs of pneumonia. was negative so she was given Toradol and amoxicillin Diagnoses as of 10/20/241621 Non-recurrent acute suppurative otitis media of left ear without spontaneous rupture of tympanic membrane Diagnostic tests considered but not performed: External records reviewed: Diagnostics interpreted by me: Xray(s) no effusion pneumothorax or consolidation Discussions with other clinicians: Chronic conditions impacting care: Social determinants of health affecting care: ED Medications managed: Medications ketorolac (Toradol) injection 30 mg (30 mg IntraMUSCular Given 10/20/24 154) amoxicillin (Amoxil) capsule 1,000 mg (1,000 mg Oral Given 10/20/241541) CONSULTS: None PROCEDURES: Unless otherwise noted below, none Procedures Patients symptoms are consistent with sepsis, severe sepsis, or septic shock (If yes use .sepsiscoremeasure): FINAL IMPRESSION 1. Non-recurrent acute suppurative otitis media of left ear without spontaneous rupture of tympanic membrane DISPOSITION/PLAN dc PATIENT REFERRED TO: Gui Agudelo MD [address] [place] [address], [address] [place] [phone] Schedule an appointment as soon as possible for a visit DISCHARGE MEDICATIONS: Discharge Medication List as of 10/20/2024 3:20 PM START taking these medications Details amoxicillin (Amoxil) 500 MG capsule Take 2 capsules (1,000 mg) by mouth 2 times daily for 7 days., Starting Sat10/20/2024, Until Sat10/27/2024, Normal (Comment: Please note this report has been produced using speech recognition software and may contain errors related to that system including errors in grammar, punctuation, and spelling, as well as words and phrases that may be inappropriate. If there are any questions or concerns please feel free to contact the dictating provider for clarification.) Kyle Carr DO (electronically signed) Emergency Medicine Provider Kyle Carr DO 10/20/241621 [facility] 08-31-2024 Emergency department Note EMERGENCY DEPARTMENT ENCOUNTER Pt Name: Sabino Dewey Birthdate 2005 Date of evaluation: 08/31/2024 ED Provider: Ivan Blanc MD CHIEF COMPLAINT Chief Complaint Patient presents with Flu Symptoms Stated recently around someone with covid HISTORY OF PRESENT ILLNESS (Location/Symptom, Timing/Onset, Context/Setting, Quality, Duration, Modifying Factors, Severity) Note limiting factors. I wore appropriate PPE for the entirety of this encounter. HPI Sabino Dewey is a 19 y.o. female who presents to the emergency department with chief complaint of cough, congestion, fatigue, body aches, headache. States her boyfriend was diagnosed with COVID today and she believes she has COVID. Nursing Notes were reviewed. Limitations to history: None Outside historians: None REVIEW OF SYSTEMS Review of Systems: Pertinent positives as above per history of present illness. Other systems reviewed and found to be negative to a total of 10 systems reviewed. PAST MEDICAL HISTORY History reviewed. No pertinent past medical history. SURGICAL HISTORY History reviewed. No pertinent surgical history. CURRENT MEDICATIONS Previous Medications ARIPIPRAZOLE (ABILIFY) 20 MG TABLET Take 100 mg by mouth daily. BUSPIRONE (BUSPAR) 10 MG TABLET Take 10 mg by mouth 3 times daily. LAMOTRIGINE (LAMICTAL) 150 MG TABLET Take by mouth. PRAZOSIN (MINIPRESS) 5 MG CAPSULE Take 5 mg by mouth Nightly. ALLERGIES Patient has no known allergies. FAMILY HISTORY No family history on file. SOCIAL HISTORY Social History Socioeconomic History Marital status: Single Tobacco Use Smoking status: Every Day Current packs/day: 0.50 Types: Cigarettes Smokeless tobacco: Never Vaping Use Vaping status: Every Day Substance and Sexual Activity Alcohol use: Yes Comment: occasional Drug use: Yes Types: Marijuana SCREENINGS PHYSICAL EXAM ED Triage Vitals Temp Heart Rate Resp BP 08/31/24231808/31/24231808/31/24231808/31/24 2320 36.8 C (98.2 F) 82 17 113/75 SpO2 Temp Source Heart Rate Source Patient Position 08/31/24231808/31/24231808/31/24231808/31/242318 98 % Oral Monitor Sitting BP Location FiO2 (%) 08/31/249 -- Right arm Physical Exam: Vital signs reviewed in nurse's notes. Patient is nontoxic in appearance. No respiratory distress. Head: Normocephalic, atraumatic Eyes: Pupils are equal, round and reactive to light. EOMI. Conjunctiva clear. Sclera anicteric ENT: Mucous membranes moist. Throat shows no erythema exudates or edema. Neck: No anterior adenopathy. No tenderness or stiffness. Chest: Nontender. No obvious flail segments. Lungs: Clear to auscultation bilaterally. No wheezing rales or rhonchi. Heart: Regular rate and rhythm. No audible murmur or gallop. Abdomen: Soft, nondistended, nontender. No rebound or guarding. No signs of peritonitis. Back: No midline tenderness. No flank area tenderness. Extremities: No gross deformity. No obvious tenderness. No obvious joint swelling. No calf tenderness. Negative Homans sign. Good distal pulses in all 4 extremities. Neurologic: Alert and fully oriented. No focal motor, sensory deficits in all 4 extremities. DIAGNOSTIC RESULTS RADIOLOGY (Per Emergency Physician): Chest x-ray: No acute infiltrate. No effusion. Interpreted by this examiner. Interpretation per the Radiologist below, if available at the time of this note: XR chest 1 view Final Result 1. No evidence of an acute cardiopulmonary process. Report Dictated on Electronically Signed By: Rah Choi MD Electronically Signed Date/Time: 09/01/2024 12:05 AM EDT LABS: Labs Reviewed SARS-COV-2, FLU A/B, AND RSV COMBO - Normal Result Value SARS-CoV-2 Not Detected Respiratory Syncytial Virus Not Detected Influenza A Not Detected Influenza B Not Detected Narrative: Methodology: real-time, RT-PCR The SARS-CoV-2, Flu A/B, and RSV Combo assay is intended for in vitro diagnostic use under the FDA Emergency Use Authorization (EUA). This test has not been FDA cleared or approved. In compliance with this authorization, please visit www.fda.gov/media/766519/download or www.fda.gov/media/074180/download to access the applicable information sheets. Current COVID testing is negative.. EMERGENCY DEPARTMENT COURSE and DIFFERENTIAL DIAGNOSIS/MDM: Vitals: Vitals: 08/31/24 2319 08/31/24 2320 BP: 113/75 BP Location: Right arm Patient Position: Sitting Pulse: 82 Resp: 17 Temp: 36.8 C (98.2 F) TempSrc: Oral SpO2: 98% Weight: 120 kg (265 lb) Height: 1.575 m (5' 2) Although patient is had a COVID exposure, she currently has tested negative. She does not have pneumonia. She does have a respiratory infection symptoms most likely viral etiology. I do feel she can be followed up as an outpatient. Return if worse or new symptoms or problems. The patient presented with chief complaint of flu symptoms. The differential diagnosis associated with this patient's presentation includes COVID, influenza, URI, pneumonia. Our workup consisted of ordering/reviewing: Chest x-ray. To aid in management, I performed an independent interpretation of Xray(s) chest x-ray as above. The patient will be Discharged. Patient is in agreement with this plan. Medications acetaminophen (Tylenol) tablet 1,000 mg (1,000 mg Oral Given 08/31/24 2334) REVAL: PROCEDURES: Unless otherwise noted below, none Procedures Patients symptoms are consistent with sepsis, severe sepsis, or septic shock (If yes use .sepsiscoremeasure): no FINAL IMPRESSION 1. Viral upper respiratory tract infection DISPOSITION Discharge 09/01/2024 12:20:22 AM PATIENT REFERRED TO: [address] [facility] [address] DISCHARGE MEDICATIONS: New Prescriptions BENZONATATE (TESSALON) 200 MG CAPSULE Take 1 capsule (200 mg) by mouth 3 times daily as needed for cough for up to 7 days. Do not crush or chew. IBUPROFEN 800 MG TABLET Take 1 tablet (800 mg) by mouth 3 times daily for 7 days. (Comment: Please note this report has been produced using speech recognition software and may contain errors related to that system including errors in grammar, punctuation, and spelling, as well as words and phrases that may be inappropriate. If there are any questions or concerns please feel free to contact the dictating provider for clarification.) Ivan lBanc MD (electronically signed) Emergency Medicine Provider Ivan Blanc MD 09/01/24 0021 The patient ambulated to room 2. She is complaining of covid exposure with symptoms. She stated symptoms started on day prior. She stated she has not taken anything for pain the headache. documented in this encounter [facility] 08-31-2024 Emergency department Triage note The patient ambulated to room 2. She is complaining of covid exposure with symptoms. She stated symptoms started on day prior. She stated she has not taken anything for pain the headache. [facility] 08-31-2024 Physician Emergency department Note EMERGENCY DEPARTMENT ENCOUNTER Pt Name: Sabino Dewey Birthdate 2005 Date of evaluation: 08/31/2024 ED Provider: Ivan Blanc MD CHIEF COMPLAINT Chief Complaint Patient presents with Flu Symptoms Stated recently around someone with covid HISTORY OF PRESENT ILLNESS (Location/Symptom, Timing/Onset, Context/Setting, Quality, Duration, Modifying Factors, Severity) Note limiting factors. I wore appropriate PPE for the entirety of this encounter. HPI Sabino Dewey is a 19 y.o. female who presents to the emergency department with chief complaint of cough, congestion, fatigue, body aches, headache. States her boyfriend was diagnosed with COVID today and she believes she has COVID. Nursing Notes were reviewed. Limitations to history: None Outside historians: None REVIEW OF SYSTEMS Review of Systems: Pertinent positives as above per history of present illness. Other systems reviewed and found to be negative to a total of 10 systems reviewed. PAST MEDICAL HISTORY History reviewed. No pertinent past medical history. SURGICAL HISTORY History reviewed. No pertinent surgical history. CURRENT MEDICATIONS Previous Medications ARIPIPRAZOLE (ABILIFY) 20 MG TABLET Take 100 mg by mouth daily. BUSPIRONE (BUSPAR) 10 MG TABLET Take 10 mg by mouth 3 times daily. LAMOTRIGINE (LAMICTAL) 150 MG TABLET Take by mouth. PRAZOSIN (MINIPRESS) 5 MG CAPSULE Take 5 mg by mouth Nightly. ALLERGIES Patient has no known allergies. FAMILY HISTORY No family history on file. SOCIAL HISTORY Social History Socioeconomic History Marital status: Single Tobacco Use Smoking status: Every Day Current packs/day: 0.50 Types: Cigarettes Smokeless tobacco: Never Vaping Use Vaping status: Every Day Substance and Sexual Activity Alcohol use: Yes Comment: occasional Drug use: Yes Types: Marijuana SCREENINGS PHYSICAL EXAM ED Triage Vitals Temp Heart Rate Resp BP 08/31/24231808/31/24231808/31/24231808/31/24 2320 36.8 C (98.2 F) 82 17 113/75 SpO2 Temp Source Heart Rate Source Patient Position 08/31/24231808/31/24231808/31/24231808/31/242318 98 % Oral Monitor Sitting BP Location FiO2 (%) 08/31/242318 -- Right arm Physical Exam: Vital signs reviewed in nurse's notes. Patient is nontoxic in appearance. No respiratory distress. Head: Normocephalic, atraumatic Eyes: Pupils are equal, round and reactive to light. EOMI. Conjunctiva clear. Sclera anicteric ENT: Mucous membranes moist. Throat shows no erythema exudates or edema. Neck: No anterior adenopathy. No tenderness or stiffness. Chest: Nontender. No obvious flail segments. Lungs: Clear to auscultation bilaterally. No wheezing rales or rhonchi. Heart: Regular rate and rhythm. No audible murmur or gallop. Abdomen: Soft, nondistended, nontender. No rebound or guarding. No signs of peritonitis. Back: No midline tenderness. No flank area tenderness. Extremities: No gross deformity. No obvious tenderness. No obvious joint swelling. No calf tenderness. Negative Homans sign. Good distal pulses in all 4 extremities. Neurologic: Alert and fully oriented. No focal motor, sensory deficits in all 4 extremities. DIAGNOSTIC RESULTS RADIOLOGY (Per Emergency Physician): Chest x-ray: No acute infiltrate. No effusion. Interpreted by this examiner. Interpretation per the Radiologist below, if available at the time of this note: XR chest 1 view Final Result 1. No evidence of an acute cardiopulmonary process. Report Dictated on Electronically Signed By: Rah Choi MD Electronically Signed Date/Time: 09/01/2024 12:05 AM EDT LABS: Labs Reviewed SARS-COV-2, FLU A/B, AND RSV COMBO - Normal Result Value SARS-CoV-2 Not Detected Respiratory Syncytial Virus Not Detected Influenza A Not Detected Influenza B Not Detected Narrative: Methodology: real-time, RT-PCR The SARS-CoV-2, Flu A/B, and RSV Combo assay is intended for in vitro diagnostic use under the FDA Emergency Use Authorization (EUA). This test has not been FDA cleared or approved. In compliance with this authorization, please visit www.fda.gov/media/666164/download or www.fda.gov/media/150613/download to access the applicable information sheets. Current COVID testing is negative.. EMERGENCY DEPARTMENT COURSE and DIFFERENTIAL DIAGNOSIS/MDM: Vitals: Vitals: 08/31/24 2319 08/31/24 2320 BP: 113/75 BP Location: Right arm Patient Position: Sitting Pulse: 82 Resp: 17 Temp: 36.8 C (98.2 F) TempSrc: Oral SpO2: 98% Weight: 120 kg (265 lb) Height: 1.575 m (5' 2) Although patient is had a COVID exposure, she currently has tested negative. She does not have pneumonia. She does have a respiratory infection symptoms most likely viral etiology. I do feel she can be followed up as an outpatient. Return if worse or new symptoms or problems. The patient presented with chief complaint of flu symptoms. The differential diagnosis associated with this patient's presentation includes COVID, influenza, URI, pneumonia. Our workup consisted of ordering/reviewing: Chest x-ray. To aid in management, I performed an independent interpretation of Xray(s) chest x-ray as above. The patient will be Discharged. Patient is in agreement with this plan. Medications acetaminophen (Tylenol) tablet 1,000 mg (1,000 mg Oral Given 08/31/24 2334) REVAL: PROCEDURES: Unless otherwise noted below, none Procedures Patients symptoms are consistent with sepsis, severe sepsis, or septic shock (If yes use .sepsiscoremeasure): no FINAL IMPRESSION 1. Viral upper respiratory tract infection DISPOSITION Discharge 09/01/2024 12:20:22 AM PATIENT REFERRED TO: [facility] [address] [facility] [address] DISCHARGE MEDICATIONS: New Prescriptions BENZONATATE (TESSALON) 200 MG CAPSULE Take 1 capsule (200 mg) by mouth 3 times daily as needed for cough for up to 7 days. Do not crush or chew. IBUPROFEN 800 MG TABLET Take 1 tablet (800 mg) by mouth 3 times daily for 7 days. (Comment: Please note this report has been produced using speech recognition software and may contain errors related to that system including errors in grammar, punctuation, and spelling, as well as words and phrases that may be inappropriate. If there are any questions or concerns please feel free to contact the dictating provider for clarification.) Ivan Blanc MD (electronically signed) Emergency Medicine Provider Ivan Blanc MD 09/01/24 0021 [facility] 06-08-2024 Note . MICRO - Microbiology PROCEDURE: Urine Culture [O1 *1] SOURCE: Urine BODY SITE: COLLECTED DATE/TIME: 06/06/2024 12:07 EDT RECEIVED DATE/TIME: 06/06/2024 20:56 EDT START DATE/TIME: 06/06/2024 20:56 EDT FREE TEXT SOURCE: FINAL REPORTS Final Report [] Verified Date/Time/Personnel: 06/08/2024 07:48 EDT 50,000 - 100,000 cfu/ml Multiple bacterial morphotypes present. Probable Contamination. Suggest recollection if clinically indicated. PRELIMINARY REPORTS Preliminary Report [] Verified Date/Time/Personnel: 06/07/2024 10:25 EDT Culture results pending. Order Comments O1: Urine Culture Added by Discern Performing Locations *1: This test was performed at: [facility], [address] [place] [address], [id number] , [facility] ([place]) 06-03-2024 Evaluation + Plan note Diagnostic Tests PendingRapid Plasma Reagin Test 06/03/24SV IgM Ab, with HSV IgG1,2 Reflex 06/03/24 [facility] 02-08-2024 Note ORIGINAL EXAMINATION: TRANSVAGINAL PELVIC ULTRASOUND02/08/2024 9:47 am Ultrasound Pelvis: Transabdominal and transvaginal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 an alternate sectionGoals may be documented in an alternate sectionGoals may be documented in an alternate section No data available for this section No data available for this section Source Comments (unrecognize d section and content) In the event this informatio n is protected by the Federal Confidentiality of Alcohol and Drug Abuse Patient Records regulations: The Federal rules restrict any use of the information to criminally investigate or prosecute any alcohol or drug abuse patient.[facility] Hospital[facility] the event this information is protected by the Federal Confidentiality of Alcohol and Drug Abuse Patient Records regulations: The Federal rules restrict any use of the information to criminally investigate or prosecute any alcohol or drug abuse patient.[facility] HospitalIn the event this information is protected by the Federal Confidentiality of Alcohol and Drug Abuse Patient Records regulations: The Federal rules restrict any use of the information to criminally investigate or prosecute any alcohol or drug abuse patient.[facility] HospitalIn the event this information is protected by the Federal Confidentiality of Alcohol and Drug Abuse Patient Records regulations: The Federal rules restrict any use of the information to criminally investigate or prosecute any alcohol or drug abuse patient.[facility] HospitalIn the event this information is protected by the Federal Confidentiality of Alcohol and Drug Abuse Patient Records regulations: The Federal rules restrict any use of the information to criminally investigate or prosecute any alcohol or drug abuse patient.[facility] Reason for Visit (unrecogniz ed section and content) Reason Comments Rash Itchy rash--2 months right side jaw pain, bad tooth Reason Comments Headache Jaw pain, dizzy x 1 week Reason Comments UTI Pain with urination, discomfort x 10 days Reason Comments sucidial Depression Reason Comments Flu Symptoms Stated recently arou nd someone with covid Reason Comments Nasal Congestion Cough Reason Comments Vaginal Bleeding Bleeding from wound Wound Check Reason Comments Abdominal Pain Nausea Diarrhea Reason Comments Abdominal Pain Vomiting Diarrhea Reason Comments New Patient Annual exam Reason Comments Missed Appointment 05/07/2025 at 1:20 pm for establishing care and physical 1ST NO SHOW Care Teams (unrecognized sec tion and content) Bricklayer Relationship Specialty Start Date End Date Karly Cantu MD [address] [place], [place] [phone] PCP - General Pediatrics 09/20/19 Bricklayer Relationship Specialty Start Date End Date Karly Cantu MD [address], [place] [id number] PCP - General Pediatrics 09/20/19 Team Status: Active Member Role Status Dates Dr. Karly Cantu MD Family Provider Active No Primary Care Physician Primary Care Provider Active Team Status: Inactive Member Role Status Dates No Primary Care Physician Primary Care Provider Active Nolberto Mccormick MD Emergency Provider Active Team Status: Inactive Member Role Status Dates No Primary Care Physician Primary Care Provider Active Nolberto Mccormick MD Attending Provider, Emergency Provid er Active Team Status: Inactive Member Role Status Dates No Primary Care Physician Primary Care Provider Active Dr. Yolie Dewitt MD Emergency Provider Active Bricklayer Relationship Specialty Start Date End Date Karly Cantu MD [address] [place] [address] PCP - General Pediatrics 09/20/19 Bricklayer Relationship Specialty Start Date End Date Karly Cantu MD [address] [place] [id number] PCP - General Pediatrics 09/20/19 Team Status: Inactive Member Role Status Dates No Primary Care Physician Primary Care Provider Active Dr. Vanessa Maher DO Emergency Provider Active Bricklayer Relationship Specialty Start Date End Date [facility] [address] [place] [phone] PCP - General 03/15/25 Bricklayer Relationship Specialty Start Date End Date [facility] [address] [place] [phone] PCP - General 03/15/25 Scheduled Active and Recently Administ ered Medications (unrecognized section and content) Medication Order 08/30/2024 08/31/2024 09/01/2024 acetaminophen (Tylenol) tablet 1,000 mg (COMPLETED) 1,000 mg, Oral, Once, On Sat08/31/24 at 2330, For 1 dose, Maximum dose of acetaminophen is 4000 mg from all sources in 24 hours. 2334 (Given - Provider: Yolie Agosto RN) Scheduled Medication Order 10/18/2024 10/19/2024 10/20/2024 amoxicillin (Amoxil) capsule 1,000 mg (COMPLETED) 1,000 mg, Oral, Once, On Sat10/20/24 at 1520, For 1 dose, Suspected Indication (Select all that apply): Head and Neck Infection 1542 (Given - Provid er: Isadora Young RN) ketorolac (Toradol) injection 30 mg (COMPLETED) 30 mg, IntraMUSCular, Once, On Sat10/20/24 at 1520, For 1 dose 1542 (Given - Provid er: Isadora Young, DEJA) Scheduled Medication Order 02/08/2025 02/09/2025 02/10/2025 ketorolac (Toradol) injection 30 mg (COMPLETED) 30 mg, IntraVENous, Once, On Sat02/10/25 at 0025, For 1 dose 0052 (Given - Provid er: Shara Angulo) ondansetron (Zofran) injection 4 mg (COMPLETED) 4 mg, IntraVENous, Once, On Sat02/10/25 at 0025, For 1 dose 0053 (Given - Provid er: Shara Angulo) sodium chloride 0.9 % bolus 1,000 mL (COMPLETED) 1,000 mL, IntraVENous, at 1,000 mL/hr, Administer over 1 Hours, Once, On Sat02/10/25 at 0025, For 1 dose 0051 (New Bag - Prov ider: Shara Angulo)0151 (Stopped - Provider: Mira Wang RN) PRN Medication Order 02/08/2025 02/09/2025 02/10/2025 iopamidol (Isovue-370) 76 % injection 75 mL (COMPLETED) 75 mL, IntraVENous, IMG once PRN, contrast, Starting on Sat02/10/25 at 0216, For 1 dose 0216 (Given - Provid er: Yolette Larry, RT (R)([place])) Scheduled Medication Order 02/10/2025 02/11/2025 02/12/2025 dicyclomine (Bentyl) capsule 10 mg (COMPLETED) 10 mg, Oral, Once, On Sat02/12/25 at 0935, For 1 dose 0940 (Given - Provid er: Jennifer Gipson, DEJA) ondansetron (Zofran) injection 4 mg (COMPLETED) 4 mg, IntraVENous, Once, On Sat02/12/25 at 0935, For 1 dose 0940 (Given - Provid er: Jennifer Gipson RN) PRN Medication Order 02/10/2025 02/11/2025 02/12/2025 iopamidol (Isovue-370) 76 % injection 75 mL (COMPLETED) 75 mL, IntraVENous, IMG once PRN, contrast, Starting on Sat02/12/25 at 0948, For 1 dose 1003 (Given - Provid er: Kaylyn E Jose, RT (R)([place])) FOR RECORDS PERTAINING TO PATIENTS WHO ARE [...] BE BASED ON THE PRIMARY CLINICAL RECORDS. [employer] [facility]. provides no warranty or guarantee of the accuracy or completeness of information in this document.
--- NOTE | 2025-05-19 04:41 | ED.VIS.LOWEX ---
HPI History of Present Illness Chief Complaint: Lower Extremity Injury Informant: patient Narrative Narrative: Patient is 20-year-old female presenting with injury to her left ankle and foot. Patient was heading outside with her dog on the leash to go visit a friend. She inverted her ankle and slipped down the last 3 steps. She then fell to the ground. Had immediate pain and swelling to her ankle and foot. Sustained an abrasion to her tafoya on the left. Denies any other injuries. Does not report any head injury. Did not take any for pain prior to arrival. Came in for further evaluation. No she has been able to walk on it. Denies any associated numbness but is having a harder time moving her toes. Denies concern for and states had a negative test earlier today. [facility] Medical History Chronic pain Home Medications ?Medication ?Instructions ?Recorded ?Last Taken ?Type aripiprazole 5 mg tablet 5 mg PO DAILY 05/19/25 Unknown History buspirone 10 mg tablet 10 mg PO BID anxiety 05/19/25 Unknown History lamotrigine 150 mg tablet 150 mg PO QHS 05/19/25 Unknown History magnesium glycinate 200 mg PO QHS 05/19/25 Unknown History prazosin 1 mg capsule 1 - 2 mg PO QHS nightmares 05/19/25 Unknown History propranolol 10 mg tablet 10 mg PO DAILY PRN anxiety 05/19/25 Unknown History trazodone 50 mg tablet 25 - 100 mg PO QHS insomnia 05/19/25 Unknown History Allergy/AdvReac Type Severity Reaction Status Date / Time acetaminophen (From [place]) AdvReac Nausea/Vom/ Verified 05/19/25 03:07 Diarrhea hydrocodone (From [place]) AdvReac Nausea/Vom/ Verified 05/19/25 03:07 Diarrhea Social History Smoking Status: Current every day smoker tobacco type: cigarettes alcohol intake: current substance use type: marijuana ROS ROS ED Constitutional Constitutional ED: Denies chills or fever(s) Musculoskeletal Musculoskeletal: Reports other Details: Left ankle and foot pain Integumentary Reports Abrasions Neurologic Neurologic: Denies paresthesias or weakness Hematologic/Lymphatic Hematologic/Lymphatic: Denies easy bleeding or easy bruising EXAM Physical Exam Const Vital Signs: 05/19/25 03:04 Temperature 98.5 F Temperature Source Oral Pulse Rate 77 Respiratory Rate 16 Blood Pressure 127/79 H Blood Pressure Mean 95 Pulse Ox 100 Oxygen Delivery Method Room Air Positive well nourished and well developed General Appearance ED: well developed and NAD Resp normal respiratory effort Cardio regular rate and regular rhythm Cardio Narrative: 2+ DP pulses present Extremity Extremity Narrative: Soft tissue swelling noted to the left foot. Other superficial abrasion to the anterior mid tafoya no active bleeding. No tenderness over the fibular head. Normal range of motion of the knee. Preserve range of motion of the ankle with mild diffuse tenderness. Normal Gusman test. Tenderness to palpation over the midfoot most pronounced on the medial aspect. No obvious deformity present. Normal range of motion of the toes with no obvious deformity. Some increased tenderness to the left fourth toe present. Neuro oriented x3, moves all extremities and no sensory deficits noted Sensorium / Orientation: alert Motor Exam: Negative for general weakness Psych mental status grossly normal Skin Skin Narrative: Superficial abrasion approximately 2 cm to the left anterior tafoya MDM MDM MDM Narrative Medical decision making narrative: Patient valuated for left foot and ankle injury after fall. Differential includes sprain, fracture and dislocation. Normal Gusman test low suspicion for Achilles tendon injury. X-ray of the foot and ankle reviewed by myself as well as urology. No acute fractures noted. There is soft tissue edema and swelling of the foot. Patient is given an air stirrup. Does not feel that she needs crutches. Is given Motrin in the emergency room. Counseled on alternating NSAIDs with Tylenol as well as RICE therapy. Given return precautions. Given outpatient podiatry follow-up as needed. Radiography Diagnostic Testing: Clinical Impression(s) from Imaging Studies Foot X-Ray 05/19/25 03:44 IMPRESSION: Soft tissue edema and swelling. [id number] 05/19/25 04:05 IMPRESSION: No evidence for acute abnormality. [facility] Triage Chief Complaint: Lower Extremity Injury ED Provider: Vanessa Maher Dx/Rx/DC Orders Clinical Impression: Strain of foot, left, Left ankle sprain, Abrasion of anterior lower leg Instructions: ED Sprain Ankle W X Ray, ED Foot Contusion Prescriptions: No Action lamotrigine 150 mg tablet 150 mg PO QHS prazosin 1 mg capsule 1 - 2 mg PO QHS propranolol 10 mg tablet 10 mg PO DAILY PRN (Reason: anxiety) buspirone 10 mg tablet 10 mg PO BID aripiprazole 5 mg tablet 5 mg PO DAILY magnesium glycinate 100 mg magnesium capsule 200 mg PO QHS trazodone 50 mg tablet 25 - 100 mg PO QHS Primary Care Provider: Care Physician,No Primary Referrals: Rah Clemons DPM [Med Staff - Active Staff] - Care Physician,No Primary [Primary Care Provider] - Activity Restrictions/Additional Instructions: You can continue to walk on your foot as tolerated. I would try to ice and elevate is much as possible. Follow with podiatry if you continue to have pain or you not feel acute healing appropriately. Alternate ibuprofen and Tylenol for pain. Print Language: Sinhala Disposition Disposition: Home, Self Care
[2025-05-19 04:49] VITALS: BP 125/82; PULSE 82; RESP 18; TEMP 36.8; O2SAT 99
== END 2025-05-19 05:01 | disposition home or self-care (01) ==
PROVIDERS: Emergency Provider Emergency Medicine; Visit Provider Emergency Medicine
DX: S96.912A Strain of unspecified muscle and tendon at ankle and foot level, left foot, initial encounter (principal); S93.402A Sprain of unspecified ligament of left ankle, initial encounter; S80.812A Abrasion, left lower leg, initial encounter; W10.9XXA Fall (on) (from) unspecified stairs and steps, initial encounter; F17.210 Nicotine dependence, cigarettes, uncomplicated
CPT/HCPCS: 73610; 73630; 99283